=== PATIENT | female | born 1935 | race Caucasian/White ===

== ENCOUNTER 2019-10-10 22:43 | Emergency (ER) | payer MEDICARE, OTHER ==
[~2019-10-10] VITALS: Ht 152.4 cm; Wt 62.6 kg
--- OUTSIDE RECORDS SUMMARY | ~2019-10-10 | XMS | Encounter Summary ---
Demographics + + + | Address | [address] | | | [place] [address] | + + + | Home Phone | | + + + | Preferred Language | Unknown | + + + | Marital Status | | + + + | Mandaen Affiliation | Unknown | + + + | Race | White | + + + | Ethnic Group | Not or | + + + Author + + + | Author | [facility] | + + + | Organization | [facility] | + + + | Address | Unknown | + + + | Phone | Unavailable | + + + Support + + +---------+ + | Name | Relationship | Address | Phone | + + +---------+ + | Bev Anderson | ECON | Unknown | | + + +---------+ + Care Team Providers + +------+ + | Care Melting Operator Name | Role | Phone | + +------+ + | Corey Darling MD | PCP | | + +------+ + Encounter Details +--------+ + + + + | Date | Type | Department | Care Team | Description | +--------+ + + + + | 07/19/ | Abstract | Cardiology | Kwadwo Pillai, | | | 2015 | | Arrhythmia at [facility] | [address] | | | | | [address] | [address] | | | | | Mailcode: CH7A | [place], [place] | | | | | [facility] | [address] | | | | | and [address], | [phone] | | | | | | | | | | | Floor [place], [place] | | | | | | [address] | | | | | | [phone] | | | +--------+ + + + [...] on file | | + + + + + + + | Job Start Date | Occupation | Industry | + + + + | Not on file | Not on file | Not on file | + + + + + + + + | Travel History | Travel Start | Travel End | + + + + + + | No recent travel history available. | + + documented as of this encounter Plan of Treatment Not on filedocumented as of this encounter Visit Diagnoses Not on filedocumented in this encounter"
--- OUTSIDE RECORDS SUMMARY | ~2019-10-10 | XMS | Encounter Summary ---
Demographics + + + | Address | [address] | | | [place] [address] | + + + | Home Phone | | + + + | Preferred Language | Unknown | + + + | Marital Status | | + + + | Congregational Affiliation | Unknown | + + + | Race | White | + + + | Ethnic Group | Not or | + + + Author + + + | Author | [facility] | + + + | Organization | [facility] | + + + | Address | Unknown | + + + | Phone | Unavailable | + + + Support + + +---------+ + | Name | Relationship | Address | Phone | + + +---------+ + | Bev Anderson | ECON | Unknown | | + + +---------+ + Care Team Providers + +------+ + | Care Mastic Sprayer Name | Role | Phone | + +------+ + | Corey Darling MD | PCP | | + +------+ + Reason for Visit + + + | Reason | Comments | + + + | SVT - | | | Supraventricular | | | tachycardia | | + + + Consultation (Routine) +--------+--------+ + + + + | Status | Reason | Specialty | Diagnoses / | Referred By | Referred To | | | | | Procedures | Contact | Contact | +--------+--------+ + + + + | Closed | | Cardiology | Procedures | No | Rosas, | | | | | CONSULT TO | Referring | MD Kwadwo | | | | | CARDIOLOGY | Provider Per | [address] | | | | | | Patient NO | [address] | | | | | | REFERRING | [address] [place], | | | | | | PROVIDER PER | [place] | | | | | | [place] | [address] | | | | | | | Phone: | | | | | | | [phone] | | | | | | | Fax: | | | | | | | [phone] | +--------+--------+ + + + + Encounter Details +--------+---------+ + + + | Date | Type | Department | Care Team | Description | +--------+---------+ + + + | 07/18/ | Office | Cardiology | Kwadwo Pillai, | TAMMIET | | 2016 | Visit | Arrhythmia at [facility] | [address] | (supraventricular | | | | [address] | [address] | tachycardia) (HCC) | | | | Mailcode: [facility] | [place], [place] | (Primary Dx) | | | | [place] for [facility] | [address] | | | | | and Healing, | [phone] | | | | | | | | | | | Floor | | | | | | [address] | | | | | | [phone] | | | +--------+---------+ + + + Social History + + [...] + + documented as of this encounter Last Filed Vital Signs + + + + + | Vital Sign | Reading | Time Taken | Comments | + + + + + | Blood Pressure | 128/74 | 07/19/2015 11:44 AM | | | | | PDT | | + + + + + | Pulse | 77 | 07/19/2015 11:44 AM | | | | | PDT | | + + + + + | Temperature | 36.7 C (98.1 F) | 07/19/2015 11:44 AM | | | | | PDT | | + + + + + | Respiratory Rate | - | - | | + + + + + | Oxygen Saturation | 95% | 07/19/2015 11:44 AM | | | | | PDT | | + + + + + | Inhaled Oxygen | - | - | | | Concentration | | | | + + + + + | Weight | 76.2 kg (168 lb) | 07/19/2015 11:44 AM | | | | | PDT | | + + + + + | Height | 152.4 cm (5') | 07/19/2015 11:44 AM | | | | | PDT | | + + + + + | Body Mass Index | 32.81 | 07/19/2015 11:44 AM | | | | | PDT | | + + + + + documented in this encounter Patient Instructions Patient Instructions Kwadwo Pillai MD - 07/19/2015 12:30 PM PDTThank you for visiting [facility] today. Call our office if you would like to consider a repeat ablation procedure. We will not schedule regular follow up at this time; please call our office to schedule fol low up if you experience worsening of your palpitation symptoms. If you have any questions regarding this visit or your heart health, please call us at [phone] or contact us via [employer]. documented in this encounter Progress Notes Kwadwo Pillai MD - 07/19/2015 11:45 AM PDTFormatting of this note might be different fro m the original. Cardiac Electrophysiology Clinic - New Patient Assessment Ms. Thomas is a 80 y.o. woman with a history of palpitations, COPD, and HTN who now presents to Electrophysiology Clinic for further treatment recommendations. The patient first experienced palpitations in the 1960s. Since this period, she has had 5- 6 total episodes of sustained palpitations. She has been able to terminate her rhythm with valsalva manuvers. [facility]. There was no evidence of du al AV node physiology or an AP. No arrhythmia was inducible and no ablation was performed. The patient recently presented to [facility] 07/07/2015 with symptomatic SVT at 140 -160 bpm. This rhythm was terminated in the ED with adenosine. She was started on metoprol ol and discharged. She unfortunately re-presented to care 24 hours later with recurrent SVT that was again terminated with adenosine. Metoprolol was discontinued and she was subseque ntly started on diltiazem. Since starting the diltiazem she has had one recurrent episode of SVT that self terminated before seeking ED evaluation. When she is in tachycardia she experiences significant neck p ounding. No associated syncope or presyncope. No clear triggers. Many episodes have occurre d at rest. No familial history of sudden cardiac . The patient is a former smoker; she stopped smoking in 1980. Past Medical History Diagnosis Date COPD (chronic obstructive pulmonary disease) (HCC) SVT (supraventricular tachycardia) History reviewed. No pertinent past surgical history. Allergies Allergen Reactions Penicillin Unknown Outpatient Prescriptions Marked as Taking for the 07/19/15 encounter (Office Visit) with Js Pillai MD Medication Sig Dispense Refill acetaminophen-codeine 300-30 mg oral tablet 0 ADVAIR DISKUS 250-50 mcg/dose inhalation blister with device aspirin chewable 81 mg oral tablet,chewable Chew and swallow 81 mg once daily. COMBIVENT RESPIMAT 20-100 mcg/actuation inhalation mist 99 diltiazem CD 24 hour release 180 mg oral capsule,extended release 24hr 0 omeprazole 20 mg oral capsule,delayed release(DR/EC) Take 20 mg by mouth two times parminder y. potassium chloride SR 10 mEq oral tablet,ER particles/crystals 3 sucralfate 1 gram oral tablet 11 trimethoprim-sulfamethoxazole 160-800 mg oral tablet 0 Family History: No family history of SVT. No SCD. Mother with rheumatic heart disease. Bro ther at age 49 secondary to multiple heart attacks. History Substance Use Topics Smoking status: Former Smoker Types: Cigarettes Quit date: 12/06/1980 Smokeless tobacco: Not on file Alcohol Use: Not on file REVIEW OF SYSTEMS: General: No weight changes, fevers, or chills. Skin: No rashes Eyes: No visual changes. CV: Palpitations as above. GI: No melena, bright red blood per rectum, or abdominal pain. : No hematuria. Pulmonary: + COPD on inhaler therapy. Musculoskeletal: No myalgias or arthralgias. Hematologic: No easy bruising or abnormal bleeding. Neurologic: No new headaches, focal weakness, numbness, or tingling. All other systems reviewed and were negative. Physical exam: BP 128/74 | Pulse 77 | Temp (Src) 36.7 C (98.1 F) (Oral) | Ht 1.524 m (5') | Wt 76.204 kg (168 lb) | SpO2 95% | BMI 32.81 kg/(m^2) CONSTITUTIONAL: NAD, conversant and pleasant. HEAD: Normocephalic. EYES: Normal conjunctivae. RESPIRATORY: Clear to auscultation bilaterally with no crackles or wheezes, normal respirat ory effort. CARDIOVASCULAR: Regular rhythm; normal heart sounds with physiologically split S2; no murmu rs, rubs, or gallops. JVP 7 cmH2O. Carotid pulse is 2+, no bruits. ABDOMEN: Soft, non-tender. EXTREMITIES: No edema. SKIN: Warm, well-perfused. NEUROLOGIC: Alert and oriented to person, place, and situation. PSYCHIATRIC: Normal speech and affect. Data: ECG (07/19/2015): Sinus at 75 bpm. Cannot exclude anteroseptal infarct, age indeterminate. Borderline LAD. I have independently reviewed and interpreted this ECG. I reviewed the following outside records, summarized below: Labs (07/09/2015) WBC 15.7 Hct 47.2 Plt 247 INR 0.9 Na 139 K 4.0 Cr 1.07 ECG (07/07/2015): SVT at 147 bpm, no discernable P waves, pseudo R' in V1 with subtle negativ e deflection in the terminal portion of II. TTE (06/2015): EF 70%, moderate LAE, sclerotic AoV, PASP 32-37 mmHg. MPS (06/2014): No evidence of ischemia. Assessment and Plan: 80 y.o. woman with a history of recurrent SVT who now presents for further evaluation. 1. SVT: The patient has symptomatic, recurrent SVT refractory to pharmacologic therapy. 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 She has not ably had a prior EPS that was without inducible tachycardia. Interestingly, dual AV node ph ysiology was also not observed. We discussed treatment options moving forward, including CC B uptitration, AAD therapy, or redo EPS +/- catheter ablation. We reviewed the risks and be nefits of antiarrhythmic drug therapy, including the potential for pro-arrhythmic side effec ts. She understands the periprocedural risks of ablation including a 1% risk of heart block requiring a pacemaker, stroke, cardiac perforation, or vascular injury. We discussed both r ight and left left sided procedures and the need for transseptal puncture in the unlikely ev ent she was found to have a left sided accessory pathway or atrial tachycardia. Finally, we also discussed empiric ablation in the region of the slow pathway if tachycardia was again non-inducible during EPS (the patient would favor such an approach). After a prolonged discussion, Arianne would like further consider ablation. Her prior EPS was not a pleasant event and she wants to talk further about a redo procedure with her . For now she will continue her CCB, although uptitration of this medication could be conside red in the future if ablation is not pursued. The patient was provided with our phone number and will call our office if she would like t o pursue EPS +/- catheter ablation. RTC PRN. Follow up to be determined pending the decision to pursue ablative therapy. Kwadwo Pillai MD Cardiac Electrophysiology documented in this en counter Plan of Treatment Not on filedocumented as of this encounter Visit Diagnoses + + | Diagnosis | + + | SVT (supraventricular tachycardia) (HCC) - Primary Other specified cardiac | | dysrhythmias | + + documented in this encounter"
--- OUTSIDE RECORDS SUMMARY | ~2019-10-10 | XMS | Clinical Summary ---
Demographics + + + | Address | [address] | | | [place] [address] | + + + | Home Phone | | + + + | Preferred Language | Unknown | + + + | Marital Status | | + + + | Anabaptist Affiliation | Unknown | + + + | Race | White | + + + | Ethnic Group | Not or | + + + Author + + + | Author | [facility] | + + + | Organization | [facility] | + + + | Address | Unknown | + + + | Phone | Unavailable | + + + Support + + +---------+ + | Name | Relationship | Address | Phone | + + +---------+ + | Bev Anderson | ECON | Unknown | | + + +---------+ + Care Team Providers + +------+ + | Care Recycling Manager Name | Role | Phone | + +------+ + | Corey Darling MD | PCP | | + +------+ + Source Comments BERNARD is fully live on both [facility] and [facility] Allergies + + + + + + | Active Allergy | Reactions | Severity | Noted | Comments | | | | | Date | | + + + + + + | Penicillin | Unknown | | 07/19/19 | | | | | | 16 | | + + + + + + Medications + + + +---------+------+------+-------+ | Medication | Sig | Dispensed | Refills | Star | End | Statu | | | | | | t | Date | s | | | | | | Date | | | + + + +---------+------+------+-------+ | omeprazole 20 mg | Take 20 mg by mouth | | 0 | 04/1 | | Activ | | oral capsule,delayed | two times daily. | | | 1/20 | | e | | release(DR/EC) | | | | 16 | | | + + + +---------+------+------+-------+ | furosemide 20 mg | Take 20 mg by mouth. | | 0 | 03/3 | | Activ | | oral tablet | | | | 1/20 | | e | | | | | | 16 | | | + + + +---------+------+------+-------+ | | | | 0 | 03/1 | | Activ | | acetaminophen-codein | | | | 5/20 | | e | | e 300-30 mg oral | | | | 16 | | | | tablet | | | | | | | + + + +---------+------+------+-------+ | potassium chloride | | | 3 | 03/2 | | Activ | | SR 10 mEq oral | | | | 7/20 | | e | | tablet,ER | | | | 16 | | | | particles/crystals | | | | | | | + + + +---------+------+------+-------+ | COMBIVENT RESPIMAT | | | 99 | 04/0 | | Activ | | 20-100 | | | | 8/20 | | e | | mcg/actuation | | | | 16 | | | | inhalation mist | | | | | | | + + + +---------+------+------+-------+ | sucralfate 1 gram | | | 11 | 04/0 | | Activ | | oral tablet | | | | 9/20 | | e | | | | | | 16 | | | + + + +---------+------+------+-------+ | ADVAIR DISKUS | | | 0 | 04/1 | | Activ | | 250-50 mcg/dose | | | | 2/20 | | e | | inhalation blister | | | | 16 | | | | with device | | | | | | | + + + +---------+------+------+-------+ | | | | 0 | 02/1 | | Activ | | trimethoprim-sulfame | | | | 20 | | e | | thoxazole 160-800 mg | | | | 16 | | | | oral tablet | | | | | | | + + + +---------+------+------+-------+ | aspirin chewable | Chew and swallow 81 | | 0 | | | Activ | | 81 mg oral | mg once daily. | | | | | e | | tablet,chewable | | | | | | | + + + +---------+------+------+-------+ | DILT-XR 240 mg | Take 240 mg by mouth | | 99 | 04/2 | | Activ | | oral capsule,ext | once daily. | | | /20 | | e | | release degradable | | | | 16 | | | + + + +---------+------+------+-------+ Active Problems Not on file Family History + + +------+ + | Medical History | Relation | Name | Comments | + + +------+ + | Coronary Artery | Brother | | | | Disease | | | | + + +------+ + + +------+ + + | Relation | Name | Status | Comments | + +------+ + + | Brother | | | | + +------+ + + Social History + + + [...] recent travel history available. | + + Last Filed Vital Signs + + + [...] | | + + + + + Plan of Treatment + + + + + | Health Maintenance | Due Date | Last Done | Comments | + + + + + | Pneumococcal | | | | | vaccination (1 of 2 | 3 | | | | - PCV13) | | | | + + + + + | Influenza (Flu) | | | | | vaccination (#1) | 9 | | | + + + + + Results Not on filefrom Last 3 Months"
--- OUTSIDE RECORDS SUMMARY | ~2019-10-10 | XMS | Encounter Summary ---
Demographics + + + | Address | [address] | | | [place] [address] | + + + | Home Phone | | + + + | Preferred Language | Unknown | + + + | Marital Status | | + + + | Temple Affiliation | Unknown | + + + | Race | White | + + + | Ethnic Group | Not or | + + + Author + + + | Author | [facility] | + + + | Organization | [facility] | + + + | Address | Unknown | + + + | Phone | Unavailable | + + + Support + + +---------+ + | Name | Relationship | Address | Phone | + + +---------+ + | Bev Anderson | ECON | Unknown | | + + +---------+ + Care Team Providers + +------+ + | Care Leather Goods Assembler Name | Role | Phone | + +------+ + | Corey Darling MD | PCP | | + +------+ + Encounter Details +--------+ + + + + | Date | Type | Department | Care Team | Description | +--------+ + + + + | 07/18/ | Full Stack Developer | Cardiology | Kwadwo Holly, | Palpitations | | 2016 | | Arrhythmia at [facility] | [address] | (Primary Dx) | | | | [address] | [address] | | | | | Mailcode: CH7A | [place], [place] | | | | | [facility] | [address] | | | | | and [address], | [phone] | | | | | | | | | | | Floor [place], [place] | | | | | | [address] | | | | | | [phone] | | | +--------+ + + + [...] + + + + + + | [facility] | [address] | [facility] [...] | + + + + + | [facility] | [address] | [place], [place] | | | CARDIOLOGY | [address] | [address] | | + + + + + documented in this encounter Visit Diagnoses + + | Diagnosis | + + | Palpitations - Primary | + + documented in this encounter"
--- OUTSIDE RECORDS SUMMARY | ~2019-10-10 | XMS | Encounter Summary ---
Demographics + + + | Address | [address] | | | [place] [address] | + + + | Home Phone | | + + + | Preferred Language | Unknown | + + + | Marital Status | | + + + | Bahai Affiliation | Unknown | + + + | Race | White | + + + | Ethnic Group | Not or | + + + Author + + + | Author | [facility] | + + + | Organization | [facility] | + + + | Address | Unknown | + + + | Phone | Unavailable | + + + Support + + +---------+ + | Name | Relationship | Address | Phone | + + +---------+ + | Bev Anderson | ECON | Unknown | | + + +---------+ + Care Team Providers + +------+ + | Care Rn Trauma Name | Role | Phone | + +------+ + | Corey Darling MD | PCP | | + +------+ + Encounter Details +--------+ + + + + | Date | Type | Department | Care Team | Description | +--------+ + + + + | 07/19/ | Abstract | Cardiology | Kwadwo Pillai, | | | 2015 | | Arrhythmia at [facility] | [address] | | | | | [address] | [address] | | | | | Mailcode: CH7A | [place], [place] | | | | | [facility] | [address] | | | | | and [address], | [phone] | | | | | | | | | | | Floor [place], [place] | | | | | | [address] | | | | | | [phone] | | | +--------+ + + + [...]
--- OUTSIDE RECORDS SUMMARY | ~2019-10-10 | XMS | Encounter Summary ---
Demographics + + + | Address | [address] | | | [place] [address] | + + + | Home Phone | | + + + | Preferred Language | Unknown | + + + | Marital Status | | + + + | Anglican Affiliation | 1001 | + + + | Race | Unknown | + + + | Ethnic Group | Unknown | + + + Author + + + | Author | [facility] | | | and [place] | + + + | Organization | [facility] | | | [...] Providers + +------+ + | Care Community Education Specialist Name | Role | Phone | + +------+ + PCP | Unavailable | + +------+ + Encounter Details +--------+ + + + + | Date | Type | Department | Care Team | Description | +--------+ + + + + | 06/09/ | Hospital | [facility] | Duncan Putnam | Chest pain; SVT | | 2013 - | Encounter | [facility] | MD Terri [address] | (supraventricular | | | | CLINICAL DECISION | [address] | tachycardia); Chest | | 06/11/ | | [address] | [place] [address] | pain, rule out acute | | 2013 | | [place], [place] | [phone] | myocardial | | | | [address] | | infarction; Chest | | | | [phone] | | pain, unspecified; | | | | | | COPD (chronic | | | | | | obstructive | | | | | | pulmonary disease) | | | | | | (HCC); HTN | | | | | | (hypertension) | +--------+ + + + + Social [...] documented as of this encounter Discharge Summaries Adriel Howe MD - 06/11/2013 10:31 AM PST Discharge Summaries by Adriel Green MD at 06/11/13 1031 Author: Adriel Green MD Service: (none) Author Type: Physician Filed: 06/12/132005 Date of Service: 06/11/13 1031 Status: Signed [employer] Installer: Adriel Green MD (Physician) Related Notes: Original Note by Adriel Green MD (Physician) filed at 06/11/[address] [facility] Service: Hospitalist Physician Discharge Summary Patient ID: Chrissy Solomon 1935 77 y.o. Admit date: 06/09/2013 Discharge date: 06/11/2013 Admitting Physician: Duncan Putnam MD Discharge Physician: Adriel Green MD Consultants: Treatment Team: Consulting Physician: Grover Rivera MD Admitting Provider: Duncan Putnam MD Primary Discharge Diagnoses: Principal Problem: *Chest pain, unspecified Active Problems: SVT (supraventricular tachycardia) COPD (chronic obstructive pulmonary disease) HTN (hypertension) HPI and Hospital Course: The patient was admitted to [facility] as a transfer via air ambulance from [facility] in [place]. The patient was noted to have chest pain in associat ion with PSVT. She required recurrent doses of adenosine to control her rate prior to transf er. She was started on low dose metoprolol and she remained in normal sinus rhythm. Her digo mary ann was discontinued (the patient was on digoxin for a number of years prior). She ruled out for acute myocardial injury (she had small "bump" of her troponin right after her transfer which most likely represented a troponin-I leak in view of previously sustained tachycardia) . Subsequent troponin were negative. The patient underwent echocardiogram with results noted below. She also had nuclear medicine myocardial perfusion stress test, i.e., pharmacologica l stress test, on June 10, 2013. The result of it is noted below and essentially was normal. The patient had no further episodes of cardiac-related chest pains. She was seen in consultation by Dr. Rivera who recommended for the patient to be further ev aluated by Dr. Adler, electrophysiology specialist at [facility]. I spoke wi th Dr. Adler today on June 11, 2013, and he agreed to evaluate Ms. Solomon on the outpatient basis in the near future. With respect to the patient's COPD/reactive airway disease, the patient had no significant reactive airway problems following introduction of low dose of metoprolol. I do not expect f or low dose metoprolol to elicit any reactive airway reaction in this patient. Her regimen o f inhalers/nebulizers was augmented by addition of Advair as well as exchange of albuterol n ebulizer for levalbuterol (Xopenex) to be used on p.r.n. basis. The patient reported that wi th albuterol nebulizer in the past she was experiencing severe tremors and anxiety. I will recommend for the patient to be also referred to a pulmonology specialist so that he r COPD/reactive airway disease issues be treated with optimal therapy. The patient will also likely benefit from PFTs as well. Overall, the patient has been declared medically stable for discharge in the morning of Jun. We also took the liberty of discontinuing the patient's theophylline, as it is a medicatio n that might not have a significant efficacy in the patient's underlying COPD/reactive airwa y disease, as shown by a number of studies. In fact, it could also have a negative side effe ct on the patient's cardiac function including intermittent tachycardia/arrhythmias. This is particularly true in the situation where her pulmonary medication list was not optimized at this point. I hope that with addition of Advair, the patient's lung function will experienc e additional benefit. Past Medical History: Past Medical History Diagnosis Date COPD (chronic obstructive pulmonary disease) SVT (supraventricular tachycardia) TIA (transient ischemic attack) Vertigo Osteoporosis Chronic pain Cholecystitis On home oxygen therapy Gastric ulcer Past Surgical History Procedure Date Hysterectomy Appendectomy Abdominal surgery Discharged Condition: Stable for discharge as stated above. Significant Diagnostic Studies: Nm Myocardial Perfusion Spect (stress And Rest) 06/10/2013 CHRISSY SOLOMON 1935 NM MYOCARDIAL PERFUSION SPECT - STRESS AND REST 06/10/2013 4:0 6 PM INDICATION: Chest pain COMPARISON: None. TECHNIQUE: A same day, rest and stress prot ocol was performed. For the resting portion of the study the patient was injected intraveno usly with 10 mCi of technetium 99m labeled Myoview. Gated SPECT imaging was performed in th e supine position. The patient was then pharmacologically stressed with 0.4 mg of regadenos on intravenously according to protocol. Resting heart rate perfecto from 69 beats/min to 88 amarilys ts/min which was 60% of the maximum age-predicted heart rate. At the point of maximum stres s, the patient received 40.8 mCi of technetium 99m labeled Myoview intravenously. Gated SPE CT images were acquired in the prone and supine positions. FINDINGS: There is a small area of fixed perfusion defect involving the apex which may reflect physiologic thinning. There i s no elevation of the transient ischemic dilatation ratio. Normal wall motion and thickening is present. The following functional data was obtained: End-diastolic volume: 73 mL End-sy stolic volume: 32 mL Ejection fraction: 56% 06/10/2013 1. Normal myocardial perfusion study. 2. No evidence of pharmacologic stress in duced ischemia or infarct. 3. Left ventricular ejection fraction is calculated at 56%. Ladonna ctronically signed by Theodore Nova MD on 06/10/2013 4:13 PM Echo Cardiac Adult Complete 06/10/2013 Patient Name: CHRISSY SOLOMON Date of : 1935 [facility] Physician: Zbigniew Rivera MD INDICATIONS SHORTNESS OF BREATH HX COPD CONCLUSIONS 1. Sinus rhythm. 2. A 2-dimensional transthoracic echocardiogram with m-mode, spectral and col or flow Doppler was perfomed. 3. This was a technically adequate study with suboptimal enoch ternal views. 4. Overall left ventricular systolic function is normal with, an EF between 65 - 70 %. 5. The left ventricle cavity size is normal. 6. Left ventricular wall thickness is normal. 7. The right ventricle is normal in size and function. 8. The left atrium is normal in size. 9. The right atrium is normal in size. 10. Aortic valve is trileaflet and is mildl y thickened. 11. There is no evidence of aortic regurgitation. 12. There is no evidence of a ortic stenosis. 13. Mild mitral regurgitation is present. 14. Mild mitral annular calcificat ion present. 15. The tricuspid valve appears structurally normal. 16. Mild tricuspid regurgi tation present. 17. There is mild to moderate pulmonary hypertension. 18. The right ventricu lar systolic pressure (pulmonary artery systolic pressure), as measured by Doppler, is 46.10 mmHg. 19. Pulmonic valve appears structurally normal. 20. Trace pulmonic regurgitation 21. T here is no pericardial effusion. 22. The IVC is normal size (1.5-2.5cm) and collapses <50% w ith sniff, consistent with central venous pressures of 10-15mmHg. FINDINGS -------- ECG rhy thm: Sinus rhythm. Study: A 2-dimensional transthoracic echocardiogram with m-mode, spectral and color flow Doppler was perfomed. Study: This was a technically adequate study with sub optimal parasternal views. Left Ventricle: Overall left ventricular systolic function is nor mal with, an EF between 65 - 70 %. Left Ventricle: The left ventricle cavity size is normal . Left Ventricle: Left ventricular wall thickness is normal. Right Ventricle: The right effie tricle is normal in size and function. Left Atrium: The left atrium is normal in size. Right Atrium: The right atrium is normal in size. Aortic Valve: Aortic valve is trileaflet and i s mildly thickened. Aortic Valve: There is no evidence of aortic regurgitation. Aortic Sulema ve: There is no evidence of aortic stenosis. Mitral Valve: Mild mitral regurgitation is pres ent. Mitral Valve: Mild mitral annular calcification present. Tricuspid Valve: The tricuspi d valve appears structurally normal. Tricuspid Valve: Mild tricuspid regurgitation present. Tricuspid Valve: There is mild to moderate pulmonary hypertension. Tricuspid Valve: The r ight ventricular systolic pressure (pulmonary artery systolic pressure), as measured by Dopp ler, is 46.10mmHg. Pulmonic Valve: Pulmonic valve appears structurally normal. Pulmonic Suleam ve: Trace pulmonic regurgitation. Pericardium: There is no pericardial effusion. IVC/Hepati c Veins: The IVC is normal size (1.5-2.5cm) and collapses <50% with sniff, consistent with c entral venous pressures of 10-15mmHg. Thrombus: No clot visualized MEASUREMENTS -- IVC: 2.30 cm LA Major: 4.24 cm EDV(Teich): 81.86 ml IVSd: 1.10 cm LVIDd: 4.27 c m LVPWd: 1.32 cm LVOT Diam: 1.76 cm %FS: 37.37 % EF(Teich): 67.71 % ESV(Teich): 26 .43 ml IVSs: 1.41 cm LVIDs: 2.67 cm LVPWs: 0.90 cm SV(Teich): 55.43 ml RA Major: 4 .37 cm RVIDd: 3.10 cm LVEF MOD A2C: 59.52 % SV MOD A2C: 49.82 ml LVEF MOD A4C: 70.23 % SV MOD A4C: 67.39 ml EF Biplane: 64.62 % LVEDV MOD BP: 89.27 ml LVESV MOD BP: 31. 57 ml LVEDV MOD A2C: 83.70 ml LVLd A2C: 6.90 cm LVEDV MOD A4C: 95.96 ml LVLd A4C: 6. 93 cm LVESV MOD A2C: 33.88 ml LVLs A2C: 5.41 cm LVESV MOD A4C: 28.56 ml LVLs A4C: 5. 62 cm LAESV(A-L): 34.09 ml LAESV Index (A-L): 64.32 ml/m2 LAAs A2C: 13.49 cm2 LAESV A- L A2C: 32.26 ml LALs A2C: 4.79 cm LAAs A4C: 13.30 cm2 LAESV A-L A4C: 33.59 ml LALs A 4C: 4.47 cm Ao Diam: 3.31 cm AV Cusp: 1.86 cm LA Diam: 2.95 cm LA/Ao: 0.89 IVC di ameter: 1.95 cm IVC collapse: 1.18 cm IVC % collapse: 37.51 % HR: 69.65 BPM AV maxPG : 7.65 mmHg AV meanP.02 mmHg AV Vmax: 1.38 m/s AV Vmean: 0.95 m/s AV VTI: 28.1 7 cm POLI Vmax: 1.95 cm2 POLI (VTI): 2.04 cm2 LVCI Dopp: 7.37 l/minm2 LVCO Dopp: 3.90 l/min HR: 67.90 BPM LVOT maxP.95 mmHg LVOT meanP.60 mmHg LVSI Dopp: 108.55 m l/m2 LVSV Dopp: 57.53 ml LVOT Vmax: 1.11 m/s LVOT Vmean: 0.76 m/s LVOT VTI: 23.63 cm MCO: 417.74 ms MV A Latrell: 0.95 m/s MV DecT: 210.45 ms MV E Latrell: 0.95 m/s MV E/A Rati o: 1 MV PHT: 61.76 ms MVA By PHT: 3.56 cm2 MV A Dur: 114.60 ms Septal e': 0.05 m/ s Septal E/e': 17.75 Lateral e': 0.07 m/s Lateral E/e': 12.90 P Vein A: 0.27 m/s P Vein A Dur: 103.51 ms P Vein D: 0.29 m/s P Vein S/D Ratio: 1.46 P Vein S: 0.43 m/s HR: 71.49 BPM PV maxP.49 mmHg PV meanP.57 mmHg PV Vmax: 0.78 m/s PV Vmean: 0.60 m/s PV VTI: 20.51 cm RAP: 10 mmHg RVSP: 46.09 mmHg TR maxP.09 mmHg TR Vm ax: 3.00 m/s TV A Latrell: 0.49 m/s TV Dec Lincoln: 1.78 m/s2 TV Dec Time: 267.68 ms TV E Latrell: 0.47 m/s TV E/A Ratio: 0.97 Bacteriologist Industrial: PAUL Authenticated by: Zbigniew Rivera MD Report Date/Time: 06-10-2013 17:49:12 06/10/2013 1. Sinus rhythm. 2. A 2-dimensional transthoracic echocardiogram with m-mode, spe ctral and color flow Doppler was perfomed. 3. This was a technically adequate study with sub optimal parasternal views. 4. Overall left ventricular systolic function is normal with, an EF between 65 - 70 %. 5. The left ventricle cavity size is normal. 6. Left ventricular wall thickness is normal. 7. The right ventricle is normal in size and function. 8. The left atri um is normal in size. 9. The right atrium is normal in size. 10. Aortic valve is trileaflet and is mildly thickened. 11. There is no evidence of aortic regurgitation. 12. There is no evidence of aortic stenosis. 13. Mild mitral regurgitation is present. 14. Mild mitral annul ar calcification present. 15. The tricuspid valve appears structurally normal. 16. Mild tric uspid regurgitation present. 17. There is mild to moderate pulmonary hypertension. 18. The r ight ventricular systolic pressure (pulmonary artery systolic pressure), as measured by Dopp ler, is 46.10mmHg. 19. Pulmonic valve appears structurally normal. 20. Trace pulmonic regurg itation 21. There is no pericardial effusion. 22. The IVC is normal size (1.5-2.5cm) and col lapses <50% with sniff, consistent with central venous pressures of 10-15mmHg. Nm Cardiovascular Stress Treadmill 06/10/2013 This procedure was resulted in [facility] (the cardiology system). Please see the Medi a tab in Chart Review to see the result for this procedure. Discharge Vitals: Filed Vitals: 06/10/13 2338 06/11/13 0432 06/11/13 0500 06/11/13 0827 BP: 155/72 155/94 155/94 186/76 Pulse: 70 76 72 66 Temp: 98.2 F (36.8 C) 98.6 F (37 C) 98.8 F (37.1 C) TempSrc: Oral Oral Oral Resp: 16 16 16 Height: Weight: SpO2: 98% 96% 96% Discharge Exam: General: Well nourished. Psych: Alert and oriented x 3. Calm, cooperative. Cardiovascular: Regular rate and rhythm, no murmurs, no thrills. Normal PMI. Respiratory: Clear to auscultation, few scattered expiratory wheezes, no crackles, breathin g non labored. Gastrointestinal: Soft, non-tender, non-distended, positive bowel sounds. No HSM. Musculoskeletal: No edema in bilateral lower extremities. No joint swelling. Skin: Warm and dry, no rashes. Neck: No JVD, Trachea midline. Neurological: Non focal. Motor grossly intact. LABS: Lab 06/11/13 0522 06/10/13 0547 06/09/13 2205 WBC 8.9 8.7 9.9 HGB 12.1 12.0 12.4 HCT 36.4 36.6 36.1 PLT 162 172 201 NEUTOPHILPCT 58.9 55.0 66.0 MONOPCT 7.4 7.6 6.3 Lab 06/11/13 0522 06/09/13 2205 NA 141 142 K 4.0 4.1 CL 106 107 CO2 33* 29 BUN 14 23 CREATININE 0.83 1.12* CALCIUM -- -- PROT 5.9* 6.4 BILITOT 0.3 0.3 ALKPHOS -- -- ALT 69* 92* AST 49* 52* GLUCOSE -- -- Phosphorus: Lab 06/11/13521 PHOS 3.3 Lab 06/11/13 0522 06/09/13 2205 MG 1.7 1.5* Lab 06/10/13 1403 06/10/13 0547 06/09/13 2359 CKTOTAL 67 61 63 TROPONINI 0.069 0.103* 0.122* TROPONINT -- -- -- CKMBINDEX 3.0 3.6 3.0 Disposition: Home under care of the family Follow up: Angelo Adamson MD [address] [address] Schedule an appointment as soon as possible for a visit in 1 week Louis Adler MD [address] [facility] [address] Schedule an appointment as soon as possible for a visit in 1 week Medication List As of 06/11/2013 10:42 AM START taking these medications fluticasone-salmeterol 230-21 MCG/ACT inhaler QTY: 1 Inhaler Refills: 11 Commonly known as: ADVAIR HFA Inhale 2 puffs into the lungs 2 (two) times daily. levalbuterol 0.63 MG/3ML nebulizer solution QTY: 3 mL Refills: 11 Commonly known as: XOPENEX Take 3 mLs by nebulization every 6 (six) hours as needed for Wheezing or Shortness of [place] th. metoprolol 25 MG tablet QTY: 60 tablet Refills: 3 Commonly known as: LOPRESSOR Take 1 tablet by mouth 2 (two) times daily. nitroGLYCERIN 0.4 MG SL tablet QTY: 90 tablet Refills: 3 Commonly known as: NITROSTAT Place 1 tablet under the tongue every 5 (five) minutes as needed for Chest pain. CONTINUE taking these medications aspirin 81 MG EC tablet Refills: 0 hydrochlorothiazide 25 MG tablet Refills: 0 Commonly known as: HYDRODIURIL losartan 100 MG tablet Refills: 0 Commonly known as: COZAAR omeprazole 20 MG capsule Refills: 0 Commonly known as: priLOSEC OXYGEN (outpatient therapy) Refills: 0 potassium chloride 10 MEQ tablet Refills: 0 Commonly known as: K-DUR tiotropium 18 MCG inhalation capsule Refills: 0 Commonly known as: SPIRIVA STOP taking these medications digoxin 0.25 MG tablet Commonly known as: LANOXIN PROAIR HFA IN theophylline 300 MG 24 hr capsule Commonly known as: KRISTI-24 Where to get your medications These are the prescriptions that you need to tile picker. You may get these medications from any pharmacy. fluticasone-salmeterol 230-21 MCG/ACT inhaler levalbuterol 0.63 MG/3ML nebulizer solution metoprolol 25 MG tablet nitroGLYCERIN 0.4 MG SL tablet Adriel Green MD 06/11/2013 10:42 AM Discharge took more than 35 minutes, to include final examination, discussion of admission, and preparation of prescriptions, instructions for ongoing care, follow up and dictation of summary. documented in thi s encounter Progress Notes Conversion Transaction, Provider Unknown - 06/11/2013 12:29 PM PSTFormatting of this note m ight be different from the original. Nurse Progress Note by Prem Mcginnis RN at 06/11/13 6938 Author: Prem Mcginnis RN Service: (none) Author Type: Registered Nurse Filed: 06/11/13 8917 Date of Service: 03/07/14 1229 Status: Signed [employer] Installer: Prem Mcginnis RN (Registered Nurse) Discharged to home with family in stable condition. Patient and family deny any further que stions or concerns. Adriel Mota MD - 06/10/2013 5:11 PM PSTFormatting of this note might be different from th e original. Progress Notes by Adriel Green MD at 06/10/13 1711 Author: Adriel Green MD Service: (none) Author Type: Physician Filed: 06/11/13 1055 Date of Service: 06/10/131710 Status: Signed [employer] Installer: Adriel Green MD (Physician) Related Notes: Original Note by Adriel Green MD (Physician) filed at 06/10/132035 [facility] Service: Hospitalist Progress Note Pt: Chrissy Solomon AGE/SEX: 77 y.o. female : 1935 ROOM: [facility]112- TODAY'S DATE: 06/10/2013 Hospital Day: LOS: 1 day SUBJECTIVE: The patient had no further episodes of chest pain. She remains in normal sinus rhythm since transfer from [facility] via air ambulance. She underwent a nuclear m yocardial perfusion stress test today which showed no evidence of ischemia. Her echocardiogr am study was also reassuring as per Dr. Rivera's interpretation. I appreciate Dr. Rivera's r ecommendations and evaluation. Ms. Solomon has been describing previous episodes of paroxysmal tachycardia which usually is associated with chest pains. She has had these episodes recurr ently over the past number of years. She has been previously on digoxin which did not seem t o limit the frequency of severity of these episodes. The patient was quite reluctant to be d ischarged home today due to the fact that she just has been transferred to our facility. She does have underlying reactive airway disease and home oxygen dependent COPD. I am planning to monitor her airway function/reactivity with introduction of metoprolol. She currently is in normal sinus rhythm with a rate ranging from 60 to 70 beats per minute. All the patient's questions and family questions were answered at the bedside to their satisfaction. The patient did demonstrate a mild elevation of troponin-I which most likely represented a rate/tachycardia related demand marker leak, which by now has normalized. Review of Systems: Review of Systems Constitutional: Negative for fever, chills, weight loss, malaise/fatigue and diaphoresis. HENT: Negative for hearing loss, ear pain, nosebleeds, neck pain, tinnitus and ear discharg e. Eyes: Negative for blurred vision, double vision, photophobia, pain, discharge and redness. Respiratory: Negative for cough, hemoptysis, sputum production and shortness of breath. Cardiovascular: Positive for palpitations. Negative for chest pain, orthopnea, claudication , leg swelling and PND. Gastrointestinal: Positive for heartburn. Negative for nausea, vomiting, abdominal pain, di arrhea, constipation, blood in stool and melena. Recurrent problems with known hiatal hernia; difficulty with swallowing solids causing recurrent nausea during meals . Genitourinary: Negative for dysuria, urgency, frequency, hematuria and flank pain. Musculoskeletal: Negative for myalgias, back pain, joint pain and falls. Skin: Negative for itching and rash. Neurological: Negative for dizziness, tingling, tremors, sensory change, speech change, foc al weakness, seizures, loss of consciousness, weakness and headaches. Endo/Heme/Allergies: Negative for environmental allergies and polydipsia. Psychiatric/Behavioral: Negative for depression and suicidal ideas. Scheduled Medications aspirin 325 mg Oral Daily with breakfast enoxaparin 40 mg Subcutaneous Q24H losartan 100 mg Oral Daily metoprolol 25 mg Oral BID omeprazole 20 mg Oral BID AC tiotropium 18 mcg Inhalation Daily [DISCONTINUED] metoprolol 12.5 mg Oral BID Continuous Infusions sodium chloride 110 mL/hr at 06/10/13 0206 PRN Medications acetaminophen, acetaminophen, albuterol, aluminum-magnesium hydroxide-simethicone, HYDROmor phone, HYDROmorphone, LORazepam, LORazepam, nitroGLYCERIN, ondansetron, ondansetron, polyeth ylene glycol, [COMPLETED] regadenoson, zolpidem Allergy: Allergies Allergen Reactions Penicillins Other (See Comments) Loss of consciousness, per patient OBJECTIVE Vitals: Patient Vitals for the past 24 hrs: BP Temp Temp src Pulse Resp SpO2 Height Weight 06/10/13 1643 163/70 mmHg 98.5 F (36.9 C) Oral 74 18 97 % - - 06/10/13 1253 139/71 mmHg 98.3 F (36.8 C) Oral 75 18 97 % - - 06/10/13 0820 144/65 mmHg 98.1 F (36.7 C) Oral - 20 97 % - - 06/10/13 0501 139/69 mmHg 97.8 F (36.6 C) Oral 77 16 96 % - - 06/10/132155 147/62 mmHg 98.2 F (36.8 C) Oral 73 16 96 % - - 06/09/13 2159 132/61 mmHg 98.6 F (37 C) Oral 75 16 95 % - - 06/09/136 - - - - - - 1.473 m (4' 10") - 06/09/13 2118 150/62 mmHg 97.4 F (36.3 C) - 76 16 96 % - - 06/09/132011 125/73 mmHg - - 75 16 97 % - - 06/09/131928 139/90 mmHg 97.6 F (36.4 C) - 75 16 95 % 1.473 m (4' 10") 68.493 kg (15 1 lb) I&O Detailed Table: Intake/Output Summary (Last 24 hours) at 06/10/13 171 Last data filed at 06/10/13 0501 Gross per 24 hour Intake 300 ml Output 0 ml Net 300 ml Patient Vitals for the past 96 hrs: Weight 06/09/131928 68.493 kg (151 lb) Hemodynamics Last 24hrs: Examination: HEENT: Pupils equal, round, and reactive to light. Extraocular muscles are intact. Moist mu cous membranes are present. NECK: There is no JVD. No carotid bruits. LUNGS: Clear to auscultation in apical portions of the lungs anteriorly. Posteriorly, the p atient has scattered faint wheezes in expiratory phase bilaterally. There are no accessory m uscles of respiration used. CHEST: Chest expands symmetrically. HEART: S1, S2 and regular without murmurs, rubs, or gallops. ABDOMEN: Bowel tones are present. Soft, nontender, and nondistended. EXTREMITIES: No edema. Peripheral pulses intact. SKIN: No petechiae or ecchymosis. Capillary refill is approximately 2 seconds. LABS: Lab 06/10/13 0547 06/09/13 2205 WBC 8.7 9.9 HGB 12.0 12.4 HCT 36.6 36.1 PLT 172 201 NEUTOPHILPCT 55.0 66.0 MONOPCT 7.6 6.3 Lab 06/09/13 2205 NA 142 K 4.1 CL 107 CO2 29 BUN 23 CREATININE 1.12* CALCIUM -- PROT 6.4 BILITOT 0.3 ALKPHOS -- ALT 92* AST 52* GLUCOSE -- Phosphorus: Lab 06/09/13 2205 PHOS 3.3 Lab 06/09/13 2205 MG 1.5* Lab 06/10/13 1403 06/10/13 0547 06/09/13 2359 CKTOTAL 67 61 63 TROPONINI 0.069 0.103* 0.122* TROPONINT -- -- -- CKMBINDEX 3.0 3.6 3.0 Diagnostic: Nm Myocardial Perfusion Spect (stress And Rest) 06/10/2013 CHRISSY SOLOMON 1935 NM MYOCARDIAL PERFUSION SPECT - STRESS AND REST 06/10/2013 4:0 6 PM INDICATION: Chest pain COMPARISON: None. TECHNIQUE: A same day, rest and stress prot ocol was performed. For the resting portion of the study the patient was injected intraveno usly with 10 mCi of technetium 99m labeled Myoview. Gated SPECT imaging was performed in th e supine position. The patient was then pharmacologically stressed with 0.4 mg of regadenos on intravenously according to protocol. Resting heart rate perfecto from 69 beats/min to 88 amarilys ts/min which was 60% of the maximum age-predicted heart rate. At the point of maximum stres s, the patient received 40.8 mCi of technetium 99m labeled Myoview intravenously. Gated SPE CT images were acquired in the prone and supine positions. FINDINGS: There is a small area of fixed perfusion defect involving the apex which may reflect physiologic thinning. There i s no elevation of the transient ischemic dilatation ratio. Normal wall motion and thickening is present. The following functional data was obtained: End-diastolic volume: 73 mL End-sy stolic volume: 32 mL Ejection fraction: 56% 06/10/2013 1. Normal myocardial perfusion study. 2. No evidence of pharmacologic stress in duced ischemia or infarct. 3. Left ventricular ejection fraction is calculated at 56%. Ladonna ctronically signed by Theodore Nova MD on 06/10/2013 4:13 PM Nm Cardiovascular Stress Treadmill 06/10/2013 This procedure was resulted in [facility] (the cardiology system). Please see the Medi a tab in Chart Review to see the result for this procedure. Past Medical History Diagnosis Date COPD (chronic obstructive pulmonary disease) SVT (supraventricular tachycardia) TIA (transient ischemic attack) Vertigo Osteoporosis Chronic pain Cholecystitis On home oxygen therapy Gastric ulcer Past Surgical History Procedure Date Hysterectomy Appendectomy Abdominal surgery PROBLEM LIST Principal Problem: *Chest pain, unspecified Active Problems: SVT (supraventricular tachycardia) COPD (chronic obstructive pulmonary disease) HTN (hypertension) ASSESSMENT & PLAN A 77-year-old female with the followin. Resolved chest pain which occurred in association with paroxysmal supraventricular tachy cardia. The patient had no further episodes of SVT after a transfer via air ambulance from [facility]. Continue low-dose metoprolol. We will increase the dose of metoprolol f rom 12.5 mg b.i.d. to 25 mg p.o. b.i.d. with continuous telemetry monitoring as well as oxyg en saturation monitoring. The results of nuclear myocardial perfusion stress test and echoca rdiogram are reassuring. The patient ruled out for acute myocardial injury with fairly negat shadi cardiac bio markers which now are normalized. She had very mild troponin-I "bump" likely related to [facility]. 2. Supraventricular tachycardia. The patient reports recurrent episodes of paroxysmal tachy cardia/palpitations over the past number of years. Up until this hospitalization she has bee n treated with chronic oral digoxin. The effect of the digoxin was noted not to be protectiv e against early occurrence of these paroxysmal tachycardic events. She responded well to low -dose metoprolol. Her digoxin will be held and discontinued. The patient will likely benefit from outpatient director of enterprise architecture evaluation/consultation following her discharge from [facility]. 3. Chronic obstructive pulmonary disease with home oxygen dependency, ranging from 1 to 2 L per minute via nasal cannula. Currently the patient appears to be compensated. Continue Spi teagan. Continue p.r.n. nebulizers. Continue judicious oxygen supplementation at 1 to 2 L via nasal cannula. 4. Hypertension. The patient was initiated on metoprolol 25 mg p.o. b.i.d. Continue losarta n at 100 mg p.o. daily. 5. DVT prophylaxis. SCDs and subcutaneous enoxaparin 40 mg q.24h. 6. Reports of problematic and symptomatic hiatal hernia. The patient has had difficulty swa llowing solids for the past number of years. This should be evaluated on an outpatient basis to see whether or not the patient might be a candidate for surgical correction. If such, pu lmonary specialist consultation might be necessary to evaluate the patient's COPD severity i f surgical intervention is contemplated. 7. The patient is consulted by Dr. Rivera. His consultation and help in this case is apprec iated. Adriel Green MD 06/10/2013 5:11 PM onversion Transa ction, Provider Unknown - 06/10/2013 2:57 PM PST Case Management by TAE Oleary at 06/10/13 8650 Author: TAE Oleary Service: (none) Author Type: Retread Builder Filed: 06/10/13 0847 Date of Service: 06/10/13 8884 Status: Signed Electric Milkers Installer: TAE Oleary (Retread Builder) 06/10/13 0808 Discharge Planning Evaluation Admitting Diagnosis Chest pain Living Arrangements Spouse/significant other Support Systems Spouse/significant other;Family members Type of Residence Private residence House type Mobile home Steps to enter 1 Bathrooms on 1st Floor 1-Full Mental Status Oriented Prior functional status Pt uses a 4WW and has canes at home. Met with: Pt and discussed discharge planning, Pt is a 77 y.o., female Patient's PCP is: ANGELO ADAMSON Patient's insurance: Medicare / Medicaid Coverage concerns: No concerns reported Medication coverage/concerns: No concerns reported Community resources utilized / needed: None reported Assistance in transportation: / daughters Identification of any specific education / training: TBD Barriers to Discharge / Alternative housing needed: n/a Anticipated DCP: Home with and assistance from daughters. Pt reported that her daughters assist with chores and groceries shopping, etc. Pt has home O2 thru [employer]. Pt's home is WC accessible and has shower chair. No dc needs identified. Trice Carrasco onver jessica Transaction, Provider Unknown - 06/10/2013 1:08 AM PST Nurse Progress Note by Luis Borden RN at 06/10/13107 Author: Luis Borden RN Service: (none) Author Type: Registered Nurse Filed: 06/10/13108 Date of Service: 06/10/13107 Status: Signed Electric Milkers Installer: Luis Borden RN (Registered Nurse) Informed night hospitalist of elevated Trop of .122 drawn at midnight, no new orders receiv ed. Will continue to monitor. Luis Borden RN onver jessica Transaction, Provider Unknown - 06/10/2013 12:17 AM PST Progress Notes by Sherri Garcia RPH at 06/10/1316 Author: Sherri Garcia RPH Service: (none) Author Type: Pharmacist Filed: 06/10/1317 Date of Service: 06/10/1316 Status: Signed Electric Milkers Installer: Sherri Garcia RPH (Pharmacist) Clinical Pharmacy Note: Renal Monitoring Chrissy Solomon 77 y.o. female CREATININE: 1.12 mg/dL ABNORMAL (06/09/135) Estimated creatinine clearance - Cockcroft-Gault CrCl: 35.6 mL/min Currently, there are no medications needing to be adjusted. Pharmacy will continue to monit or for changes in medication orders and in renal function and adjust accordingly per P & T c ommittee. Sherri Garcia PharmD 06/10/2013 12:17 AM onver jessica Transaction, Provider Unknown - 06/10/2013 12:07 AM PST Progress Notes by Sherri Garcia RPH at 06/10/13 0007 Author: Sherri Garcia RPH Service: (none) Author Type: Pharmacist Filed: 06/10/136 Date of Service: 06/10/136 Status: Signed Electric Milkers Installer: Sherri Garcia RPH (Pharmacist) Clinical Pharmacy Note: Renal Monitoring Chrissy Solomon 77 y.o. female Height: 147.3 cm Weight: 68.5 kg Pharmacy dosing for renal function per Dr. Putnam. Currently, there are no labs. Pharmacy will adjust medications, if necessary, in AM when la bs are reported per P & T committee. Sherri Garcia PharmD 06/10/2013 12:06 AM docume nted in this encounter H&P Notes Duncan Putnam MD - 06/09/2013 8:32 PM PSTFormatting of this note might be dif ferent from the original. H&P by Duncan Putnam MD at 06/09/132031 Author: Duncan Putnam MD Service: (none) Author Type: Physician Filed: 06/10/13 1403 Date of Service: 06/09/132031 Status: Signed Electric Milkers Installer: Duncan Putnam MD (Physician) Related Notes: Original Note by Duncan Putnam MD (Physician) filed at 06/10/[address] [facility] Service: Hospitalist Admission History & Physical Date of Admission: 06/09/2013 Requesting Physician: Sharad , Emergency Department Reason for Admission: Chest pain. History Obtained From: patient CHIEF COMPLAINT: Chest pain. HISTORY OF PRESENT ILLNESS The patient is a 77 y.o. female with significant past medical history. Patient is a transfer from [facility]. Initially she was seen in her primary care office and from her primary care office she was sent to the emergency ro om because she was complaining of general weakness and chest pain with some tachycardia. At [facility] they gave her 1 dose of 6 mg adenosine, followed by 12 mg for severe v entricular tachycardia and also nitroglycerin followed by nitroglycerin drip. According to t he record the troponin was positive, but when she arrived here her troponin was 0.07 and the n subsequent 0.122, which by our standards is not non-ST elevation ID. According to the patient, she has these symptoms for almost 3 years now on and off, and tod ay the symptoms were a little bit worse. Also she reported to me back in 1960s she had supra ventricular tachycardia and her primary doctor told her to do a gag or induce vomiting and t hat helped her symptoms because he was trying to help her over the phone. Currently she is on digoxin for at least 10 years and she could not tell me for what reason , but it seems like for paroxysmal arrhythmia. The patient has a history of exposure to fenfluramine/phentermine, and she does not know if she has valve damage or not but I am doing an echocardiogram in the morning. Patient currently chest pain free. She denies any palpitations. Her monitor is showing norm al sinus rhythm, around 70 beats per minute. Her symptoms very much improved. I explained to her, given her history we will need to do some cardiac workup including stress test and ech ocardiogram in the morning and will see if we can get cardiology to see her while she is in the hospital, otherwise she should see cardiology at least 1 to 2 times a year, given her si gnificant mentioned-above symptoms. The patient denied any nausea. No vomiting, no diaphoresis, no pain, and no other significa nt complaint. REVIEW OF SYSTEMS Negative except for pertinent items noted in HPI. Past Medical History Diagnosis Date COPD (chronic obstructive pulmonary disease) SVT (supraventricular tachycardia) TIA (transient ischemic attack) Vertigo Osteoporosis Chronic pain Cholecystitis On home oxygen therapy Gastric ulcer Past Surgical History Procedure Date Hysterectomy Appendectomy Immunizations: Influenza: Ordered Pneumoccocal: Ordered Allergies Allergen Reactions Penicillins Other (See Comments) Loss of consciousness, per patient (Not in a hospital admission) No family history on file. History Social History Marital Status: Spouse Name: N/A Number of Children: N/A Years of Education: N/A Occupational History Not on file. Social History Main Topics Smoking status: Never Smoker Smokeless tobacco: Not on file Alcohol Use: No Drug Use: Not on file Sexually Active: Other Topics Concern Not on file Social History Narrative No narrative on file PHYSICAL EXAM Vital Signs: BP 125/73 | Pulse 75 | Temp 97.6 F (36.4 C) | Resp 16 | Ht 1.473 m (4' 10") | Wt 68.493 kg (151 lb) | BMI 31.57 kg/m2 | SpO2 97% General Appearance: Alert, cooperative, no distress, appears stated age Head: Normocephalic, without obvious abnormality, atraumatic Eyes: PERRL, conjunctiva/corneas clear, EOM's intact, fundi benign, both eyes Ears: Normal TM's and external ear canals, both ears Nose: Nares normal, septum midline, mucosa normal, no drainage or sinus tenderness Throat: Lips, mucosa, and tongue normal; teeth and gums normal Neck: Supple, symmetrical, trachea midline, no adenopathy; thyroid: No enlargement/tenderness/nodules; no carotid bruit or JVD Back: Symmetric, no curvature, ROM normal, no CVA tenderness Lungs: Clear to auscultation bilaterally, respirations unlabored Chest wall: No tenderness or deformity Heart: Regular rate and rhythm, S1 and S2 normal, no murmur, rub or gallop Abdomen: Soft, non-tender, bowel sounds active all four quadrants, no masses, no organomegaly Extremities: Extremities normal, atraumatic, no cyanosis or edema Pulses: 2+ and symmetric all extremities Skin: Skin color, texture, turgor normal, no rashes or lesions Lymph nodes: Cervical, supraclavicular, and axillary nodes normal Neurologic: CNII-XII intact. Normal strength, sensation and reflexes throughout DATA CBC: No results found for this basename: WBC, RBC, HGB, HCT, MCV, MCH, MCHC, RDW, PLT, MPV, DIFF TYPE CMP: No results found for this basename: NA, K, CL, CO2, ANIONGAP, GLUF, BUN, CREATININE, BCR, C A, PROT, ALB, GLOB, AGRATIO, BILITOT, ALP, AST, ALT, EGFR PT/INR: No results found for this basename: PROTIME, INR PROBLEM LIST Principal Problem: *Chest pain, unspecified Active Problems: SVT (supraventricular tachycardia) COPD (chronic obstructive pulmonary disease) HTN (hypertension) ASSESSMENT & PLAN 1. Chest pain with significant chronic course over the last 3 years; according to her almos t 3 years now she has on-and-off chest pain. Today she had most significant pain. Her tropon in at [facility] was reported to be positive, but our labs indicate this is only 0 .07 and second set was 0.122 which is still below the threshold for non-STEMI. Patient will be admitted to medical floor, podiatric aide, do 3 sets of cardiac enzymes. Will arrange for a stress test in the morning. Will do aspirin 325 mg. Also, given the history of exposur e to fenfluramine/phentermine, will do echocardiogram to look for her valves. If any valve f inding, will consult with photographic supervisor, especially with the history she has paroxysmal supra ventricular tachycardia. I elect to take her off digoxin, given her renal function and her a ge, and start her on low dose of Lopressor 12.5 mg twice because of her significant history of arrhythmia. Patient currently asymptomatic. 2. History of supraventricular tachycardia. Will start her on beta-fermín and take her off digoxin and will do an echocardiogram to look for any valvular heart disease in the morning . 3. COPD, currently in acute exacerbation. Will resume Spiriva and oxygen, as needed. She is currently also on theophylline. I am checking her theophylline level before restarting her medicine. 4. Hypertension. Will resume Losartan 100 mg daily. Start beta-efrmín, Lopressor 12.5 mg t wice, but stop hydrochlorothiazide given her renal function. 5. Hyperglycemia. No history of diabetes. Will screen hemoglobin A1c. 6. Mildly elevated liver function. Patient has no history of alcoholism or hepatitis C. Cur rently she is not on a statin, so I am not sure why she has mildly elevated liver function. Will monitor that in the morning. After rehydration, if persistently elevated will do ultras ound on her liver. 7. Acute renal failure on dehydration. Will stop hydrochlorothiazide, start gentle hydratio n with normal saline at 110 mL/h. Monitor her kidney function in the morning. 8. Gastroesophageal reflux disease. Omeprazole 20 mg daily. 9. DVT prophylaxis. Lovenox 40 mg subcutaneous daily. 10. FULL CODE. 11. Time for admission 65 minutes. 12. Estimated hospital stay 1 night. Disposition: Admit to medical floor. Code Status: Full Code. Primary Care Physician: ANGELO PUTNAM MD 06/09/2013 documente d in this encounter Procedure Notes Romero Fitzgerald NP - 06/10/2013 11:47 AM PST Procedures by MARCEL Holman at 06/10/13 1147 Author: MARCEL Holman Service: (none) Author Type: Advanced Registered Nurse Pr actitioner Filed: 06/10/13 1149 Date of Service: 06/10/13 1147 Status: Signed Electric Milkers Installer: MARCEL Holman (Advanced Registered Nurse Practitioner) Pre-procedure Diagnoses: 1. Chest pain [786.50] 2. SVT (supraventricular tachycardia) (HCC) [427.89] Post-procedure Diagnoses: 1. Chest pain [786.50] 2. SVT (supraventricular tachycardia) (HCC) [427.89] Procedures: 1. NM MYOCARDIAL PERFUSION SPECT - STRESS AND REST [PTQ589 (Custom)] [facility] Service: Diagnostic Imaging/Nuclear Medicine Cardiac Stress Test Note Type of Stress Test performed (protocol): Pharmacologic stress test Yasmany protocol time (if applicable): N/A Rhythm changes: None Ectopy: Occasional PVC Symptoms experienced during exam: None ST/T wave changes: None Medications administered: Lexiscan 0.4 mg MARCEL HOLMAN 06/10/2013 11:48 AM documented in th is encounter Consult Notes Ari Rivera MD - 06/10/2013 5:18 PM PSTFormatting of this note might be diffe rent from the original. Consult* by Grover Rivera MD at 06/10/13 7532 Author: Grover Rivera MD Service: Cardiology Author Type: Physician Filed: 06/10/13 1758 Date of Service: 06/10/131717 Status: Signed Electric Milkers Installer: Grover Rivera MD (Physician) [facility] Service: Cardiology Initial Consult Note Date of Admission: 06/09/2013 Reason for Consultation:SVT and chest pain Requesting Physician: Hospitalist History Obtained From: patient, spouse, daughter CHIEF COMPLAINT: Chest Pain/Neck Pressure and fast heart beat HISTORY OF PRESENT ILLNESS The patient is a 77 y.o. female with significant past medical history of COPD, SVT, TIA who presents with Chest Pressure and SVT. She received Adenosine at [facility] in [place], [place]. She has had 2 previous episodes of SVT requiring Adenosine therapy . She notices her heart to race and her chest pressure/neck pressure every week or so. Raul chambers has taken Digoxin in the past for her fast heart rate. REVIEW OF SYSTEMS Review of Systems Past Medical History Diagnosis Date COPD (chronic obstructive pulmonary disease) SVT (supraventricular tachycardia) TIA (transient ischemic attack) Vertigo Osteoporosis Chronic pain Cholecystitis On home oxygen therapy Gastric ulcer Past Surgical History Procedure Date Hysterectomy Appendectomy Abdominal surgery Allergies Allergen Reactions Penicillins Other (See Comments) Loss of consciousness, per patient Prescriptions prior to admission Medication Sig Dispense Refill Albuterol Sulfate (PROAIR HFA IN) Inhale into the lungs 2 (two) times daily. aspirin 81 MG EC tablet Take 81 mg by mouth daily with breakfast. digoxin (LANOXIN) 0.25 MG tablet Take 250 mcg by mouth daily. hydrochlorothiazide (HYDRODIURIL) 25 MG tablet Take 12.5 mg by mouth daily. losartan (COZAAR) 100 MG tablet Take 100 mg by mouth daily. omeprazole (PRILOSEC) 20 MG capsule Take 20 mg by mouth 2 (two) times daily. OXYGEN (outpatient therapy) Inhale 2 L into the lungs. potassium chloride (K-DUR) 10 MEQ tablet Take 10 mEq by mouth 2 (two) times daily. theophylline (KRISTI-24) 300 MG 24 hr capsule Take 300 mg by mouth 2 (two) times daily. tiotropium (SPIRIVA) 18 MCG inhalation capsule Inhale 18 mcg into the lungs daily. Scheduled Medications aspirin 325 mg Oral Daily with breakfast enoxaparin 40 mg Subcutaneous Q24H losartan 100 mg Oral Daily metoprolol 25 mg Oral BID omeprazole 20 mg Oral BID AC tiotropium 18 mcg Inhalation Daily [DISCONTINUED] metoprolol 12.5 mg Oral BID Continuous Infusions sodium chloride 110 mL/hr at 06/10/13 0206 PRN Medications acetaminophen, acetaminophen, albuterol, aluminum-magnesium hydroxide-simethicone, HYDROmor phone, HYDROmorphone, LORazepam, LORazepam, nitroGLYCERIN, ondansetron, ondansetron, polyeth ylene glycol, [COMPLETED] regadenoson, zolpidem No family history on file. History Social History Marital Status: Spouse Name: N/A Number of Children: N/A Years of Education: N/A Occupational History Not on file. Social History Main Topics Smoking status: Former Smoker Smokeless tobacco: Never Used Alcohol Use: No Drug Use: Not on file Sexually Active: Other Topics Concern Not on file Social History Narrative No narrative on file PHYSICAL EXAM Vital Signs: BP 163/70 | Pulse 74 | Temp 98.5 F (36.9 C) (Oral) | Resp 18 | Ht 1.473 m (4' 10") | Wt 68.493 kg (151 lb) | BMI 31.57 kg/m2 | SpO2 97% | ? No Temp: [97.4 F (36.3 C)-98.6 F (37 C)] 98.5 F (36.9 C) (06/10 1642) BP: (125-163)/(61-90) 163/70 mmHg (06/10 1642) Heart Rate: [73-77] 74 (06/10 1642) Resp: [16-20] 18 (06/10 1642) SpO2: [95 %-97 %] 97 % (06/10 1642) Height: [147.3 cm (4' 10")] 147.3 cm (4' 10") (06/10 2155) Weight: [68.493 kg (151 lb)] 68.493 kg (151 lb) (06/09 1928) BMI (Calculated): [31.6] 31.6 (06/09 1928) Physical Exam WDWN Elderly woman who appears in NAD HEENT ATNC Ears positive creases Neck No carotid bruits JVP flat Lungs Decreased in the bases otherwise CTA Heart S1S2 RRR EKG-Intial SVT @ [address]-T wave changes at [facility]. DATA CBC: Lab Results Component Value Date WBC 8.7 06/10/2013 RBC 4.08 06/10/2013 HGB 12.0 06/10/2013 HCT 36.6 06/10/2013 MCV 89.8 06/10/2013 MCH 29.4 06/10/2013 MCHC 32.8 06/10/2013 RDW 41.6 06/10/2013 PLT 172 06/10/2013 MPV 10.2 06/10/2013 DIFFTYPE AUTOMATED 06/10/2013 WBC: Lab Results Component Value Date WBC 8.7 06/10/2013 NEUTROABS 4.8 06/10/2013 LYMPHSABS 2.8 06/10/2013 LYMPHOPCT 32.2 06/10/2013 MONOPCT 7.6 06/10/2013 EOSABS 0.4 06/10/2013 EOSPCT 4.8 06/10/2013 BASOSABS 0.0 06/10/2013 BASOPCT 0.4 06/10/2013 Platelets: Lab Results Component Value Date PLT 172 06/10/2013 CMP: Lab Results Component Value Date NA 142 06/09/2013 K 4.1 06/09/2013 CL 107 06/09/2013 CO2 29 06/09/2013 ANIONGAP 9 06/09/2013 GLUF 160* 06/09/2013 BUN 23 06/09/2013 CREATININE 1.12* 06/09/2013 BCR 21 06/09/2013 CA 9.2 06/09/2013 PROT 6.4 06/09/2013 ALB 3.4 06/09/2013 GLOB 3.0 06/09/2013 BILITOT 0.3 06/09/2013 ALP 91 06/09/2013 AST 52* 06/09/2013 ALT 92* 06/09/2013 EGFR 50* 06/09/2013 Last 3 Troponin: Lab Results Component Value Date TROPONINI 0.069 06/10/2013 TROPONINI 0.103* 06/10/2013 TROPONINI 0.122* 06/09/2013 CPK: Lab Results Component Value Date CKTOTAL 67 06/10/2013 CKMB: Lab Results Component Value Date CKMB 2.0 06/10/2013 TSH: No results found for this basename: TSH, TSHNEO, TSHREFLEX PROBLEM LIST Principal Problem: *Chest pain, unspecified Active Problems: SVT (supraventricular tachycardia) COPD (chronic obstructive pulmonary disease) HTN (hypertension) ASSESSMENT & PLAN The patient is a 77 y.o. female with significant past medical history of COPD, SVT, TIA who presents with Chest Pressure and SVT. She received Adenosine at [facility] in [place], [place]. She has had 2 previous episodes of SVT requiring Adenosine therapy. She notices her heart to race and her chest pressure/neck pressure every week or so. She has taken Digoxin in the past for her fast heart rate. Her Echocardiogram shows overall g ood LV function. I agree with Metoprolol therapy. I would recommend that she has a consultation with Dr Kassandra bolanos Oncology Patient Navigator. She may be a candidate for ablation of her SVT. Her MPI was nor mal with no evidence of ischemia. Code Status: Full Code Primary Care Physician: ANGELO ADAMSON Thank you for allowing me to participate in the care of this patient. Grover RIVERA MD 06/10/2013 documented i n this encounter ED Notes Ky Orourke MD - 06/09/2013 8:06 PM PSTFormatting of this note might be different fr om the original. ED Provider Notes by Ky Orourke MD at 06/09/132005 Author: Ky Orourke MD Service: (none) Author Type: Physician Filed: 06/10/13 0218 Date of Service: 06/09/132005 Status: Signed Electric Milkers Installer: Ky Orourke MD (Physician) [facility] Department of Emergency Medicine Provider Name: Dr. Fred Arrieta Pertinent History and Concerns: SVT converted with adenosine. Troponin positive at 0.22. ASA and NTG given. (06/09/13 1653 : KIM BARTHOLOMEW) 7:30 PM History of Present Illness Patient Identification Chrissy Solomon is a 77 y.o. female. Patient information was obtained from patient. History/Exam limitations: none. Patient presented to the Emergency Department by: Chief Complaint Chief Complaint Patient presents with Chest Pain The patient presents to ED with complaints of chest pain. Onset of symptoms was this mornin g, with a constant course since that time. The symptoms are described to be of moderate neeraj rity. Pt [facility] transferred from [facility] [place] with an elevated Troponin and concerns for an M I. Pt states that she saw her PCP this morning for a routine visit. While she was there, she was tachycardic and given a medication to slow her heart rate. She states that her blood pr essure was also too low for an accurate reading at that time. Pt states that she is unsure i f she has had an ID in the past or not. The patient also complains of thirst. Patient denies n/v/d or any other sx at this time. No home care [employer]. PCP: ANGELO ADAMSON Past Medical History Diagnosis Date COPD (chronic obstructive pulmonary disease) SVT (supraventricular tachycardia) TIA (transient ischemic attack) Vertigo Osteoporosis Chronic pain Cholecystitis On home oxygen therapy Gastric ulcer Past Surgical History Procedure Date Hysterectomy Appendectomy Abdominal surgery Prior to Admission medications Medication Sig Start Date End Date Taking? Authorizing Provider Albuterol Sulfate (PROAIR HFA IN) Inhale into the lungs 2 (two) times daily. Yes Histori lilly Provider aspirin 81 MG EC tablet Take 81 mg by mouth daily with breakfast. Yes Historical Provider digoxin (LANOXIN) 0.25 MG tablet Take 250 mcg by mouth daily. Yes Historical Provider hydrochlorothiazide (HYDRODIURIL) 25 MG tablet Take 12.5 mg by mouth daily. Yes Historica l Provider losartan (COZAAR) 100 MG tablet Take 100 mg by mouth daily. Yes Historical Provider omeprazole (PRILOSEC) 20 MG capsule Take 20 mg by mouth 2 (two) times daily. Yes Historic al Provider OXYGEN (outpatient therapy) Inhale 2 L into the lungs. Yes Historical Provider potassium chloride (K-DUR) 10 MEQ tablet Take 10 mEq by mouth 2 (two) times daily. Yes [facility] the[facility]ine (KRISTI-24) 300 MG 24 hr capsule Take 300 mg by mouth 2 (two) times daily. Yes Historical Provider tiotropium (SPIRIVA) 18 MCG inhalation capsule Inhale 18 mcg into the lungs daily. Yes Wi storical Provider Allergies Allergen Reactions Penicillins Other (See Comments) Loss of consciousness, per patient History Social History Marital Status: Spouse Name: N/A Number of Children: N/A Years of Education: N/A Occupational History Not on file. Social History Main Topics Smoking status: Former Smoker Smokeless tobacco: Never Used Alcohol Use: No Drug Use: Not on file Sexually Active: Other Topics Concern Not on file Social History Narrative No narrative on file No family history on file. Review of Systems Constitutional: Negative for fever, chills Positive for thirst Eyes: Negative for vision changes Nose: Negative for congestion, nosebleeds Throat: Negative for sore throat CV/Resp: Negative for szsjhxzpy-xj-wtwjoi, cough Positive for CP GI: Negative for abdominal pain, nausea, vomiting, or diarrhea : Negative for urinary problems Musculoskeletal: Negative for back pain, joint pain Skin: Negative for rash Neuro/Psych: Negative for headache Endo/heme/Lymph: Negative for swollen lymph nodes, easy bruising All other systems reviewed and negative except as noted. Physical Exam BP 139/90 | Pulse 75 | Temp 97.6 F (36.4 C) | Resp 16 | Ht 1.473 m (4' 10") | Wt 68.493 kg (151 lb) | BMI 31.57 kg/m2 | SpO2 95% Vital signs interpretation: WNL Pulse Oximetry interpretation: Normal General: Alert, in no apparent distress Eyes: Normal inspection, pupils equal and round, non-icteric ENT: Ears normal Nose normal Dry appearing mucous membranes Neck: Normal inspection Supple Cardiovascular: Rate and rhythm normal No murmurs Respiratory: Breath sounds normal bilaterally No rales, wheezing or rhonchi Abdomen: Soft, non-tender, non-distended No guarding or rebound Back: Normal inspection Skin: Color normal Warm and dry No rash Neuro: Alert, no AMS No gross motor/sensory deficits Medical Decision Making and Emergency Department Course ED Department Course Patient presents to ED with complaints of chest pain. On exam the patient has dry mucous me mbranes, but her exam is otherwise unremarkable. My DDx includes, but is not limited to: ID, angina, cardiac disease, CHF, vs. other. Will order labs, and reevaluate the patient. Pt wi ll further be admitted for elevated Troponin and chest pain. 7:44 PM Troponin is 0.07 at this time. 8:[address] Putnam, hospitalist, who states that he will see the pt in the ED. She is comfortable and will admit. She does not seem to have NSTEMI on analysis. Records Reviewed Old medical records. Nursing notes. No previous ED visits. Laboratory Evaluation Results Procedure Component Value Ref Range Date/Time POC cardiac troponin [[id number]] Collected:06/09/131929 Order Status:Completed Updated:06/09/131943 POC CARDIAC TROPONIN 0.07 0.00 - 0.10 ng/mL I personally reviewed the lab results and they have been posted to the chart. Pertinent po sitive and negative findings have been addressed appropriately. Radiology and EKG Evaluation Imaging Results None EKG Interpretation: Time: 1923 Rate: 77 Rhythm: Sinus with sinus arrhythmia, occasional PVC's [place]: Normal TREVON: Normal QRS: Normal, narrow complex ST waves: Nonspecific T wave abnormality Independently reviewed and interpreted contemporaneously by myself. Ky Orourke MD ED Diagnoses Final diagnoses Chest pain SVT (supraventricular tachycardia)-resolved Chest pain, rule out acute myocardial infarction Disposition: ED Disposition Admit/Observation Bed request special needs: None Diagnosis?: chest pain, svt resolved, PENNY Additional Documentation Procedures Attending Note: Documentation assistance provided by Maryjane Holley (Scribe). Information recorded by the scribe has been reviewed and validated by me. I jim owens with its contents. MD Ky Mckeon MD 06/10/13 0218 onversio n Transaction, Provider Unknown - 06/09/2013 7:53 PM PSTFormatting of this note might be di fferent from the original. ED Notes by Donaldo Barraza RN at 06/09/131952 Author: Donaldo Barraza RN Service: (none) Author Type: Registered Nurse Filed: 06/09/131952 Date of Service: 06/09/131952 Status: Signed [employer] Installer: Donaldo Barraza RN (Registered Nurse) Meal order placed. Donaldo Barraza RN 06/09/131952 onver jessica Transaction, Provider Unknown - 06/09/2013 7:33 PM PST ED Notes by Donaldo Barraza RN at 06/09/131932 Author: Donaldo Barraza RN Service: (none) Author Type: Registered Nurse Filed: 06/09/131932 Date of Service: 06/09/131932 Status: Signed [employer] Installer: Donaldo Barraza RN (Registered Nurse) Nitro drip started at [facility] ED discontinued per Dr Orourke. Donaldo Barraza RN 06/09/131932 onver jessica Transaction, Provider Unknown - 06/09/2013 7:31 PM PST ED Notes by Donaldo Barraza RN at 06/09/131930 Author: Donaldo Barraza RN Service: (none) Author Type: Registered Nurse Filed: 06/09/131930 Date of Service: 06/09/131930 Status: Signed [employer] Installer: Donaldo Barraza RN (Registered Nurse) Dr Orourke at bedside for exam. Donaldo Barraza RN 06/09/131930 onver jessica Transaction, Provider Unknown - 06/09/2013 7:20 PM PST ED Notes by Donaldo Barraza RN at 06/09/131919 Author: Donaldo Barraza RN Service: (none) Author Type: Registered Nurse Filed: 06/09/131919 Date of Service: 06/09/131919 Status: Signed [employer] Installer: Donaldo Barraza RN (Registered Nurse) Bed:18
Expected date:
Expected time:
Means of arrival:
Comments:
onver jessica Transaction, Provider Unknown - 06/09/2013 5:35 PM PST ED Notes by Donaldo Barraza RN at 06/09/131734 Author: Donaldo Barraza RN Service: (none) Author Type: Registered Nurse Filed: 06/09/131935 Date of Service: 06/09/131734 Status: Signed [employer] Installer: Donaldo Barraza RN (Registered Nurse) Patient received at [facility]: ASA 324mg PO Adenosine 18mg IVP total Nitro 0.4mg sublingual, metoprolol 2.5mg Nitro paste 0.5 inch (removed per [facility]) Nitro ip Donaldo Barraza RN 06/09/131935 docume nted in this encounter Plan of Treatment Not on filedocumented as of this encounter Procedures + +--------+ + + + | Procedure Name | Priori | Date/Time | Associated Diagnosis | Comments | | | ty | | | | + +--------+ + + + | EXTERNAL LAB: CBC | Routin | 06/11/2013 | | Results for this | | | e | 5:22 AM | | procedure are in the | | | | PST | | results section. | + +--------+ + + + | PHOSPHORUS | Routin | 06/11/2013 | | Results for this | | | e | 5:22 AM | | procedure are in the | | | | PST | | results section. | + +--------+ + + + | MAGNESIUM | Routin | 06/11/2013 | | Results for this | | | e | 5:22 AM | | procedure are in the | | | | PST | | results section. | + +--------+ + + + | COMPREHENSIVE | Routin | 06/11/2013 | | Results for this | | METABOLIC PANEL | e | 5:22 AM | | procedure are in the | | | | PST | | results section. | + +--------+ + + + | NM MYOCARDIAL | Routin | 06/10/2013 | | Results for this | | PERFUSION MULT SPECT | e | 4:06 PM | | procedure are in the | | | | PST | | results section. | + +--------+ + + + | TROPONIN I | Routin | 06/10/2013 | | Results for this | | | e | 2:03 PM | | procedure are in the | | | | PST | | results section. | + +--------+ + + + | CK-MB | Routin | 06/10/2013 | | Results for this | | | e | 2:03 PM | | procedure are in the | | | | PST | | results section. | + +--------+ + + + | CK TOTAL | Routin | 06/10/2013 | | Results for this | | | e | 2:03 PM | | procedure are in the | | | | PST | | results section. | + +--------+ + + + | ECHO COMPLETE | Routin | 06/10/2013 | | Results for this | | | e | 9:10 AM | | procedure are in the | | | | PST | | results section. | + +--------+ + + + | EXTERNAL LAB: CBC | Routin | 06/10/2013 | | Results for this | | | e | 5:47 AM | | procedure are in the | | | | PST | | results section. | + +--------+ + + + | LIPID PANEL | Routin | 06/10/2013 | | Results for this | | | e | 5:47 AM | | procedure are in the | | | | PST | | results section. | + +--------+ + + + | TROPONIN I | Routin | 06/10/2013 | | Results for this | | | e | 5:47 AM | | procedure are in the | | | | PST | | results section. | + +--------+ + + + | CK-MB | Routin | 06/10/2013 | | Results for this | | | e | 5:47 AM | | procedure are in the | | | | PST | | results section. | + +--------+ + + + | TSH | Routin | 06/10/2013 | | Results for this | | | e | 5:47 AM | | procedure are in the | | | | PST | | results section. | + +--------+ + + + | PHOSPHORUS | Routin | 06/10/2013 | | Results for this | | | e | 5:47 AM | | procedure are in the | | | | PST | | results section. | + +--------+ + + + | MAGNESIUM | Routin | 06/10/2013 | | Results for this | | | e | 5:47 AM | | procedure are in the | | | | PST | | results section. | + +--------+ + + + | HEMOGLOBIN A1C | Routin | 06/10/2013 | | Results for this | | | e | 5:47 AM | | procedure are in the | | | | PST | | results section. | + +--------+ + + + | CK TOTAL | Routin | 06/10/2013 | | Results for this | | | e | 5:47 AM | | procedure are in the | | | | PST | | results section. | + +--------+ + + + | COMPREHENSIVE | Routin | 06/10/2013 | | Results for this | | METABOLIC PANEL | e | 5:47 AM | | procedure are in the | | | | PST | | results section. | + +--------+ + + + | TROPONIN I | Routin | 06/09/2013 | | Results for this | | | e | 11:59 PM | | procedure are in the | | | | PST | | results section. | + +--------+ + + + | CK-MB | Routin | 06/09/2013 | | Results for this | | | e | 11:59 PM | | procedure are in the | | | | PST | | results section. | + +--------+ + + + | CK TOTAL | Routin | 06/09/2013 | | Results for this | | | e | 11:59 PM | | procedure are in the | | | | PST | | results section. | + +--------+ + + + | EXTERNAL LAB: CBC | Routin | 06/09/2013 | | Results for this | | | e | 10:05 PM | | procedure are in the | | | | PST | | results section. | + +--------+ + + + | PHOSPHORUS | Routin | 06/09/2013 | | Results for this | | | e | 10:05 PM | | procedure are in the | | | | PST | | results section. | + +--------+ + + + | MAGNESIUM | Routin | 06/09/2013 | | Results for this | | | e | 10:05 PM | | procedure are in the | | | | PST | | results section. | + +--------+ + + + | THEOPHYLLINE LEVEL | Routin | 06/09/2013 | | Results for this | | | e | 10:05 PM | | procedure are in the | | | | PST | | results section. | + +--------+ + + + | DIGOXIN LEVEL | Routin | 06/09/2013 | | Results for this | | | e | 10:05 PM | | procedure are in the | | | | PST | | results section. | + +--------+ + + + | COMPREHENSIVE | Routin | 06/09/2013 | | Results for this | | METABOLIC PANEL | e | 10:05 PM | | procedure are in the | | | | PST | | results section. | + +--------+ + + + | ECG 12 LEAD | Routin | 06/09/2013 | | Results for this | | | e | 7:24 PM | | procedure are in the | | | | PST | | results section. | + +--------+ + + + documented in this encounter Results External Lab: CBC (06/11/2013 5:22 AM PST) + + + + + + | Component | Value | Ref Range | Performed | Pathologist | | | | | At | Signature | + + + + + + | WBC | 8.9Comment: Testing | 3.8 - 11.0 K/uL | EXTERNAL | | | | performed at [facility], [address] | | LAB | | | | [facility], | | | | | | [place] [address] | | | | + + + + + + | Red Blood | 4.07Comment: Testing | 3.70 - 5.10 | EXTERNAL | | | Cells | performed at [facility], [address] | M/uL | LAB | | | Counted | [address], | | | | | | [place] [address] | | | | + + + + + + | Hemoglobin | 12.1Comment: Testing | 11.3 - 15.5 | EXTERNAL | | | | performed at [facility], [address] | g/dL | LAB | | | | [address], | | | | | | [place] [address] | | | | + + + + + + | Hematocrit, | 36.4Comment: Testing | 34.0 - 46.0 % | EXTERNAL | | | POC | performed at [facility], [address] | | LAB | | | | [address], | | | | | | [place] [address] | | | | + + + + + + | MCV | 89.5Comment: Testing | 80.0 - 100.0 fl | EXTERNAL | | | | performed at [facility], [address] | | LAB | | | | [address], | | | | | | [place] [address] | | | | + + + + + + | MCH | 29.7Comment: Testing | 27.0 - 34.0 pg | EXTERNAL | | | | performed at [facility], [address] | | LAB | | | | [address], | | | | | | [place] [address] | | | | + + + + + + | MCHC | 33.1Comment: Testing | 32.0 - 35.5 | EXTERNAL | | | | performed at [facility], [address] | g/dL | LAB | | | | [address], | | | | | | [place] [address] | | | | + + + + + + | RDW-CV | 40.3Comment: Testing | 37 - 53 fl | EXTERNAL | | | | performed at [facility], [address] | | LAB | | | | [address], | | | | | | [place] [address] | | | | + + + + + + | Platelet | 162Comment: Testing | 150 - 400 K/uL | EXTERNAL | | | Count | performed at [facility], [address] | | LAB | | | Plasma | [address], | | | | | | [place] [address] | | | | + + + + + + | MPV | 10.0Comment: Testing | fl | EXTERNAL | | | | performed at [facility], [address] | | LAB | | | | [address], | | | | | | [place] [address] | | | | + + + + + + | Differentia | AUTOMATEDComment: | | EXTERNAL | | | l Type | Testing performed at | | LAB | | | | [facility], [address] | | | | | | [place] | | | | | | [address] | | | | + + + + + + | % Segmented | 58.9Comment: Testing | % | EXTERNAL | | | | performed at [facility], [address] | | LAB | | | Neutrophils | [address], | | | | | | [place] [address] | | | | + + + + + + | % | 28.6Comment: Testing | % | EXTERNAL | | | Lymphocytes | performed at [facility], [address] | | LAB | | | | [address], | | | | | | [place] [address] | | | | + + + + + + | % Monocytes | 7.4Comment: Testing | % | EXTERNAL | | | | performed at [facility], [address] | | LAB | | | | [address], | | | | | | [place] [address] | | | | + + + + + + | % | 4.6Comment: Testing | % | EXTERNAL | | | Eosinophils | performed at [facility], [address] | | LAB | | | | [address], | | | | | | [place] [address] | | | | + + + + + + | % Basophils | 0.5Comment: Testing | % | EXTERNAL | | | | performed at [facility], [address] | | LAB | | | | [address], | | | | | | [place] [address] | | | | + + + + + + | Absolute | 5.2Comment: Testing | 1.9 - 7.4 K/uL | EXTERNAL | | | Segmented | performed at [facility], [address] | | LAB | | | Neutrophils | [address], | | | | | | [place] [address] | | | | + + + + + + | Absolute | 2.5Comment: Testing | 1.0 - 3.9 K/uL | EXTERNAL | | | Lymphocytes | performed at [facility], [address] | | LAB | | | | [address], | | | | | | [place] [address] | | | | + + + + + + | Absolute | 0.7Comment: Testing | 0 - 0.8 K/uL | EXTERNAL | | | Monocytes | performed at [facility], [address] | | LAB | | | | [address], | | | | | | [place] [address] | | | | + + + + + + | Absolute | 0.4Comment: Testing | 0 - 0.5 K/uL | EXTERNAL | | | Eosinophils | performed at [facility], [address] | | LAB | | | | [address], | | | | | | [place] [address] | | | | + + + + + + | Absolute | 0.0Comment: Testing | 0 - 0.1 K/uL | EXTERNAL | | | Basophils | performed at [facility], [address] | | LAB | | | | [address], | | | | | | [place] [address] | | | | + + + + + + + + | Specimen | + + | Blood specimen | | (specimen) | + + + +---------+ + + | Performing | Address | City/State/Zipcode | Phone Number | | Organization | | | | + +---------+ + + | EXTERNAL LAB | | | | + +---------+ + + Phosphorus (06/11/2013 5:22 AM PST) + + + + + + | Component | Value | Ref Range | Performed | Pathologist | | | | | At | Signature | + + + + + + | PHOSPHORUS | 3.3Comment: Testing | 2.3 - 4.8 mg/dL | EXTERNAL | | | | performed at [facility], [address] | | LAB | | | | [address], | | | | | | [place] [address] | | | | + + + + + + + + | Specimen | + + | Blood specimen | | (specimen) | + + + +---------+ + + | Performing | Address | City/State/Zipcode | Phone Number | | Organization | | | | + +---------+ + + | EXTERNAL LAB | | | | + +---------+ + + Magnesium (06/11/2013 5:22 AM PST) + + + + + + | Component | Value | Ref Range | Performed | Pathologist | | | | | At | Signature | + + + + + + | Magnesium | 1.7Comment: Testing | 1.7 - 2.4 mg/dL | EXTERNAL | | | | performed at [facility], [address] | | LAB | | | | [address], | | | | | | [place] [address] | | | | + + + + + + + + | Specimen | + + | Blood specimen | | (specimen) | + + + +---------+ + + | Performing | Address | City/State/Zipcode | Phone Number | | Organization | | | | + +---------+ + + | EXTERNAL LAB | | | | + +---------+ + + Comprehensive Metabolic Panel (06/11/2013 5:22 AM PST) + + + + + + | Component | Value | Ref Range | Performed | Pathologist | | | | | At | Signature | + + + + + + | Na | 141Comment: Testing | 135 - 143 | EXTERNAL | | | | performed at [facility], [address] | mmol/L | LAB | | | | [address], | | | | | | [place] [address] | | | | + + + + + + | K | 4.0Comment: Testing | 3.5 - 4.9 | EXTERNAL | | | | performed at [facility], [address] | mmol/L | LAB | | | | [address], | | | | | | [place] [address] | | | | + + + + + + | Cl | 106Comment: Testing | 99 - 109 mmol/L | EXTERNAL | | | | performed at [facility], [address] | | LAB | | | | [address], | | | | | | [place] [address] | | | | + + + + + + | CO2 | 33 (H)Comment: Testing | 23 - 32 mmol/L | EXTERNAL | | | | performed at [facility], [address] | | LAB | | | | [address], | | | | | | [place] [address] | | | | + + + + + + | Anion Gap | 6Comment: Testing | 5 - 20 mmol/L | EXTERNAL | | | | performed at [facility], [address] | | LAB | | | | [address], | | | | | | [place] [address] | | | | + + + + + + | Glucose, | 104 (H)Comment: Testing | 65 - 99 mg/dL | EXTERNAL | | | Fasting | performed at [facility], [address] | | LAB | | | | [address], | | | | | | [place] [address] | | | | + + + + + + | BUN | 14Comment: Testing | 8 - 25 mg/dL | EXTERNAL | | | | performed at [facility], [address] | | LAB | | | | [address], | | | | | | [place] [address] | | | | + + + + + + | Creatinine | 0.83Comment: Testing | 0.50 - 1.00 | EXTERNAL | | | | performed at [facility], [address] | mg/dL | LAB | | | | [address], | | | | | | [place] [address] | | | | + + + + + + | BUN/Creatin | 17Comment: Testing | | EXTERNAL | | | ine Ratio | performed at [facility], [address] | | LAB | | | | [address], | | | | | | [place] [address] | | | | + + + + + + | Calcium | 9.4Comment: Testing | 8.5 - 10.2 | EXTERNAL | | | | performed at [facility], [address] | mg/dL | LAB | | | | [address], | | | | | | [place] [address] | | | | + + + + + + | Protein, | 5.9 (L)Comment: Testing | 6.3 - 8.2 g/dL | EXTERNAL | | | Total | performed at [facility], [address] | | LAB | | | | [address], | | | | | | [place] [address] | | | | + + + + + + | Albumin | 3.7Comment: Testing | 3.3 - 4.8 g/dL | EXTERNAL | | | | performed at [facility], [address] | | LAB | | | | [address], | | | | | | [place] [address] | | | | + + + + + + | Globulin | 2.2Comment: Testing | 1.3 - 4.9 g/dL | EXTERNAL | | | | performed at [facility], [address] | | LAB | | | | [address], | | | | | | [place] [address] | | | | + + + + + + | A/G Ratio | 1.7Comment: Testing | 1.0 - 2.4 | EXTERNAL | | | | performed at [facility], [address] | | LAB | | | | [address], | | | | | | [place] [address] | | | | + + + + + + | Bilirubin | 0.3Comment: Testing | 0.1 - 1.5 mg/dL | EXTERNAL | | | Total | performed at [facility], [address] | | LAB | | | | [address], | | | | | | [place], [place] [address] | | | | + + + + + + | ALP, | 69Comment: Testing | 35 - 115 U/L | EXTERNAL | | | External | performed at [facility], [address] | | LAB | | | | [address], | | | | | | [place], [place] [address] | | | | + + + + + + | AST | 49 (H)Comment: Testing | 10 - 45 U/L | EXTERNAL | | | | performed at [facility], [address] | | LAB | | | | [address], | | | | | | [place] [address] | | | | + + + + + + | ALT | 69 (H)Comment: Testing | 10 - 65 U/L | EXTERNAL | | | | performed at [facility], [address] | | LAB | | | | [address], | | | | | | [place] [address] | | | | + + + [...] | | | | | | at [facility], [address] | | | | | | [address], | | | | | | [place] [address] | | | | + + + + + + + + | Specimen | + + | Blood specimen | | (specimen) | + + + +---------+ + + | Performing | Address | City/State/Zipcode | Phone Number | | Organization | | | | + +---------+ + + | EXTERNAL LAB | | | | + +---------+ + + NM Myocardial Perfusion Mult SPECT (06/10/2013 4:06 PM PST) + + | Specimen | + + | | + + + + + | Impressions | Performed At | + + + | 1. Normal myocardial perfusion study. 2. No evidence of | | | pharmacologic stress induced ischemia or infarct. 3. Left | | | ventricular ejection fraction is calculated at 56%. Electronically | | | signed by Theodore Nova MD on 06/10/2013 4:13 PM | | + + + + + + | Narrative | Performed At | + + + | [facility] 1935 [place] MYOCARDIAL PERFUSION SPECT - STRESS AND | | | REST 06/10/2013 4:06 PM INDICATION: Chest pain COMPARISON: | | | None. TECHNIQUE: A same day, rest and stress protocol was | | | performed. For the resting portion of the study the patient was | | | injected intravenously with 10 mCi of technetium 99m labeled Myoview. | | | Gated SPECT imaging was performed in the supine position. The | | | patient was then pharmacologically stressed with 0.4 mg of regadenoson | | | intravenously according to protocol. Resting heart rate perfecto from | | | 69 beats/min to 88 beats/min which was 60% of the maximum | | | age-predicted heart rate. At the point of maximum stress, the | | | patient received 40.8 mCi of technetium 99m labeled Myoview | | | intravenously. Gated SPECT images were acquired in the prone and | | | supine positions. FINDINGS: There is a small area of fixed | | | perfusion defect involving the apex which may reflect physiologic | | | thinning. There is no elevation of the transient ischemic dilatation | | | ratio. Normal wall motion and thickening is present. The following | | | functional data was obtained: End-diastolic volume: 73 mL | | | End-systolic volume: 32 mL Ejection fraction: 56% | | + + + + + | Procedure Note | + + | Edison, Rad Conversion - 11/20/2018 2:26 PM PDT [facility]ILL[facility]/28/1936NM MYOCARDIAL | | PERFUSION SPECT - STRESS AND REST06/10/2013 4:06 PM INDICATION: Chest pain COMPARISON: | | None. TECHNIQUE:A same day, rest and stress protocol was performed. For the resting | | portion of the study the patient was injected intravenously with 10 mCi of technetium | | 99m labeled Myoview. Gated SPECT imaging was performed in the supine position. The | | patient was then pharmacologically stressed with 0.4 mg of regadenoson intravenously | | according to protocol. Resting heart rate perfecto from 69 beats/min to 88 beats/min which | | was 60% of the maximum age-predicted heart rate. At the point of maximum stress, the | | patient received 40.8 mCi of technetium 99m labeled Myoview intravenously. Gated SPECT | | images were acquired in the prone and supine positions. FINDINGS: There is a small area | | of fixed perfusion defect involving the apex which may reflect physiologic thinning. | | There is no elevation of the transient ischemic dilatation ratio. Normal wall motion and | | thickening is present. The following functional data was obtained:End-diastolic volume: | | 73 mLEnd-systolic volume: 32 mLEjection fraction: 56% IMPRESSION: 1. Normal myocardial | | perfusion study.2. No evidence of pharmacologic stress induced ischemia or infarct.3. | | Left ventricular ejection fraction is calculated at 56%. | |The following functional data was obtained: | |End-diastolic volume: 73 mL | |End-systolic volume: 32 mL | |Ejection fraction: 56% | | | |IMPRESSION: | |1. Normal myocardial perfusion study. | |2. No evidence of pharmacologic stress induced ischemia or infarct. | |3. Left ventricular ejection fraction is calculated at 56%. | | | | | + + CK-MB (06/10/2013 2:03 PM PST) + + + + + -+ | Component | Value | Ref Range | Performed | Pathologist | | | | | At | Signature | + + + + + -+ | CK-MB | 2.0Comment: Testing | 0.5 - 3.6 ng/mL | EXTERNAL | | | | performed at [facility] – [place];[address] | | LAB | | | | [address];[place], [place] | | | | | | [address] | | | | + + + + + -+ | CK-MB Index | 3.0Comment: CK INDEX | | EXTERNAL | | | | INTERPRETATION: | | LAB | | | | MMB ng/mL | | | | | | | | | | | |CK INDEX INTERPRETATION: | | | | | | MMB ng/mL | | | | | | | | | | + + + + + -+ + + | Specimen | + + | Blood specimen | | (specimen) | + + + +---------+ + + | Performing | Address | City/State/Zipcode | Phone Number | | Organization | | | | + +---------+ + + | EXTERNAL LAB | | | | + +---------+ + + Troponin I (06/10/2013 2:03 PM PST) + + + + + + | Component | Value | Ref Range | Performed | Pathologist | | | | | At | Signature | + + + + + + | Troponin I, | 0.069Comment: 0.00 to | 0.00 - 0.10 | EXTERNAL | | | Qual | 0.10 CONSISTENT WITH | ng/mL | LAB | | | | NORMAL POPULATION0.11 to | | | | | | 0.60 CONSISTENT WITH | | | | | | INCREASED RISK FOR | | | | | | ADVERSE OUTCOMES> 0.60 | | | | | | CONSISTENT | | | | | | WITH WHO CRITERIA FOR | | | | | | ACUTE ID Testing | | | | | | performed at [facility] – [place], [place];[address] | | | | | | [address];[place], [place] | | | | | | [address] | | | | + + + + + + + + | Specimen | + + | Blood specimen | | (specimen) | + + + +---------+ + + | Performing | Address | City/State/Zipcode | Phone Number | | Organization | | | | + +---------+ + + | EXTERNAL LAB | | | | + +---------+ + + CK Total (06/10/2013 2:03 PM PST) + + + + + + | Component | Value | Ref Range | Performed | Pathologist | | | | | At | Signature | + + + + + + | CK, Total | 67Comment: Testing | 30 - 240 U/L | EXTERNAL | | | | performed at [facility] – [place], [place];[address] | | LAB | | | | [address];[place], [place] | | | | | | [address] | | | | + + + + + + + + | Specimen | + + | Blood specimen | | (specimen) | + + + +---------+ + + | Performing | Address | City/State/Zipcode | Phone Number | | Organization | | | | + +---------+ + + | EXTERNAL LAB | | | | + +---------+ + + ECHO Complete (06/10/2013 9:10 AM PST) + + | Specimen | + + | | + + + + + | Impressions | Performed At | + + + | 1. Sinus rhythm. 2. A 2-dimensional transthoracic echocardiogram | | | with m-mode, spectral and color flow Doppler was perfomed. 3. This | | | was a technically adequate study with suboptimal parasternal views. | | | 4. Overall left ventricular systolic function is normal with, an EF | | | between 65 - 70 %. 5. The left ventricle cavity size is normal. 6. | | | Left ventricular wall thickness is normal. 7. The right ventricle is | | | normal in size and function. 8. The left atrium is normal in size. | | | 9. The right atrium is normal in size. 10. Aortic valve is trileaflet | | | and is mildly thickened. 11. There is no evidence of aortic | | | regurgitation. 12. There is no evidence of aortic stenosis. 13. Mild | | | mitral regurgitation is present. 14. Mild mitral annular | | | calcification present. 15. The tricuspid valve appears structurally | | | normal. 16. Mild tricuspid regurgitation present. 17. There is mild | | | to moderate pulmonary hypertension. 18. The right ventricular | | | systolic pressure (pulmonary artery systolic pressure), as measured by | | | Doppler, is 46.10mmHg. 19. Pulmonic valve appears structurally | | | normal. 20. Trace pulmonic regurgitation 21. There is no pericardial | | | effusion. 22. The IVC is normal size (1.5-2.5cm) and collapses <50% | | | with sniff, consistent with central venous pressures of 10-15mmHg. | | + + + + + + | Narrative | Performed At | + + + | Patient Name: CHRISSY SOLOMON Date of : 1935 | | | Performing Physician: Zbigniew Rivera MD | | | | | | INDICATIONS SHORTNESS OF BREATH HX COPD CONCLUSIONS | | | 1. Sinus rhythm. 2. A 2-dimensional transthoracic | | | echocardiogram with m-mode, spectral and color flow Doppler was | | | perfomed. 3. This was a technically adequate study with suboptimal | | | parasternal views. 4. Overall left ventricular systolic function is | | | normal with, an EF between 65 - 70 %. 5. The left ventricle cavity | | | size is normal. 6. Left ventricular wall thickness is normal. 7. The | | | right ventricle is normal in size and function. 8. The left atrium | | | is normal in size. 9. The right atrium is normal in size. 10. Aortic | | | valve is trileaflet and is mildly thickened. 11. There is no | | | evidence of aortic regurgitation. 12. There is no evidence of aortic | | | stenosis. 13. Mild mitral regurgitation is present. 14. Mild mitral | | | annular calcification present. 15. The tricuspid valve appears | | | structurally normal. 16. Mild tricuspid regurgitation present. 17. | | | There is mild to moderate pulmonary hypertension. 18. The right | | | ventricular systolic pressure (pulmonary artery systolic pressure), as | | | measured by Doppler, is 46.10mmHg. 19. Pulmonic valve appears | | | structurally normal. 20. Trace pulmonic regurgitation 21. There is | | | no pericardial effusion. 22. The IVC is normal size (1.5-2.5cm) and | | | collapses <50% with sniff, consistent with central venous pressures of | | | 10-15mmHg. FINDINGS -------- ECG rhythm: Sinus rhythm. Study: | | | A 2-dimensional transthoracic echocardiogram with m-mode, spectral and | | | color flow Doppler was perfomed. Study: This was a technically | | | adequate study with suboptimal parasternal views. Left Ventricle: | | | Overall left ventricular systolic function is normal with, an EF | | | between 65 - 70 %. Left Ventricle: The left ventricle cavity size is | | | normal. Left Ventricle: Left ventricular wall thickness is normal. | | | Right Ventricle: The right ventricle is normal in size and function. | | | Left Atrium: The left atrium is normal in size. Right Atrium: The | | | right atrium is normal in size. Aortic Valve: Aortic valve is | | | trileaflet and is mildly thickened. Aortic Valve: There is no | | | evidence of aortic regurgitation. Aortic Valve: There is no evidence | | | of aortic stenosis. Mitral Valve: Mild mitral regurgitation is | | | present. Mitral Valve: Mild mitral annular calcification present. | | | Tricuspid Valve: The tricuspid valve appears structurally normal. | | | Tricuspid Valve: Mild tricuspid regurgitation present. Tricuspid | | | Valve: There is mild to moderate pulmonary hypertension. Tricuspid | | | Valve: The right ventricular systolic pressure (pulmonary artery | | | systolic pressure), as measured by Doppler, is 46.10mmHg. Pulmonic | | | Valve: Pulmonic valve appears structurally normal. Pulmonic Valve: | | | Trace pulmonic regurgitation. Pericardium: There is no pericardial | | | effusion. IVC/Hepatic Veins: The IVC is normal size (1.5-2.5cm) and | | | collapses <50% with sniff, consistent with central venous pressures of | | | 10-15mmHg. Thrombus: No clot visualized MEASUREMENTS | | | IVC: 2.30 cm LA Major: 4.24 cm EDV(Teich): | | | 81.86 ml IVSd: 1.10 cm LVIDd: 4.27 cm LVPWd: 1.32 cm LVOT | | | Diam: 1.76 cm %FS: 37.37 % EF(Teich): 67.71 % ESV(Teich): | | | 26.43 ml IVSs: 1.41 cm LVIDs: 2.67 cm LVPWs: 0.90 cm | | | SV(Teich): 55.43 ml RA Major: 4.37 cm RVIDd: 3.10 cm LVEF | | | MOD A2C: 59.52 % SV MOD A2C: 49.82 ml LVEF MOD A4C: 70.23 % | | | SV MOD A4C: 67.39 ml EF Biplane: 64.62 % LVEDV MOD BP: | | | 89.27 ml LVESV MOD BP: 31.57 ml LVEDV MOD A2C: 83.70 ml LVLd | | | A2C: 6.90 cm LVEDV MOD A4C: 95.96 ml LVLd A4C: 6.93 cm | | | LVESV MOD A2C: 33.88 ml LVLs A2C: 5.41 cm LVESV MOD A4C: | | | 28.56 ml LVLs A4C: 5.62 cm LAESV(A-L): 34.09 ml LAESV Index | | | (A-L): 64.32 ml/m2 LAAs A2C: 13.49 cm2 LAESV A-L A2C: 32.26 | | | ml LALs A2C: 4.79 cm LAAs A4C: 13.30 cm2 LAESV A-L A4C: | | | 33.59 ml LALs A4C: 4.47 cm Ao Diam: 3.31 cm AV Cusp: 1.86 | | | cm LA Diam: 2.95 cm LA/Ao: 0.89 IVC diameter: 1.95 cm IVC | | | collapse: 1.18 cm IVC % collapse: 37.51 % HR: 69.65 BPM | | | AV maxP.65 mmHg AV meanP.02 mmHg AV Vmax: 1.38 m/s | | | AV Vmean: 0.95 m/s AV VTI: 28.17 cm POLI Vmax: 1.95 cm2 | | | POLI (VTI): 2.04 cm2 LVCI Dopp: 7.37 l/minm2 LVCO Dopp: 3.90 | | | l/min HR: 67.90 BPM LVOT maxP.95 mmHg LVOT meanPG: | | | 2.60 mmHg LVSI Dopp: 108.55 ml/m2 LVSV Dopp: 57.53 ml LVOT | | | Vmax: 1.11 m/s LVOT Vmean: 0.76 m/s LVOT VTI: 23.63 cm | | | MCO: 417.74 ms MV A Latrell: 0.95 m/s MV DecT: 210.45 ms MV E | | | Latrell: 0.95 m/s MV E/A Ratio: 1 MV PHT: 61.76 ms MVA By PHT: | | | 3.56 cm2 MV A Dur: 114.60 ms Septal e': 0.05 m/s Septal | | | E/e': 17.75 Lateral e': 0.07 m/s Lateral E/e': 12.90 P | | | Vein A: 0.27 m/s P Vein A Dur: 103.51 ms P Vein D: 0.29 m/s | | | P Vein S/D Ratio: 1.46 P Vein S: 0.43 m/s HR: 71.49 BPM | | | PV maxP.49 mmHg PV meanP.57 mmHg PV Vmax: 0.78 m/s | | | PV Vmean: 0.60 m/s PV VTI: 20.51 cm RAP: 10 mmHg RVSP: | | | 46.09 mmHg TR maxP.09 mmHg TR Vmax: 3.00 m/s TV A Latrell: | | | 0.49 m/s TV Dec Lincoln: 1.78 m/s2 TV Dec Time: 267.68 ms TV | | | E Latrell: 0.47 m/s TV E/A Ratio: 0.97 Bacteriologist Industrial: KVW | | | Authenticated by: Zbigniew Rivera MD Report Date/Time: 06-10-2013 | | | 17:49:12 | | + + + + + | Procedure Note | + + | Chester Hogan Conversion - 11/20/2018 2:26 PM PDT Patient Name: Emilie SOLOMON | | : 1935 Performing Physician: Zbigniew Rivera | | INDICATIONS S | | HORTNESS OF BREATH HX COPD CONCLUSIONS 1. Sinus rhythm.2. A 2-dimensional | | transthoracic echocardiogram with m-mode, spectral and color flow Doppler was | | perfomed.3. This was a technically adequate study with suboptimal parasternal views.4. | | Overall left ventricular systolic function is normal with, an EF between 65 - 70 %.5. | | The left ventricle cavity size is normal.6. Left ventricular wall thickness is normal.7. | | The right ventricle is normal in size and function.8. The left atrium is normal in | | size.9. The right atrium is normal in size.10. Aortic valve is trileaflet and is mildly | | thickened.11. There is no evidence of aortic regurgitation.12. There is no evidence of | | aortic stenosis.13. Mild mitral regurgitation is present.14. Mild mitral annular | | calcification present.15. The tricuspid valve appears structurally normal.16. Mild | | tricuspid regurgitation present.17. There is mild to moderate pulmonary hypertension.18. | | The right ventricular systolic pressure (pulmonary artery systolic pressure), as | | measured by Doppler, is 46.10mmHg.19. Pulmonic valve appears structurally normal.20. | | Trace pulmonic [id number]. There is no pericardial effusion.22. The IVC is normal | | size (1.5-2.5cm) and collapses <50% with sniff, consistent with central venous pressures | | of 10-15mmHg. FINDINGS--------ECG rhythm: Sinus rhythm.Study: A 2-dimensional | | transthoracic echocardiogram with m-mode, spectral and color flow Doppler was | | perfomed.Study: This was a technically adequate study with suboptimal parasternal | | views.Left Ventricle: Overall left ventricular systolic function is normal with, an EF | | between 65 - 70 %.Left Ventricle: The left ventricle cavity size is normal.Left | | Ventricle: Left ventricular wall thickness is normal.Right Ventricle: The right | | ventricle is normal in size and function.Left Atrium: The left atrium is normal in | | size.Right Atrium: The right atrium is normal in size.Aortic Valve: Aortic valve is | | trileaflet and is mildly thickened.Aortic Valve: There is no evidence of aortic | | regurgitation.Aortic Valve: There is no evidence of aortic stenosis.Mitral Valve: Mild | | mitral regurgitation is present.Mitral Valve: Mild mitral annular calcification | | present.Tricuspid Valve: The tricuspid valve appears structurally normal.Tricuspid | | Valve: Mild tricuspid regurgitation present.Tricuspid Valve: There is mild to moderate | | pulmonary hypertension.Tricuspid Valve: The right ventricular systolic pressure | | (pulmonary artery systolic pressure), as measured by Doppler, is 46.10mmHg.Pulmonic | | Valve: Pulmonic valve appears structurally normal.Pulmonic Valve: Trace pulmonic | | regurgitation.Pericardium: There is no pericardial effusion.IVC/Hepatic Veins: The IVC | | is normal size (1.5-2.5cm) and collapses <50% with sniff, consistent with central venous | | pressures of 10-15mmHg.Thrombus: No clot visualized MEASUREMENTS IVC: | | 2.30 cmLA Major: 4.24 cmEDV(Teich): 81.86 mlIVSd: 1.10 cmLVIDd: 4.27 cmLVPWd: | | 1.32 cmLVOT Diam: 1.76 cm%FS: 37.37 %EF(Teich): 67.71 %ESV(Teich): 26.43 mlIVSs: | | 1.41 cmLVIDs: 2.67 cmLVPWs: 0.90 cmSV(Teich): 55.43 mlRA Major: 4.37 cmRVIDd: | | 3.10 cmLVEF MOD A2C: 59.52 %SV MOD A2C: 49.82 mlLVEF MOD A4C: 70.23 %SV MOD | | A4C: 67.39 mlEF Biplane: 64.62 %LVEDV MOD BP: 89.27 mlLVESV MOD BP: 31.57 | | mlLVEDV MOD A2C: 83.70 mlLVLd A2C: 6.90 cmLVEDV MOD A4C: 95.96 mlLVLd A4C: 6.93 | | cmLVESV MOD A2C: 33.88 mlLVLs A2C: 5.41 cmLVESV MOD A4C: 28.56 mlLVLs A4C: 5.62 | | cmLAESV(A-L): 34.09 mlLAESV Index (A-L): 64.32 ml/m2LAAs A2C: 13.49 [id number] A-L | | A2C: 32.26 mlLALs A2C: 4.79 cmLAAs A4C: 13.30 dm5YIAPE A-L A4C: 33.59 mlLALs | | A4C: 4.47 cmAo Diam: 3.31 cmAV Cusp: 1.86 cmLA Diam: 2.95 cmLA/Ao: 0.89IVC | | diameter: 1.95 cmIVC collapse: 1.18 cmIVC % collapse: 37.51 %HR: 69.65 BPMAV | | maxP.65 mmHgAV meanP.02 mmHgAV Vmax: 1.38 m/Chandu Vmean: 0.95 m/Chandu VTI: | | 28.17 cmAVA Vmax: 1.95 cm2AVA (VTI): 2.04 [id number] Dopp: 7.37 l/[id number] Dopp: | | 3.90 l/minHR: 67.90 BPMLVOT maxP.95 mmHgLVOT meanP.60 mmHgLVSI Dopp: | | 108.55 ml/m2LVSV Dopp: 57.53 mlLVOT Vmax: 1.11 m/sLVOT Vmean: 0.76 m/sLVOT VTI: | | 23.63 cmMCO: 417.74 msMV A Latrell: 0.95 m/sMV DecT: 210.45 msMV E Latrell: 0.95 m/sMV | | E/A Ratio: 1MV PHT: 61.76 msMVA By PHT: 3.56 cm2MV A Dur: 114.60 msSeptal e': | | 0.05 m/sSeptal E/e': 17.75Lateral e': 0.07 m/sLateral E/e': 12.90P Vein A: 0.27 | | m/sP Vein A Dur: 103.51 msP Vein D: 0.29 m/sP Vein S/D Ratio: 1.46P Vein S: 0.43 | | m/sHR: 71.49 BPMPV maxP.49 mmHgPV meanP.57 mmHgPV Vmax: 0.78 m/sPV | | Vmean: 0.60 m/sPV VTI: 20.51 cmRAP: 10 mmHgRVSP: 46.09 mmHgTR maxP.09 | | mmHgTR Vmax: 3.00 m/sTV A Latrell: 0.49 m/sTV Dec Lincoln: 1.78 m/s2TV Dec Time: | | 267.68 msTV E Latrell: 0.47 m/sTV E/A Ratio: 0.97 Bacteriologist Industrial: TOMASuthenticated by: Zbigniew | | [facility] Date/Time: 06-10-2013 17:49:12 IMPRESSION: 1. Sinus rhythm.2. A | | 2-dimensional transthoracic echocardiogram with m-mode, spectral and color flow Doppler | | was perfomed.3. This was a technically adequate study with suboptimal parasternal | | views.4. Overall left ventricular systolic function is normal with, an EF between 65 - | | 70 %.5. The left ventricle cavity size is normal.6. Left ventricular wall thickness is | | normal.7. The right ventricle is normal in size and function.8. The left atrium is | | normal in size.9. The right atrium is normal in size.10. Aortic valve is trileaflet and | | is mildly thickened.11. There is no evidence of aortic regurgitation.12. There is no | | evidence of aortic stenosis.13. Mild mitral regurgitation is present.14. Mild mitral | | annular calcification present.15. The tricuspid valve appears structurally normal.16. | | Mild tricuspid regurgitation present.17. There is mild to moderate pulmonary | | hypertension.18. The right ventricular systolic pressure (pulmonary artery systolic | | pressure), as measured by Doppler, is 46.10mmHg.19. Pulmonic valve appears structurally | | normal.20. Trace pulmonic jncipimnpxoiw20. There is no pericardial effusion.22. The IVC | | is normal size (1.5-2.5cm) and collapses <50% with sniff, consistent with central venous | | pressures of 10-15mmHg. | |LVIDs: 2.67 cm | |LVPWs: 0.90 cm | |SV(Teich): 55.43 ml | |RA Major: 4.37 cm | |RVIDd: 3.10 cm | |LVEF MOD A2C: 59.52 % | |SV MOD A2C: 49.82 ml | |LVEF MOD A4C: 70.23 % | |SV MOD A4C: 67.39 ml | |EF Biplane: 64.62 % | |LVEDV MOD BP: 89.27 ml | |LVESV MOD BP: 31.57 ml | |LVEDV MOD A2C: 83.70 ml | |LVLd A2C: 6.90 cm | |LVEDV MOD A4C: 95.96 ml | |LVLd A4C: 6.93 cm | |LVESV MOD A2C: 33.88 ml | |LVLs A2C: 5.41 cm | |LVESV MOD A4C: 28.56 ml | |LVLs A4C: 5.62 cm | |LAESV(A-L): 34.09 ml | |LAESV Index (A-L): 64.32 ml/m2 | |LAAs A2C: 13.49 cm2 | |LAESV A-L A2C: 32.26 ml | |LALs A2C: 4.79 cm | |LAAs A4C: 13.30 cm2 | |LAESV A-L A4C: 33.59 ml | |LALs A4C: 4.47 cm | |Ao Diam: 3.31 cm | |AV Cusp: 1.86 cm | |LA Diam: 2.95 cm | |LA/Ao: 0.89 | |IVC diameter: 1.95 cm | |IVC collapse: 1.18 cm | |IVC % collapse: 37.51 % | |HR: 69.65 BPM | |AV maxP.65 mmHg | |AV meanP.02 mmHg | |AV Vmax: 1.38 m/s | |AV Vmean: 0.95 m/s | |AV VTI: 28.17 cm | |POLI Vmax: 1.95 cm2 | |POLI (VTI): 2.04 cm2 | |LVCI Dopp: 7.37 l/minm2 | |LVCO Dopp: 3.90 l/min | |HR: 67.90 BPM | |LVOT maxP.95 mmHg | |LVOT meanP.60 mmHg | |LVSI Dopp: 108.55 ml/m2 | |LVSV Dopp: 57.53 ml | |LVOT Vmax: 1.11 m/s | |LVOT Vmean: 0.76 m/s | |LVOT VTI: 23.63 cm | |MCO: 417.74 ms | |MV A Latrell: 0.95 m/s | |MV DecT: 210.45 ms | |MV E Latrell: 0.95 m/s | |MV E/A Ratio: 1 | |MV PHT: 61.76 ms | |MVA By PHT: 3.56 cm2 | |MV A Dur: 114.60 ms | |Septal e': 0.05 m/s | |Septal E/e': 17.75 | |Lateral e': 0.07 m/s | |Lateral E/e': 12.90 | |P Vein A: 0.27 m/s | |P Vein A Dur: 103.51 ms | |P Vein D: 0.29 m/s | |P Vein S/D Ratio: 1.46 | |P Vein S: 0.43 m/s | |HR: 71.49 BPM | |PV maxP.49 mmHg | |PV meanP.57 mmHg | |PV Vmax: 0.78 m/s | |PV Vmean: 0.60 m/s | |PV VTI: 20.51 cm | |RAP: 10 mmHg | |RVSP: 46.09 mmHg | |TR maxP.09 mmHg | |TR Vmax: 3.00 m/s | |TV A Latrell: 0.49 m/s | |TV Dec Lincoln: 1.78 m/s2 | |TV Dec Time: 267.68 ms | |TV E Latrell: 0.47 m/s | |TV E/A Ratio: 0.97 | | | |Bacteriologist Industrial: KIRITW | |Authenticated by: Zbigniew Rivera MD | |Report Date/Time: 06-10-2013 17:49:12 | | | |IMPRESSION: | |1. Sinus rhythm. | |2. A 2-dimensional transthoracic echocardiogram with m-mode, spectral and color flow Dopple r was perfomed. | |3. This was a technically adequate study with suboptimal parasternal views. | |4. Overall left ventricular systolic function is normal with, an EF between 65 - 70 %. | |5. The left ventricle cavity size is normal. | |6. Left ventricular wall thickness is normal. | |7. The right ventricle is normal in size and function. | |8. The left atrium is normal in size. | |9. The right atrium is normal in size. | |10. Aortic valve is trileaflet and is mildly thickened. | |11. There is no evidence of aortic regurgitation. | |12. There is no evidence of aortic stenosis. | |13. Mild mitral regurgitation is present. | |14. Mild mitral annular calcification present. | |15. The tricuspid valve appears structurally normal. | |16. Mild tricuspid regurgitation present. | |17. There is mild to moderate pulmonary hypertension. | |18. The right ventricular systolic pressure (pulmonary artery systolic pressure), as measur ed by Doppler, is 46.10mmHg. | |19. Pulmonic valve appears structurally normal. | |20. Trace pulmonic regurgitation | |21. There is no pericardial effusion. | |22. The IVC is normal size (1.5-2.5cm) and collapses <50% with sniff, consistent with centr al venous pressures of 10-15mmHg. | + + CK-MB (06/10/2013 5:47 AM PST) + + + + + -+ | Component | Value | Ref Range | Performed | Pathologist | | | | | At | Signature | + + + + + -+ | CK-MB | 2.2Comment: Testing | 0.5 - 3.6 ng/mL | EXTERNAL | | | | performed at [facility] – [place], [place];[address] | | LAB | | | | [address];[place], [place] | | | | | | [id number] | | | | + + + + + -+ | CK-MB Index | 3.6Comment: CK INDEX | | EXTERNAL | | | | INTERPRETATION: | | LAB | | | | MMB ng/mL | | | | | | | | | | | |CK INDEX INTERPRETATION: | | | | | | MMB ng/mL | | | | | | | | | | + + + + + -+ + + | Specimen | + + | Blood specimen | | (specimen) | + + + +---------+ + + | Performing | Address | City/State/Zipcode | Phone Number | | Organization | | | | + +---------+ + + | EXTERNAL LAB | | | | + +---------+ + + Troponin I (06/10/2013 5:47 AM PST) + + + + + + | Component | Value | Ref Range | Performed | Pathologist | | | | | At | Signature | + + + + + + | Troponin I, | 0.103 (H)Comment: 0.00 | 0.00 - 0.10 | EXTERNAL | | | Qual | to 0.10 CONSISTENT | ng/mL | LAB | | | | WITH NORMAL | | | | | | POPULATION0.11 to 0.60 | | | | | | CONSISTENT WITH | | | | | | INCREASED RISK FOR | | | | | | ADVERSE OUTCOMES> 0.60 | | | | | | CONSISTENT | | | | | | WITH WHO CRITERIA FOR | | | | | | ACUTE ID Testing | | | | | | performed at [facility] – [place], [place];[address] | | | | | | [facility];[place], [place] | | | | | | [address] | | | | + + + + + + + + | Specimen | + + | Blood specimen | | (specimen) | + + + +---------+ + + | Performing | Address | City/State/Zipcode | Phone Number | | Organization | | | | + +---------+ + + | EXTERNAL LAB | | | | + +---------+ + + External Lab: CBC (06/10/2013 5:47 AM PST) + + + + + + | Component | Value | Ref Range | Performed | Pathologist | | | | | At | Signature | + + + + + + | WBC | 8.7Comment: Testing | 3.8 - 11.0 K/uL | EXTERNAL | | | | performed at [facility], [address] | | LAB | | | | [address], | | | | | | [place] [address] | | | | + + + + + + | Red Blood | 4.08Comment: Testing | 3.70 - 5.10 | EXTERNAL | | | Cells | performed at [facility], [address] | M/uL | LAB | | | Counted | [address], | | | | | | [place] [address] | | | | + + + + + + | Hemoglobin | 12.0Comment: Testing | 11.3 - 15.5 | EXTERNAL | | | | performed at [facility], [address] | g/dL | LAB | | | | [address], | | | | | | [place] [address] | | | | + + + + + + | Hematocrit, | 36.6Comment: Testing | 34.0 - 46.0 % | EXTERNAL | | | POC | performed at [facility], [address] | | LAB | | | | [address], | | | | | | [place] [address] | | | | + + + + + + | MCV | 89.8Comment: Testing | 80.0 - 100.0 fl | EXTERNAL | | | | performed at [facility], [address] | | LAB | | | | [address], | | | | | | [place] [address] | | | | + + + + + + | MCH | 29.4Comment: Testing | 27.0 - 34.0 pg | EXTERNAL | | | | performed at [facility], [address] | | LAB | | | | [address], | | | | | | [place] [address] | | | | + + + + + + | MCHC | 32.8Comment: Testing | 32.0 - 35.5 | EXTERNAL | | | | performed at [facility], [address] | g/dL | LAB | | | | [address], | | | | | | [place] [address] | | | | + + + + + + | RDW-CV | 41.6Comment: Testing | 37 - 53 fl | EXTERNAL | | | | performed at [facility], [address] | | LAB | | | | [address], | | | | | | [place] [address] | | | | + + + + + + | Platelet | 172Comment: Testing | 150 - 400 K/uL | EXTERNAL | | | Count | performed at [facility], [address] | | LAB | | | Plasma | [place], | | | | | | [place] [address] | | | | + + + + + + | MPV | 10.2Comment: Testing | fl | EXTERNAL | | | | performed at [facility], [address] | | LAB | | | | [address], | | | | | | [place] [address] | | | | + + + + + + | Differentia | AUTOMATEDComment: | | EXTERNAL | | | l Type | Testing performed at | | LAB | | | | [facility], [address] | | | | | | [place] | | | | | | [address] | | | | + + + + + + | % Segmented | 55.0Comment: Testing | % | EXTERNAL | | | | performed at [facility], [address] | | LAB | | | Neutrophils [address], | | | | | | [place] [address] | | | | + + + + + + | % | 32.2Comment: Testing | % | EXTERNAL | | | Lymphocytes | performed at [facility], [address] | | LAB | | | | [address], | | | | | | [place] [address] | | | | + + + + + + | % Monocytes | 7.6Comment: Testing | % | EXTERNAL | | | | performed at [facility], [address] | | LAB | | | | [address], | | | | | | [place] [address] | | | | + + + + + + | % | 4.8Comment: Testing | % | EXTERNAL | | | Eosinophils | performed at [facility], [address] | | LAB | | | | [address], | | | | | | [place] [address] | | | | + + + + + + | % Basophils | 0.4Comment: Testing | % | EXTERNAL | | | | performed at [facility], [address] | | LAB | | | | [address], | | | | | | [place] [address] | | | | + + + + + + | Absolute | 4.8Comment: Testing | 1.9 - 7.4 K/uL | EXTERNAL | | | Segmented | performed at [facility], [address] | | LAB | | | Neutrophils | [address], | | | | | | [place] [address] | | | | + + + + + + | Absolute | 2.8Comment: Testing | 1.0 - 3.9 K/uL | EXTERNAL | | | Lymphocytes | performed at [facility], [address] | | LAB | | | | [address], | | | | | | [place] [address] | | | | + + + + + + | Absolute | 0.7Comment: Testing | 0 - 0.8 K/uL | EXTERNAL | | | Monocytes | performed at [facility], [address] | | LAB | | | | [address], | | | | | | [place] [address] | | | | + + + + + + | Absolute | 0.4Comment: Testing | 0 - 0.5 K/uL | EXTERNAL | | | Eosinophils | performed at [facility], [address] | | LAB | | | | [address], | | | | | | [place] [address] | | | | + + + + + + | Absolute | 0.0Comment: Testing | 0 - 0.1 K/uL | EXTERNAL | | | Basophils | performed at [facility], [address] | | LAB | | | | [address], | | | | | | [place] [address] | | | | + + + + + + + + | Specimen | + + | Blood specimen | | (specimen) | + + + +---------+ + + | Performing | Address | City/State/Zipcode | Phone Number | | Organization | | | | + +---------+ + + | EXTERNAL LAB | | | | + +---------+ + + TSH (06/10/2013 5:47 AM PST) + + + + + + | Component | Value | Ref Range | Performed | Pathologist | | | | | At | Signature | + + + + + + | TSH | 4.95Comment: Testing | 0.45 - 5.10 | EXTERNAL | | | | performed at [facility], [address] | uIU/mL | LAB | | | | [address], | | | | | | [place] [address] | | | | + + + + + + + + | Specimen | + + | Blood specimen | | (specimen) | + + + +---------+ + + | Performing | Address | City/State/Zipcode | Phone Number | | Organization | | | | + +---------+ + + | EXTERNAL LAB | | | | + +---------+ + + Phosphorus (06/10/2013 5:47 AM PST) + + + + + + | Component | Value | Ref Range | Performed | Pathologist | | | | | At | Signature | + + + + + + | PHOSPHORUS | 3.8Comment: Testing | 2.3 - 4.8 mg/dL | EXTERNAL | | | | performed at [facility], [address] | | LAB | | | | [address], | | | | | | [place] [address] | | | | + + + + + + + + | Specimen | + + | Blood specimen | | (specimen) | + + + +---------+ + + | Performing | Address | City/State/Zipcode | Phone Number | | Organization | | | | + +---------+ + + | EXTERNAL LAB | | | | + +---------+ + + Magnesium (06/10/2013 5:47 AM PST) + + + + + + | Component | Value | Ref Range | Performed | Pathologist | | | | | At | Signature | + + + + + + | Magnesium | 1.8Comment: Testing | 1.7 - 2.4 mg/dL | EXTERNAL | | | | performed at [facility], [address] | | LAB | | | | [address], | | | | | | [place] [address] | | | | + + + + + + + + | Specimen | + + | Blood specimen | | (specimen) | + + + +---------+ + + | Performing | Address | City/State/Zipcode | Phone Number | | Organization | | | | + +---------+ + + | EXTERNAL LAB | | | | + +---------+ + + Hemoglobin A1C (06/10/2013 5:47 AM PST) + + + + + + | Component | Value | Ref Range | Performed | Pathologist | | | | | At | Signature | + + + + + + | Hemoglobin | 5.6Comment: The [place] | 4.0 - 6.0 % | EXTERNAL | | | A1c | Diabetes Association | | LAB | | | | considers a hemoglobin | | | | | | A1c result of <7.0% to | | | | | | be the goal of diabetic | | | | | | therapy. When results | | | | | | are consistently >8.0%, | | | | | | the ADA suggests | | | | | | reevaluation of the | | | | | | treatment regimen. The | | | | | | testing method used is | | | | | | certified traceable to | | | | | | the Diabetes Control and | | | | | | Complications Trial | | | | | | reference method.Testing | | | | | | performed at [facility], [address], | | | | | | [place] [address] | | | | + + + + + + | Glycohemogl | 114Comment: The ADA | mg/dL | EXTERNAL | | | obin | considers an eAG result | | LAB | | | (GHb),Total | of LT 154 mg/dL to be | | | | | | the goal of diabetic | | | | | | therapy. Estimated | | | | | | Average Glucose | | | | | | calculated from | | | | | | hemoglobin A1c by use of | | | | | | the ADA recommended | | | | | | formula.Testing | | | | | | performed at [facility], [address] | | | | | | [address], | | | | | | [place] [address] | | | | + + + + + + + + | Specimen | + + | Blood specimen | | (specimen) | + + + +---------+ + + | Performing | Address | City/State/Zipcode | Phone Number | | Organization | | | | + +---------+ + + | EXTERNAL LAB | | | | + +---------+ + + CK Total (06/10/2013 5:47 AM PST) + + + + + + | Component | Value | Ref Range | Performed | Pathologist | | | | | At | Signature | + + + + + + | CK, Total | 61Comment: Testing | 30 - 240 U/L | EXTERNAL | | | | performed at [facility] [place];[address] | | LAB | | | | [address];[place], [place] | | | | | | [address] | | | | + + + + + + + + | Specimen | + + | Blood specimen | | (specimen) | + + + +---------+ + + | Performing | Address | City/State/Zipcode | Phone Number | | Organization | | | | + +---------+ + + | EXTERNAL LAB | | | | + +---------+ + + Lipid Panel (06/10/2013 5:47 AM PST) + + + + + + | Component | Value | Ref Range | Performed | Pathologist | | | | | At | Signature | + + + + + + | Cholesterol | 179Comment: Testing | mg/dL | EXTERNAL | | | | performed at [facility], [address] | | LAB | | | | [address], | | | | | | [place] [address] | | | | + + + + + + | Triglycerid | 253 (H)Comment: Testing | mg/dL | EXTERNAL | | | es | performed at [facility], [address] | | LAB | | | | [address], | | | | | | [place] [address] | | | | + + + + + + | HDL | 32 (L)Comment: Testing | mg/dL | EXTERNAL | | | | performed at [facility], [address] | | LAB | | | | [address], | | | | | | [place] [address] | | | | + + + + + + | LDL, | 96Comment: Testing | mg/dL | EXTERNAL | | | Calculated | performed at [facility], [address] | | LAB | | | | [address], | | | | | | [place] [address] | | | | + + + + + + + + | Specimen | + + | Blood specimen | | (specimen) | + + + +---------+ + + | Performing | Address | City/State/Zipcode | Phone Number | | Organization | | | | + +---------+ + + | EXTERNAL LAB | | | | + +---------+ + + Comprehensive Metabolic Panel (06/10/2013 5:47 AM PST) + + + + + + | Component | Value | Ref Range | Performed | Pathologist | | | | | At | Signature | + + + + + + | Na | 140Comment: Testing | 135 - 143 | EXTERNAL | | | | performed at [facility], [address] | mmol/L | LAB | | | | [address], | | | | | | [place] [address] | | | | + + + + + + | K | 4.4Comment: Testing | 3.5 - 4.9 | EXTERNAL | | | | performed at [facility], [address] | mmol/L | LAB | | | | [address], | | | | | | [place] [address] | | | | + + + + + + | Cl | 105Comment: Testing | 99 - 109 mmol/L | EXTERNAL | | | | performed at [facility], [address] | | LAB | | | | [address], | | | | | | [place] [address] | | | | + + + + + + | CO2 | 26Comment: Testing | 23 - 32 mmol/L | EXTERNAL | | | | performed at [facility], [address] | | LAB | | | | [address], | | | | | | [place] [address] | | | | + + + + + + | Anion Gap | 13Comment: Testing | 5 - 20 mmol/L | EXTERNAL | | | | performed at [facility], [address] | | LAB | | | | [address], | | | | | | [place] [address] | | | | + + + + + + | Glucose, | 114 (H)Comment: Testing | 65 - 99 mg/dL | EXTERNAL | | | Fasting | performed at [facility], [address] | | LAB | | | | [address], | | | | | | [place] [address] | | | | + + + + + + | BUN | 22Comment: Testing | 8 - 25 mg/dL | EXTERNAL | | | | performed at [facility], [address] | | LAB | | | | [address], | | | | | | [place] [address] | | | | + + + + + + | Creatinine | 0.97Comment: Testing | 0.50 - 1.00 | EXTERNAL | | | | performed at [facility], [address] | mg/dL | LAB | | | | [address], | | | | | | [place] [address] | | | | + + + + + + | BUN/Creatin | 23Comment: Testing | | EXTERNAL | | | ine Ratio | performed at [facility], [address] | | LAB | | | | [address], | | | | | | [place] [address] | | | | + + + + + + | Calcium | 9.7Comment: Testing | 8.5 - 10.2 | EXTERNAL | | | | performed at [facility], [address] | mg/dL | LAB | | | | [address], | | | | | | [place] [address] | | | | + + + + + + | Protein, | 5.8 (L)Comment: Testing | 6.3 - 8.2 g/dL | EXTERNAL | | | Total | performed at [facility], [address] | | LAB | | | | [address], | | | | | | [place] [address] | | | | + + + + + + | Albumin | 3.7Comment: Testing | 3.3 - 4.8 g/dL | EXTERNAL | | | | performed at [facility], [address] | | LAB | | | | [address], | | | | | | [place] [address] | | | | + + + + + + | Globulin | 2.1Comment: Testing | 1.3 - 4.9 g/dL | EXTERNAL | | | | performed at [facility], [address] | | LAB | | | | [address], | | | | | | [place] [address] | | | | + + + + + + | A/G Ratio | 1.8Comment: Testing | 1.0 - 2.4 | EXTERNAL | | | | performed at [facility], [address] | | LAB | | | | [address], | | | | | | [place] [address] | | | | + + + + + + | Bilirubin | 0.2Comment: Testing | 0.1 - 1.5 mg/dL | EXTERNAL | | | Total | performed at [facility], [address] | | LAB | | | | [address], | | | | | | [place] [address] | | | | + + + + + + | ALP, | 61Comment: Testing | 35 - 115 U/L | EXTERNAL | | | External | performed at [facility], [address] | | LAB | | | | [address], | | | | | | [place] [address] | | | | + + + + + + | AST | 52 (H)Comment: Testing | 10 - 45 U/L | EXTERNAL | | | | performed at [facility], [address] | | LAB | | | | [address], | | | | | | [place] [address] | | | | + + + + + + | ALT | 66 (H)Comment: Testing | 10 - 65 U/L | EXTERNAL | | | | performed at [facility], [address] | | LAB | | | | [address], | | | | | | [place] [address] | | | | + + + + + + | Estimated | 60 (L)Comment: GFR <60: | mL/min/1.73m2 | EXTERNAL | [...] | | | | | | at [facility], [address] | | | | | | [address], | | | | | | [place] [address] | | | | + + + + + + + + | Specimen | + + | Blood specimen | | (specimen) | + + + +---------+ + + | Performing | Address | City/State/Zipcode | Phone Number | | Organization | | | | + +---------+ + + | EXTERNAL LAB | | | | + +---------+ + + CK-MB (06/09/2013 11:59 PM PST) + + + + + -+ | Component | Value | Ref Range | Performed | Pathologist | | | | | At | Signature | + + + + + -+ | CK-MB | 1.9Comment: Testing | 0.5 - 3.6 ng/mL | EXTERNAL | | | | performed at [facility] [place];[facility] | | LAB | | | | [address];[place], [place] | | | | | | [address] | | | | + + + + + -+ | CK-MB Index | 3.0Comment: CK INDEX | | EXTERNAL | | | | INTERPRETATION: | | LAB | | | | MMB ng/mL | | | | | | | | | | | |CK INDEX INTERPRETATION: | | | | | | MMB ng/mL | | | | | | | | | | + + + + + -+ + + | Specimen | + + | Blood specimen | | (specimen) | + + + +---------+ + + | Performing | Address | City/State/Zipcode | Phone Number | | Organization | | | | + +---------+ + + | EXTERNAL LAB | | | | + +---------+ + + Troponin I (06/09/2013 11:59 PM PST) + + + + + + | Component | Value | Ref Range | Performed | Pathologist | | | | | At | Signature | + + + + + + | Troponin I, | 0.122 (H)Comment: 0.00 | 0.00 - 0.10 | EXTERNAL | | | Qual | to 0.10 CONSISTENT | ng/mL | LAB | | | | WITH NORMAL | | | | | | POPULATION0.11 to 0.60 | | | | | | CONSISTENT WITH | | | | | | INCREASED RISK FOR | | | | | | ADVERSE OUTCOMES> 0.60 | | | | | | CONSISTENT | | | | | | WITH WHO CRITERIA FOR | | | | | | ACUTE ID Testing | | | | | | performed at [facility] [place] [place];[address] | | | | | | [facility];[place], [place] | | | | | | [address] | | | | + + + + + + + + | Specimen | + + | Blood specimen | | (specimen) | + + + +---------+ + + | Performing | Address | City/State/Zipcode | Phone Number | | Organization | | | | + +---------+ + + | EXTERNAL LAB | | | | + +---------+ + + CK Total (06/09/2013 11:59 PM PST) + + + + + + | Component | Value | Ref Range | Performed | Pathologist | | | | | At | Signature | + + + + + + | CK, Total | 63Comment: Testing | 30 - 240 U/L | EXTERNAL | | | | performed at [facility] [place] [place];[address] | | LAB | | | | [address];[place] | | | | | | [address] | | | | + + + + + + + + | Specimen | + + | Blood specimen | | (specimen) | + + + +---------+ + + | Performing | Address | City/State/Zipcode | Phone Number | | Organization | | | | + +---------+ + + | EXTERNAL LAB | | | | + +---------+ + + External Lab: CBC (06/09/2013 10:05 PM PST) + + + + + + | Component | Value | Ref Range | Performed | Pathologist | | | | | At | Signature | + + + + + + | WBC | 9.9Comment: Testing | 3.8 - 11.0 K/uL | EXTERNAL | | | | performed at [facility] [place] [place];[address] | | LAB | | | | [address];[place] | | | | | | [address] | | | | + + + + + + | Red Blood | 4.10Comment: Testing | 3.70 - 5.10 | EXTERNAL | | | Cells | performed at [facility] [place] [place];[address] | M/uL | LAB | | | Counted | [address];[place] | | | | | | [address] | | | | + + + + + + | Hemoglobin | 12.4Comment: Testing | 11.3 - 15.5 | EXTERNAL | | | | performed at [facility] [place] [place];[address] | g/dL | LAB | | | | [address];[place] | | | | | | [address] | | | | + + + + + + | Hematocrit, | 36.1Comment: Testing | 34.0 - 46.0 % | EXTERNAL | | | POC | performed at [facility] [place] [place];[address] | | LAB | | | | [address];[place] | | | | | | [address] | | | | + + + + + + | MCV | 87.9Comment: Testing | 80.0 - 100.0 fl | EXTERNAL | | | | performed at [facility] [place] [place];[address] | | LAB | | | | [address];[place] | | | | | | [address] | | | | + + + + + + | MCH | 30.1Comment: Testing | 27.0 - 34.0 pg | EXTERNAL | | | | performed at [facility] [place] [place];[address] | | LAB | | | | [address];[place] | | | | | | [address] | | | | + + + + + + | MCHC | 34.3Comment: Testing | 32.0 - 35.5 | EXTERNAL | | | | performed at [facility] [place] [place];[address] | g/dL | LAB | | | | [address];[place] | | | | | | [address] | | | | + + + + + + | RDW-CV | 40.7Comment: Testing | 37 - 53 fl | EXTERNAL | | | | performed at [facility] [place] [place];[address] | | LAB | | | | [address];[place] | | | | | | [address] | | | | + + + + + + | Platelet | 201Comment: Testing | 150 - 400 K/uL | EXTERNAL | | | Count | performed at [facility] [place] [place];[address] | | LAB | | | Plasma | [address];[place] | | | | | | [address] | | | | + + + + + + | MPV | 9.6Comment: Testing | fl | EXTERNAL | | | | performed at [facility] [place] [place];[address] | | LAB | | | | [address];[place] | | | | | | [address] | | | | + + + + + + | Differentia | AUTOMATEDComment: | | EXTERNAL | | | l Type | Testing performed at | | LAB | | | | [facility] [place] [place];[address];[place] [address] | | | | + + + + + + | % Segmented | 66.0Comment: Testing | % | EXTERNAL | | | | performed at [facility] [place] [place];[address] | | LAB | | | Neutrophils | [address];[place] | | | | | | [address] | | | | + + + + + + | % | 24.5Comment: Testing | % | EXTERNAL | | | Lymphocytes | performed at [facility] [place] [place];[address] | | LAB | | | | [address];[place] | | | | | | [address] | | | | + + + + + + | % Monocytes | 6.3Comment: Testing | % | EXTERNAL | | | | performed at [facility] [place] [place];[address] | | LAB | | | | [address];[place] | | | | | | [address] | | | | + + + + + + | % | 2.9Comment: Testing | % | EXTERNAL | | | Eosinophils | performed at [facility] [place] [place];[address] | | LAB | | | | [address];[place] | | | | | | [address] | | | | + + + + + + | % Basophils | 0.3Comment: Testing | % | EXTERNAL | | | | performed at [facility] [place] [place];[address] | | LAB | | | | [address];[place] | | | | | | [address] | | | | + + + + + + | Absolute | 6.5Comment: Testing | 1.9 - 7.4 K/uL | EXTERNAL | | | Segmented | performed at [facility] [place] [place];[address] | | LAB | | | Neutrophils | [address];[place] | | | | | | [address] | | | | + + + + + + | Absolute | 2.4Comment: Testing | 1.0 - 3.9 K/uL | EXTERNAL | | | Lymphocytes | performed at [facility] [place] [place];[address] | | LAB | | | | [address];[place] | | | | | | [address] | | | | + + + + + + | Absolute | 0.6Comment: Testing | 0 - 0.8 K/uL | EXTERNAL | | | Monocytes | performed at [facility] [place] [place];[address] | | LAB | | | | [address];[place] | | | | | | [address] | | | | + + + + + + | Absolute | 0.3Comment: Testing | 0 - 0.5 K/uL | EXTERNAL | | | Eosinophils | performed at [facility] [place] [place];[address] | | LAB | | | | [address];[place] | | | | | | [address] | | | | + + + + + + | Absolute | 0.0Comment: Testing | 0 - 0.1 K/uL | EXTERNAL | | | Basophils | performed at [facility] [place] [place];[address] | | LAB | | | | [address];[place] | | | | | | [address] | | | | + + + + + + + + | Specimen | + + | Blood specimen | | (specimen) | + + + +---------+ + + | Performing | Address | City/State/Zipcode | Phone Number | | Organization | | | | + +---------+ + + | EXTERNAL LAB | | | | + +---------+ + + Phosphorus (06/09/2013 10:05 PM PST) + + + + + + | Component | Value | Ref Range | Performed | Pathologist | | | | | At | Signature | + + + + + + | PHOSPHORUS | 3.3Comment: Testing | 2.3 - 4.8 mg/dL | EXTERNAL | | | | performed at [facility] [place] [place];[address] | | LAB | | | | [address];[place], [place] | | | | | | [address] | | | | + + + + + + + + | Specimen | + + | Blood specimen | | (specimen) | + + + +---------+ + + | Performing | Address | City/State/Zipcode | Phone Number | | Organization | | | | + +---------+ + + | EXTERNAL LAB | | | | + +---------+ + + Magnesium (06/09/2013 10:05 PM PST) + + + + + + | Component | Value | Ref Range | Performed | Pathologist | | | | | At | Signature | + + + + + + | Magnesium | 1.5 (L)Comment: Testing | 1.7 - 2.4 mg/dL | EXTERNAL | | | | performed at [facility] [place] [place];[address] | | LAB | | | | [address];[place] | | | | | | [address] | | | | + + + + + + + + | Specimen | + + | Blood specimen | | (specimen) | + + + +---------+ + + | Performing | Address | City/State/Zipcode | Phone Number | | Organization | | | | + +---------+ + + | EXTERNAL LAB | | | | + +---------+ + + Theophylline Level (06/09/2013 10:05 PM PST) + + + + + + | Component | Value | Ref Range | Performed | Pathologist | | | | | At | Signature | + + + + + + | COLLECTION | UNKNOWNComment: Testing | | EXTERNAL | | | DATE/TIME | performed at [facility], [address] | | LAB | | | [address] | [address], | | | | | | [place] [address] | | | | + + + + + + | COLLECTION | UNKNOWNComment: Testing | | EXTERNAL | | | DATE/TIME | performed at [facility], [address] | | LAB | | | [address] | [address], | | | | | | [place] [address] | | | | + + + + + + | Theophyllin | 2.9 (L)Comment: Testing | 10 - 20 ug/mL | EXTERNAL | | | e level | performed at [facility], [address] | | LAB | | | | [address], | | | | | | [place] [address] | | | | + + + + + + + + | Specimen | + + | Blood specimen | | (specimen) | + + + +---------+ + + | Performing | Address | City/State/Zipcode | Phone Number | | Organization | | | | + +---------+ + + | EXTERNAL LAB | | | | + +---------+ + + Digoxin Level (06/09/2013 10:05 PM PST) + + + + + + | Component | Value | Ref Range | Performed | Pathologist | | | | | At | Signature | + + + + + + | Date of | UNKNOWNComment: Testing | | EXTERNAL | | | Last Dose | performed at [facility] [place] [place];[address] | | LAB | | | | [address];[place] | | | | | | [address] | | | | + + + + + + | Time of | UNKNOWNComment: Testing | | EXTERNAL | | | Last Dose | performed at [facility] [place] [place];[address] | | LAB | | | | [address];[place] | | | | | | [address] | | | | + + + + + + | Digoxin | 0.7 (L)Comment: Testing | 0.90 - 2.00 | EXTERNAL | | | level | performed at [facility] [place] [place];[address] | ng/mL | LAB | | | | [address];[place], [place] | | | | | | [address] | | | | + + + + + + + + | Specimen | + + | Blood specimen | | (specimen) | + + + +---------+ + + | Performing | Address | City/State/Zipcode | Phone Number | | Organization | | | | + +---------+ + + | EXTERNAL LAB | | | | + +---------+ + + Comprehensive Metabolic Panel (06/09/2013 10:05 PM PST) + + + + + + | Component | Value | Ref Range | Performed | Pathologist | | | | | At | Signature | + + + + + + | Na | 142Comment: Testing | 135 - 143 | EXTERNAL | | | | performed at [facility] [place] [place];[address] | mmol/L | LAB | | | | [address];[place] | | | | | | [address] | | | | + + + + + + | K | 4.1Comment: Testing | 3.5 - 4.9 | EXTERNAL | | | | performed at [facility] [place] [place];[address] | mmol/L | LAB | | | | [address];[place] | | | | | | [address] | | | | + + + + + + | Cl | 107Comment: Testing | 99 - 109 mmol/L | EXTERNAL | | | | performed at [facility] – [place];[address] | | LAB | | | | [address];[place] | | | | | | [address] | | | | + + + + + + | CO2 | 29Comment: Testing | 23 - 32 mmol/L | EXTERNAL | | | | performed at [facility] – [place];[address] | | LAB | | | | [address];[place] | | | | | | [address] | | | | + + + + + + | Anion Gap | 9Comment: Testing | 5 - 20 mmol/L | EXTERNAL | | | | performed at [facility] – [place];[address] | | LAB | | | | [address];[place] | | | | | | [address] | | | | + + + + + + | Glucose, | 160 (H)Comment: Testing | 65 - 99 mg/dL | EXTERNAL | | | Fasting | performed at [facility] – [place];[address] | | LAB | | | | [address];[place] | | | | | | [address] | | | | + + + + + + | BUN | 23Comment: Testing | 8 - 25 mg/dL | EXTERNAL | | | | performed at [facility] – [place];[address] | | LAB | | | | [address];[place] | | | | | | [address] | | | | + + + + + + | Creatinine | 1.12 (H)Comment: Testing | 0.50 - 1.00 | EXTERNAL | | | | performed at [facility] – [place];[address] | mg/dL | LAB | | | | [address];[place] | | | | | | [address] | | | | + + + + + + | BUN/Creatin | 21Comment: Testing | | EXTERNAL | | | ine Ratio | performed at [facility] – [place];[address] | | LAB | | | | [address];[place] | | | | | | [address] | | | | + + + + + + | Calcium | 9.2Comment: Testing | 8.5 - 10.2 | EXTERNAL | | | | performed at [facility] – [place];[address] | mg/dL | LAB | | | | [address];[place] | | | | | | [address] | | | | + + + + + + | Protein, | 6.4Comment: Testing | 6.3 - 8.2 g/dL | EXTERNAL | | | Total | performed at [facility] – [place];[address] | | LAB | | | | [address];[place] | | | | | | [address] | | | | + + + + + + | Albumin | 3.4Comment: Testing | 3.3 - 4.8 g/dL | EXTERNAL | | | | performed at [facility] – [place], [place];[address] | | LAB | | | | [address];[place] | | | | | | [address] | | | | + + + + + + | Globulin | 3.0Comment: Testing | 1.3 - 4.9 g/dL | EXTERNAL | | | | performed at [facility] – [place];[address] | | LAB | | | | [address];[place] | | | | | | [address] | | | | + + + + + + | A/G Ratio | 1.1Comment: Testing | 1.0 - 2.4 | EXTERNAL | | | | performed at [facility] [place];[address] | | LAB | | | | [address];[place] | | | | | | [address] | | | | + + + + + + | Bilirubin | 0.3Comment: Testing | 0.1 - 1.5 mg/dL | EXTERNAL | | | Total | performed at [facility] [place];[address] | | LAB | | | | [address];[place] | | | | | | [address] | | | | + + + + + + | ALP, | 91Comment: Testing | 35 - 115 U/L | EXTERNAL | | | External | performed at [facility] – [place];[address] | | LAB | | | | [address];[place] | | | | | | [address] | | | | + + + + + + | AST | 52 (H)Comment: Testing | 10 - 45 U/L | EXTERNAL | | | | performed at [facility] [place];[address] | | LAB | | | | [address];[place] | | | | | | [address] | | | | + + + + + + | ALT | 92 (H)Comment: Testing | 10 - 65 U/L | EXTERNAL | | | | performed at [facility] [place];[address] | | LAB | | | | [address];[place] | | | | | | [address] | | | | + + + + + + | Estimated | 50 (L)Comment: GFR <60: | mL/min/1.73m2 | EXTERNAL | [...] | | | | | | at [facility] [place];[address] | | | | | [address];[place] [address] | | | | + + + + + + + + | Specimen | + + | Blood specimen | | (specimen) | + + + +---------+ + + | Performing | Address | City/State/Zipcode | Phone Number | | Organization | | | | + +---------+ + + | EXTERNAL LAB | | | | + +---------+ + + ECG 12 lead (06/09/2013 7:24 PM PST) + + + + + + | Component | Value | Ref Range | Performed | Pathologist | | | | | At | Signature | + + + + + + | DIAGNOSIS: | Sinus rhythm with sinus | | EXTERNAL | | | | arrhythmia with | | LAB | | | | occasional Premature | | | | | | ventricular | | | | | | complexesNonspecific T | | | | | | wave abnormalityAbnormal | | | | | | ECGNo previous ECGs | | | | | | availableThis ECG | | | | | | contains Unconfirmed | | | | | | Interpretation | | | | | | Statements. See ED | | | | | | Record for Physician | | | | | | Interpretation. | | | | | | Confirmed by MUSE READ | | | | | | ONLY, -COMPUTER ([id number]), | | | | | | features editor Val Martinez | | | | | | ([id number]) on 06/10/2013 | | | | | | 12:28:01 AM | | | | + + + + + + + + | Specimen | + + | | + + + + + | Narrative | Performed At | + + + | Historically converted procedure from [employer] Epic environment | EXTERNAL LAB | + + + + +---------+ + + | Performing | Address | City/State/Zipcode | Phone Number | | Organization | | | | + +---------+ + + | EXTERNAL LAB | | | | + +---------+ + + documented in this encounter Visit Diagnoses + + | Diagnosis | + + | Chest pain Chest pain, unspecified | + + | SVT (supraventricular tachycardia) (HCC) Other specified cardiac dysrhythmias | + + | Chest pain, rule out acute myocardial infarction Chest pain, unspecified | + + | Chest pain, unspecified | + + | COPD (chronic obstructive pulmonary disease) (HCC) Chronic airway obstruction, not | | elsewhere classified | + + | HTN (hypertension) Unspecified essential hypertension | + + documented in this encounter
--- OUTSIDE RECORDS SUMMARY | ~2019-10-10 | XMS | Encounter Summary ---
Demographics + + + | Address | [address] | | | [place] [address] | + + + | Home Phone | | + + + | Preferred Language | Unknown | + + + | Marital Status | | + + + | Yazidi Affiliation | 1001 | + + + | Race | Unknown | + + + | Ethnic Group | Unknown | + + + Author + + + | Author | [facility] | | | and [place] | + + + | Organization | [facility] | | | [...] Team Providers + +------+ + | Care State Editor Name | Role | Phone | + +------+ + PCP | Unavailable | + +------+ + Encounter Details +--------+ + + + + | Date | Type | Department | Care Team | Description | +--------+ + + + + | 04/08/ | Hospital | [facility] | Conversion | | | 2014 | Encounter | C[facility] | Transaction, | | | | | CLINIC [address] | Provider Unknown | | | | | [place], [place] | | | | | | [address] | | | | | | [phone] | | | +--------+ + + + [...] documented as of this encounter Procedure Notes Conversion Transaction, Provider Unknown - 04/08/2014 1:08 PM PSTFormatting of this note m ight be different from the original. Pre-Procedure Instructions by Susan Perkins RN at 04/08/14 2577 Author: Susan Perkins RN Service: (none) Author Type: Registered Nurse Filed: 04/08/14 3862 Date of Service: 04/08/141307 Status: Signed Family Medicine Chair: Susan Perkins, RN (Registered Nurse) Per [facility] cardiac evaluation and care algorithm, patient meets METS of 4. docume nted in this encounter Plan of Treatment Not on filedocumented as of this encounter Procedures + +--------+ + + + | Procedure Name | Priori | Date/Time | Associated Diagnosis | Comments | | | ty | | | | + +--------+ + + + | ECG 12 LEAD | Routin | 04/08/2014 | | Results for this | | | e | 12:40 PM | | procedure are in the | | | | PST | | results section. | + +--------+ + + + documented in this encounter Results ECG 12 lead (04/08/2014 12:40 PM PST) + + + + + + | Component | Value | Ref Range | Performed | Pathologist | | | | | At | Signature | + + + + + + | DIAGNOSIS: | Normal sinus | | EXTERNAL | | | | rhythmPossible Septal | | LAB | | | | infaction | | | | | | (old)Nonspecific T wave | | | | | | abnormalities Abnormal | | | | | | ECGWhen compared with | | | | | | ECG of 10-DEC-2013 | | | | | | 10:30,No significant | | | | | | change was | | | | | | foundConfirmed by Nito | | | | | | Rowdy ([id number]) on | | | | | | 04/08/2014 6:08:44 PM | | | | + + + + + + + + | Specimen | + + | | + + + + + | Narrative | Performed At | + + + | Historically converted procedure from [facility] Epic environment | EXTERNAL LAB | + + + + +---------+ + + | Performing | Address | City/State/Zipcode | Phone Number | | Organization | | | | + +---------+ + + | EXTERNAL LAB | | | | + +---------+ + + documented in this encounter Visit Diagnoses Not on filedocumented in this encounter"
--- OUTSIDE RECORDS SUMMARY | ~2019-10-10 | XMS | Encounter Summary ---
Demographics + + + | Address | [address] | | | [place] [address] | + + + | Home Phone | | + + + | Preferred Language | Unknown | + + + | Marital Status | | + + + | Restorationism Affiliation | 1001 | + + + | Race | Unknown | + + + | Ethnic Group | Unknown | + + + Author + + + | Author | [facility] | | | and [place] | + + + | Organization | [facility] | | | and [place] | + [...] Team Providers + +------+ + | Care Motor And Generator Assembler Name | Role | Phone | + +------+ + PCP | Unavailable | + +------+ + Encounter Details +--------+ + + + + | Date | Type | Department | Care Team | Description | +--------+ + + + + | 05/17/ | Hospital | [facility] | Conversion | RUQ pain | | 2014 | Encounter | [facility] | Transaction, | | | | | MEDICINE [address] | Provider Unknown | | | | | [address] | [phone] | | | | | [place] | | | | | | [address] | | | | | | [phone] | | | +--------+ + + + [...]
--- OUTSIDE RECORDS SUMMARY | ~2019-10-10 | XMS | Clinical Summary ---
Demographics + + + | Address | [address] | | | [place] [address] | + + + | Home Phone | | + + + | Preferred Language | Unknown | + + + | Marital Status | | + + + | Gnosticism Affiliation | 1001 | + + + | Race | Unknown | + + + | Ethnic Group | Unknown | + + + Author + + + | Author | [facility] | | | and [place] | + + + | Organization | [facility] | | | [...] Team Providers + +------+ + | Care Mobile Sales Technician Name | Role | Phone | + [...]
--- OUTSIDE RECORDS SUMMARY | ~2019-10-10 | XMS | Encounter Summary ---
Demographics + + + | Address | [address] | | | [place] [address] | + + + | Home Phone | | + + + | Preferred Language | Unknown | + + + | Marital Status | | + + + | Mormon Affiliation | 1001 | + + + | Race | Unknown | + + + | Ethnic Group | Unknown | + + + Author + + + | Author | [facility] | | | and [place] | + + + | Organization | [facility] | | | and [...] Team Providers + +------+ + | Care Tool Die Maker Name | Role | Phone | + +------+ + PCP | Unavailable | + +------+ + Encounter Details +--------+ + + + + | Date | Type | Department | Care Team | Description | +--------+ + + + + | 06/29/ | Hospital | [facility] | Conversion | CAD (coronary artery | | 2015 | Encounter | MEDICAL CENTER | Transaction, | disease); Atrial | | | | NUCLEAR MEDICINE | Provider Unknown | fibrillation (HCC) | | | | [address] [facility] | | | | | | [place], [place] | (Fax) | | | | | [address] | | | | | | [phone] | | | +--------+ + + + [...] PM PDT Procedures by MARCEL Romo at 06/29/14 1532 Author: MARCEL Romo Service: Radiology Author Type: Advanced Registered Nurse Practitioner Filed: 06/29/14 1533 Date of Service: 06/29/141531 Status: Signed Inclusion Teacher: MARCEL Romo (Advanced Registered Nurse Practitioner) Pre-procedure Diagnoses: 1. Pre-operative exam [V72.84] Post-procedure Diagnoses: 1. Pre-operative exam [V72.84] Procedures: 1. NM MYOCARDIAL PERFUSION SPECT - STRESS AND REST [RFP020 (Custom)] [facility] Service: Diagnostic Imaging/Nuclear Medicine Cardiac Stress Test [...] Zbigniew | | | FABIO RIVERA MD [facility] | | + + + + + [...] | | | | Zbigniew RIVERA MD [facility] | | | | | + + documented in this encounter Visit Diagnoses + + | Diagnosis | + + | CAD (coronary artery disease) Coronary atherosclerosis of unspecified type of vessel, | | pilot point or graft | + + | Atrial fibrillation (HCC) Atrial fibrillation | + + documented in this encounter"
--- OUTSIDE RECORDS SUMMARY | ~2019-10-10 | XMS | Clinical Summary ---
Demographics + + + | Address | [address] | | | [place] [address] | + + + | Home Phone | | + + + | Preferred Language | Unknown | + + + | Marital Status | | + + + | Denominational Affiliation | Unknown | + + + [...] Team Providers + +------+ + | Care Endless Belt Finisher Name | Role | Phone | + +------+ + | Corey Darling MD | PCP | | + +------+ + Source Comments BERNARD is fully live on both [facility] Ambulatory and [facility] InPatient.[facility] Allergies + + + + + [...]
--- OUTSIDE RECORDS SUMMARY | ~2019-10-10 | XMS | Encounter Summary ---
Demographics + + + | Address | [address] | | | [place] [address] | + + + | Home Phone | | + + + | Preferred Language | Unknown | + + + | Marital Status | | + + + | Hoahaoism Affiliation | Unknown | + + + | Race | White | + + + | Ethnic Group | Not or | + + + Author + + + | Author | [facility] | + + + | Organization | [facility] | + + + | Address | Unknown | + + + | Phone | Unavailable | + + + Support + + +---------+ + | Name | Relationship | Address | Phone | + + +---------+ + | Bev Anderson | ECON | Unknown | | + + +---------+ + Care Team Providers + +------+ + | Care Business Operations Analyst Name | Role | Phone | + [...] | | 2016 | | Arrhythmia at [facility] | | (EP Records | | | | [address] | | Checklist ) | | | | Mailcode: CH7A | | | | | | [facility] | | | | | | and Healing, | | | | | | Building [address], | | | | | | Floor [place], [place] | | | | | | [address] | | | | | | [phone] | | | +--------+ + + + [...] Dr. Pillai epic message Internal Referral Prior Parts Manager NA All EKGs NA Holter Monitor NA [...]
--- OUTSIDE RECORDS SUMMARY | ~2019-10-10 | XMS | Encounter Summary ---
Demographics + + + | Address | [address] | | | [place] [address] | + + + | Home Phone [...] + + + | Author | [facility] | + + + | Organization | [facility] | + + + | Address | Unknown | + + + | Phone | Unavailable | + + + Support + + +---------+ + | Name | Relationship | Address | Phone | + + +---------+ + | Bev Anderson | ECON | Unknown | | + + +---------+ + Care Team Providers + +------+ + | Care Software Quality Test Engineer Name | Role | Phone | + +------+ + PCP | Unavailable | + +------+ + Encounter Details +--------+ + + + + | Date | Type | Department | Care Team | Description | +--------+ + + + + | 07/07/ | Emergency | [facility] Emergency | | | | 2015 | | Department [address] | | | | | | [address] | | | | | | [facility] | | | | | | [place], [place] | | | | | | [address] | | | | | | [phone] | | | +--------+ + + + [...] + | | | | 0 | 06/20/19 | | | acetaminophen-codein | | | [...]
--- OUTSIDE RECORDS SUMMARY | ~2019-10-10 | XMS | Encounter Summary ---
Demographics + + + | Address | [address] | | | [place] [address] | + + + | Home Phone | | + + + | Preferred Language | Unknown | + + + | Marital Status | | + + + | Episcopalian Affiliation | Unknown | + + + | Race | White | + + + | Ethnic Group | Not or | + + + Author + + + | Author | [facility] | + + + | Organization | [facility] | + + + | Address | Unknown | + + + | Phone | Unavailable | + + + Support + + +---------+ + | Name | Relationship | Address | Phone | + + +---------+ + | Bev Anderson | ECON | Unknown | | + + +---------+ + Care Team Providers + +------+ + | Care Radial Saw Operator Name | Role | Phone | + +------+ + PCP | Unavailable | + +------+ + Encounter Details +--------+ + + + + | Date | Type | Department | Care Team | Description | +--------+ + + + + | 07/07/ | Emergency | [facility] Emergency | | | | 2015 | | Department [address] | | | | | | [address] | | | | | | [facility] | | | | | | [place], [place] | | | | | | [address] | | | | | | [phone] | | | +--------+ + + + [...]
--- OUTSIDE RECORDS SUMMARY | ~2019-10-10 | XMS | Encounter Summary ---
Demographics + + + | Address | [address] | | | [place] [address] | + + + | Home Phone | | + + + | Preferred Language | Unknown | + + + | Marital Status | | + + + | Temple Affiliation | 1001 | + + + [...] Team Providers + +------+ + | Care Dice Spotter Name | Role | Phone | + +------+ + PCP | Unavailable | + +------+ + Encounter Details +--------+ + + + + | Date | Type | Department | Care Team | Description | +--------+ + + + + | 06/29/ | Hospital | [facility] | Conversion | | | 2014 | Encounter | MEDICAL CENTER | Transaction, | | | | | NUCLEAR MEDICINE | Provider Unknown | | | | | [address] [facility] | | | | | | [place], [place] | (Fax) | | | | | [address] | | | | | | [phone] | | | +--------+ + + + [...]
--- OUTSIDE RECORDS SUMMARY | ~2019-10-10 | XMS | Encounter Summary ---
Demographics + + + | Address | [address] | | | [place] [address] | + + + | Home Phone | | + + + | Preferred Language | Unknown | + + + | Marital Status | | + + + | Mandaen Affiliation | Unknown | + + + | Race | White | + + + | Ethnic Group | Not or | + + + Author + + + | Author | [facility] | + + + | Organization | [facility] | + + + | Address | Unknown | + + + | Phone | Unavailable | + + + Support + + +---------+ + | Name | Relationship | Address | Phone | + + +---------+ + | Bev Anderson | ECON | Unknown | | + + +---------+ + Care Team Providers + +------+ + | Care Aerial Crop Duster Name | Role | Phone | + [...] | | 2016 | | Arrhythmia at [facility] | | (EP Records | | | | [address] | | Checklist ) | | | | Mailcode: CH7A | | | | | | [facility] | | | | | | and Healing, | | | | | | Building [address], | | | | | | Floor [place], [place] | | | | | | [address] | | | | | | [phone] | | | +--------+ + + + [...] Dr. Pillai epic message Internal Referral Prior Dean Of Graduate Studies NA All EKGs NA Holter Monitor NA [...]
--- OUTSIDE RECORDS SUMMARY | ~2019-10-10 | XMS | Encounter Summary ---
Demographics + + + | Address | [address] | | | [place] [address] | + + + | Home Phone | | + + + | Preferred Language | Unknown | + + + | Marital Status | | + + + | Yarsani Affiliation | 1001 | + + + | Race | Unknown | + + + | Ethnic Group | Unknown | + + + Author + + + | Author | [facility] | | | and [place] | + + + | Organization | [facility] | | [...] Team Providers + +------+ + | Care Pet Care Associate Name | Role | Phone | + [...] | | | | [address] | [place] | | | | | [place], [place] | [address] | | | | | [address] | | | | | | [phone] | | | +--------+ + + + [...] pressures of 10-15mmHg. MEASUREMENTS | | | Post Anesthesia Care Unit Nurse: BEN Authenticated by: Yan Platt DO Report | | | Date/Time: -- [id number] | | + + + + + [...] venous pressures of 10-15mmHg. | | MEASUREMENTS Post Anesthesia Care Unit Nurse: KARIuthenticated by: Yan Castaneda | | Date/Time: -- [id number] IMPRESSION: 1. See Dictation2. LV dimensions NML, [...] | |MEASUREMENTS | | | | | |Post Anesthesia Care Unit Nurse: BEN | |Authenticated by: Yan Platt DO | |Report Date/Time: -- [id number] | | | |IMPRESSION: | |1. See [...]
--- OUTSIDE RECORDS SUMMARY | ~2019-10-10 | XMS | Encounter Summary ---
Demographics + + + | Address | [address] | | | [place] [address] | + + + | Home Phone | | + + + | Preferred Language | Unknown | + + + | Marital Status | | + + + | Orthodoxy Affiliation | Unknown | + + + | Race | White | + + + | Ethnic Group | Not or | + + + Author + + + | Author | [facility] | + + + | Organization | [facility] | + + + | Address | Unknown | + + + | Phone | Unavailable | + + + Support + + +---------+ + | Name | Relationship | Address | Phone | + + +---------+ + | Bev Anderson | ECON | Unknown | | + + +---------+ + Care Team Providers + +------+ + | Care Cupola Tender Helper Name | Role | Phone | + +------+ + | Corey Darling MD | PCP | | + +------+ + Reason for Visit + + + | Reason | Comments | + + + | Procedure | ablation | + + + Encounter Details +--------+ + + + + | Date | Type | Department | Care Team | Description | +--------+ + + + + | 08/08/ | Telephone | Cardiology | Kwadwo Pillai, | Procedure (ablation) | | 2015 | | Arrhythmia at [facility] | [address] | | | | | [address] | [address] | | | | | Mailcode: CH7A | [place], [place] | | | | | [facility] | [address] | | | | | and Healing, | [phone] | | | | | [facility] | | | | | | Floor [place], [place] | | | | | | [address] | | | | | | [phone] | | | +--------+ + + + [...]
--- OUTSIDE RECORDS SUMMARY | ~2019-10-10 | XMS | Encounter Summary ---
Demographics + + + | Address | [address] | | | [place] [address] | + + + | Home Phone | | + + + | Preferred Language | Unknown | + + + | Marital Status | | + + + | Adventism Affiliation | 1001 | + + + | Race | Unknown | + + + | Ethnic Group | Unknown | + + + Author + + + | Author | [facility] | | | and [place] | + + + | Organization | [facility] | | | [...] Team Providers + +------+ + | Care Plumbing Technician Name | Role | Phone | + +------+ + PCP | Unavailable | + +------+ + Encounter Details +--------+ + + + + | Date | Type | Department | Care Team | Description | +--------+ + + + + | 04/11/ | [facility] | [facility] | Aldo Meier | GERD | | 2015 | Encounter | [facility] TUCKER Ness MD [address] | (gastroesophageal | | | | INTRA OP [address] | [place] [address] | reflux disease); | | | | [place], [place] | [phone] | Epigastric pain; | | | | [address] | | Change in bowel | | | | [phone] | | habits | +--------+ + + [...] 04/11/14951 Date of Service: 04/11/14951 Status: Signed Wrapper Cashier: Aldo Meier MD (Physician) [facility] Service: Gastroenterology Brief Post-op Discharge Note [...] to Get Your Medications You need to cigar packer and picker these prescriptions. We sent them to a specific pharmacy, so go there to get them. [id number] - [place], [place] - [address] - sucralfate 1 GM/10ML suspension [address] [place] [address] Aldo Meier MD 04/11/2014 9:52 AM documented in th is encounter H&P Notes Aldo Meier MD - 04/11/2014 9:02 AM PST Interval H&P Note by Aldo Meier MD at 04/11/14901 Author: Aldo Meier MD Service: Gastroenterology Author Type: Physician Filed: 04/11/14901 Date of Service: 04/11/14901 Status: Signed Wrapper Cashier: Aldo Meier MD (Physician) [facility] Service: Gastroenterology Pre-Operative History & Physical [...] Type: Physician Filed: 04/10/142140 Date of Service: 04/08/141331 Status: Signed Wrapper Cashier: Aldo Meier MD (Physician) Documentation note to produce procedure H & P which will be updated on day of procedure. [facility] Service: Gastroenterology Pre-Operative History & Physical ? [...] Physician Signature Updated today Aldo Meier MD [facility] Gastroenterology 04/08/2014 Primary Care Physician: EVA ADAMSON *CORE MEASURES REMINDER: If the patient has a known or suspected infection prior to surgery , please add diagnosis to the problem list (consider: Infection 136.9). ? Tracie Fink MD - 04/08/2014 1:32 PM PSTFormatting of this note might be different from the origina l. H&P (View-Only) by Aldo Meier MD at 04/08/14 1333 Author: Aldo Meier MD Service: (none) Author Type: Physician Filed: 04/10/14 0097 Date of Service: 04/08/14 1332 Status: Signed Wrapper Cashier: Aldo Meier MD (Physician) Documentation note to produce procedure H & P which will be updated on day of procedure. [facility] Service: Gastroenterology Pre-Operative History & Physical ? [...] Physician Signature Updated today Aldo Meier MD [facility] Gastroenterology 04/08/2014 Primary Care Physician: EVA ADAMSON *CORE MEASURES REMINDER: If the patient has a known or suspected infection prior to surgery , please add diagnosis to the problem list (consider: Infection 136.9). ? documented in is encounter Miscellaneous Notes Op Note - Aldo Meier MD - 04/11/2014 9:47 AM PST Op Note by Aldo Meier MD at 04/11/1492 Author: Aldo Meier MD Service: Gastroenterology Author Type: Physician Filed: 04/11/14 0950 Date of Service: 04/11/14946 Status: Signed Wrapper Cashier: Aldo Meier MD (Physician) [facility] Service: Gastroenterology ENDOSCOPY SUITE PROCEDURE NOTE [...] | | technical preparation was performed by [employer] | | | [address] [address] | | | (Environmental Health Inspector: Marquise Salinas M.D.; [facility]#: [id number]). | | | ADDENDUM PATHOLOGIC DIAGNOSIS: This [...]
--- OUTSIDE RECORDS SUMMARY | ~2019-10-10 | XMS | Encounter Summary ---
Demographics + + + | Address | [address] | | | [place] [address] | + + + | Home Phone | | + + + | Preferred Language | Unknown | + + + | Marital Status | | + + + | Gnosticist Affiliation | 1001 | + + + | Race | Unknown | + + + | Ethnic Group | Unknown | + + + Author + + + | Author | [facility] | | | and Graysonana | + + + | Organization | [facility] | | | [...] Team Providers + +------+ + | Care Program Consultant Name | Role | Phone | + +------+ + PCP | Unavailable | + +------+ + Encounter Details +--------+ + + + + | Date | Type | Department | Care Team | Description | +--------+ + + + + | 12/27/ | Hospital | [facility] | Conversion | Asthma | | 2013 | Encounter | PULMONARY FUNCTION | Transaction, | | | | | LAB [address] | Provider Unknown | | | | | [place] | | | | | | [address] | | | | | | [phone] | | | +--------+ + + + [...] at 12/28/13335 Author: Rigo Wong MD Service: Spring Intern Author Type: Physician Filed: 12/28/13 0336 Date of Service: 12/28/13152 Status: Signed Communication Analyst: Rigo Wong MD (Physician) JUANITOARIANNE Date of : 1935 FEV-1/FVC is reduced. FEV-1 is normal. FVC is normal. There is no significant bronchodilato r response. Lung volumes: The TLC is normal. RV/TLC is normal. Diffusion capacity: The diffusion capacity is normal. IMPRESSION Mild obstructive impairment with no bronchodilator response. Lung volumes are normal. Diffu jessica capacity is normal. A/ A/[facility]/[id number] RIGO WONG MD documented in this enc ounter Plan of Treatment Not on filedocumented as of this encounter Visit Diagnoses + + | Diagnosis | + + | Asthma Unspecified asthma | + + documented in this encounter"
--- OUTSIDE RECORDS SUMMARY | ~2019-10-10 | XMS | Encounter Summary ---
Demographics + + + | Address | [address] | | | [place] [address] | + + + | Home Phone [...] + | Author | [facility] | | | and Graysonana | + + + | Organization | [facility] | | [...] Team Providers + +------+ + | Care Marine Engine Machinist Apprentice Name | Role | Phone | + +------+ + PCP | Unavailable | + +------+ + Encounter Details +--------+ + + + + | Date | Type | Department | Care Team | Description | +--------+ + + + + | 08/04/ | Hospital | [facility] | Conversion | SVT | | 2013 - | Encounter | MEDICAL CENTER | Transaction, | (supraventricular | | | | CLINICAL DECISION | Provider Unknown | tachycardia) | | 08/05/ | | [facility] | [phone] | | | 2013 | | [place], [place] | | | | | | [address] | Ricarda Pinedo MD | | | | | [phone] | PhD [address] [facility] | | | | | | [address] | | | | | | [place] [address] | | | | | | [phone] | | | | | | | | +--------+ + + + [...] Nurse Progress Note by Deborah Mack at 08/05/13850 Author: Deborah Mack Service: (none) Author Type: Nurse Payroll Examiner Filed: 08/05/1352 Date of Service: 08/05/13850 Status: Signed Machine Setter Automatic: Deborah Mack (Nurse Payroll Examiner) Discharge instructions given to patient, all questions answered. Discharged via wheelchair with family. Melinda Mack, Payroll Examiner onver jessica Transaction, Provider Unknown - 08/05/2013 12:30 AM PDT Nurse Progress Note by Magalis Fleming RN at 08/05/130 Author: Magalis Fleming RN Service: (none) Author Type: Registered Nurse Filed: 08/05/1399 Date of Service: 08/05/1329 Status: Signed Machine Setter Automatic: Magalis Fleming RN (Registered Nurse) Pt up and ambulated to bathroom without difficulty. Pt denies pain, SOB and no new drainage to either groin site. onver jessica Transaction, Provider Unknown - 08/04/2013 9:00 PM PDT Nurse Progress Note by Magalis Fleming RN at 08/04/132099 Author: Magalis Fleming RN Service: (none) Author Type: Registered Nurse Filed: 08/05/1358 Date of Service: 08/04/132099 Status: Signed Machine Setter Automatic: Magalis Fleming RN (Registered Nurse) Report received [...] 08/05/13906 Date of Service: 08/05/13905 Status: Signed Machine Setter Automatic: Kerry Marsh RN (Registered Nurse) Problem: Pain [...] + + | Historically converted procedure from [facility] | EXTERNAL LAB | + + + [...] | | | recording and His recording (22551). 2. Left atrial pacing and | | | recording (72012). 3. Pacing and recording after intravenous Isuprel | | | infusion (64567). 4. Electroanatomic mapping with Carto version 3 | | | (69368). PHYSICIAN Ricarda Pinedo MD ANESTHESIA | | [...] From the right femoral vein, an 8 Iranian | | | sheath was used to advance Biosense Platt DF curved 4 mm | | | nonirrigated mapping and ablation catheter to the right atrium. A | | | 7-Iranian sheath was used to advance a CRD2 catheter to the region of | | | the bundle of his. On the left femoral vein, an 8-Iranian sheath was | | | used to advance coronary sinus catheter of the coronary sinus and a | | | 6-Iranian sheath was used to advance the quadripolar [...] was normal sinus rhythm, cycle length 770, RI 153, | | | QRS 88, QT [...] | normal sinus rhythm, 60 to 80, RI 144, QRS 89, QT 420, AH 62, [...] | Procedure Note | + + | [facility] Conversion - 11/25/2018 2:18 PM PDT | | | | PREPROCEDURE DIAGNOSIS | | Supraventricular tachycardia. | | | | PROCEDURES PERFORMED | | 1. Comprehensive electrophysiology evaluation with arrhythmia induction, | | right atrial and right ventricular pacing and recording and His | | recording (84803). | | 2. Left atrial pacing and recording (35654). | | 3. Pacing and recording after intravenous Isuprel infusion (79714). | | 4. Electroanatomic mapping with Carto version 3 (07173). | | | | PHYSICIAN | | [...] From the right femoral vein, an 8 Iranian sheath was used to advance | | BiosSensicast Systemster DF curved 4 mm nonirrigated mapping and ablation catheter | | to the right atrium. A 7-Iranian sheath was used to advance a CRD2 catheter | | to the region of the bundle of his. On the left femoral vein, an 8-Iranian | | sheath was used to advance coronary sinus catheter of the coronary sinus | | and a 6-Iranian sheath was used to advance the quadripolar [...] was normal sinus rhythm, cycle length 770, RI 153, QRS | | 88, QT 415, [...] was normal sinus rhythm, 60 to 80, RI 144, | | QRS 89, QT 420, [...] EXTERNAL | | | | performed at [facility];[address] | | LAB | | | | [address];[place] | | | | | | [address] | | | | + + + + + + | Red Blood | 4.24Comment: Testing | 3.70 - 5.10 | EXTERNAL | | | Cells | performed at [facility];[address] | M/uL | LAB | | | Counted | [address];[place] | | | | | | [address] | | | | + + + + + + | Hemoglobin | 12.5Comment: Testing | 11.3 - 15.5 | EXTERNAL | | | | performed at [facility];888 | g/dL | LAB | | | | [address];[place] | | | | | | [address] | | | | + + + + + + | Hematocrit, | 37.5Comment: Testing | 34.0 - 46.0 % | EXTERNAL | | | POC | performed at [facility];[address] | | LAB | | | | [address];[place] | | | | | | [address] | | | | + + + + + + | MCV | 88.5Comment: Testing | 80.0 - 100.0 fl | EXTERNAL | | | | performed at [facility];[address] | | LAB | | | | [address];[place] | | | | | | [address] | | | | + + + + + + | MCH | 29.5Comment: Testing | 27.0 - 34.0 pg | EXTERNAL | | | | performed at [facility];[address] | | LAB | | | | [address];[place] | | | | | | [address] | | | | + + + + + + | MCHC | 33.3Comment: Testing | 32.0 - 35.5 | EXTERNAL | | | | performed at [facility];888 | g/dL | LAB | | | | [address];[place] | | | | | | [address] | | | | + + + + + + | RDW-CV | 41.6Comment: Testing | 37 - 53 fl | EXTERNAL | | | | performed at [facility];[address] | | LAB | | | | [address];[place] | | | | | | [address] | | | | + + + + + + | Platelet | 192Comment: Testing | 150 - 400 K/uL | EXTERNAL | | | Count | performed at [facility];[address] | | LAB | | | Plasma | [address];[place] | | | | | | [address] | | | | + + + + + + | MPV | 9.3Comment: Testing | fl | EXTERNAL | | | | performed at [facility];[address] | | LAB | | | | [address] | | | | | | [address] | | | | + + + + + + | Differentia | AUTOMATEDComment: | | EXTERNAL | | | l Type | Testing performed at | | LAB | | | | [facility];[address];[place] [address] | | | | + + + + + + | % Segmented | 54.7Comment: Testing | % | EXTERNAL | | | | performed at [facility];[address] | | LAB | | | Neutrophils | [address];[place] | | | | | | [address] | | | | + + + + + + | % | 34.7Comment: Testing | % | EXTERNAL | | | Lymphocytes | performed at [facility];[address] | | LAB | | | | [address];[place] | | | | | | [address] | | | | + + + + + + | % Monocytes | 7.0Comment: Testing | % | EXTERNAL | | | | performed at [facility];[address] | | LAB | | | | [address];[place] | | | | | | [address] | | | | + + + + + + | % | 2.8Comment: Testing | % | EXTERNAL | | | Eosinophils | performed at [facility];[address] | | LAB | | | | [address];[place] | | | | | | [address] | | | | + + + + + + | % Basophils | 0.8Comment: Testing | % | EXTERNAL | | | | performed at [facility];[address] | | LAB | | | | [address];[place] | | | | | | [address] | | | | + + + + + + | Absolute | 4.0Comment: Testing | 1.9 - 7.4 K/uL | EXTERNAL | | | Segmented | performed at [facility];[address] | | LAB | | | Neutrophils | [address];[place] | | | | | | [address] | | | | + + + + + + | Absolute | 2.5Comment: Testing | 1.0 - 3.9 K/uL | EXTERNAL | | | Lymphocytes | performed at [facility];[address] | | LAB | | | | [address];[place] | | | | | | [address] | | | | + + + + + + | Absolute | 0.5Comment: Testing | 0 - 0.8 K/uL | EXTERNAL | | | Monocytes | performed at [facility];[address] | | LAB | | | | [address];[place] | | | | | | [address] | | | | + + + + + + | Absolute | 0.2Comment: Testing | 0 - 0.5 K/uL | EXTERNAL | | | Eosinophils | performed at [facility];[address] | | LAB | | | | [address];[place] | | | | | | [address] | | | | + + + + + + | Absolute | 0.1Comment: Testing | 0 - 0.1 K/uL | EXTERNAL | | | Basophils | performed at [facility];[address] | | LAB | | | | [address];[place] | | | | | | [address] | | | | + + + [...] EXTERNAL | | | | performed at [facility];[address] | | LAB | | | | [address];[place], [place] | | | | | | [address] | | | | + + + [...] EXTERNAL | | | | performed at [facility];[address] | mmol/L | LAB | | | | [address];[place] | | | | | | [address] | | | | + + + + + + | K | 3.8Comment: Testing | 3.5 - 4.9 | EXTERNAL | | | | performed at [facility];[address] | mmol/L | LAB | | | | [address];[place] | | | | | | [address] | | | | + + + + + + | Cl | 105Comment: Testing | 99 - 109 mmol/L | EXTERNAL | | | | performed at [facility];[address] | | LAB | | | | [address];[place] | | | | | | [address] | | | | + + + + + + | CO2 | 31Comment: Testing | 23 - 32 mmol/L | EXTERNAL | | | | performed at [facility];[address] | | LAB | | | | [address];[place] | | | | | | [address] | | | | + + + + + + | Anion Gap | 10Comment: Testing | 5 - 20 mmol/L | EXTERNAL | | | | performed at [facility];[address] | | LAB | | | | [address] | | | | | | [address] | | | | + + + + + + | Glucose, | 87Comment: Testing | 65 - 99 mg/dL | EXTERNAL | | | Fasting | performed at [facility];[address] | | LAB | | | | [address] | | | | | | [address] | | | | + + + + + + | BUN | 18Comment: Testing | 8 - 25 mg/dL | EXTERNAL | | | | performed at [facility];[address] | | LAB | | | | [address];[place] | | | | | | [address] | | | | + + + + + + | Creatinine | 0.78Comment: Testing | 0.50 - 1.00 | EXTERNAL | | | | performed at [facility];[address] | mg/dL | LAB | | | | [address] | | | | | | [address] | | | | + + + + + + | BUN/Creatin | 24Comment: Testing | | EXTERNAL | | | ine Ratio | performed at [facility];[address] | | LAB | | | | [address];[place] | | | | | | [address] | | | | + + + + + + | Calcium | 9.4Comment: Testing | 8.5 - 10.2 | EXTERNAL | | | | performed at [facility];[address] | mg/dL | LAB | | | | [address];[place] | | | | | | [address] | | | | + + + [...] | | | | | | at [facility];[address];[place] [address] | | | | + + + [...]
--- OUTSIDE RECORDS SUMMARY | ~2019-10-10 | XMS | Encounter Summary ---
Demographics + + + | Address | [address] | | | [place] [address] | + + + | Home Phone [...] + + + | Author | [facility] | + + + | Organization | [facility] | + + + | Address | Unknown | + + + | Phone | Unavailable | + + + Support + + +---------+ + | Name | Relationship | Address | Phone | + + +---------+ + | Bev Anderson | ECON | Unknown | | + + +---------+ + Care Team Providers + +------+ + | Care Recenterer Name | Role | Phone | + +------+ + | Corey Darling MD | PCP | | + +------+ + Encounter Details +--------+ + + + + | Date | Type | Department | Care Team | Description | +--------+ + + + + | 07/18/ | Printed Circuit Boards Solder Leveler | Cardiology | Kwadwo Holly, | Palpitations | | 2016 | | Arrhythmia at [facility] | [address] | (Primary Dx) | | | | [address] | [address] | | | | | Mailcode: CH7A | [place], [place] | | | | | [facility] | [address] | | | | | and [place], | [phone] | | | | | | | | | | | Floor [place], [place] | | | | | | [address] | | | | | | [phone] | | | +--------+ + + + [...] DEPT OF | [address] | [place], [place] | | | CARDIOLOGY | [address] | [address] | | + + + + + documented in this encounter Visit Diagnoses + + | Diagnosis | + + | Palpitations - Primary | + + documented in this encounter"
--- OUTSIDE RECORDS SUMMARY | ~2019-10-10 | XMS | Encounter Summary ---
Demographics + + + | Address | [address] | | | [place] [address] | + + + | Home Phone [...] Team Providers + +------+ + | Care Chemical Etching Processor Name | Role | Phone | + [...] | | 2015 | | Arrhythmia at [facility] | [address] | | | | | [address] | [address] | | | | | Mailcode: CH7A | [place], [place] | | | | | [facility] | [address] | | | | | and Healing, | [phone] | | | | | [facility] | | | | | | Floor [place], [place] | | | | | | [address] | | | | | | [phone] | | | +--------+ + + + [...]
--- OUTSIDE RECORDS SUMMARY | ~2019-10-10 | XMS | Encounter Summary ---
Demographics + + + | Address | [address] | | | [place] [address] | + + + | Home Phone | | + + + | Preferred Language | Unknown | + + + | Marital Status | | + + + | Jew Affiliation | Unknown | + + + | Race | White | + + + | Ethnic Group | Not or | + + + Author + + + | Author | [facility] | + + + | Organization | [facility] | + + + | Address | Unknown | + + + | Phone | Unavailable | + + + Support + + +---------+ + | Name | Relationship | Address | Phone | + + +---------+ + | Bev Anderson | ECON | Unknown | | + + +---------+ + Care Team Providers + +------+ + | Care Wax Pattern Coater Name | Role | Phone | + [...] | | | | REFERRING | [address] [place], | | | | | | PROVIDER PER | [place] | | | | | | [place] | [address] | | | | | | | Phone: | | | | | | | [phone] | | | | | | | Fax: | | | | | | | [phone] | +--------+--------+ + + + + Encounter Details +--------+---------+ + + + | Date | Type | Department | Care Team | Description | +--------+---------+ + + + | 07/18/ | Office | Cardiology | Kwadwo Pillai, | TAMMIET | | 2016 | Visit | Arrhythmia at [facility] | [address] | (supraventricular | | | | [address] | [address] | tachycardia) (HCC) | | | | Mailcode: [facility] | [place], [place] | (Primary Dx) | | | | [place] for [facility] | [address] | | | | | and Healing, | [phone] | | | | | | | | | | | Floor [place], [place] | | | | | | [address] | | | | | | [phone] | | | +--------+---------+ + + + [...] 07/19/2015 12:30 PM PDTThank you for visiting [facility] today. Call our office if you would like to consider a repeat ablation procedure. We will not schedule regular follow up at this time; please call our office to schedule fol low up if you experience worsening of your palpitation symptoms. If you have any questions regarding this visit or your heart health, please call us at or contact us via [facility]. documented in this encounter Progress Notes Kwadwo [...] In 2013 the patient underwent EPS at [facility]. There was no evidence of du al AV node physiology or an AP. No arrhythmia was inducible and no ablation was performed. The patient recently presented to [facility] 07/07/2015 with symptomatic SVT at [...]
[~2019-10-10 22:43] MED LIST: ACETAMINOPHEN-1 EAC1 PO; ADULT LOW DOSE81 MG PO; ADVAIR 250-501 EACH INH; ADVAIR 500-501 EACH INH; ALBUTEROL2.5 MG/3 M INH; CARDIZEM CD180 MG PO; CLARITIN5 MG PO; COMBIVENT RESPIM4 GM INH; COZAAR25 MG; DIGOX125 MCG; DIGOXIN250 MCG; DILT-XR180 MG PO; DILTIAZEM 24HR240 M1 PO; DOCUSATE SODIU250 MG PO; DULCOLAX10 MG PR; EFFER-K 10 MEQ10 MEQ PO; FLEET ENEMA133 ML PR; FLUOXETINE HCL40 MG PO; FUROSEMIDE20 MG PO; HYDROCHLOROTHIA25 MG PO; IPRAT-ALBUT 0.5-3 ML INH; KLOR-CON 1010 MEQ PO; KLOR-CON M1010 MEQ PO; KONDREMUL2.5 ML/5 M PO; LASIX80 MG PO; LOSARTAN POTAS100 MG PO; METOPROLOL TART25 MG PO; METOPROLOL TART50 MG PO; MILK OF MA400 MG/5 M PO; MIRALAX17 GM PO; MONTELUKAST SOD10 MG PO; NITROGLYCERIN0.4 MG SL; OMEPRAZOLE20 MG; OMEPRAZOLE20 MG PO; PROAIR HFA8.5 GM; PROTONIX40 MG PO; REQUIP0.5 MG PO; SENNA S TABLET1 EA PO; SENNA-DOCUSATE1 EACH PO; SPIRIVA18 MCG INH; SUCRALFATE1 GM PO; THEO-24300 MG; TYLENOL WITH C1 EACH PO; VENTOLIN HFA18 GM INH
--- OUTSIDE RECORDS SUMMARY | 2019-10-10 22:46 | XMS ---
PreManage Notification: CHRISSY SOLOMON Security Field [address] Researcher Events No recent Security Events currently on file CRITERIA MET - LOWELL[facility] CARE PROVIDERS IgorMarcy Chief Financial Officer/Program Clerk 06/10/2018-Current PHONE: [phone] Kiki has no Care Guidelines for this patient. Elia VISIT COUNT (12 MO.) [address] [facility] [address] Fredi Mckeon TOTAL 1 NOTE: Visits indicate total known visits. ED/UCC VISIT TRACKING (12 MO.) 10/10/2019 22:44 MONET Perez [place] TYPE: Emergency COMPLAINT: - FALL INPATIENT VISIT TRACKING (12 MO.) No inpatient visits to display in this time frame [id number]
== END 2019-10-11 01:29 | disposition home or self-care (01) ==
LOC: ED 22:43
DX: S42.002A Fracture of unspecified part of left clavicle, initial encounter for closed fracture (principal); S16.1XXA Strain of muscle, fascia and tendon at neck level, initial encounter; S20.212A Contusion of left front wall of thorax, initial encounter; I10 Essential (primary) hypertension; J44.9 Chronic obstructive pulmonary disease, unspecified; Z87.891 Personal history of nicotine dependence; Z88.0 Allergy status to penicillin; Z79.899 Other long term (current) drug therapy; W01.0XXA Fall on same level from slipping, tripping and stumbling without subsequent striking against object, initial encounter
CPT/HCPCS: 70450; 71046; 72125; 73030; 99284-25

== ENCOUNTER 2020-01-28 01:49 | Inpatient (IN) | payer MEDICARE, OTHER ==
[~2020-01-28] VITALS: Ht 152.4 cm; Wt 63.9 kg
--- OUTSIDE RECORDS SUMMARY | ~2020-01-28 | XMS | Encounter Summary ---
Demographics + + + | Address | [address] | | | [place] [address] | + + + | Home Phone | | + + + | Preferred Language | Unknown | + + + | Marital Status | | + + + | Scientologist Affiliation | Unknown | + + + | Race | White | + + + | Ethnic Group | Not or | + + + Author + + + | Author | [facility] | + + + | Organization | [facility] | + + + | Address | Unknown | + + + | Phone | Unavailable | + + + Support + + +---------+ + | Name | Relationship | Address | Phone | + + +---------+ + | Bev Anderson | ECON | Unknown | | + + +---------+ + Care Team Providers + +------+ + | Care Educational Therapist Name | Role | Phone | + +------+ + PCP | Unavailable | + +------+ + Encounter Details +--------+ + + + + | Date | Type | Department | Care Team | Description | +--------+ + + + + | 07/07/ | Emergency | [facility] | | | | 2015 | | Department [address] | | | | | [address] | | | | | | [facility] | | | | | | [place], [place] | | | | | | [address] | | | | | | [phone] | | | +--------+ + + + + Social History + +-------+ +--------+------+ | Tobacco Use | Types | Packs/Day | Years | Date | | | | | Used | | + +-------+ +--------+------+ | Never Assessed | | | | | + +-------+ +--------+------+ + + + | Sex Assigned at | Date Recorded | | | | + + + | Not on file | | + + + documented as of this encounter Medications at Time of Discharge + + + +---------+ + + | Medication | Sig | Dispensed | Refills | Start | End Date | | | | | | Date | | + + + +---------+ + + | | | | 0 | 03/15/20 | | | acetaminophen-codein | | | | 16 | | | e 300-30 mg oral | | | | | | | tablet | | | | | | + + + +---------+ + + | furosemide 20 mg | Take 20 mg by mouth. | | 0 | 07/06/19 | | | oral tablet | | | | 16 | | + + + +---------+ + + | potassium chloride | | | 3 | 07/02/19 | | | SR 10 mEq oral | | | | 16 | | | tablet,ER | | | | | | | particles/crystals | | | | | | + + + +---------+ + + | | | | 0 | 05/22/19 | | | trimethoprim-sulfame | | | | 16 | | | thoxazole 160-800 mg | | | | | | | oral tablet | | | | | | + + + +---------+ + + documented as of this encounter Miscellaneous Notes [facility] - Laurie Andrea - 07/08/2015 3:[address] Pillai (EP Cards). 80 yof, presented c/o symptomatic SVT, given dose adenosine and converted back, put on oral metoprolol and sent home, presented again 24 hours later w similar sxs, converted w adenosi ne and admitted. ECHO shows intact EF 60%, otherwise no known CAD, 2 years ago evaluated by EP, study was neg, no f/u since then, pt otherwise hemodynamically stable. Pt on oral Cardiz em, ref asking about next steps. Per Dr. Pillai have pt f/u in clinic this week. documented in this encounter Plan of Treatment Not on filedocumented as of this encounter Visit Diagnoses Not on filedocumented in this encounter"
--- OUTSIDE RECORDS SUMMARY | ~2020-01-28 | XMS | Encounter Summary ---
Demographics + + + | Address | [address] | | | [place] [address] | + + + | Home Phone | | + + + | Preferred Language | Unknown | + + + | Marital Status | | + + + | Gnosticism Affiliation | Unknown | + + + | Race | White | + + + | Ethnic Group | Not or | + + + Author + + + | Author | [facility] | + + + | Organization | [facility] | + + + | Address | Unknown | + + + | Phone | Unavailable | + + + Support + + +---------+ + | Name | Relationship | Address | Phone | + + +---------+ + | Bev Anderson | ECON | Unknown | | + + +---------+ + Care Team Providers + +------+ + | Care Project Crew Worker Name | Role | Phone | + +------+ + | Corey Darling MD | PCP | | + +------+ + Encounter Details +--------+ + + + + | Date | Type | Department | Care Team | Description | +--------+ + + + + | 07/18/ | Space Buyer | Cardiology | Kw[place]wo Holly, | Palpitations | | 2016 | | Arrhythmia at [facility] | [address] | (Primary Dx) | | | | [address] | [address] | | | | | [place] [facility] | [facility] [place] | | | | | and Healing, | [address] | | | | | | [phone] | | | | | Floor [place], [place] | | | | | | [address] | | | | | | [phone] | | | +--------+ + + + + Social History + + + +--------+ + | Tobacco Use | Types | Packs/Day | Years | Date | | | | | Used | | + + + +--------+ + | Former Smoker | Cigarettes | | | Quit: 12/06/1980 | + + + +--------+ + + + +---------+ + | Alcohol Use | Drinks/Week | oz/Week | Comments | + + +---------+ + | Not Asked | 0 Standard drinks | 0.0 | | | | or equivalent | | | + + +---------+ + + + + | Sex Assigned at | Date Recorded | | | | + + + | Not on file | | + + + documented as of this encounter Plan of Treatment Not on filedocumented as of this encounter Procedures + +--------+ + + + | Procedure Name | Priori | Date/Time | Associated Diagnosis | Comments | | | ty | | | | + +--------+ + + + | 12 LEAD ECG | Routin | 07/19/2015 | Palpitations | Results for this | | | e | 11:37 AM | | procedure are in the | | | | PDT | | results section. | + +--------+ + + + documented in this encounter Results 12 LEAD ECG (07/19/2015 11:37 AM PDT) + + + + + + | Component | Value | Ref Range | Performed | Pathologist | | | | | At | Signature | + + + + + + | VENTRICULAR | 75 | bpm | [facility] | | | RATE | | | OF | | | | | | CARDIOLOGY | | + + + + + + | ATRIAL RATE | 74 | bpm | [facility] | | | | | | OF | | | | | | CARDIOLOGY | | + + + + + + | P-R | 168 | ms | [facility] | | | INTERVAL | | | OF | | | | | | CARDIOLOGY | | + + + + + + | P AXIS | 22 | deg | [facility] | | | | | | OF | | | | | | CARDIOLOGY | | + + + + + + | QRS | 106 | ms | [facility] | | | DURATION | | | OF | | | | | | CARDIOLOGY | | + + + + + + | QT | 380 | ms | [facility] | | | | | | OF | | | | | | CARDIOLOGY | | + + + + + + | QTC-SHANTAL | 425 | ms | [facility] | | | | | | OF | | | | | | CARDIOLOGY | | + + + + + + | R AXIS | 258 | deg | [facility] | | | | | | OF | | | | | | CARDIOLOGY | | + + + + + + | T AXIS | 48 | deg | [facility] | | | | | | OF | | | | | | CARDIOLOGY | | + + + + + + | ECG | SINUS RHYTHMPROBABLE | | [facility] | | | 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, | | OF | | | | OLDPOOR PRECORDIAL R | | CARDIOLOGY | | | | WAVE PROGRESSION- | | | | | | ABNORMAL ECG | | | | | | -Electronically signed | | | | | | by: KWADWO HOLLY | | | | | | 07-19-2015 19:24:16 | | | | + + + + + + + + | Specimen | + + | | + + + + + | Narrative | Performed At | + + + | | | + + + + + + + + | Performing | Address | City/State/Zipcode | Phone Number | | Organization | | | | + + + + + | [facility] | [address] | [place], [place] | | | CARDIOLOGY | [address] | [address] | | + + + + + documented in this encounter Visit Diagnoses + + | Diagnosis | + + | Palpitations - Primary | + + documented in this encounter"
--- OUTSIDE RECORDS SUMMARY | ~2020-01-28 | XMS | Encounter Summary ---
Demographics + + + | Address | [address] | | | [place] [address] | + + + | Home Phone | | + + + | Preferred Language | Unknown | + + + | Marital Status | | + + + | Scientologist Affiliation | 1001 | + + + | Race | White | + + + | Ethnic Group | Not or | + + + Author + + + | Author | [facility] | | | and [place] | + + + | Organization | [facility] | | | and [place] | + + + | Address | Unknown | + + + | Phone | Unavailable | + + + Support + + +---------+ + | Name | Relationship | Address | Phone | + + +---------+ + | Abel Thomas | ECON | Unknown | | + + +---------+ + Care Team Providers + +------+ + | Care Grounds Keeper Name | Role | Phone | + +------+ + PCP | Unavailable | + +------+ + Encounter Details +--------+ + + + + | Date | Type | Department | Care Team | Description | +--------+ + + + + | 08/04/ | Hospital | [facility] | Conversion | SVT | | 2013 - | Encounter | [facility]ICAL [facility]ENTER | Transaction, | (supraventricular | | | | CLINICAL DECISION | Provider Unknown | tachycardia) | | 08/05/ | | UN[address] [place] [address] | [phone] | | | 2013 | | [place], [place] | | | | | | [address] | Ricarda Pinedo MD | | | | | [phone] | PhD [address] | | | | | | [place] [facility] [place], | | | | | | [place] [address] | | | | | | [phone] | | +--------+ + + + + [...] + + documented as of this encounter Progress Notes Conversion Transaction, Provider Unknown - 08/05/2013 8:51 AM PDTFormatting of this note m ight be different from the original. Nurse Progress Note by Deborah Mack at 08/05/13 0851 Author: Deborah Mack Service: (none) Author Type: Nurse Gift Basket Packer Filed: 08/05/13 0852 Date of Service: 08/05/13850 Status: Signed Front End Web Developer: Deborah Mack (Nurse Gift Basket Packer) Discharge instructions given to patient, all questions answered. Discharged via wheelchair with family. Nurse Gerhard Gift Basket Packer onver jessica Transaction, Provider Unknown - 08/05/2013 12:30 AM PDT Nurse Progress Note by Magalis Fleming RN at 08/05/1329 Author: Magalis Fleming RN Service: (none) Author Type: Registered Nurse Filed: 08/05/1399 Date of Service: 08/05/1329 Status: Signed Front End Web Developer: Magalis Fleming RN (Registered Nurse) Pt up and ambulated to bathroom without difficulty. Pt denies pain, SOB and no new drainage to either groin site. onver jessica Transaction, Provider Unknown - 08/04/2013 9:00 PM PDT Nurse Progress Note by Magalis Fleming RN at 08/04/132099 Author: Magalis Fleming RN Service: (none) Author Type: Registered Nurse Filed: 08/05/1358 Date of Service: 08/04/132099 Status: Signed Front End Web Developer: Magalis Fleming RN (Registered Nurse) Report received and care assumed, pt arrived to unit via stretcher in stable condition. Pt was heart cathed for attempted ablation (for recent SVT episodes) without success. Bilat kory in sites are dry and intact with old drainage to dressings. Pt denies pain at sites, as well as chest pain or SOB. POC reviewed and questions addressed. Pt resting comfortably at this time with family at bedside. docume nted in this encounter Miscellaneous Notes Plan of Care - Conversion Transaction, Provider Unknown - 08/05/2013 9:06 AM PDT Plan of Care by Kerry Marsh RN at 08/05/13905 Author: Kerry Marsh RN Service: (none) Author Type: Registered Nurse Filed: 08/05/13906 Date of Service: 08/05/13905 Status: Signed Front End Web Developer: Kerry Marsh RN (Registered Nurse) Problem: Pain Goal: Patient s pain/discomfort is manageable Assess and monitor patient s pain using appropriate pain scale. Collaborate with interdis ciplinary team and initiate plan and interventions as ordered. Re-assess patient s pain le lisbet approximately 1-2 hours after pain management intervention. Premedicate as needed. Outcome: Progressing Patient denies pain at this time. Problem: Safety Goal: Patient will be injury free during hospitalization Assess and monitor vitals signs, neurological status including level of consciousness and o rientation. Assess patient s risk for falls and implement fall prevention plan of care and interventions per hospital policy. Ensure arm band on, uncluttered walking paths in room, adequate room lighting, call light a nd overbed table within reach, bed in low position, wheels locked, side rails up per policy, and non-skid footwear provided. Outcome: Progressing Arm band on, call; light within reach, bed side table within reach, bed in lowest position, side rails up, non skid socks on. Problem: Daily Care Goal: Daily care needs are met Assess and monitor ability to perform self care and identify potential discharge needs. Outcome: Progressing Patient is independent. Comments: KERRY MARSH RN, 08/05/2013 9:06 AM docume nted in this encounter Plan of Treatment Not on filedocumented as of this encounter Procedures + +--------+ + + + | Procedure Name | Priori | Date/Time | Associated Diagnosis | Comments | | | ty | | | | + +--------+ + + + | ECG 12 LEAD | Routin | 08/05/2013 | | Results for this | | | e | 5:31 AM | | procedure are in the | | | | PDT | | results section. | + +--------+ + + + | CV EP PROCEDURE | Routin | 08/04/2013 | | Results for this | | | e | 8:26 PM | | procedure are in the | | | | PDT | | results section. | + +--------+ + + + | EXTERNAL LAB: CBC | Routin | 08/04/2013 | | Results for this | | | e | 2:40 PM | | procedure are in the | | | | PDT | | results section. | + +--------+ + + + | MAGNESIUM | Routin | 08/04/2013 | | Results for this | | | e | 2:40 PM | | procedure are in the | | | | PDT | | results section. | + +--------+ + + + | BASIC METABOLIC | Routin | 08/04/2013 | | Results for this | | PANEL | e | 2:40 PM | | procedure are in the | | | | PDT | | results section. | + +--------+ + + + documented in this encounter Results ECG 12 lead (08/05/2013 5:31 AM PDT) + + + + + + | Component | Value | Ref Range | Performed | Pathologist | | | | | At | Signature | + + + + + + | DIAGNOSIS: | Sinus rhythm with | | EXTERNAL | | | | occasional Premature | | LAB | | | | ventricular | | | | | | complexesLeft axis | | | | | | deviationSeptal infarct | | | | | | , age | | | | | | undeterminedNonspecific | | | | | | ST and/or T wave | | | | | | abnormalitiesAbnormal | | | | | | ECGWhen compared with | | | | | | ECG of 10-JUN-2013 | | | | | | 11:45,Premature | | | | | | ventricular complexes | | | | | | are now PresentSeptal | | | | | | infarct is now Present | | | | | | Confirmed by TALYA, | | | | | | ALLEY ([id number]) on 08/09/2013 | | | | | | 7:33:45 PM | | | | + + + + + + + + | Specimen | + + | | + + + + + | Narrative | Performed At | + + + | Historically converted procedure from [facility] environment | EXTERNAL LAB | + + + + +---------+ + + | Performing | Address | City/State/Zipcode | Phone Number | | Organization | | | | + +---------+ + + | EXTERNAL LAB | | | | + +---------+ + + CV EP PROCEDURE (08/04/2013 8:26 PM PDT) + + | Specimen | + + | | + + + + + | Narrative | Performed At | + + + | | | | | | | PREPROCEDURE DIAGNOSIS Supraventricular tachycardia. PROCEDURES | | | PERFORMED 1. Comprehensive electrophysiology evaluation with | | | arrhythmia induction, right atrial and right ventricular pacing and | | | recording and His recording (42507). 2. Left atrial pacing and | | | recording (55864). 3. Pacing and recording after intravenous Isuprel | | | infusion (00836). 4. Electroanatomic mapping with Carto version 3 | | | (42333). PHYSICIAN Ricarda Pinedo MD ANESTHESIA | | | Electrophysiology nursing staff. 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 ECG June 09, 2013, documents narrow complex tachycardia at | | | 150 beats/min thought to have terminal P-wave in lead V1, suspicious | | | for AVNRT. The patient is referred for electrophysiology study and | | | possible catheter ablation. PROCEDURE IN DETAIL Informed consent | | | for the procedure was obtained in the outpatient setting. The patient | | | was brought to the electrophysiology lab in the nonsedated fasting | | | state. Timeout was performed to confirm the patient's identity and | | | the nature and location of the planned procedure. The patient was then | | | prepped and draped in the usual sterile fashion for | | | electrophysiology study and catheter ablation. Lidocaine 1% was used | | | for local anesthesia and the modified Seldinger technique was used to | | | obtain venous access. From the right femoral vein, an 8 Chilean | | | sheath was used to advance [employer] Platt DF curved 4 mm | | | nonirrigated mapping and ablation catheter to the right atrium. A | | | 7-Chilean sheath was used to advance a CRD2 catheter to the region of | | | the bundle of his. On the left femoral vein, an 8-Chilean sheath was | | | used to advance coronary sinus catheter of the coronary sinus and a | | | 6-Chilean sheath was used to advance the quadripolar catheter to the | | | RV apex. CARTO VERSION 3 MAPPING Using the Carto version 3 | | | electroanatomic 3D mapping system, the mapping catheter was | | | manipulated to delineate right atrial anatomy including the bundle of | | | His at the level of the central fibrous body, tricuspid valve | | | annulus and ostium to the coronary sinus. The ablation catheter was | | | then advanced to the distal coronary sinus incorporating the | | | structure into the 3D map. Subsequently the CDCS catheter was | | | advanced into the coronary sinus guided by the 3D map. At | | | baseline, rhythm was normal sinus rhythm, cycle length 770, CA 153, | | | QRS 88, QT 415, AH 70, HV 35 msec. With pacing from the high | | | right atrium, AV Wenckebach cycle length of 300 msec. Pacing from the | | | RV apex, VA Wenckebach cycle length was 300 msec midline and | | | decremental. AV Wenckebach cycle length was without cross over. | | | Atrial extrastimulus testing was then performed from the left atrium | | | along the CS catheter, with atrial ERP at 500/230 recurring before | | | the AV node ERP. Atrial ERP was also 400/210 without finding AV node | | | ERP. Extrastimulus testing was then performed from the ventricle with | | | VA ERP 450/310. Isuprel 2 mcg/min was then instituted | | | accelerating the sinus heart rate by approximately 30%. In the | | | presence of Isuprel, pacing from the right atrium, AV Wenckebach | | | cycle length was 260 msec. Burst pacing was performed from the high | | | right atrium as well as from the left atrium and the proximal and | | | distal poles of the coronary sinus at cycle length from 300 down to | | | 200 msec in an attempt to induce any SVT. As there was no evidence of | | | dual AV mono physiology, atrial tachycardia remained the potential | | | mechanism. Atrial extrastimulus testing at 500/310/240/180 was used | | | without induction of SVT. Triple extrastimulus testing was also | | | performed from the ventricle without induction of tachycardia. | | | Burst pacing and extrastimulus pacing from the atrium was repeated | | | extensively during Isuprel washout and under baseline condition with | | | noninducibility of any tachycardia. The results of the study were | | | discussed with the patient. There was no evidence for accessory | | | pathway, no evidence for dual AV mono physiology and no inducible | | | atrial tachycardia. The electrophysiology study was essentially | | | negative for inducible SVT. At the end of the study, rhythm was | | | normal sinus rhythm, 60 to 80, CA 144, QRS 89, QT 420, AH 62, HV 40 | | | msec. COMPLICATIONS None. ESTIMATED BLOOD LOSS Less than 50 | | | mL TOTAL ABLATION None. All catheters and sheaths were | | | removed. The patient was returned to the recovery area awake, alert | | | and oriented, and in satisfactory condition. DIAGNOSES 1. | | | Noninducible supraventricular tachycardia. 2. No evidence of dual | | | atrioventricular mono physiology, no evidence of accessory pathway | | | either antegrade or retrograde. 3. Noninducibility of tachycardia | | | despite burst pacing and extrastimulus pacing, both from the atrium | | | and ventricle under baseline conditions and in the presence of | | | Isuprel during Isuprel washout. PLAN 1. The patient is to | | | continue in the supine position for 4 hours following sheath pull. | | | 2. The patient may be discharged later today with follow up | | | electrophysiology clinic in 2 to 3 months. 3. We will continue the | | | patient on her aspirin therapy and follow for any evidence of | | | recurrent clinical tachycardia and determine specific therapy based | | | on any observed tachycardia. We thank Dr. Greg Palomo for | | | referring this patient for electrophysiology evaluation. Read by | | | RICARDA PINEDO MD 08/04/2013 08:33 P | | + + + + + | Procedure Note | + + | Chester Hogan Conversion - 11/25/2018 2:18 PM PDT | | | | PREPROCEDURE DIAGNOSIS | | Supraventricular tachycardia. | | | | PROCEDURES PERFORMED | | 1. Comprehensive electrophysiology evaluation with arrhythmia induction, | | right atrial and right ventricular pacing and recording and His | | recording ([id number]). | | 2. Left atrial pacing and recording ([id number]). | | 3. Pacing and recording after intravenous Isuprel infusion ([id number]). | | 4. Electroanatomic mapping with Carto version 3 (58787). | | | | PHYSICIAN | | Ricarda Pinedo MD | | | | ANESTHESIA | | Electrophysiology nursing staff. 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 ECG June 09, 2013, documents narrow complex | | tachycardia at 150 beats/min thought to have terminal P-wave in lead V1, | | suspicious for AVNRT. The patient is referred for electrophysiology study | | and possible catheter ablation. | | | | PROCEDURE IN DETAIL | | Informed consent for the procedure was obtained in the outpatient setting. | | The patient was brought to the electrophysiology lab in the nonsedated | | fasting state. Timeout was performed to confirm the patient's identity and | | the nature and location of the planned procedure. The patient was then | | prepped and draped in the usual sterile fashion for electrophysiology | | study and catheter ablation. Lidocaine 1% was used for local anesthesia | | and the modified Seldinger technique was used to obtain venous access. | | From the right femoral vein, an 8 Chilean sheath was used to advance | | BiosZonoffter DF curved 4 mm nonirrigated mapping and ablation catheter | | to the right atrium. A 7-Chilean sheath was used to advance a CRD2 catheter | | to the region of the bundle of his. On the left femoral vein, an 8-Chilean | | sheath was used to advance coronary sinus catheter of the coronary sinus | | and a 6-Chilean sheath was used to advance the quadripolar catheter to the | | RV apex. | | | | CARTO VERSION 3 MAPPING | | Using the Carto version 3 electroanatomic 3D mapping system, the mapping | | catheter was manipulated to delineate right atrial anatomy including the | | bundle of His at the level of the central fibrous body, tricuspid valve | | annulus and ostium to the coronary sinus. The ablation catheter was then | | advanced to the distal coronary sinus incorporating the structure into the | | 3D map. Subsequently the CDCS catheter was advanced into the coronary | | sinus guided by the 3D map. | | | | At baseline, rhythm was normal sinus rhythm, cycle length 770, CA 153, QRS | | 88, QT 415, AH 70, HV 35 msec. | | | | With pacing from the high right atrium, AV Wenckebach cycle length of 300 | | msec. Pacing from the RV apex, VA Wenckebach cycle length was 300 msec | | midline and decremental. AV Wenckebach cycle length was without cross | | over. | | | | Atrial extrastimulus testing was then performed from the left atrium along | | the CS catheter, with atrial ERP at 500/230 recurring before the AV node | | ERP. Atrial ERP was also 400/210 without finding AV node ERP. | | Extrastimulus testing was then performed from the ventricle with VA ERP | | 450/310. | | | | Isuprel 2 mcg/min was then instituted accelerating the sinus heart rate by | | approximately 30%. In the presence of Isuprel, pacing from the right | | atrium, AV Wenckebach cycle length was 260 msec. Burst pacing was | | performed from the high right atrium as well as from the left atrium and | | the proximal and distal poles of the coronary sinus at cycle length from | | 300 down to 200 msec in an attempt to induce any SVT. As there was no | | evidence of dual AV mono physiology, atrial tachycardia remained the | | potential mechanism. Atrial extrastimulus testing at 500/310/240/180 was | | used without induction of SVT. Triple extrastimulus testing was also | | performed from the ventricle without induction of tachycardia. | | | | Burst pacing and extrastimulus pacing from the atrium was repeated | | extensively during Isuprel washout and under baseline condition with | | noninducibility of any tachycardia. | | | | The results of the study were discussed with the patient. There was no | | evidence for accessory pathway, no evidence for dual AV mono physiology | | and no inducible atrial tachycardia. The electrophysiology study was | | essentially negative for inducible SVT. | | | | At the end of the study, rhythm was normal sinus rhythm, 60 to 80, CA 144, | | QRS 89, QT 420, AH 62, HV 40 msec. | | | | COMPLICATIONS | | None. | | | | ESTIMATED BLOOD LOSS | | Less than 50 mL | | | | TOTAL ABLATION | | None. | | | | All catheters and sheaths were removed. The patient was returned to the | | recovery area awake, alert and oriented, and in satisfactory condition. | | | | DIAGNOSES | | 1. Noninducible supraventricular tachycardia. | | 2. No evidence of dual atrioventricular mono physiology, no evidence of | | accessory pathway either antegrade or retrograde. | | 3. Noninducibility of tachycardia despite burst pacing and extrastimulus | | pacing, both from the atrium and ventricle under baseline conditions | | and in the presence of Isuprel during Isuprel washout. | | | | PLAN | | 1. The patient is to continue in the supine position for 4 hours following | | sheath pull. | | 2. The patient may be discharged later today with follow up | | electrophysiology clinic in 2 to 3 months. | | 3. We will continue the patient on her aspirin therapy and follow for any | | evidence of recurrent clinical tachycardia and determine specific | | therapy based on any observed tachycardia. | | | | We thank Dr. Greg Palomo for referring this patient for | | electrophysiology evaluation. | | | | Read by RICARDA PINEDO MD 08/04/2013 08:33 P | | | | | + + External Lab: CBC (08/04/2013 2:40 PM PDT) + + + + + + | Component | Value | Ref Range | Performed | Pathologist | | | | | At | Signature | + + + + + + | WBC | 7.3Comment: Testing | 3.8 - 11.0 K/uL | EXTERNAL | | | | performed at [facility] | | LAB | | | | [address];[place] | | | | | | [address] | | | | + + + + + + | Non- | 4.24Comment: Testing | 3.70 - 5.10 | EXTERNAL | | | Red Blood | performed at [facility] | M/uL | LAB | | | Cells | [address];[place] | | | | | Counted | [id number] | | | | + + + + + + | Hemoglobin | 12.5Comment: Testing | 11.3 - 15.5 | EXTERNAL | | | | performed at [facility] | g/dL | LAB | | | | [address];[place] | | | | | | [address] | | | | + + + + + + | Hematocrit, | 37.5Comment: Testing | 34.0 - 46.0 % | EXTERNAL | | | POC | performed at [facility] | | LAB | | | | [address];[place] | | | | | | [address] | | | | + + + + + + | MCV | 88.5Comment: Testing | 80.0 - 100.0 fl | EXTERNAL | | | | performed at [facility];[address] | | LAB | | | | [address];[place] | | | | | | [address] | | | | + + + + + + | MCH | 29.5Comment: Testing | 27.0 - 34.0 pg | EXTERNAL | | | | performed at [facility];[address] | | LAB | | | | [address];[place] | | | | | | [address] | | | | + + + + + + | MCHC | 33.3Comment: Testing | 32.0 - 35.5 | EXTERNAL | | | | performed at [facility];[address] | g/dL | LAB | | | | [address];[place] | | | | | | [address] | | | | + + + + + + | RDW-CV | 41.6Comment: Testing | 37 - 53 fl | EXTERNAL | | | | performed at [facility];[address] | | LAB | | | | [address];[place] | | | | | | [address] | | | | + + + + + + | Platelet | 192Comment: Testing | 150 - 400 K/uL | EXTERNAL | | | Count | performed at [facility];[address] | | LAB | | | Plasma | [address];[place] | | | | | | [address] | | | | + + + + + + | MPV | 9.3Comment: Testing | fl | EXTERNAL | | | | performed at [facility];[address] | | LAB | | | | [address];[place] | | | | | | [address] | | | | + + + + + + | Differentia | AUTOMATEDComment: | | EXTERNAL | | | l Type | Testing performed at | | LAB | | | | [facility];[address];[place] [address] | | | | + + + + + + | % Segmented | 54.7Comment: Testing | % | EXTERNAL | | | | performed at [facility];[address] | | LAB | | | Neutrophils | [address];[place] | | | | | | [address] | | | | + + + + + + | % | 34.7Comment: Testing | % | EXTERNAL | | | Lymphocytes | performed at [facility];[address] | | LAB | | | | [address];[place] | | | | | | [address] | | | | + + + + + + | % Monocytes | 7.0Comment: Testing | % | EXTERNAL | | | | performed at [facility];[address] | | LAB | | | | [address];[place] | | | | | | [address] | | | | + + + + + + | % | 2.8Comment: Testing | % | EXTERNAL | | | Eosinophils | performed at [facility];[address] | | LAB | | | | [address];[place] | | | | | | [address] | | | | + + + + + + | % Basophils | 0.8Comment: Testing | % | EXTERNAL | | | | performed at [facility];[address] | | LAB | | | | [address];[place] | | | | | | [address] | | | | + + + + + + | Absolute | 4.0Comment: Testing | 1.9 - 7.4 K/uL | EXTERNAL | | | Segmented | performed at [facility];[address] | | LAB | | | Neutrophils | [address];[place] | | | | | | [address] | | | | + + + + + + | Absolute | 2.5Comment: Testing | 1.0 - 3.9 K/uL | EXTERNAL | | | Lymphocytes | performed at [facility];[address] | | LAB | | | | [address];[place] | | | | | | [address] | | | | + + + + + + | Absolute | 0.5Comment: Testing | 0 - 0.8 K/uL | EXTERNAL | | | Monocytes | performed at [facility];[address] | | LAB | | | | [address];[place] | | | | | | [address] | | | | + + + + + + | Absolute | 0.2Comment: Testing | 0 - 0.5 K/uL | EXTERNAL | | | Eosinophils | performed at [facility];[address] | | LAB | | | | [address];[place] | | | | | | [address] | | | | + + + + + + | Absolute | 0.1Comment: Testing | 0 - 0.1 K/uL | EXTERNAL | | | Basophils | performed at [facility];[address] | | LAB | | | | [address];[place] | | | | | | [address] | | | | + + + + + + + + | Specimen | + + | Blood specimen | | (specimen) | + + + +---------+ + + | Performing | Address | City/State/Zipcode | Phone Number | | Organization | | | | + +---------+ + + | EXTERNAL LAB | | | | + +---------+ + + Magnesium (08/04/2013 2:40 PM PDT) + + + + + + | Component | Value | Ref Range | Performed | Pathologist | | | | | At | Signature | + + + + + + | Magnesium | 1.7Comment: Testing | 1.7 - 2.4 mg/dL | EXTERNAL | | | | performed at [facility];[address] | | LAB | | | | [address];[place], [place] | | | | | | [address] | | | | + + + + + + + + | Specimen | + + | | + + + +---------+ + + | Performing | Address | City/State/Zipcode | Phone Number | | Organization | | | | + +---------+ + + | EXTERNAL LAB | | | | + +---------+ + + Basic Metabolic Panel (08/04/2013 2:40 PM PDT) + + + + + + | Component | Value | Ref Range | Performed | Pathologist | | | | | At | Signature | + + + + + + | Na | 142Comment: Testing | 135 - 143 | EXTERNAL | | | | performed at [facility];888 | mmol/L | LAB | | | | [address];[place] | | | | | | [address] | | | | + + + + + + | K | 3.8Comment: Testing | 3.5 - 4.9 | EXTERNAL | | | | performed at [facility];888 | mmol/L | LAB | | | | [address];[place] | | | | | | [address] | | | | + + + + + + | Cl | 105Comment: Testing | 99 - 109 mmol/L | EXTERNAL | | | | performed at [facility];888 | | LAB | | | | [address];[place] | | | | | | [address] | | | | + + + + + + | CO2 | 31Comment: Testing | 23 - 32 mmol/L | EXTERNAL | | | | performed at [facility];888 | | LAB | | | | [address];[place] | | | | | | [address] | | | | + + + + + + | Anion Gap | 10Comment: Testing | 5 - 20 mmol/L | EXTERNAL | | | | performed at [facility];888 | | LAB | | | | [address];[place] | | | | | | [address] | | | | + + + + + + | Glucose, | 87Comment: Testing | 65 - 99 mg/dL | EXTERNAL | | | Fasting | performed at [facility];888 | | LAB | | | | [address];[place] | | | | | | [address] | | | | + + + + + + | BUN | 18Comment: Testing | 8 - 25 mg/dL | EXTERNAL | | | | performed at [facility];888 | | LAB | | | | [address];[place] | | | | | | [address] | | | | + + + + + + | Creatinine | 0.78Comment: Testing | 0.50 - 1.00 | EXTERNAL | | | | performed at [facility];888 | mg/dL | LAB | | | | [address];[place] | | | | | | [address] | | | | + + + + + + | BUN/Creatin | 24Comment: Testing | | EXTERNAL | | | ine Ratio | performed at [facility];[address] | | LAB | | | | [address];[place] | | | | | | [address] | | | | + + + + + + | Calcium | 9.4Comment: Testing | 8.5 - 10.2 | EXTERNAL | | | | performed at [facility];888 | mg/dL | LAB | | | | [address];[place], [place] | | | | | | [address] | | | | + + + + + + | Estimated | >60Comment: GFR <60: | mL/min/1.73m2 | EXTERNAL | | | GFR | CHRONIC KIDNEY DISEASE, | | LAB | | | | IF FOUND OVER A 3 MONTH | | | | | | PERIOD.GFR <15: KIDNEY | | | | | | FAILURE.FOR | | | | | | AMERICANS, MULTIPLY THE | | | | | | CALCULATED GFR BY | | | | | | 1.210.Testing performed | | | | | | at [facility];[address];[place] [address] | | | | + + + + + + + + | Specimen | + + | Blood specimen | | (specimen) | + + + +---------+ + + | Performing | Address | City/State/Zipcode | Phone Number | | Organization | | | | + +---------+ + + | EXTERNAL LAB | | | | + +---------+ + + documented in this encounter Visit Diagnoses + + | Diagnosis | + + | SVT (supraventricular tachycardia) (HCC) Other specified cardiac dysrhythmias | + + documented in this encounter"
--- OUTSIDE RECORDS SUMMARY | ~2020-01-28 | XMS | Encounter Summary ---
Demographics + + + | Address | [address] | | | [place] [address] | + + + | Home Phone | | + + + | Preferred Language | Unknown | + + + | Marital Status | | + + + | Congregational Affiliation | 1001 | + + + | Race | White | + + + | Ethnic Group | Not or | + + + Author + + + | Author | [facility] | | | and [place] | + + + | Organization | [facility] | | | and [...] Team Providers + +------+ + | Care Perfume Maker Name | Role | Phone | + +------+ + PCP | Unavailable | + +------+ + Encounter Details +--------+ + + + + | Date | Type | Department | Care Team | Description | +--------+ + + + + | 06/29/ | Hospital | [facility] | Conversion | | | 2014 | Encounter | [facility] | Transaction, | | | | | NUCLEAR MEDICINE | Provider Unknown | | | | | [address] | | | | | | [place], [place] | (Fax) | | | | | [address] | | | | | | [phone] | | | +--------+ + + + [...]
--- OUTSIDE RECORDS SUMMARY | ~2020-01-28 | XMS | Encounter Summary ---
Demographics + + + | Address | [address] | | | [place] [address] | + + + | Home Phone | | + + + | Preferred Language | Unknown | + + + | Marital Status | | + + + | Church Affiliation | Unknown | + + + | Race | White | + + + | Ethnic Group | Not or | + + + Author + + + | Author | [facility] | + + + | Organization | [facility] | + + + | Address | Unknown | + + + | Phone | Unavailable | + + + Support + + +---------+ + | Name | Relationship | Address | Phone | + + +---------+ + | Bev Anderson | ECON | Unknown | | + + +---------+ + Care Team Providers + +------+ + | Care Sales Account Representative Name | Role | Phone | + +------+ + | Corey Darling MD | PCP | | + +------+ + Reason for Visit + +--------+ + | Reason | Onset | Comments | | | Date | | + +--------+ + | Procedure | 08/08/ | ablation | | | 2015 | | + +--------+ + Encounter Details +--------+ + + + + | Date | Type | Department | Care Team | Description | +--------+ + + + + | 08/08/ | Telephone | Cardiology | Kwadwo Pillai, | Procedure (ablation) | | 2015 | | Arrhythmia at [facility] | [address] | | | | | [address] | [address] | | | | | [facility] | [place], [place] | | | | | and Healing, | [address] | | | | | [facility] | [phone] | | | | | Floor [place], [place] | | | | | | [address] | | | | | | [phone] | | | +--------+ + + + [...] documented as of this encounter Miscellaneous Notes Telephone Encounter - Nica Melo RN - 08/09/2015 10:10 AM PDTReturned call to pt - she saw PCP Dr. Darling and they discussed mgmt options and agreed to increase diltiazem f or now (med list updated - increased from 180mg daily to 240mg daily) and not pursue ablatio n at this time. I discussed with pt that this is a reasonable approach and to please call u s if she would like to re-visit ablation or has other concerns. Routed to Dr. Pillai as ZAHRAA. 1 0:15 AM PDTTelephone Encounter - Chinmay Arnaud - 08/09/2015 9:24 AM PDTFormatting of this no te might be different from the original. Reason for Call: Other - ablation Patient: Arianne Thomas Patient Contact Numbers: Home Phone Message: Description of reason for call: Patient calling to let Dr. Pillai know that she will try t he medication for now, because it seems to be working, before she proceeds with ablation. Pl ease call patient to discuss further Last Visit: 07/19/15 at 12:00 pm Next Visit: No future appointments scheduled in Cardiology. documented in this encounter Plan of Treatment Not on filedocumented as of this encounter Visit Diagnoses Not on filedocumented in this encounter"
--- OUTSIDE RECORDS SUMMARY | ~2020-01-28 | XMS | Encounter Summary ---
Demographics + + + | Address | [address] | | | [place] [address] | + + + | Home Phone | | + + + | Preferred Language | Unknown | + + + | Marital Status | | + + + | Mormonism Affiliation | Unknown | + + + | Race | White | + + + | Ethnic Group | Not or | + + + Author + + + | Author | [facility] | + + + | Organization | [facility] | + + + | Address | Unknown | + + + | Phone | Unavailable | + + + Support + + +---------+ + | Name | Relationship | Address | Phone | + + +---------+ + | Bev Anderson | ECON | Unknown | | + + +---------+ + Care Team Providers + +------+ + | Care Glycerin Supervisor Name | Role | Phone | + +------+ + | Corey Darling MD | PCP | | + +------+ + Reason for Visit + + + | Reason | Comments | + + + | CAR EP Record Review | EP Records Checklist | + + + Encounter Details +--------+ + + + + | Date | Type | Department | Care Team | Description | +--------+ + + + + | 07/18/ | Abstract | Cardiology | Unknown . | CAR EP Record Review | | 2016 | | Arrhythmia at [facility] | | (EP Records | | | | [address] | | Checklist ) | | | | [facility] | | | | | | and Healing, | | | | | | Building | | | | | | Floor [place], [place] | | | | | | [address] | | | | | | [phone] | | | +--------+ + + + [...] + documented as of this encounter Progress Aracely Walker - 07/19/2015 9:16 AM PDT EP Record Check List Procedure Where/Date Date requested Report received? Y/N, Where? Original tracings? Y/N Imaging received? CD/ IMPAX/Not Available Comments Referring Provider Per Dr. Pillai epic message Internal Referral Prior Tray Packer NA All EKGs NA Holter Monitor NA Event Monitor NA Ziopatch NA Life Vest NA Pacemaker (sched device check) NA Defibrillator (sched device check) NA Ablation NA Cardioversion NA Tilt Table NA Stress Test - NA Echocardiogram NA Cardiac MRI NA Cardiac Cath NA Additional Comments: Appointment not scheduled with patient. documented in this enco unter Plan of Treatment Not on filedocumented as of this encounter Visit Diagnoses Not on filedocumented in this encounter"
--- OUTSIDE RECORDS SUMMARY | ~2020-01-28 | XMS | Encounter Summary ---
Demographics + + + | Address | [address] | | | [place] [address] | + + + | Home Phone | | + + + | Preferred Language | Unknown | + + + | Marital Status | | + + + | Uatsdin Affiliation | 1001 | + + + | Race | White | + + + | Ethnic Group | Not or | + + + Author + + + | Author | [facility] | | | and [place] | + + + | Organization | [facility] | | | and [place] | + + + | Address | Unknown | + + + | Phone | Unavailable | + + + Support + + +---------+ + | Name | Relationship | Address | Phone | + + +---------+ + | Abel Solomon | ECON | Unknown | | + + +---------+ + Care Team Providers + +------+ + | Care Costuming Supervisor Name | Role | Phone | + +------+ + | Uziel Colunga MD | PCP | | + +------+ + Encounter Details +--------+ + + + + | Date | Type | Department | Care Team | Description | +--------+ + + + + | 07/05/ | Orders Only | [facility] | Roddy Shabazz V, | | | 2016 | | CONVERSION [address] | [address] | | | | | [address] | [address] [place], [place] | | | | | [place], [place] | [address] | | | | | [address] | | | | | | [phone] | | | +--------+ + + + [...] | + +--------+ + + + | ECHO INTERPRETATION | Routin | 07/06/2015 | | Results for this | | OF OUTSIDE FILMS | e | 2:57 PM | | procedure are in the | | | | PDT | | results section. | + +--------+ + + + documented in this encounter Results ECHO Interpretation of Outside Films (07/06/2015 2:57 PM PDT) + + | Specimen | + + | | + + + + + | Impressions | Performed At | + + + | 1. See Dictation 2. LV dimensions NML, Grade 1 diastolic | | | abnormality, hyperdynamic, LVEF >70%. Moderate LAE. RA/RV NML. 3. | | | Degenerative Valvular Heart Disease. Aortic valve moderately | | | sclerotic, no /AI. Mitral valve appears NML, mild MAC, mild MR. | | | Tricuspid valve appears NML, mild TR. Pulmonic valve not seen | | | well, mild PI. 4. No Pericardial effusion. 5. IVC plethoric, est | | | systolic PAP 32-37mmHg. Aortic root extensively sclerotic. | | + + + + + + | Narrative | Performed At | + + + | Patient Name: ARIANNE SOLOMON Date of : 1935 | | | Performing Physician: Yan Platt DO | | | | | | INDICATIONS dyspnea CONCLUSIONS 1. See | | | Dictation 2. LV dimensions NML, Grade 1 diastolic abnormality, | | | hyperdynamic, LVEF >70%. Moderate LAE. RA/RV NML. 3. Degenerative | | | Valvular Heart Disease. Aortic valve moderately sclerotic, no | | | /AI. Mitral valve appears NML, mild MAC, mild MR. Tricuspid | | | valve appears NML, mild TR. Pulmonic valve not seen well, mild PI. | | | 4. No Pericardial effusion. 5. IVC plethoric, est systolic PAP | | | 32-37mmHg. Aortic root extensively sclerotic. FINDINGS -------- | | | ECG rhythm: Sinus rhythm. Study: This was a technically adequate | | | study. Left Ventricle: Left ventricular systolic function is | | | hyperdynamic with an estimated EF of >70%. Left Ventricle: The left | | | ventricle cavity size is normal. Left Ventricle: Left ventricular | | | wall thickness is normal. Left Ventricle: The diastolic filling | | | pattern indicates impaired relaxation consistent with mild dysfunction | | | (Grade I). Right Ventricle: The right ventricle is normal in size | | | and function. Left Atrium: The left atrium is moderately dilated. | | | Right Atrium: The right atrium is normal in size. Aortic Valve: The | | | aortic valve is trileaflet and appears structurally normal. Aortic | | | Valve: There is moderate aortic valve sclerosis without stenosis. | | | Aortic Valve: There is no evidence of aortic regurgitation. Mitral | | | Valve: The mitral valve is normal. Mitral Valve: Mild mitral | | | regurgitation is present. Mitral Valve: Mild mitral annular | | | calcification present. Tricuspid Valve: The tricuspid valve appears | | | structurally normal. Tricuspid Valve: Mild tricuspid regurgitation | | | present. Pulmonic Valve: The pulmonic valve was not well visualized. | | | Pulmonic Valve: Mild pulmonic regurgitation. Pericardium: There is | | | no pericardial effusion. IVC/Hepatic Veins: The IVC is normal size | | | (1.5-2.5cm) and collapses <50% with sniff, consistent with central | | | venous pressures of 10-15mmHg. MEASUREMENTS | | | Vice President Of Development: BEN Authenticated by: Yan Platt DO Report | | | Date/Time: -- 81_[id number]:33:52 | | + + + + + | Procedure Note | + + | Edison, Rad Conversion - 11/27/2018 10:52 AM PDT Patient Name: Emilie SOLOMON | | : 1935 Performing Physician: Yan Platt | | DO INDICATIONS d | | yspnea CONCLUSIONS 1. See Dictation2. LV dimensions NML, Grade 1 diastolic | | abnormality, hyperdynamic, LVEF >70%. Moderate LAE. RA/RV NML. 3. Degenerative | | Valvular Heart Disease. Aortic valve moderately sclerotic, no /AI. Mitral valve | | appears NML, mild MAC, mild MR. Tricuspid valve appears NML, mild TR. Pulmonic valve | | not seen well, mild PI. 4. No Pericardial effusion. 5. IVC plethoric, est systolic PAP | | 32-37mmHg. Aortic root extensively sclerotic. FINDINGS--------ECG rhythm: Sinus | | rhythm.Study: This was a technically adequate study.Left Ventricle: Left ventricular | | systolic function is hyperdynamic with an estimated EF of >70%.Left Ventricle: The left | | ventricle cavity size is normal.Left Ventricle: Left ventricular wall thickness is | | normal.Left Ventricle: The diastolic filling pattern indicates impaired relaxation | | consistent with mild dysfunction (Grade I).Right Ventricle: The right ventricle is | | normal in size and function.Left Atrium: The left atrium is moderately dilated.Right | | Atrium: The right atrium is normal in size.Aortic Valve: The aortic valve is trileaflet | | and appears structurally normal.Aortic Valve: There is moderate aortic valve sclerosis | | without stenosis.Aortic Valve: There is no evidence of aortic regurgitation.Mitral | | Valve: The mitral valve is normal.Mitral Valve: Mild mitral regurgitation is | | present.Mitral Valve: Mild mitral annular calcification present.Tricuspid Valve: The | | tricuspid valve appears structurally normal.Tricuspid Valve: Mild tricuspid | | regurgitation present.Pulmonic Valve: The pulmonic valve was not well | | visualized.Pulmonic Valve: Mild pulmonic regurgitation.Pericardium: There is no | | pericardial effusion.IVC/Hepatic Veins: The IVC is normal size (1.5-2.5cm) and collapses | | <50% with sniff, consistent with central venous pressures of 10-15mmHg. | | MEASUREMENTS Vice President Of Development: DHAuthenticated by: Yan Castaneda | | Date/Time: -- 30_[id number]:33:52 IMPRESSION: 1. See Dictation2. LV dimensions NML, | | Grade 1 diastolic abnormality, hyperdynamic, LVEF >70%. Moderate LAE. RA/RV NML. 3. | | Degenerative Valvular Heart Disease. Aortic valve moderately sclerotic, no /AI. | | Mitral valve appears NML, mild MAC, mild MR. Tricuspid valve appears NML, mild TR. | | Pulmonic valve not seen well, mild PI. 4. No Pericardial effusion. 5. IVC plethoric, est | | systolic PAP 32-37mmHg. Aortic root extensively sclerotic. | |Aortic Valve: There is no evidence of aortic regurgitation. | |Mitral Valve: The mitral valve is normal. | |Mitral Valve: Mild mitral regurgitation is present. | |Mitral Valve: Mild mitral annular calcification present. | |Tricuspid Valve: The tricuspid valve appears structurally normal. | |Tricuspid Valve: Mild tricuspid regurgitation present. | |Pulmonic Valve: The pulmonic valve was not well visualized. | |Pulmonic Valve: Mild pulmonic regurgitation. | |Pericardium: There is no pericardial effusion. | |IVC/Hepatic Veins: The IVC is normal size (1.5-2.5cm) and collapses <50% with sniff, consis tent with central venous pressures of 10-15mmHg. | | | |MEASUREMENTS | | | | | |Vice President Of Development: BEN | |Authenticated by: Yan Platt DO | |Report Date/Time: -- 04_[id number]:33:52 | | | |IMPRESSION: | |1. See Dictation | |2. LV dimensions NML, Grade 1 diastolic abnormality, hyperdynamic, LVEF >70%. Moderate LAE . RA/RV NML. 3. Degenerative Valvular Heart Disease. Aortic valve moderately sclerotic, n o /AI. Mitral valve appears NML, | |mild MAC, mild MR. Tricuspid valve | | appears NML, mild TR. Pulmonic valve not seen well, mild PI. 4. No Pericardial effusion. 5. IVC plethoric, est systolic PAP 32-37mmHg. Aortic root extensively sclerotic. | + + documented in this encounter Visit Diagnoses Not on filedocumented in this encounter"
--- OUTSIDE RECORDS SUMMARY | ~2020-01-28 | XMS | Clinical Summary ---
Demographics + + + | Address | [address] | | | [place] [address] | + + + | Home Phone | | + + + | Preferred Language | Unknown | + + + | Marital Status | | + + + | Adventist Affiliation | Unknown | + + + [...] Team Providers + +------+ + | Care Asphalt Tile Floor Layer Name | Role | Phone | + +------+ + | Corey Darling MD | PCP | | + +------+ + Source Comments BERNARD is fully live on both [facility] Ambulatory and [facility] InPatient.[facility]ly [facility] Allergies + + + + + [...] on file | | + + + Last Filed Vital Signs + [...] + + Plan of Treatment + + +-------+ + | Health Maintenance | Due Date | Last | Comments | | | | Done | | + + +-------+ + | Pneumococcal | | | | | vaccination (1 of 1 | 3 | | | | - PPSV23) | | | | + + +-------+ + | Influenza (Flu) | | | | | vaccination (#1) | 0 | | | + + +-------+ + Results Not on filefrom Last 3 Months"
--- OUTSIDE RECORDS SUMMARY | ~2020-01-28 | XMS | Clinical Summary ---
Demographics + + + | Address | [address] | | | [place] [address] | + + + | Home Phone | | + + + | Preferred Language | Unknown | + + + | Marital Status | | + + + | Mu-Ism Affiliation | 1001 | + + + | Race | White | + + + | Ethnic Group | Not or | + + + Author + + + | Author | [facility] | | | and [place] | + + + | Organization | [facility] | | | and [...] Team Providers + +------+ + | Care Triage Assistant Name | Role | Phone | + +------+ + | Uziel Colunga MD | PCP | | + +------+ + Allergies Not on File Medications Not on file Active Problems Not on file Family History + + +------+ + | Medical History | Relation | Name | Comments | + + +------+ + | Cancer | Brother | | | + + +------+ + + +------+ + + | Relation | Name | Status | Comments | + +------+ + + | Brother | | | | | | | (Age | | | | | 49) | | + +------+ + + | Brother | | | | + +------+ + + | Father | | | | | | | (Age | | | | | 96) | | + +------+ + + | Maternal Grandfather | | | | + +------+ + + | Maternal Grandmother | | | | + +------+ + + | Mother | | | | | | | (Age | | | | | 71) | | + +------+ + + | Paternal Grandfather | | | | + +------+ + + | Paternal Grandmother | | | | + +------+ + + Social History + +-------+ +--------+------+ | Tobacco Use | Types | Packs/Day | Years | Date | | | | | Used | | + +-------+ +--------+------+ | Former Smoker | | 1 | | | + +-------+ +--------+------+ + + + | Sex Assigned at | Date Recorded | | | | + + + | Not on file | | + + + Last Filed Vital Signs Not on file Plan of Treatment + + +-------+ + | Health Maintenance | Due Date | Last | Comments | | | | Done | | + + +-------+ + | Vaccine: | | | | | Dtap/Tdap/Td (1 - | 7 | | | | Tdap) | | | | + + +-------+ + | Vaccine: Zoster (1 | | | | | of 2) | 8 | | | + + +-------+ + | Vaccine: | | | | | Pneumococcal 65+ (1 | 3 | | | | of 1 - PPSV23) | | | | + + +-------+ + | Vaccine: Influenza | | | | | (#1) | 0 | | | + + +-------+ + Results Not on filefrom Last 3 Months"
--- OUTSIDE RECORDS SUMMARY | ~2020-01-28 | XMS | Encounter Summary ---
Demographics + + + | Address | [address] | | | [place] [address] | + + + | Home Phone | | + + + | Preferred Language | Unknown | + + + | Marital Status | | + + + | Spiritism Affiliation | Unknown | + + + | Race | White | + + + | Ethnic Group | Not or | + + + Author + + + | Author | [facility] | + + + | Organization | [facility] | + + + | Address | Unknown | + + + | Phone | Unavailable | + + + Support + + +---------+ + | Name | Relationship | Address | Phone | + + +---------+ + | Bev Anderson | ECON | Unknown | | + + +---------+ + Care Team Providers + +------+ + | Care River Guide Name | Role | Phone | + +------+ + | Corey Darling MD | PCP | | + +------+ + Encounter Details +--------+ + + + + | Date | Type | Department | Care Team | Description | +--------+ + + + + | 07/19/ | Abstract | Cardiology | Kwadwo Pillai, | | | 2015 | | Arrhythmia at [facility] | [address] | | | | | [address] | [address] | | | | | [facility] | [place], [place] | | | | | and Healing, | [address] | | | | | | [phone] | | | | | [place], [place] | | | | | | [address] | | | | | | [phone] | | | +--------+ + + + [...]
--- OUTSIDE RECORDS SUMMARY | ~2020-01-28 | XMS | Encounter Summary ---
Demographics + + + | Address | [address] | | | [place] [address] | + + + | Home Phone | | + + + | Preferred Language | Unknown | + + + | Marital Status | | + + + | Methodist Affiliation | Unknown | + + + | Race | White | + + + | Ethnic Group | Not or | + + + Author + + + | Author | [facility] | + + + | Organization | [facility] | + + + | Address | Unknown | + + + | Phone | Unavailable | + + + Support + + +---------+ + | Name | Relationship | Address | Phone | + + +---------+ + | Bev Anderson | ECON | Unknown | | + + +---------+ + Care Team Providers + +------+ + | Care Railroad Car Painter Name | Role | Phone | + [...] | | 2016 | | Arrhythmia at [facility] | | (EP Records | | | | [address] | | Checklist ) | | | | [facility] | | | | | | and Healing, | | | | | | Building | | | | | | Floor [place], [place] | | | | | | [address] | | | | | | [phone] | | | +--------+ + + + [...] Dr. Pillai epic message Internal Referral Prior Employment Attorney NA All EKGs NA Holter Monitor NA [...]
--- OUTSIDE RECORDS SUMMARY | ~2020-01-28 | XMS | Encounter Summary ---
Demographics + + + | Address | [address] | | | [place] [address] | + + + | Home Phone | | + + + | Preferred Language | Unknown | + + + | Marital Status | | + + + | Protestant Affiliation | 1001 | + + + | Race | White | + + + | Ethnic Group | Not or | + + + Author + + + | Author | [facility] | | | and [place] | + + + | Organization | [facility] | | | and [...] Team Providers + +------+ + | Care Community Marketing Coordinator Name | Role | Phone | + +------+ + PCP | Unavailable | + +------+ + Encounter Details +--------+ + + + + | Date | Type | Department | Care Team | Description | +--------+ + + + + | 12/27/ | Hospital | [facility] | Conversion | Asthma | | 2013 | Encounter | PULMONARY FUNCTION | Transaction, | | | | | LAB [address] | Provider Unknown | | | | | [place], [place] | [phone] | | | | | [address] | | | | | | [phone] | | | +--------+ + + + [...] + + documented as of this encounter Procedure Notes Rigo Wong MD - 12/28/2013 1:53 AM PDT Procedures signed by Rigo Wong MD at 12/28/13335 Author: Rigo Wong MD Service: Automation Machine Builder Author Type: Physician Filed: 12/28/13 0336 Date of Service: 12/28/13152 Status: Signed Bellows Assembler: Rigo Wong MD (Physician) ARIANNE SOLOMON Date of : 1935 FEV-1/FVC is reduced. FEV-1 is normal. FVC is normal. There is no significant bronchodilato r response. Lung volumes: The TLC is normal. RV/TLC is normal. Diffusion capacity: The diffusion capacity is normal. IMPRESSION Mild obstructive impairment with no bronchodilator response. Lung volumes are normal. Diffu jessica capacity is normal. A/ [facility]/[id number] RIGO WONG MD documented in this enc ounter Plan of Treatment Not on filedocumented as of this encounter Visit Diagnoses + + | Diagnosis | + + | Asthma Unspecified asthma | + + documented in this encounter"
--- OUTSIDE RECORDS SUMMARY | ~2020-01-28 | XMS | Encounter Summary ---
Demographics + + + | Address | [address] | | | [place] [address] | + + + | Home Phone | | + + + | Preferred Language | Unknown | + + + | Marital Status | | + + + | Sikhism Affiliation | 1001 | + + + | Race | White | + + + | Ethnic Group | Not or | + + + Author + + + | Author | [facility] | | | and [place] | + + + | Organization | [facility] | | | [...] Team Providers + +------+ + | Care Hot Box Spotter Name | Role | Phone | + +------+ + PCP | Unavailable | + +------+ + Encounter Details +--------+ + + + + | Date | Type | Department | Care Team | Description | +--------+ + + + + | 04/11/ | Hospital | [facility] | Aldo Meier | GERD | | 2015 | Encounter | [facility] Ness MD [address] | (gastroesophageal | | | | INTRA OP [address] | [place] [address] | reflux disease); | | | | [place] | [phone] | Epigastric pain; | | | | [address] | | Change in bowel | | | | [phone] | | habits | +--------+ + + + + Social [...] + + documented as of this encounter Discharge Summaries Aldo Meier MD - 04/11/2014 9:52 AM PST Discharge Summaries by Aldo Meier MD at 04/11/14951 Author: Aldo Meier MD Service: Gastroenterology Author Type: Physician Filed: 04/11/14951 Date of Service: 04/11/14951 Status: Signed Recreation Program Coordinator: Aldo Meier MD (Physician) [facility] Service: Gastroenterology Brief Post-op Discharge Note DISCHARGE DIAGNOSES: Active Problems: GERD (gastroesophageal reflux disease) Epigastric pain Resolved Problems: * No resolved hospital problems. * Procedures: Procedure(s): ESOPHAGOGASTRODUODENOSCOPY This patient was transferred to the recovery area post-operatively and has experienced no d ifficulties at the time of my assessment. The patient is anticipated to continue to meet di scharge criteria per protocol as assessed by nursing and may be discharged at that time with designated caregiver. Disposition: Home Condition: Good Follow up: With me Medication List START taking these medications sucralfate 1 GM/10ML suspension QTY: 900 mL Refills: 0 Commonly known as: CARAFATE Take 10 mLs by mouth 3 (three) times daily. CONTINUE taking these medications acetaminophen-codeine 300-30 MG per tablet Refills: 0 Commonly known as: TYLENOL #3 aspirin 81 MG EC tablet Refills: 0 fluticasone-salmeterol 230-21 MCG/ACT inhaler QTY: 1 Inhaler Refills: 11 Commonly known as: ADVAIR HFA Inhale 2 puffs into the lungs 2 (two) times daily. hydrochlorothiazide 25 MG tablet Refills: 0 Commonly known as: HYDRODIURIL levalbuterol 0.63 MG/3ML nebulizer solution QTY: 3 mL Refills: 11 Commonly known as: XOPENEX Take 3 mLs by nebulization every 6 (six) hours as needed for Wheezing or Shortness of Breat h. losartan 100 MG tablet Refills: 0 Commonly known as: COZAAR metoprolol 25 MG tablet QTY: 60 tablet Refills: 3 Commonly known as: LOPRESSOR Take 1 tablet by mouth 2 (two) times daily. omeprazole 20 MG capsule Refills: 0 Commonly known as: PRILOSEC Oxygen (outpatient therapy) Refills: 0 potassium chloride 10 MEQ tablet Refills: 0 Commonly known as: K-DUR PROAIR HFA 108 (90 BASE) MCG/ACT inhaler Refills: 0 Generic drug: albuterol ropinirole 0.5 MG tablet Refills: 0 Commonly known as: REQUIP tiotropium 18 MCG inhalation capsule Refills: 0 Commonly known as: SPIRIVA Where to Get Your Medications You need to pick up man these prescriptions. We sent them to a specific pharmacy, so go there to get them. [id number] - [place], [place] - [address] - sucralfate 1 GM/10ML suspension [address] [place] [id number] Aldo Meier MD 04/11/2014 9:52 AM documented in th is encounter H&P Notes Aldo Meier MD - 04/11/2014 9:02 AM PST Interval H&P Note by Aldo Meier MD at 04/11/14901 Author: Aldo Meier MD Service: Gastroenterology Author Type: Physician Filed: 04/11/14901 Date of Service: 04/11/14901 Status: Signed Recreation Program Coordinator: Aldo Meier MD (Physician) [facility] Service: Gastroenterology Pre-Operative History & Physical Interval Update There have been no significant clinical changes since the completion of the above H&P. Aldo Meier MD 04/11/2014 *CORE MEASURES REMINDER: If the patient has a known or suspected infection prior to surger y, please add diagnosis to the problem list (consider: Infection 136.9). Source Note Author: Aldo Meier MD Service: (none) Author Type: Physician Filed: 04/10/142140 Date of Service: 04/08/14 1332 Status: Signed Recreation Program Coordinator: Aldo Meier MD (Physician) Documentation note to produce procedure H & P which will be updated on day of procedure. [facility] Service: Gastroenterology Pre-Operative History & Physical ? INDICATION: ICD-9-CM 1. Esophageal reflux 530.81 2. Abdominal pain, epigastric 789.06 3. Other symptoms involving digestive system 787.99 PROCEDURE: EGD ? History Obtained From: 02/02/15 Patient visit HISTORY OF PRESENT ILLNESS The patient is a 78 y.o. female 1935 who presents with GERD, epigastric pain, chng B/ H REVIEW OF SYSTEMS Review of Systems Constitutional: Positive for appetite change (increased). Negative for fever, chills, diaph oresis, activity change, fatigue and unexpected weight change. HENT: Positive for hoarse voice, trouble swallowing and voice change. Negative for ear pain , nosebleeds, sore throat, mouth sores, neck pain and neck stiffness. Eyes: Negative for pain, redness and visual disturbance. Respiratory: Positive for shortness of breath and wheezing. Negative for cough, choking and chest tightness. Cardiovascular: Positive for palpitations. Negative for chest pain (hospitalized recently f or A-fib) and leg swelling. Gastrointestinal: Positive for heartburn, dysphagia, nausea, vomiting, diarrhea, constipati on and melena. Negative for abdominal pain, blood in stool, abdominal distention, anal bleed ing and rectal pain. Endocrine: Negative for cold intolerance, heat intolerance and polydipsia. Genitourinary: Negative for dysuria, urgency, frequency, hematuria, vaginal bleeding and di fficulty urinating. Musculoskeletal: Positive for muscle weakness. Negative for myalgias, back pain, joint swel ling, arthralgias and gait problem. Skin: Negative for color change, rash and wound. Allergic/Immunologic: Negative for environmental allergies, food allergies and immunocompro mised state. Neurological: Positive for dizziness and headaches. Negative for tremors, seizures, syncope , weakness and light-headedness. Hematological: Negative for adenopathy. Bruises/bleeds easily. Psychiatric/Behavioral: Negative for suicidal ideas, hallucinations, behavioral problems, c onfusion, dysphoric mood and agitation. The patient is not nervous/anxious. Past Medical History Diagnosis Date COPD (chronic obstructive pulmonary disease) SVT (supraventricular tachycardia) TIA (transient ischemic attack) Vertigo Osteoporosis Chronic pain Cholecystitis On home oxygen therapy Gastric ulcer CHF (congestive heart failure) CAD (coronary artery disease) A-fib Hypertension GERD (gastroesophageal reflux disease) Sleep apnea C pap Asthma Atrial fibrillation Joint pain Unspecified visual disturbance glasses Past Surgical History Procedure Laterality Date Hysterectomy Appendectomy Abdominal surgery Colonoscopy 2008 Dr. Cho Tonsillectomy Cardiac catheterization Cardiac electrophysiology study and ablation Allergies Allergen Reactions Penicillins Other (See Comments) Loss of consciousness, per patient Current Outpatient Prescriptions on File Prior to Visit Medication Sig Dispense Refill acetaminophen-codeine (TYLENOL #3) 300-30 MG per tablet Take by mouth every 4 (four) h ours as needed for Pain. albuterol (PROAIR HFA) 108 (90 BASE) MCG/ACT inhaler Inhale 2 puffs into the lungs ever y 4 (four) hours as needed for Wheezing. aspirin 81 MG EC tablet Take 81 mg by mouth daily with breakfast. fluticasone-salmeterol (ADVAIR HFA) 230-21 MCG/ACT inhaler Inhale 2 puffs into the lung s 2 (two) times daily. 1 Inhaler 11 hydrochlorothiazide (HYDRODIURIL) 25 MG tablet Take 12.5 mg by mouth daily. levalbuterol (XOPENEX) 0.63 MG/3ML nebulizer solution Take 3 mLs by nebulization every 6 (six) hours as needed for Wheezing or Shortness of Breath. 3 mL 11 losartan (COZAAR) 100 MG tablet Take 100 mg by mouth daily. metoprolol (LOPRESSOR) 25 MG tablet Take 1 tablet by mouth 2 (two) times daily. 60 tab let 3 omeprazole (PRILOSEC) 20 MG capsule Take 20 mg by mouth 2 (two) times daily. OXYGEN (outpatient therapy) Inhale 2 L into the lungs. potassium chloride (K-DUR) 10 MEQ tablet Take 10 mEq by mouth 2 (two) times daily. ropinirole (REQUIP) 0.5 MG tablet Take 0.5 mg by mouth daily. tiotropium (SPIRIVA) 18 MCG inhalation capsule Inhale 18 mcg into the lungs daily. [DISCONTINUED] ranitidine (ZANTAC) 150 MG tablet Take 1 tablet by mouth nightly. 30 ta blet 11 No current facility-administered medications on file prior to visit. Family History Problem Relation Age of Onset Cancer Brother Social History: History Smoking status Former Smoker -- 1.00 packs/day for 18 years Quit date: 12/10/1980 Smokeless tobacco Never Used History Alcohol Use No PHYSICAL EXAM Vital Signs: Reviewed as recorded in nursing records on day of procedure There were no vitals taken for this visit. Ht 4'10" Wt 158.12lb BMI 33.20kg/m2? Physical Exam Gen: NAD CV: Regular Lungs: CTAB Abd: Mild epigastric tenderness, no guarding or rebound, +BS, no masses or organomegaly Ext: No LE edema HENT: EOMI, no scleral icterus Skin: Warm, moist, intact Neuro: Intact and symmetric grossly ? PROBLEM LIST Patient Active Problem List Diagnosis Chest pain, unspecified SVT (supraventricular tachycardia) COPD (chronic obstructive pulmonary disease) HTN (hypertension) Asthma Sleep apnea Pulmonary hypertension Atrial fibrillation GERD (gastroesophageal reflux disease) Epigastric pain Change in bowel habits ASSESSMENT & PLAN 1. Patient is a 78 y.o. female with above specified procedure planned for the indications n oted. 2. Medical conditions are currently stable and patient is felt appropriate for proceeding w ith procedure. Treatment Plan: _x___EGD ____COLONOSCOPY ____ERCP ____OTHER Plan for Anesthesia: ____IV Sedation _x___Per Anesthesia Service ____None Procedure Consent: The procedure, indications, limitations, alternatives available and pote ntial complications to include but not limited to bleeding, perforation, infection, and adve rse medication reaction was explained. Opportunity for questions provided and informed conse nt obtained. ASA Class: ___Per Anesthesia Service Discharge Plans: Discharge when appropriate discharge criteria met. Also per any procedure report recommendations. ? Date Physician Signature Updated today Aldo Meier MD [facility] Gastroenterology 04/08/2014 Primary Care Physician: EVA ADAMSON *CORE MEASURES REMINDER: If the patient has a known or suspected infection prior to surgery , please add diagnosis to the problem list (consider: Infection 136.9). ? Tracie Fink MD - 04/08/2014 1:32 PM PSTFormatting of this note might be different from the origina l. H&P (View-Only) by Aldo Meier MD at 04/08/14 1332 Author: Aldo Meier MD Service: (none) Author Type: Physician Filed: 04/10/14 8196 Date of Service: 04/08/14 3012 Status: Signed Recreation Program Coordinator: Aldo Meier MD (Physician) Documentation note to produce procedure H & P which will be updated on day of procedure. [facility] Service: Gastroenterology Pre-Operative History & Physical ? INDICATION: ICD-9-CM 1. Esophageal reflux 530.81 2. Abdominal pain, epigastric 789.06 3. Other symptoms involving digestive system 787.99 PROCEDURE: EGD ? History Obtained From: 02/02/15 Patient visit HISTORY OF PRESENT ILLNESS The patient is a 78 y.o. female 1935 who presents with GERD, epigastric pain, chng B/ H REVIEW OF SYSTEMS Review of Systems Constitutional: Positive for appetite change (increased). Negative for fever, chills, diaph oresis, activity change, fatigue and unexpected weight change. HENT: Positive for hoarse voice, trouble swallowing and voice change. Negative for ear pain , nosebleeds, sore throat, mouth sores, neck pain and neck stiffness. Eyes: Negative for pain, redness and visual disturbance. Respiratory: Positive for shortness of breath and wheezing. Negative for cough, choking and chest tightness. Cardiovascular: Positive for palpitations. Negative for chest pain (hospitalized recently f or A-fib) and leg swelling. Gastrointestinal: Positive for heartburn, dysphagia, nausea, vomiting, diarrhea, constipati on and melena. Negative for abdominal pain, blood in stool, abdominal distention, anal bleed ing and rectal pain. Endocrine: Negative for cold intolerance, heat intolerance and polydipsia. Genitourinary: Negative for dysuria, urgency, frequency, hematuria, vaginal bleeding and di fficulty urinating. Musculoskeletal: Positive for muscle weakness. Negative for myalgias, back pain, joint swel ling, arthralgias and gait problem. Skin: Negative for color change, rash and wound. Allergic/Immunologic: Negative for environmental allergies, food allergies and immunocompro mised state. Neurological: Positive for dizziness and headaches. Negative for tremors, seizures, syncope , weakness and light-headedness. Hematological: Negative for adenopathy. Bruises/bleeds easily. Psychiatric/Behavioral: Negative for suicidal ideas, hallucinations, behavioral problems, c onfusion, dysphoric mood and agitation. The patient is not nervous/anxious. Past Medical History Diagnosis Date COPD (chronic obstructive pulmonary disease) SVT (supraventricular tachycardia) TIA (transient ischemic attack) Vertigo Osteoporosis Chronic pain Cholecystitis On home oxygen therapy Gastric ulcer CHF (congestive heart failure) CAD (coronary artery disease) A-fib Hypertension GERD (gastroesophageal reflux disease) Sleep apnea C pap Asthma Atrial fibrillation Joint pain Unspecified visual disturbance glasses Past Surgical History Procedure Laterality Date Hysterectomy Appendectomy Abdominal surgery Colonoscopy 2008 Dr. Cho Tonsillectomy Cardiac catheterization Cardiac electrophysiology study and ablation Allergies Allergen Reactions Penicillins Other (See Comments) Loss of consciousness, per patient Current Outpatient Prescriptions on File Prior to Visit Medication Sig Dispense Refill acetaminophen-codeine (TYLENOL #3) 300-30 MG per tablet Take by mouth every 4 (four) h ours as needed for Pain. albuterol (PROAIR HFA) 108 (90 BASE) MCG/ACT inhaler Inhale 2 puffs into the lungs ever y 4 (four) hours as needed for Wheezing. aspirin 81 MG EC tablet Take 81 mg by mouth daily with breakfast. fluticasone-salmeterol (ADVAIR HFA) 230-21 MCG/ACT inhaler Inhale 2 puffs into the lung s 2 (two) times daily. 1 Inhaler 11 hydrochlorothiazide (HYDRODIURIL) 25 MG tablet Take 12.5 mg by mouth daily. levalbuterol (XOPENEX) 0.63 MG/3ML nebulizer solution Take 3 mLs by nebulization every 6 (six) hours as needed for Wheezing or Shortness of Breath. 3 mL 11 losartan (COZAAR) 100 MG tablet Take 100 mg by mouth daily. metoprolol (LOPRESSOR) 25 MG tablet Take 1 tablet by mouth 2 (two) times daily. 60 tab let 3 omeprazole (PRILOSEC) 20 MG capsule Take 20 mg by mouth 2 (two) times daily. OXYGEN (outpatient therapy) Inhale 2 L into the lungs. potassium chloride (K-DUR) 10 MEQ tablet Take 10 mEq by mouth 2 (two) times daily. ropinirole (REQUIP) 0.5 MG tablet Take 0.5 mg by mouth daily. tiotropium (SPIRIVA) 18 MCG inhalation capsule Inhale 18 mcg into the lungs daily. [DISCONTINUED] ranitidine (ZANTAC) 150 MG tablet Take 1 tablet by mouth nightly. 30 ta blet 11 No current facility-administered medications on file prior to visit. Family History Problem Relation Age of Onset Cancer Brother Social History: History Smoking status Former Smoker -- 1.00 packs/day for 18 years Quit date: 12/10/1980 Smokeless tobacco Never Used History Alcohol Use No PHYSICAL EXAM Vital Signs: Reviewed as recorded in nursing records on day of procedure There were no vitals taken for this visit. Ht 4'10" Wt 158.12lb BMI 33.20kg/m2? Physical Exam Gen: NAD CV: Regular Lungs: CTAB Abd: Mild epigastric tenderness, no guarding or rebound, +BS, no masses or organomegaly Ext: No LE edema HENT: EOMI, no scleral icterus Skin: Warm, moist, intact Neuro: Intact and symmetric grossly ? PROBLEM LIST Patient Active Problem List Diagnosis Chest pain, unspecified SVT (supraventricular tachycardia) COPD (chronic obstructive pulmonary disease) HTN (hypertension) Asthma Sleep apnea Pulmonary hypertension Atrial fibrillation GERD (gastroesophageal reflux disease) Epigastric pain Change in bowel habits ASSESSMENT & PLAN 1. Patient is a 78 y.o. female with above specified procedure planned for the indications n oted. 2. Medical conditions are currently stable and patient is felt appropriate for proceeding w ith procedure. Treatment Plan: _x___EGD ____COLONOSCOPY ____ERCP ____OTHER Plan for Anesthesia: ____IV Sedation _x___Per Anesthesia Service ____None Procedure Consent: The procedure, indications, limitations, alternatives available and pote ntial complications to include but not limited to bleeding, perforation, infection, and adve rse medication reaction was explained. Opportunity for questions provided and informed conse nt obtained. ASA Class: ___Per Anesthesia Service Discharge Plans: Discharge when appropriate discharge criteria met. Also per any procedure report recommendations. ? Date Physician Signature Updated today Aldo Meier MD [facility] Gastroenterology 04/08/2014 Primary Care Physician: EVA ADAMSON *CORE MEASURES REMINDER: If the patient has a known or suspected infection prior to surgery , please add diagnosis to the problem list (consider: Infection 136.9). ? documented in is encounter Miscellaneous Notes Op Note - Aldo Meier MD - 04/11/2014 9:47 AM PST Op Note by Aldo Meier MD at 04/11/14 0980 Author: Aldo Meier MD Service: Gastroenterology Author Type: Physician Filed: 04/11/14 0950 Date of Service: 04/11/14946 Status: Signed Recreation Program Coordinator: Aldo Meier MD (Physician) [facility] Service: Gastroenterology ENDOSCOPY SUITE PROCEDURE NOTE Esophagogastroduodenoscopy Procedure: Esophagogastroduodenoscopy (EGD) Indications: GERD Referring Physician: EVA ADAMSON Consent: The benefits, risks (bleeding, perforation, infection and reaction to medication) , and alternatives to the procedure were discussed and informed consent was obtained from e patient. Preparation: EKG, pulse, pulse oximetry, and blood pressure were monitored throughout the procedure. ASA Grade and Mallampati Classification per anesthesia service. Medications: See anesthesia documentation Procedure: The gastroscope was passed through the mouth under direct visualization and was advanced with ease to the 2nd portion of the duodenum. Retroflex exam performed in the fund us. The scope was withdrawn and the mucosa was carefully examined. The views were good. Ther e were no apparent complications. Findings: Esophagus: Within normal limits Stomach: Mucosa was mildly erythematous so biopsies were taken. No ulcers or erosions. Evidence of previous gastric surgery c/w a billroth II. Pylorus was mildly narrowed by pas sed by the gastroscope. Gastro-jejunal anastomosis was widely patent. Duodenum: Within normal limits Small bowel: Both limbs of anastomosis appeared within normal limits. Impression: Mild gastritis vs gastropathy s/p biopsy. Complications: None; patient tolerated the procedure well. EBL: Minimal Recommendations: Continue PPI Follow up pathology Consider adding carafate if biopsies show gastropathy Aldo Meier MD 04/11/2014 documented in th is encounter Plan of Treatment Not on filedocumented as of this encounter Procedures + +--------+ + + + | Procedure Name | Priori | Date/Time | Associated Diagnosis | Comments | | | ty | | | | + +--------+ + + + | TISSUE REQUEST FOR | Routin | 04/11/2014 | | Results for this | | PATHOLOGY (NON-ORD) | e | 12:00 AM | | procedure are in the | | | | PST | | results section. | + +--------+ + + + documented in this encounter Results Tissue Request For Pathology (04/11/2014 12:00 AM PST) + + | Specimen | + + | Soft tissue sample | | (specimen) | + + + + + | Narrative | Performed At | + + + | THIS IS AN ADDENDUM REPORT SPECIMEN(S): A GASTRIC- | EXTERNAL LAB | | BIOPSY/ POLYP SPECIMEN SOURCE: A. GASTRIC- BIOPSY/ POLYP | | | CLINICAL HISTORY: 04/11/2014 at 0941 H. Possible gastritis. 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 - No evidence of gastritis. 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 There is villiform | | | transformation and muscular stranding along with mucosal congestion. | | | There is no acute or chronic inflammation. Chemical gastropathies are | | | most commonly seen in individuals with alkaline reflux and in | | | individuals exposed to drugs and other chemicals. There is no acute or | | | chronic inflammation. The control for the special stain(s) is/are | | | appropriately positive. GROSS DESCRIPTION: The specimen is received | | | in formalin labeled with the patient's name and designated "gastric" | | | and consists of two pink-white soft tissue fragments that measure 0.2 | | | and 0.3 cm in greatest dimension. The specimen is entirely submitted | | | in cassette (A1). FM MICROSCOPIC EXAMINATION: Histologic sections | | | of all submitted blocks are examined by light microscopy. These | | | findings, together with the gross examination, support the pathologic | | | diagnosis. PERFORMING LABORATORY: Professional interpretation and | | | technical preparation was performed by [facility] | | | [address] [address] | | | (Director Of Rotc: Marquise Salinas M.D.; [facility]#: [id number]). | | | ADDENDUM PATHOLOGIC DIAGNOSIS: This addendum is issued to include the | | | results of special stains. They are as follows: There is no | | | evidence of H. pylori, intestinal metaplasia, abnormal infiltrates or | | | neoplasia. These features are confirmed by the Warthin-Starry and the | | | Alcian blue/PAS stains. The control for the special stain(s) is/are | | | appropriately positive. Diagnostician: Elia Mcleod MD Pathologist | | | Electronically Signed 04/18/2014 | | + + + + +---------+ + + | Performing | Address | City/State/Zipcode | Phone Number | | Organization | | | | + +---------+ + + | EXTERNAL LAB | | | | + +---------+ + + documented in this encounter Visit Diagnoses + + | Diagnosis | + + | GERD (gastroesophageal reflux disease) Esophageal reflux | + + | Epigastric pain Abdominal pain, epigastric | + + | Change in bowel habits Other symptoms involving digestive system | + + documented in this encounter
--- OUTSIDE RECORDS SUMMARY | ~2020-01-28 | XMS | Encounter Summary ---
Demographics + + + | Address | [address] | | | [place] [address] | + + + | Home Phone | | + + + | Preferred Language | Unknown | + + + | Marital Status | | + + + | Anabaptist Affiliation | 1001 | + + + | Race | White | + + + | Ethnic Group | Not or | + + + Author + + + | Author | [facility] | | | and [place] | + + + | Organization | [facility] | | [...] Team Providers + +------+ + | Care Kiln Stoker Name | Role | Phone | + +------+ + PCP | Unavailable | + +------+ + Encounter Details +--------+ + + + + | Date | Type | Department | Care Team | Description | +--------+ + + + + | 06/29/ | [facility] | [facility] | Conversion | CAD (coronary artery | | 2014 | Encounter | [facility]ICAL CENTER | Transaction, | disease); Atrial | | | | NUCLEAR MEDICINE | Provider Unknown | fibrillation (HCC) | | | | [address] | | | | | | [place], [place] | (Fax) | | | | | [address] | | | | | | [phone] | | | +--------+ + + + [...] + documented as of this encounter Procedure Romero Ponce NP - 06/29/2014 3:32 PM PDT Procedures by MARCEL Romo at 03/1531 Author: MARCEL Romo Service: Radiology Author Type: Advanced Registered Nurse Practitioner Filed: 06/29/14 1533 Date of Service: 06/29/141531 Status: Signed It Specialist: MARCEL Romo (Advanced Registered Nurse Practitioner) Pre-procedure Diagnoses: 1. Pre-operative exam [V72.84] Post-procedure Diagnoses: 1. Pre-operative exam [V72.84] Procedures: 1. NM MYOCARDIAL PERFUSION SPECT - STRESS AND REST [LTQ882 (Custom)] [facility] Service: Diagnostic Imaging/Nuclear Medicine Cardiac Stress Test Note Type of Stress Test performed (protocol): Pharmacologic stress test Yasmany protocol time (if applicable): N/A Rhythm changes: None Ectopy: None Symptoms experienced during exam: None ST/T wave changes: None Medications administered: Lexiscan 0.4 mg Davis Treadmill Score: N/A MARCEL Romo 06/29/2014 3:32 PM documented in th is encounter Plan of Treatment Not on filedocumented as of this encounter Procedures + +--------+ + + + | Procedure Name | Priori | Date/Time | Associated Diagnosis | Comments | | | ty | | | | + +--------+ + + + | NM MYOCARDIAL | Routin | 06/29/2014 | | Results for this | | PERFUSION MULT SPECT | e | 6:42 PM | | procedure are in the | | | | PDT | | results section. | + +--------+ + + + documented in this encounter Results NM Myocardial Perfusion Mult SPECT (06/29/2014 6:42 PM PDT) + + | Specimen | + + | | + + + + + | Impressions | Performed At | + + + | Normal Lexiscan MPI. Baseline EKG -NSR at 59 bpm. No evidence of | | | ischemia. The Patient would be a candidate for surgery. Zbigniew | | | FABIO RIVERA MD [facility] | | + + + + + + | Narrative | Performed At | + + + | NUCLEAR MEDICINE MYOCARDIAL PERFUSION 78 year old white woman | | | being evaluated for preoperative evaluation. Rest Data: HR: 59 | | | bmp BP: 170 / 83 Patient's predicted maximum HR: 144 bmp Patient's | | | predicted 85% maximum HR: 122 bmp Baseline ECG: NSR with nonspecific | | | ST-T wave changes. Stress Data:Lexiscan MPI. Peak HR: 84 bpm | | | Peak BP: 170 / 83 Patient stopped due to: infusion completed Chest | | | pain: none Stress ECG: Evidence of no ischemic ECG changes | | | Myocardial Perfusion: Images are adequate for interpretation. No | | | evidence of perfusion defect TID: 1.03 Gated Images: Rest | | | EDV: 59 mL Rest ESV: 28 mL Rest EF: 53 % Stress EDV: 57 mL Stress | | | ESV: 31 mL Stress EF: 45 % No evidence of regional wall motion | | | abnormality Procedure: Yasmany protocol. 10 mCi of 99m Tc Myoview | | | was given intravenously for rest images. 40 mCi of 99m Tc Myoview was | | | given intravenously for stress images at 16:00 minutes. | | + + + + + | Procedure Note | + + | Chester Hogan Conversion - 11/20/2018 5:01 AM PDT NUCLEAR MEDICINE MYOCARDIAL PERFUSION | | | | 78 year old white woman being evaluated for preoperative evaluation. | | | | Rest Data: | | HR: 59 bmp BP: 170 / 83 | | Patient's predicted maximum HR: 144 bmp | | Patient's predicted 85% maximum HR: 122 bmp | | Baseline ECG: NSR with nonspecific ST-T wave changes. | | | | Stress Data:Lexiscan MPI. | | Peak HR: 84 bpm Peak BP: 170 / 83 | | Patient stopped due to: infusion completed | | Chest pain: none | | Stress ECG: Evidence of no ischemic ECG changes | | | | Myocardial Perfusion: | | Images are adequate for interpretation. | | No evidence of perfusion defect | | | | TID: 1.03 | | | | Gated Images: | | Rest EDV: 59 mL Rest ESV: 28 mL Rest EF: 53 % | | Stress EDV: 57 mL Stress ESV: 31 mL Stress EF: 45 % | | No evidence of regional wall motion abnormality | | | | Procedure: Yasmany protocol. | | 10 mCi of 99m Tc Myoview was given intravenously for rest images. | | 40 mCi of 99m Tc Myoview was given intravenously for stress images at 16:00 minutes. | | | | | | IMPRESSION: | | Normal Lexiscan MPI. | | Baseline EKG -NSR at 59 bpm. | | No evidence of ischemia. | | The Patient would be a candidate for surgery. | | | | Zbigniew RIVERA MD [facility] | | | | | + + documented in this encounter Visit Diagnoses + + | Diagnosis | + + | CAD (coronary artery disease) Coronary atherosclerosis of unspecified type of vessel, | | apache or graft | + + | Atrial fibrillation (HCC) Atrial fibrillation | + + documented in this encounter"
--- OUTSIDE RECORDS SUMMARY | ~2020-01-28 | XMS | Encounter Summary ---
Demographics + + + | Address | [address] | | | [place] [address] | + + + | Home Phone | | + + + | Preferred Language | Unknown | + + + | Marital Status | | + + + | Hinduism Affiliation | 1001 | + + + [...] Team Providers + +------+ + | Care Production Control Expert Name | Role | Phone | + +------+ + PCP | Unavailable | + +------+ + Encounter Details +--------+ + + + + | Date | Type | Department | Care Team | Description | +--------+ + + + + | 04/11/ | Hospital | [facility] | Aldo Meier | GER[facility] | | 2015 | Encounter | [facility] TUCKER Ness MD [address] | (gastroesophageal | | | | INTRA OP [address] | [place] [address] | reflux disease); | | | | [place] | [phone] | Epigastric pain; | | | | [address] | | Change in bowel | | | | [phone] | | habits | +--------+ + + [...] 04/11/14951 Date of Service: 04/11/14951 Status: Signed Smoke And Flame Specialist: Aldo Meier MD (Physician) [facility] Service: Gastroenterology Brief Post-op Discharge Note [...] to Get Your Medications You need to leaf size picker these prescriptions. We sent them to a specific pharmacy, so go there to get them. [id number] - [place], [place] - [address] - sucralfate 1 GM/10ML suspension [address] [place] [address] Aldo Meier MD 04/11/2014 9:52 AM documented in th is encounter H&P Notes Aldo Meier MD - 04/11/2014 9:02 AM PST Interval H&P Note by Aldo Meier MD at 04/11/14901 Author: Aldo Meier MD Service: Gastroenterology Author Type: Physician Filed: 04/11/14901 Date of Service: 04/11/14901 Status: Signed Smoke And Flame Specialist: Aldo Meier MD (Physician) [facility] Service: Gastroenterology Pre-Operative History & Physical [...] Date of Service: 04/08/14 1332 Status: Signed Smoke And Flame Specialist: Aldo Meier MD (Physician) Documentation note to produce procedure H & P which will be updated on day of procedure. [facility] Service: Gastroenterology Pre-Operative History & Physical ? [...] Physician Signature Updated today Aldo Meier MD [facility] Gastroenterology 04/08/2014 Primary Care Physician: EVA ADAMSON [...] Service: (none) Author Type: Physician Filed: 04/10/14 1748 Date of Service: 04/08/14 9152 Status: Signed Smoke And Flame Specialist: Aldo Meier MD (Physician) Documentation note to produce procedure H & P which will be updated on day of procedure. [facility] Service: Gastroenterology Pre-Operative History & Physical ? [...] Physician Signature Updated today Aldo Meier MD [facility] Gastroenterology 04/08/2014 Primary Care Physician: EVA ADAMSON *CORE MEASURES REMINDER: If the patient has a known or suspected infection prior to surgery , please add diagnosis to the problem list (consider: Infection 136.9). ? documented in is encounter Miscellaneous Notes Op Note - Aldo Meier MD - 04/11/2014 9:47 AM PST Op Note by Aldo Meier MD at 04/11/14 0992 Author: Aldo Meier MD Service: Gastroenterology Author Type: Physician Filed: 04/11/14 0950 Date of Service: 04/11/14946 Status: Signed Smoke And Flame Specialist: Aldo Meier MD (Physician) [facility] Service: Gastroenterology ENDOSCOPY SUITE PROCEDURE NOTE [...] | | technical preparation was performed by [employer] | | | [address] [address] | | | (Gasoline Tractor Operator: Marquise Salinas M.D.; [facility]#: [id number]). | | | ADDENDUM PATHOLOGIC DIAGNOSIS: This [...]
--- OUTSIDE RECORDS SUMMARY | ~2020-01-28 | XMS | Encounter Summary ---
Demographics + + + | Address | [address] | | | [place] [address] | + + + | Home Phone | | + + + | Preferred Language | Unknown | + + + | Marital Status | | + + + | Worship Affiliation | Unknown | + + + | Race | White | + + + | Ethnic Group | Not or | + + + Author + + + | Author | [facility] | + + + | Organization | [facility] | + + + | Address | Unknown | + + + | Phone | Unavailable | + + + Support + + +---------+ + | Name | Relationship | Address | Phone | + + +---------+ + | Bev Anderson | ECON | Unknown | | + + +---------+ + Care Team Providers + +------+ + | Care Veterans' Counselor Name | Role | Phone | + +------+ + | Corey Darling MD | PCP | | + +------+ + Encounter Details +--------+ + + + + | Date | Type | Department | Care Team | Description | +--------+ + + + + | 07/18/ | Farm Machine Tender | Cardiology | Kwadwo Holly, | Palpitations | | 2016 | | Arrhythmia at [facility] | [address] | (Primary Dx) | | | | [address] | [address] | | | | | [place] [facility] | [facility] [place] | | | | | and Healing, | [address] | | | | | | [phone] | | | | | Floor [place], [place] | | | | | | [address] | | | | | | [phone] | | | +--------+ + + + [...] [facility] | [address] | [place], [place] | | | CARDIOLOGY | [address] | [address] | | + + + + + documented in this encounter Visit Diagnoses + + | Diagnosis | + + | Palpitations - Primary | + + documented in this encounter"
--- OUTSIDE RECORDS SUMMARY | ~2020-01-28 | XMS | Encounter Summary ---
Demographics + + + | Address | [address] | | | [place] [address] | + + + | Home Phone | | + + + | Preferred Language | Unknown | + + + | Marital Status | | + + + | Rastafari Affiliation | Unknown | + + + [...] Team Providers + +------+ + | Care Paediatric Physiotherapist Name | Role | Phone | + +------+ + | Corey Darling MD | PCP | | + +------+ + Encounter Details +--------+ + + + + | Date | Type | Department | Care Team | Description | +--------+ + + + + | 07/19/ | Abstract | Cardiology | Kwadwo Pillai, | | | 2015 | | Arrhythmia at [facility] | [address] | | | | | [address] | [address] | | | | | [facility] | [place], [place] | | | | | and Healing, | [address] | | | | | | [phone] | | | | | [place], [place] | | | | | | [address] | | | | | | [phone] | | | +--------+ + + + [...]
--- OUTSIDE RECORDS SUMMARY | ~2020-01-28 | XMS | Encounter Summary ---
Demographics + + + | Address | [address] | | | [place] [address] | + + + | Home Phone | | + + + | Preferred Language | Unknown | + + + | Marital Status | | + + + | Restoration Affiliation | 1001 | + + + | Race | White | + + + | Ethnic Group | Not or | + + + Author + + + | Author | [facility] | | | and [place] | + + + | Organization | [facility] | | | and [...] Team Providers + +------+ + | Care Hearth Feeder Name | Role | Phone | + [...] | | | [address] | [address] [place], [place] | | | | | [place], [place] | [address] | | | | | [address] | | | | | | [phone] | | | +--------+ + + + [...] pressures of 10-15mmHg. MEASUREMENTS | | | News Technical Director: BEN Authenticated by: Yan Platt DO Report | | | Date/Time: -- [id number] | | + + + + + [...] venous pressures of 10-15mmHg. | | MEASUREMENTS News Technical Director: DHAuthenticated by: Yan Castaneda | | Date/Time: -- [id number] IMPRESSION: 1. See Dictation2. LV dimensions NML, [...] | |MEASUREMENTS | | | | | |News Technical Director: BEN | |Authenticated by: Yan Platt DO | |Report Date/Time: -- [id number]:52 | | | |IMPRESSION: | |1. See [...]
--- OUTSIDE RECORDS SUMMARY | ~2020-01-28 | XMS | Clinical Summary ---
Demographics + + + | Address | [address] | | | [place] [address] | + + + | Home Phone | | + + + | Preferred Language | Unknown | + + + | Marital Status | | + + + | Rastafari Affiliation | 1001 | + + + | Race | White | + + + | Ethnic Group | Not or | + + + Author + + + | Author | [facility] | | | and [place] | + + + | Organization | [facility] | | | [...] Team Providers + +------+ + | Care Special Officer Automat Name | Role | Phone | + [...]
--- OUTSIDE RECORDS SUMMARY | ~2020-01-28 | XMS | Encounter Summary ---
Demographics + + + | Address | [address] | | | [place] [address] | + + + | Home Phone | | + + + | Preferred Language | Unknown | + + + | Marital Status | | + + + | Confucianism Affiliation | 1001 | + + + | Race | White | + + + | Ethnic Group | Not or | + + + Author + + + | Author | [facility] | | | and [place] | + + + | Organization | [facility] | | | and [...] Team Providers + +------+ + | Care Social Service Agency Director Name | Role | Phone | + +------+ + PCP | Unavailable | + +------+ + Encounter Details +--------+ + + + + | Date | Type | Department | Care Team | Description | +--------+ + + + + | 05/17/ | Hospital | [facility] | Conversion | RUQ pain | | 2015 | Encounter | [facility] | Transaction, | | | | | MEDICINE [address] | Provider Unknown | | | | | [address] | [phone] | | | | | [place] | | | | | | [address] | | | | | | [phone] | | | +--------+ + + + [...] + +--------+ + + + | NM HEPATOBILIARY W | Routin | 05/17/2014 | | Results for this | | CCK | e | 4:59 PM | | procedure are in the | | | | PST | | results section. | + +--------+ + + + documented in this encounter Results NM Hepatobiliary w PHARM (05/17/2014 4:59 PM PST) + + | Specimen | + + | | + + + + + | Impressions | Performed At | + + + | 1. Delayed filling of the gallbladder could possibly reflect | | | chronic cholecystitis. Ejection fraction of 45%. Electronically | | | signed by Theodore Nova MD on 05/17/2014 4:53 PM | | + + + + + + | Narrative | Performed At | + + + | [facility] 1935 NM HEPATOBILIARY SCAN WITH CCK 05/17/2014 | | | 2:05 PM HISTORY: Right upper quadrant abdominal pain | | | COMPARISON: None TECHNIQUE: The patient was injected | | | intravenously with 5 mCi of technetium labeled Choletec. Immediate | | | imaging was performed over the upper abdomen at 3 minutes per frame | | | for 60 minutes total. The patient was then given an IV injection of | | | 1.46 mcg of CCK to stimulate contraction.. Imaging was resumed for | | | another 60 minutes at 3 minutes per frame. FINDINGS: Motion | | | artifact limits assessment on early imaging. Homogeneous extraction of | | | radiotracer is seen throughout the liver. Biliary activity is noted | | | beginning at 10-12 minutes. Small bowel activity is present at 25-27 | | | minutes. There is delayed filling of the gallbladder which is seen | | | at approximately 75 minutes. After intravenous administration of | | | cholecystokinin, the gallbladder demonstrates adequate contraction | | | with a 45% ejection fraction at 60 minutes. The gallbladder ejection | | | fraction lower limit of normal is approximately 33%. | | + + + + + | Procedure Note | + + | Chester Hogan Conversion - 11/20/2018 5:01 AM [facility]3/28/1936NM HEPATOBILIARY | | SCAN WITH CCK2 2:05 PM HISTORY: Right upper quadrant abdominal pain COMPARISON: | | None TECHNIQUE:The patient was injected intravenously with 5 mCi of technetium labeled | | Choletec. Immediate imaging was performed over the upper abdomen at 3 minutes per frame | | for 60 minutes total. The patient was then given an IV injection of 1.46 mcg of CCK to | | stimulate contraction.. Imaging was resumed for another 60 minutes at 3 minutes per | | frame. FINDINGS: Motion artifact limits assessment on early imaging. Homogeneous | | extraction of radiotracer is seen throughout the liver. Biliary activity is noted | | beginning at 10-12 minutes. Small bowel activity is present at 25-27 minutes. There is | | delayed filling of the gallbladder which is seen at approximately 75 minutes. After | | intravenous administration of cholecystokinin, the gallbladder demonstrates adequate | | contraction with a 45% ejection fraction at 60 minutes. The gallbladder ejection | | fraction lower limit of normal is approximately 33%. IMPRESSION: 1. Delayed filling of | | the gallbladder could possibly reflect chronic cholecystitis. Ejection fraction of 45%. | | | |lower limit of normal is approximately 33%. | | | |IMPRESSION: | |1. Delayed filling of the gallbladder could possibly reflect chronic cholecystitis. Eject ion fraction of 45%. | | | | | + + documented in this encounter Visit Diagnoses + + | Diagnosis | + + | RUQ pain Abdominal pain, right upper quadrant | + + documented in this encounter"
--- OUTSIDE RECORDS SUMMARY | ~2020-01-28 | XMS | Encounter Summary ---
Demographics + + + | Address | [address] | | | [place] [address] | + + + | Home Phone | | + + + | Preferred Language | Unknown | + + + | Marital Status | | + + + | Quaker Affiliation | Unknown | + + + | Race | White | + + + | Ethnic Group | Not or | + + + Author + + + | Author | [facility] | + + + | Organization | [facility] | + + + | Address | Unknown | + + + | Phone | Unavailable | + + + Support + + +---------+ + | Name | Relationship | Address | Phone | + + +---------+ + | Bev Anderson | ECON | Unknown | | + + +---------+ + Care Team Providers + +------+ + | Care Parcel Post Order Clerk Name | Role | Phone | + +------+ + | Coery Darling MD | PCP | | + [...] | | 2015 | | Arrhythmia at [facility] | [address] | | | | | [address] | [address] | | | | | [facility] | [place], [place] | | | | | and Healing, | [address] | | | | | [facility] | [phone] | | | | | Floor [place], [place] | | | | | | [address] | | | | | | [phone] | | | +--------+ + + + [...]
--- OUTSIDE RECORDS SUMMARY | ~2020-01-28 | XMS | Clinical Summary ---
Demographics + + + | Address | [address] | | | [place] [address] | + + + | Home Phone | | + + + | Preferred Language | Unknown | + + + | Marital Status | | + + + | Uatsdin Affiliation | Unknown | + + + [...] Team Providers + +------+ + | Care Customer Relations Consultant Name | Role | Phone | + +------+ + | Corey Darling MD | PCP | | + +------+ + Source Comments [facility] is fully live on both [facility] Ambulatory and [facility] InPatient.Formerly [facility] Allergies + + + + + [...]
--- OUTSIDE RECORDS SUMMARY | ~2020-01-28 | XMS | Encounter Summary ---
Demographics + + + | Address | [address] | | | [place] [address] | + + + | Home Phone | | + + + | Preferred Language | Unknown | + + + | Marital Status | | + + + | Taoist Affiliation | 1001 | + + + | Race | White | + + + | Ethnic Group | Not or | + + + Author + + + | Author | [facility] | | | and [place] | + + + | Organization | [facility] | | [...] Team Providers + +------+ + | Care Front Line Leader Name | Role | Phone | + +------+ + PCP | Unavailable | + +------+ + Encounter Details +--------+ + + + + | Date | Type | Department | Care Team | Description | +--------+ + + + + | 06/09/ | Hospital | [facility] | Duncan Putnam | Chest pain; SVT | | 2013 - | Encounter | [facility] | MD Ter[address] | (supraventricular | | | | CLINICAL DECISION | [address] | tachycardia); Chest | | 03/07/ | | [address] | [place] [address] | pain, rule out acute | | 2013 | | [place], [place] | [phone] | myocardial | | | | [address] | | infarction; Chest | | | | [phone] | | pain, unspecified; | | | [...] Date of Service: 06/11/13 1031 Status: Signed Solid Waste Truck Driver: Adriel Green MD (Physician) Related Notes: Original Note by Adriel Green MD (Physician) filed at 06/11/13 1046 [facility] Service: Hospitalist Physician Discharge Summary Patient ID: Chrissy Solomon 1935 77 y.o. Admit date: 06/09/2013 Discharge date: 06/11/2013 Admitting Physician: Duncan Putnam MD Discharge Physician: Adriel Green MD Consultants: Treatment Team: Consulting Physician: rGover Rivera MD Admitting Provider: Duncan Putnam MD Primary Discharge Diagnoses: Principal Problem: *Chest pain, unspecified Active Problems: SVT (supraventricular tachycardia) COPD (chronic obstructive pulmonary disease) HTN (hypertension) HPI and Hospital Course: The patient was admitted to [facility] as a transfer via air ambulance from [facility] in [place]. The patient was noted to have chest [...] aluated by Dr. Adler, electrophysiology specialist at [facility]. I spoke wi th Dr. Adler [...] Name: CHRISSY SOLOMON Date of : 1935 [facility] Physician: Zbigniew Rivera MD INDICATIONS SHORTNESS OF [...] Valve: Pulmonic valve appears structurally normal. Pulmonic Sulema ve: Trace pulmonic regurgitation. Pericardium: There is [...] TV A Latrell: 0.49 m/s TV Dec Milam: 1.78 m/s2 TV Dec Time: 267.68 ms TV E Latrell: 0.47 m/s TV E/A Ratio: 0.97 Dot Compliance Coordinator: PAUL Authenticated by: Zbigniew Rivera MD Report [...] Treadmill 06/10/2013 This procedure was resulted in [place] (the cardiology system). Please see the Medi [...] 49* 52* GLUCOSE -- -- Phosphorus: Lab 06/11/13 0522 PHOS 3.3 Lab 06/11/13 0522 06/09/13 2205 MG 1.7 1.5* Lab 06/10/13 1403 06/10/13 0547 06/09/13 2359 CKTOTAL 67 61 63 TROPONINI 0.069 0.103* 0.122* TROPONINT -- -- -- CKMBINDEX 3.0 3.6 3.0 Disposition: Home under care of the family Follow up: Angelo Adamson MD [address] [address] Schedule an appointment as soon as possible for a visit in 1 week Louis Adler MD 1100 [facility] [address] Schedule an appointment as soon as possible [...] as needed for Wheezing or Shortness of Hailey th. metoprolol 25 MG tablet QTY: 60 [...] are the prescriptions that you need to picker. You may get these medications from [...] Note by Prem Mcginnis RN at 06/11/13 0232 Author: Prem Mcginnis RN Service: (none) Author Type: Registered Nurse Filed: 06/11/13 3394 Date of Service: 03/07/14 1229 Status: Signed Solid Waste Truck Driver: Prem Mcginnis RN (Registered Nurse) Discharged to [...] Physician Filed: 06/11/13 1055 Date of Service: 06/10/13 171 Status: Signed Solid Waste Truck Driver: Adriel Green MD (Physician) Related Notes: Original Note by Adriel Green MD (Physician) filed at 06/10/132035 [facility] Service: Hospitalist Progress Note Pt: Chrissy Solomon AGE/SEX: 77 y.o. female : 1935 ROOM: [facility]/1124-1 TODAY'S DATE: 06/10/2013 Hospital Day: LOS: 1 [...] Oral 77 16 96 % - - 06/10/132158 147/62 mmHg 98.2 F (36.8 C) Oral 73 16 96 % - - 06/09/132158 132/61 mmHg 98.6 F (37 C) Oral 75 16 95 % - - 06/09/132155 - - - - - - 1.473 m (4' 10") - 06/09/13 211 150/62 mmHg 97.4 F (36.3 C) - [...] Treadmill 06/10/2013 This procedure was resulted in [place] (the cardiology system). Please see the Medi [...] after a transfer via air ambulance from [facility]. Continue low-dose metoprolol. We will [...] [facility] 2. Supraventricular tachycardia. The patient reports [...] The patient will likely benefit from outpatient special tax auditor evaluation/consultation following her discharge from [facility]. 3. Chronic obstructive pulmonary disease with home [...] Case Management by TAE Oleary at 06/10/13 3261 Author: TAE Oleary Service: (none) Author Type: Automatic Edger Filed: 06/10/13 5077 Date of Service: 06/10/13 6732 Status: Signed Solid Waste Truck Driver: TAE Oleary (Automatic Edger) 06/10/13 6447 Discharge Planning Evaluation Admitting Diagnosis Chest pain [...] 06/10/13108 Date of Service: 06/10/13107 Status: Signed Solid Waste Truck Driver: Luis Borden RN (Registered Nurse) Informed night hospitalist of elevated Trop of .122 drawn at midnight, no new orders receiv ed. Will continue to monitor. Luis Borden RN onver jessica Transaction, Provider Unknown - 06/10/2013 12:17 AM PST Progress Notes by Sherri Garcia RPH at 06/10/1316 Author: Sherri Garcia RPH Service: (none) Author Type: Pharmacist Filed: 06/10/1317 Date of Service: 06/10/1316 Status: Signed Solid Waste Truck Driver: Sherri Garcia RPH (Pharmacist) Clinical Pharmacy Note: Renal Monitoring Chrissy Solomon 77 y.o. female CREATININE: 1.12 mg/dL ABNORMAL (06/09/13 2205) Estimated creatinine clearance - Cockcroft-Gault CrCl: 35.6 [...] Garcia RPH at 06/10/13 0007 Author: Sherri aGrcia RPH Service: (none) Author Type: Pharmacist Filed: 06/10/136 Date of Service: 06/10/136 Status: Signed Solid Waste Truck Driver: Sherri Garcia RPH (Pharmacist) Clinical Pharmacy Note: Renal Monitoring Chrissy Solomon 77 y.o. female Height: 147.3 cm Weight: 68.5 kg Pharmacy dosing for renal function per Dr. Putnam. Currently, there are no labs. Pharmacy will adjust medications, if necessary, in AM when la bs are reported per P & T committee. Sherri Garcia PharmMadeleine 06/10/2013 12:06 AM docume nted in this encounter H&P Notes Duncan Putnam MD - 06/09/2013 8:32 PM PSTFormatting of this note might be dif ferent from the original. H&P by Duncan Putnam MD at 06/09/132031 Author: Duncan Putnam MD Service: (none) Author Type: Physician Filed: 06/10/13 1403 Date of Service: 06/09/132031 Status: Signed Solid Waste Truck Driver: Duncan Putnam MD (Physician) Related Notes: Original Note by Duncan Putnam MD (Physician) filed at 06/10/13 0314 [facility] Service: Hospitalist Admission History & Physical Date of Admission: 06/09/2013 Requesting Physician: Sharad , Emergency Department Reason for Admission: Chest pain. History Obtained From: patient CHIEF COMPLAINT: Chest pain. HISTORY OF PRESENT ILLNESS The patient is a 77 y.o. female with significant past medical history. Patient is a transfer from [facility]. Initially she was seen in her primary [...] by our standards is not non-ST elevation [place]. According to the patient, she has these [...] Patient will be admitted to medical floor, manager monitoring, do 3 sets of cardiac enzymes. Will arrange for a stress test in the morning. Will do aspirin 325 mg. Also, given the history of exposur e to fenfluramine/phentermine, will do echocardiogram to look for her valves. If any valve f inding, will consult with qc lab technician, especially with the history she has paroxysmal [...] Will resume Losartan 100 mg daily. Start beta-fermín, Lopressor 12.5 mg t wice, but stop [...] Date of Service: 06/10/13 1147 Status: Signed Solid Waste Truck Driver: MARCEL Holman (Advanced Registered Nurse Ro) Pre-procedure Diagnoses: 1. Chest pain [786.50] 2. SVT (supraventricular tachycardia) (HCC) [427.89] Post-procedure Diagnoses: 1. Chest pain [786.50] 2. SVT (supraventricular tachycardia) (HCC) [427.89] Procedures: 1. NM MYOCARDIAL PERFUSION SPECT - STRESS AND REST [DWF381 (Custom)] [facility] Service: Diagnostic Imaging/Nuclear Medicine Cardiac Stress Test [...] Consult* by Grover Rivera MD at 06/10/13 0748 Author: Grover Rivera MD Service: Cardiology Author Type: Physician Filed: 06/10/13 1758 Date of Service: 06/10/131717 Status: Signed Solid Waste Truck Driver: Grover Rivera MD (Physician) [facility] Service: Cardiology Initial Consult Note Date of [...] Pressure and SVT. She received Adenosine at [facility] in [place], [place]. She has had 2 previous episodes [...] bpm with Nonspecific ST-T wave changes at [facility]. DATA CBC: Lab Results Component Value [...] Pressure and SVT. She received Adenosine at [facility] in [place], [place]. She has had 2 previous episodes [...] has a consultation with Dr Kassandra bolanos Automobile Parts Assembler. She may be a candidate for ablation [...] 0218 Date of Service: 06/09/132005 Status: Signed Solid Waste Truck Driver: Ky Orourke MD (Physician) [facility] Department of Emergency Medicine Provider Name: Dr. [...] moderate neeraj rity. Pt was transferred from [facility] with an elevated Troponin and concerns for [...] unsure i f she has had an AZ in the past or not. The patient also complains of thirst. Patient denies n/v/d or any other sx at this time. 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 PCP: ANGELO ADAMSON Past Medical History Diagnosis [...] by mouth 2 (two) times daily. Yes [facility] Provider theophylline (KRISTI-24) 300 MG 24 hr capsule Take 300 mg by mouth 2 (two) times daily. Yes Historical Provider tiotropium (SPIRIVA) 18 MCG inhalation capsule Inhale 18 mcg into the lungs daily. Yes Ne storical Provider Allergies Allergen Reactions Penicillins Other [...] Negative for sore throat CV/Resp: Negative for zttcmbspr-xz-hpgwzx, cough Positive for CP GI: Negative for [...] DDx includes, but is not limited to: AZ, angina, cardiac disease, CHF, vs. other. Will [...] Value Ref Range Date/Time POC cardiac troponin [[id number]] Collected:06/09/131929 Order Status:Completed Updated:06/09/131943 POC CARDIAC TROPONIN 0.07 0.00 - 0.10 ng/mL I personally reviewed the lab results and they have been posted to the chart. Pertinent po sitive and negative findings have been addressed appropriately. Radiology and EKG Evaluation Imaging Results None EKG Interpretation: Time: 1923 Rate: 77 Rhythm: Sinus with sinus arrhythmia, occasional PVC's [place]: Normal TREVON: Normal QRS: Normal, narrow complex [...] has been reviewed and validated by me. Antonieta owens with its contents. MD Ky Mckeon MD 06/10/13 0218 onversio n Transaction, Provider Unknown - 06/09/2013 7:53 PM PSTFormatting of this note might be di fferent from the original. ED Notes by Donaldo Barraza RN at 06/09/131952 Author: Donaldo Barraza RN Service: (none) Author Type: Registered Nurse Filed: 06/09/131952 Date of Service: 06/09/131952 Status: Signed Solid Waste Truck Driver: Donaldo Barraza RN (Registered Nurse) Meal order placed. Donaldo Barraza RN 06/09/131952 onver jessica Transaction, Provider Unknown - 06/09/2013 7:33 PM PST ED Notes by Donaldo Barraza RN at 06/09/131932 Author: Donaldo Barraza RN Service: (none) Author Type: Registered Nurse Filed: 06/09/131932 Date of Service: 06/09/131932 Status: Signed Solid Waste Truck Driver: Donaldo Barraza RN (Registered Nurse) Nitro drip started at [facility] ED discontinued per Dr Orourke. Donaldo Barraza RN 06/09/131932 onver jessica Transaction, Provider Unknown - 06/09/2013 7:31 PM PST ED Notes by Donaldo Barraza RN at 06/09/131930 Author: Donaldo Barraza RN Service: (none) Author Type: Registered Nurse Filed: 06/09/131930 Date of Service: 06/09/131930 Status: Signed Solid Waste Truck Driver: Donaldo Barraza RN (Registered Nurse) Dr Orourke at bedside for exam. Donaldo Barraza RN 06/09/131930 onver jessica Transaction, Provider Unknown - 06/09/2013 7:20 PM PST ED Notes by Donaldo Barraza RN at 06/09/131919 Author: Donaldo Barraza RN Service: (none) Author Type: Registered Nurse Filed: 06/09/131919 Date of Service: 06/09/131919 Status: Signed Solid Waste Truck Driver: Donaldo Barraza RN (Registered Nurse) Bed:18
Expected date:
Expected time:
Means of arrival:
Comments:
onver jessica Transaction, Provider Unknown - 06/09/2013 5:35 PM PST ED Notes by Donaldo Barraza RN at 06/09/131734 Author: Donaldo Barraza RN Service: (none) Author Type: Registered Nurse Filed: 06/09/131935 Date of Service: 06/09/131734 Status: Signed Solid Waste Truck Driver: Donaldo Barraza RN (Registered Nurse) Patient received at [facility]: ASA 324mg PO Adenosine 18mg IVP total Nitro 0.4mg sublingual, metoprolol 2.5mg Nitro paste 0.5 inch (removed per [facility]) Nitro drip Donaldo Barraza RN 06/09/131935 docume nted in [...] EXTERNAL | | | | performed at [facility], [address] | | LAB | | | | [facility], | | | | | | [place] [address] | | | | + + + + + + | Non- | 4.07Comment: Testing | 3.70 - 5.10 | EXTERNAL | | | Red Blood | performed at [facility], [address] | M/uL | LAB | | | Cells | [address], | | | | | Counted | [place] [address] | | | | + + + + + + | Hemoglobin | 12.1Comment: Testing | 11.3 - 15.5 | EXTERNAL | | | | performed at [facility], [address] | g/dL | LAB | | | | [address], | | | | | | [place] [address] | | | | + + + + + + | Hematocrit, | 36.4Comment: Testing | 34.0 - 46.0 % | EXTERNAL | | | POC | performed at [facility], [address] | | LAB | | | | [address], | | | | | | [place] [address] | | | | + + + + + + | MCV | 89.5Comment: Testing | 80.0 - 100.0 fl | EXTERNAL | | | | performed at [facility], [address] | | LAB | | | | [address], | | | | | | [place] [address] | | | | + + + + + + | MCH | 29.7Comment: Testing | 27.0 - 34.0 pg | EXTERNAL | | | | performed at [facility], [address] | | LAB | | | | [address], | | | | | | [place] [address] | | | | + + + + + + | MCHC | 33.1Comment: Testing | 32.0 - 35.5 | EXTERNAL | | | | performed at [facility], [address] | g/dL | LAB | | | | [address], | | | | | | [place] [address] | | | | + + + + + + | RDW-CV | 40.3Comment: Testing | 37 - 53 fl | EXTERNAL | | | | performed at [facility], [address] | | LAB | | | | [address], | | | | | | [place] [address] | | | | + + + + + + | Platelet | 162Comment: Testing | 150 - 400 K/uL | EXTERNAL | | | Count | performed at [facility], [address] | | LAB | | | Plasma | [address], | | | | | | [place] [address] | | | | + + + + + + | MPV | 10.0Comment: Testing | fl | EXTERNAL | | | | performed at [facility], [address] | | LAB | | | | [address], | | | | | | [place] [address] | | | | + + + + + + | Differentia | AUTOMATEDComment: | | EXTERNAL | | | l Type | Testing performed at | | LAB | | | | [facility], [address] | | | | | | [place] | | | | | | [address] | | | | + + + + + + | % Segmented | 58.9Comment: Testing | % | EXTERNAL | | | | performed at [facility], [address] | | LAB | | | Neutrophils | [address], | | | | | | [place] [address] | | | | + + + + + + | % | 28.6Comment: Testing | % | EXTERNAL | | | Lymphocytes | performed at [facility], [address] | | LAB | | | | [address], | | | | | | [place] [address] | | | | + + + + + + | % Monocytes | 7.4Comment: Testing | % | EXTERNAL | | | | performed at [facility], [address] | | LAB | | | | [address], | | | | | | [place] [address] | | | | + + + + + + | % | 4.6Comment: Testing | % | EXTERNAL | | | Eosinophils | performed at [facility], [address] | | LAB | | | | [address], | | | | | | [place] [address] | | | | + + + + + + | % Basophils | 0.5Comment: Testing | % | EXTERNAL | | | | performed at [facility], [address] | | LAB | | | | [address], | | | | | | [place] [address] | | | | + + + + + + | Absolute | 5.2Comment: Testing | 1.9 - 7.4 K/uL | EXTERNAL | | | Segmented | performed at [facility], [address] | | LAB | | | Neutrophils | [address], | | | | | | [place] [address] | | | | + + + + + + | Absolute | 2.5Comment: Testing | 1.0 - 3.9 K/uL | EXTERNAL | | | Lymphocytes | performed at [facility], [address] | | LAB | | | | [address], | | | | | | [place] [address] | | | | + + + + + + | Absolute | 0.7Comment: Testing | 0 - 0.8 K/uL | EXTERNAL | | | Monocytes | performed at [facility], [address] | | LAB | | | | [address], | | | | | | [place] [address] | | | | + + + + + + | Absolute | 0.4Comment: Testing | 0 - 0.5 K/uL | EXTERNAL | | | Eosinophils | performed at [facility], [address] | | LAB | | | | [address], | | | | | | [place] [address] | | | | + + + + + + | Absolute | 0.0Comment: Testing | 0 - 0.1 K/uL | EXTERNAL | | | Basophils | performed at [facility], [address] | | LAB | | | | [address], | | | | | | [place] [address] | | | | + + + [...] EXTERNAL | | | | performed at [facility], [address] | | LAB | | | | [address], | | | | | | [place] [address] | | | | + + + [...] EXTERNAL | | | | performed at [facility], [address] | | LAB | | | | [address], | | | | | | [place] [address] | | | | + + + [...] | | | | | [place] [address] | | | | + + + + + + | K | 4.0Comment: Testing | 3.5 - 4.9 | EXTERNAL | | | | performed at [facility], [address] | mmol/L | LAB | | | | [address], | | | | | | [place] [address] | | | | + + + + + + | Cl | 106Comment: Testing | 99 - 109 mmol/L | EXTERNAL | | | | performed at [facility], [address] | | LAB | | | | [address], | | | | | | [place] [address] | | | | + + + + + + | CO2 | 33 (H)Comment: Testing | 23 - 32 mmol/L | EXTERNAL | | | | performed at [facility], [address] | | LAB | | | | [address], | | | | | | [place] [address] | | | | + + + + + + | Anion Gap | 6Comment: Testing | 5 - 20 mmol/L | EXTERNAL | | | | performed at [facility], [address] | | LAB | | | | [address], | | | | | | [place] [address] | | | | + + + + + + | Glucose, | 104 (H)Comment: Testing | 65 - 99 mg/dL | EXTERNAL | | | Fasting | performed at [facility], [address] | | LAB | | | | [address], | | | | | | [place] [address] | | | | + + + + + + | BUN | 14Comment: Testing | 8 - 25 mg/dL | EXTERNAL | | | | performed at [facility], [address] | | LAB | | | | [address], | | | | | | [place] [address] | | | | + + + + + + | Creatinine | 0.83Comment: Testing | 0.50 - 1.00 | EXTERNAL | | | | performed at [facility], [address] | mg/dL | LAB | | | | [address], | | | | | | [place] [address] | | | | + + + + + + | BUN/Creatin | 17Comment: Testing | | EXTERNAL | | | ine Ratio | performed at [facility], [address] | | LAB | | | | [address], | | | | | | [place] [address] | | | | + + + + + + | Calcium | 9.4Comment: Testing | 8.5 - 10.2 | EXTERNAL | | | | performed at [facility], [address] | mg/dL | LAB | | | | [address], | | | | | | [place] [address] | | | | + + + + + + | Protein, | 5.9 (L)Comment: Testing | 6.3 - 8.2 g/dL | EXTERNAL | | | Total | performed at [facility], [address] | | LAB | | | [address], | | | | | | [place] [address] | | | | + + + + + + | Albumin | 3.7Comment: Testing | 3.3 - 4.8 g/dL | EXTERNAL | | | | performed at [facility], [address] | | LAB | | | | [address], | | | | | | [place] [address] | | | | + + + + + + | Globulin | 2.2Comment: Testing | 1.3 - 4.9 g/dL | EXTERNAL | | | | performed at [facility], [address] | | LAB | | | | [address], | | | | | | [place] [address] | | | | + + + + + + | A/G Ratio | 1.7Comment: Testing | 1.0 - 2.4 | EXTERNAL | | | | performed at [facility], [address] | | LAB | | | | [address], | | | | | | [place] [address] | | | | + + + + + + | Bilirubin | 0.3Comment: Testing | 0.1 - 1.5 mg/dL | EXTERNAL | | | Total | performed at [facility], [address] | | LAB | | | | [address], | | | | | | [place], [place] [address] | | | | + + + + + + | ALP, | 69Comment: Testing | 35 - 115 U/L | EXTERNAL | | | External | performed at [facility], [address] | | LAB | | | | [address], | | | | | | [place], [place] [address] | | | | + + + + + + | AST | 49 (H)Comment: Testing | 10 - 45 U/L | EXTERNAL | | | | performed at [facility], [address] | | LAB | | | | [address], | | | | | | [place] [address] | | | | + + + + + + | ALT | 69 (H)Comment: Testing | 10 - 65 U/L | EXTERNAL | | | | performed at [facility], [address] | | LAB | | | | [address], | | | | | | [place] [address] | | | | + + + [...] | | | | | | at [facility], [address] | | | | | | [address], | | | | | | [place] [address] | | | | + + + [...] + + + | CHRISSY SOLOMON 1935 NM MYOCARDIAL PERFUSION SPECT - STRESS AND | [...] Conversion - 11/20/2018 2:26 PM PDT CHRISSY CHAD/28/1936NM MYOCARDIAL | | PERFUSION SPECT - STRESS [...] EXTERNAL | | | | performed at [facility];[address] | | LAB | | | | [address];[place], [place] | | | | | | [address] | | | | + + + [...] | | | | | | ACUTE [place] Testing | | | | | | performed at [facility];[address] | | | | | | [address];[place], [place] | | | | | | [address] | | | | + + + [...] EXTERNAL | | | | performed at [facility];[address] | | LAB | | | [address];[place], [place] | | | | | | [address] | | | | + + + [...] | | | 0.49 m/s TV Dec Milam: 1.78 m/s2 TV Dec Time: 267.68 ms TV | | | E Latrell: 0.47 m/s TV E/A Ratio: 0.97 Dot Compliance Coordinator: KIRITW | | | Authenticated by: Zbigniew Rivera MD Report Date/Time: 06-10-2013 | | | 17:49:12 | | + + + + + | Procedure Note | + + | Chester Hogan Conversion - 11/20/2018 2:26 PM PDT Patient Name: Alexi SOLOMON of | | : 1935 Performing Physician: Zbigniew [...] appears structurally normal.20. | | Trace pulmonic npaxmmftvtxdl59. There is no pericardial effusion.22. The IVC [...] mlLAESV Index (A-L): 64.32 ml/m2LAAs A2C: 13.49 uq1BLTEY A-L | | A2C: 32.26 mlLALs A2C: 4.79 cmLAAs A4C: 13.30 fx1DBITF A-L A4C: 33.59 mlLALs | | A4C: 4.47 cmAo Diam: 3.31 cmAV Cusp: 1.86 cmLA Diam: 2.95 cmLA/Ao: 0.89IVC | | diameter: 1.95 cmIVC collapse: 1.18 cmIVC % collapse: 37.51 %HR: 69.65 BPMAV | | maxP.65 mmHgAV meanP.02 mmHgAV Vmax: 1.38 m/Chandu Vmean: 0.95 m/Chandu VTI: | | 28.17 cmAVA Vmax: 1.95 cm2AVA (VTI): 2.04 yd7KOTC Dopp: 7.37 l/homc6BFTL Dopp: | | 3.90 l/minHR: 67.90 BPMLVOT [...] 3.00 m/sTV A Latrell: 0.49 m/sTV Dec Milam: 1.78 m/s2TV Dec Time: | | 267.68 msTV E Latrell: 0.47 m/sTV E/A Ratio: 0.97 Dot Compliance Coordinator: TOMASuthenticated by: Zbigniew | | Greg Rivera [facility] Date/Time: 06-10-2013 17:49:12 IMPRESSION: 1. Sinus rhythm.2. [...] appears structurally | | normal.20. Trace pulmonic nqxlaibddxnpy51. There is no pericardial effusion.22. The IVC [...] A Latrell: 0.49 m/s | |TV Dec Milam: 1.78 m/s2 | |TV Dec Time: 267.68 ms | |TV E Latrell: 0.47 m/s | |TV E/A Ratio: 0.97 | | | |Dot Compliance Coordinator: KIRITW | |Authenticated by: Zbigniew Rivera MD [...] EXTERNAL | | | | performed at [facility];[address] | | LAB | | | | [address];[place], [place] | | | | | | [address] | | | | + + + [...] | | | | | | ACUTE [place] Testing | | | | | | performed at [facility] | | | | | | [facility];[place], [place] | | | | | | [address] | | | | + + + [...] EXTERNAL | | | | performed at [facility], [address] | | LAB | | | | [address], | | | | | | [place] [address] | | | | + + + + + + | Non- | 4.08Comment: Testing | 3.70 - 5.10 | EXTERNAL | | | Red Blood | performed at [facility], [address] | M/uL | LAB | | | Cells | [address], | | | | | Counted | [place] [address] | | | | + + + + + + | Hemoglobin | 12.0Comment: Testing | 11.3 - 15.5 | EXTERNAL | | | | performed at [facility], [address] | g/dL | LAB | | | | [address], | | | | | | [place] [address] | | | | + + + + + + | Hematocrit, | 36.6Comment: Testing | 34.0 - 46.0 % | EXTERNAL | | | POC | performed at [facility], [address] | | LAB | | | | [address], | | | | | | [place] [address] | | | | + + + + + + | MCV | 89.8Comment: Testing | 80.0 - 100.0 fl | EXTERNAL | | | | performed at [facility], [address] | | LAB | | | | [address], | | | | | | [place], [place] [address] | | | | + + + + + + | MCH | 29.4Comment: Testing | 27.0 - 34.0 pg | EXTERNAL | | | | performed at [facility], [address] | | LAB | | | | [address], | | | | | | [place], [place] [address] | | | | + + + + + + | MCHC | 32.8Comment: Testing | 32.0 - 35.5 | EXTERNAL | | | | performed at [facility], [address] | g/dL | LAB | | | | [address], | | | | | | [place] [address] | | | | + + + + + + | RDW-CV | 41.6Comment: Testing | 37 - 53 fl | EXTERNAL | | | | performed at [facility], [address] | | LAB | | | | [address], | | | | | | [place] [address] | | | | + + + + + + | Platelet | 172Comment: Testing | 150 - 400 K/uL | EXTERNAL | | | Count | performed at [facility], [address] | | LAB | | | Plasma | [address], | | | | | | [place] [address] | | | | + + + + + + | MPV | 10.2Comment: Testing | fl | EXTERNAL | | | | performed at [facility], [address] | | LAB | | | | [address], | | | | | | [place] [address] | | | | + + + + + + | Differentia | AUTOMATEDComment: | | EXTERNAL | | | l Type | Testing performed at | | LAB | | | | [facility], [address] | | | | | | [place] | | | | | | [address] | | | | + + + + + + | % Segmented | 55.0Comment: Testing | % | EXTERNAL | | | | performed at [facility], [address] | | LAB | | | Neutrophils | [address], | | | | | | [place] [address] | | | | + + + + + + | % | 32.2Comment: Testing | % | EXTERNAL | | | Lymphocytes | performed at [facility], [address] | | LAB | | | | [address], | | | | | | [place] [address] | | | | + + + + + + | % Monocytes | 7.6Comment: Testing | % | EXTERNAL | | | | performed at [facility], [address] | | LAB | | | | [address], | | | | | | [place] [address] | | | | + + + + + + | % | 4.8Comment: Testing | % | EXTERNAL | | | Eosinophils | performed at [facility], [address] | | LAB | | | | [address], | | | | | | [place] [address] | | | | + + + + + + | % Basophils | 0.4Comment: Testing | % | EXTERNAL | | | | performed at [facility], [address] | | LAB | | | | [address], | | | | | | [place] [address] | | | | + + + + + + | Absolute | 4.8Comment: Testing | 1.9 - 7.4 K/uL | EXTERNAL | | | Segmented | performed at [facility], [address] | | LAB | | | Neutrophils | [address], | | | | | | [place] [address] | | | | + + + + + + | Absolute | 2.8Comment: Testing | 1.0 - 3.9 K/uL | EXTERNAL | | | Lymphocytes | performed at [facility], [address] | | LAB | | | | [address], | | | | | | [place] [address] | | | | + + + + + + | Absolute | 0.7Comment: Testing | 0 - 0.8 K/uL | EXTERNAL | | | Monocytes | performed at [facility], [address] | | LAB | | | | [address], | | | | | | [place] [address] | | | | + + + + + + | Absolute | 0.4Comment: Testing | 0 - 0.5 K/uL | EXTERNAL | | | Eosinophils | performed at [facility], [address] | | LAB | | | | [address], | | | | | | [place] [address] | | | | + + + + + + | Absolute | 0.0Comment: Testing | 0 - 0.1 K/uL | EXTERNAL | | | Basophils | performed at [facility], [address] | | LAB | | | | [address], | | | | | | [place] [address] | | | | + + + [...] EXTERNAL | | | | performed at [facility], [address] | uIU/mL | LAB | | | | [address], | | | | | | [place] [address] | | | | + + + [...] EXTERNAL | | | | performed at [facility], [address] | | LAB | | | | [address], | | | | | | [place] [address] | | | | + + + [...] EXTERNAL | | | | performed at [facility], [address] | | LAB | | | | [address], | | | | | | [place] [address] | | | | + + + [...] + + | Hemoglobin | 5.6Comment: [place] | 4.0 - 6.0 % | EXTERNAL [...] | | | | | performed at [facility], [address] | | | | | [address], | | | | | | [place] [address] | | | | + + + [...] | | | | | performed at [facility], [address] | | | | | | [address], | | | | | | [place] [address] | | | | + + + [...] EXTERNAL | | | | performed at [facility] | | LAB | | | | [address];[place], [place] | | | | | | [address] | | | | + + + [...] | | | | | [place] [address] | | | | + + + + + + | Triglycerid | 253 (H)Comment: Testing | mg/dL | EXTERNAL | | | es | performed at [facility], [address] | | LAB | | | | [address], | | | | | | [place] [address] | | | | + + + + + + | HDL | 32 (L)Comment: Testing | mg/dL | EXTERNAL | | | | performed at [facility], [address] | | LAB | | | | [address], | | | | | | [place] [address] | | | | + + + + + + | LDL, | 96Comment: Testing | mg/dL | EXTERNAL | | | Calculated | performed at [facility], [address] | | LAB | | | | [address], | | | | | | [place] [address] | | | | + + + [...] | | | | | [place] [address] | | | | + + + + + + | K | 4.4Comment: Testing | 3.5 - 4.9 | EXTERNAL | | | | performed at [facility], [address] | mmol/L | LAB | | | | [address], | | | | | | [place] [address] | | | | + + + + + + | Cl | 105Comment: Testing | 99 - 109 mmol/L | EXTERNAL | | | | performed at [facility], [address] | | LAB | | | | [address], | | | | | | [place] [address] | | | | + + + + + + | CO2 | 26Comment: Testing | 23 - 32 mmol/L | EXTERNAL | | | | performed at [facility], [address] | | LAB | | | | [address], | | | | | | [place] [address] | | | | + + + + + + | Anion Gap | 13Comment: Testing | 5 - 20 mmol/L | EXTERNAL | | | | performed at [facility], [address] | | LAB | | | | [address], | | | | | | [place] [address] | | | | + + + + + + | Glucose, | 114 (H)Comment: Testing | 65 - 99 mg/dL | EXTERNAL | | | Fasting | performed at [facility], [address] | | LAB | | | | [address], | | | | | | [place] [address] | | | | + + + + + + | BUN | 22Comment: Testing | 8 - 25 mg/dL | EXTERNAL | | | | performed at [facility], [address] | | LAB | | | | [address], | | | | | | [place] [address] | | | | + + + + + + | Creatinine | 0.97Comment: Testing | 0.50 - 1.00 | EXTERNAL | | | | performed at [facility], [address] | mg/dL | LAB | | | | [address], | | | | | | [place] [address] | | | | + + + + + + | BUN/Creatin | 23Comment: Testing | | EXTERNAL | | | ine Ratio | performed at [facility], [address] | | LAB | | | | [address], | | | | | | [place] [address] | | | | + + + + + + | Calcium | 9.7Comment: Testing | 8.5 - 10.2 | EXTERNAL | | | | performed at [facility], [address] | mg/dL | LAB | | | | [address], | | | | | | [place] [address] | | | | + + + + + + | Protein, | 5.8 (L)Comment: Testing | 6.3 - 8.2 g/dL | EXTERNAL | | | Total | performed at [facility], [address] | | LAB | | | | [address], | | | | | | [place] [address] | | | | + + + + + + | Albumin | 3.7Comment: Testing | 3.3 - 4.8 g/dL | EXTERNAL | | | | performed at [facility], [address] | | LAB | | | | [address], | | | | | | [place] [address] | | | | + + + + + + | Globulin | 2.1Comment: Testing | 1.3 - 4.9 g/dL | EXTERNAL | | | | performed at [facility], [address] | | LAB | | | | [address], | | | | | | [place] [address] | | | | + + + + + + | A/G Ratio | 1.8Comment: Testing | 1.0 - 2.4 | EXTERNAL | | | | performed at [facility], [address] | | LAB | | | | [address], | | | | | | [place] [address] | | | | + + + + + + | Bilirubin | 0.2Comment: Testing | 0.1 - 1.5 mg/dL | EXTERNAL | | | Total | performed at [facility], [address] | | LAB | | | | [address], | | | | | | [place] [address] | | | | + + + + + + | ALP, | 61Comment: Testing | 35 - 115 U/L | EXTERNAL | | | External | performed at [facility], [address] | | LAB | | | | [address], | | | | | | [place] [address] | | | | + + + + + + | AST | 52 (H)Comment: Testing | 10 - 45 U/L | EXTERNAL | | | | performed at [facility], [address] | | LAB | | | | [address], | | | | | | [place] [address] | | | | + + + + + + | ALT | 66 (H)Comment: Testing | 10 - 65 U/L | EXTERNAL | | | | performed at [facility], [address] | | LAB | | | | [address], | | | | | | [place] [address] | | | | + + + [...] [address], | | | | | | [place] [address] | | | | + + + [...] EXTERNAL | | | | performed at [facility] | | LAB | | | | [facility];[place], [place] | | | | | | [address] | | | | + + + [...] | | | | | | ACUTE [place] Testing | | | | | | performed at [facility] | | | | | | [address];[place] | | | | | | [address] | | | | + + + [...] EXTERNAL | | | | performed at [facility];[address] | | LAB | | | | [address];[place], [place] | | | | | | [address] | | | | + + + [...] EXTERNAL | | | | performed at [facility];[address] | | LAB | | | | [address];[place] | | | | | | [address] | | | | + + + + + + | Non- | 4.10Comment: Testing | 3.70 - 5.10 | EXTERNAL | | | Red Blood | performed at [facility];[address] | M/uL | LAB | | | Cells | [address];[place] | | | | | Counted | [address] | | | | + + + + + + | Hemoglobin | 12.4Comment: Testing | 11.3 - 15.5 | EXTERNAL | | | | performed at [facility];[address] | g/dL | LAB | | | | [address];[place] | | | | | | [address] | | | | + + + + + + | Hematocrit, | 36.1Comment: Testing | 34.0 - 46.0 % | EXTERNAL | | | POC | performed at [facility] | | LAB | | | | [address];[place] | | | | | | [address] | | | | + + + + + + | MCV | 87.9Comment: Testing | 80.0 - 100.0 fl | EXTERNAL | | | | performed at [facility] | | LAB | | | | [address];[place] | | | | | | [address] | | | | + + + + + + | MCH | 30.1Comment: Testing | 27.0 - 34.0 pg | EXTERNAL | | | | performed at [facility] | | LAB | | | | [address];[place] | | | | | | [address] | | | | + + + + + + | MCHC | 34.3Comment: Testing | 32.0 - 35.5 | EXTERNAL | | | | performed at [facility];[address] | g/dL | LAB | | | | [address];[place] | | | | | | [address] | | | | + + + + + + | RDW-CV | 40.7Comment: Testing | 37 - 53 fl | EXTERNAL | | | | performed at [facility];[address] | | LAB | | | | [address];[place] | | | | | | [address] | | | | + + + + + + | Platelet | 201Comment: Testing | 150 - 400 K/uL | EXTERNAL | | | Count | performed at [facility];[address] | | LAB | | | Plasma | [address];[place] | | | | | | [address] | | | | + + + + + + | MPV | 9.6Comment: Testing | fl | EXTERNAL | | | | performed at [facility];[address] | | LAB | | | | [address];[place] | | | | | | [address] | | | | + + + + + + | Differentia | AUTOMATEDComment: | | EXTERNAL | | | l Type | Testing performed at | | LAB | | | | [facility];[address];[place] [address] | | | | + + + + + + | % Segmented | 66.0Comment: Testing | % | EXTERNAL | | | | performed at [facility];[address] | | LAB | | | Neutrophils | [address];[place] | | | | | | [address] | | | | + + + + + + | % | 24.5Comment: Testing | % | EXTERNAL | | | Lymphocytes | performed at [facility];[address] | | LAB | | | | [address];[place] | | | | | | [address] | | | | + + + + + + | % Monocytes | 6.3Comment: Testing | % | EXTERNAL | | | | performed at [facility];[address] | | LAB | | | | [address];[place] | | | | | | [address] | | | | + + + + + + | % | 2.9Comment: Testing | % | EXTERNAL | | | Eosinophils | performed at [facility];[address] | | LAB | | | | [address];[place] | | | | | | [address] | | | | + + + + + + | % Basophils | 0.3Comment: Testing | % | EXTERNAL | | | | performed at [facility];[address] | | LAB | | | | [address];[place] | | | | | | [address] | | | | + + + + + + | Absolute | 6.5Comment: Testing | 1.9 - 7.4 K/uL | EXTERNAL | | | Segmented | performed at [facility];[address] | | LAB | | | Neutrophils | [address];[place] | | | | | | [address] | | | | + + + + + + | Absolute | 2.4Comment: Testing | 1.0 - 3.9 K/uL | EXTERNAL | | | Lymphocytes | performed at [facility];[address] | | LAB | | | | [address];[place] | | | | | | [address] | | | | + + + + + + | Absolute | 0.6Comment: Testing | 0 - 0.8 K/uL | EXTERNAL | | | Monocytes | performed at [facility];[address] | | LAB | | | | [address];[place] | | | | | | [address] | | | | + + + + + + | Absolute | 0.3Comment: Testing | 0 - 0.5 K/uL | EXTERNAL | | | Eosinophils | performed at [facility];[address] | | LAB | | | | [address];[place] | | | | | | [address] | | | | + + + + + + | Absolute | 0.0Comment: Testing | 0 - 0.1 K/uL | EXTERNAL | | | Basophils | performed at [facility];[address] | | LAB | | | | [address];[place] | | | | | | [address] | | | | + + + [...] EXTERNAL | | | | performed at [facility];[address] | | LAB | | | | [address];[place], [place] | | | | | | [address] | | | | + + + [...] EXTERNAL | | | | performed at [facility];[address] | | LAB | | | | [address];[place] | | | | | | [address] | | | | + + + [...] | | | | | [place] [address] | | | | + + + + + + | COLLECTION | UNKNOWNComment: Testing | | EXTERNAL | | | DATE/TIME | performed at [facility], [address] | | LAB | | | [address] | [address], | | | | | | [place] [address] | | | | + + + + + + | Theophyllin | 2.9 (L)Comment: Testing | 10 - 20 ug/mL | EXTERNAL | | | e level | performed at [facility], [address] | | LAB | | | | [address], | | | | | | [place] [address] | | | | + + + [...] | | Last Dose | performed at [facility];[address] | | LAB | | | | [address];[place] | | | | | | [address] | | | | + + + + + + | Time of | UNKNOWNComment: Testing | | EXTERNAL | | | Last Dose | performed at [facility];[address] | | LAB | | | | [address];[place] | | | | | | [address] | | | | + + + + + + | Digoxin | 0.7 (L)Comment: Testing | 0.90 - 2.00 | EXTERNAL | | | level | performed at [facility];[address] | ng/mL | LAB | | | | [address];[place], [place] | | | | | | [address] | | | | + + + [...] EXTERNAL | | | | performed at [facility];[address] | mmol/L | LAB | | | | [address];[place] | | | | | | [address] | | | | + + + + + + | K | 4.1Comment: Testing | 3.5 - 4.9 | EXTERNAL | | | | performed at [facility];[address] | mmol/L | LAB | | | | [address];[place] | | | | | | [address] | | | | + + + + + + | Cl | 107Comment: Testing | 99 - 109 mmol/L | EXTERNAL | | | | performed at [facility];[address] | | LAB | | | | [address];[place] | | | | | | [address] | | | | + + + + + + | CO2 | 29Comment: Testing | 23 - 32 mmol/L | EXTERNAL | | | | performed at [facility];[address] | | LAB | | | | [address];[place] | | | | | | [address] | | | | + + + + + + | Anion Gap | 9Comment: Testing | 5 - 20 mmol/L | EXTERNAL | | | | performed at [facility];[address] | | LAB | | | | [address];[place] | | | | | | [address] | | | | + + + + + + | Glucose, | 160 (H)Comment: Testing | 65 - 99 mg/dL | EXTERNAL | | | Fasting | performed at [facility];[address] | | LAB | | | | [address];[place] | | | | | | [address] | | | | + + + + + + | BUN | 23Comment: Testing | 8 - 25 mg/dL | EXTERNAL | | | | performed at [facility];[address] | | LAB | | | | [address];[place] | | | | | | [address] | | | | + + + + + + | Creatinine | 1.12 (H)Comment: Testing | 0.50 - 1.00 | EXTERNAL | | | | performed at [facility];[address] | mg/dL | LAB | | | | [address];[place] | | | | | | [address] | | | | + + + + + + | BUN/Creatin | 21Comment: Testing | | EXTERNAL | | | ine Ratio | performed at [facility];[address] | | LAB | | | | [address];[place] | | | | | | [address] | | | | + + + + + + | Calcium | 9.2Comment: Testing | 8.5 - 10.2 | EXTERNAL | | | | performed at [facility];[address] | mg/dL | LAB | | | | [address];[place] | | | | | | [address] | | | | + + + + + + | Protein, | 6.4Comment: Testing | 6.3 - 8.2 g/dL | EXTERNAL | | | Total | performed at [facility];[address] | | LAB | | | | [address];[place] | | | | | | [address] | | | | + + + + + + | Albumin | 3.4Comment: Testing | 3.3 - 4.8 g/dL | EXTERNAL | | | | performed at [facility];[address] | | LAB | | | | [address];[place] | | | | | | [address] | | | | + + + + + + | Globulin | 3.0Comment: Testing | 1.3 - 4.9 g/dL | EXTERNAL | | | | performed at [facility];[address] | | LAB | | | | [address];[place] | | | | | | [address] | | | | + + + + + + | A/G Ratio | 1.1Comment: Testing | 1.0 - 2.4 | EXTERNAL | | | | performed at [facility];[address] | | LAB | | | | [address];[place] | | | | | | [address] | | | | + + + + + + | Bilirubin | 0.3Comment: Testing | 0.1 - 1.5 mg/dL | EXTERNAL | | | Total | performed at [facility];[address] | | LAB | | | | [address];[place] | | | | | | [address] | | | | + + + + + + | ALP, | 91Comment: Testing | 35 - 115 U/L | EXTERNAL | | | External | performed at [facility];[address] | | LAB | | | | [address];[place] | | | | | | [address] | | | | + + + + + + | AST | 52 (H)Comment: Testing | 10 - 45 U/L | EXTERNAL | | | | performed at [facility];[address] | | LAB | | | | [address];[place] | | | | | | [address] | | | | + + + + + + | ALT | 92 (H)Comment: Testing | 10 - 65 U/L | EXTERNAL | | | | performed at [facility];[address] | | LAB | | | | [address];[place] | | | | | | [address] | | | | + + + [...] | | | | | | at [facility];[address];[place] [address] | | | | + + + [...] (500), | | | | | | magazine editor Val Martinez | | | | | | (25) on 06/10/2013 | | | | | | 12:28:01 AM | | | | + + + + + + + + | Specimen | + + | | + + + + + | Narrative | Performed At | + + + | Historically converted procedure from [facility] Epic environment | EXTERNAL LAB | + [...]
--- OUTSIDE RECORDS SUMMARY | ~2020-01-28 | XMS | Encounter Summary ---
Demographics + + + | Address | [address] | | | [place] [address] | + + + | Home Phone | | + + + | Preferred Language | Unknown | + + + | Marital Status | | + + + | Gnosticist Affiliation | Unknown | + + + [...] Team Providers + +------+ + | Care Outside B2B Sales Name | Role | Phone | + [...] | | | | REFERRING | [address], | | | | | | [place] | [place] | | | | | | [place] | [address] | | | | | | | Phone: | | | | | | | [phone] | | | | | | | Fax: | | | | | | | [phone] | +--------+--------+ + + + + Encounter Details +--------+---------+ + + + | Date | Type | Department | Care Team | Description | +--------+---------+ + + + | 07/18/ | Office | Cardiology | Kwadwo Pillai, | TAMMIET | | 2016 | Visit | Arrhythmia at [facility] | [address] | (supraventricular | | | | [address] | [address] | tachycardia) (HCC) | | | | [place] for [facility] | [facility] [place] | (Primary Dx) | | | | and Healing, | [address] | | | | | | [phone] | | | | | Floor [place], [place] | | | | | | [address] | | | | | | [phone] | | | +--------+---------+ + + + [...] 07/19/2015 12:30 PM PDTThank you for visiting [facility]. Call our office if you would like to consider a repeat ablation procedure. We will not schedule regular follow up at this time; please call our office to schedule fol low up if you experience worsening of your palpitation symptoms. If you have any questions regarding this visit or your heart health, please call us at [phone] or contact us via Glad [facility] Have You. documented in this encounter Progress Notes Kwadwo [...] In 2013 the patient underwent EPS at [facility] in [facility]. There was no evidence of du al AV node physiology or an AP. No arrhythmia was inducible and no ablation was performed. The patient recently presented to [facility] 07/07/2015 with symptomatic SVT at 140 -160 [...] No SCD. Mother with rheumatic heart disease. Chris paulino at age 49 secondary to multiple heart [...]
--- OUTSIDE RECORDS SUMMARY | ~2020-01-28 | XMS | Encounter Summary ---
Demographics + + + | Address | [address] | | | [place] [address] | + + + | Home Phone | | + + + | Preferred Language | Unknown | + + + | Marital Status | | + + + | Islam Affiliation | Unknown | + + + | Race | White | + + + | Ethnic Group | Not or | + + + Author + + + | Author | [facility] | + + + | Organization | [facility] | + + + | Address | Unknown | + + + | Phone | Unavailable | + + + Support + + +---------+ + | Name | Relationship | Address | Phone | + + +---------+ + | Bev Anderson | ECON | Unknown | | + + +---------+ + Care Team Providers + +------+ + | Care Asset Administrator Name | Role | Phone | + [...] | | | | REFERRING | [address], | | | | | | [place]ER [place] | [place] | | | | | | [place] | [address] | | | | | | | Phone: | | | | | | | [phone] | | | | | | | Fax: | | | | | | | [phone] | +--------+--------+ + + + + Encounter Details +--------+---------+ + + + | Date | Type | Department | Care Team | Description | +--------+---------+ + + + | 07/18/ | Office | Cardiology | Kwadwo Pillai, | TAM[place]ET | | 2016 | Visit | Arrhythmia at [facility] | [address] | (supraventricular | | | | [address] | [address] | tachycardia) (HCC) | | | | [place] for [facility] | [facility] [place] | (Primary Dx) | | | | and Healing, | [address] | | | | | | [phone] | | | | | Floor [place], [place] | | | | | | [address] | | | | | | [phone] | | | +--------+---------+ + + + [...] 07/19/2015 12:30 PM PDTThank you for visiting [facility]. Call our office if you would like to consider a repeat ablation procedure. We will not schedule regular follow up at this time; please call our office to schedule fol low up if you experience worsening of your palpitation symptoms. If you have any questions regarding this visit or your heart health, please call us at [phone] or contact us via [employer]. documented in this encounter Progress Notes Kwadwo [...] In 2013 the patient underwent EPS at [facility] in [facility]. There was no evidence of du al AV node physiology or an AP. No arrhythmia was inducible and no ablation was performed. The patient recently presented to [facility] 07/07/2015 with symptomatic SVT at 140 -160 [...]
--- OUTSIDE RECORDS SUMMARY | ~2020-01-28 | XMS | Encounter Summary ---
Demographics + + + | Address | [address] | | | [place] [address] | + + + | Home Phone | | + + + | Preferred Language | Unknown | + + + | Marital Status | | + + + | Jainism Affiliation | 1001 | + + + | Race | White | + + + | Ethnic Group | Not or | + + + Author + + + | Author | [facility] | | | and [place] | + + + | Organization | [facility] | | | and [...] Team Providers + +------+ + | Care After School Coordinator Name | Role | Phone | + +------+ + PCP | Unavailable | + +------+ + Encounter Details +--------+ + + + + | Date | Type | Department | Care Team | Description | +--------+ + + + + | 04/08/ | Hospital | [facility] | Conversion | | | 2014 | Encounter | [facility] | Transaction, | | | | | [facility] [address] | Provider Unknown | | | | | [place], [place] | | | | | | [phone] | (Fax) | | | | | [phone] | | | +--------+ + + + [...] Instructions by Susan Perkins RN at 04/08/14 1418 Author: Susan Perkins RN Service: (none) Author Type: Registered Nurse Filed: 04/08/14 2911 Date of Service: 04/08/141307 Status: Signed Natural Resources Professor: Susan Perkins, RN (Registered Nurse) Per [facility] [...] + + | Historically converted procedure from [facility] Epic environment | EXTERNAL LAB | [...]
--- OUTSIDE RECORDS SUMMARY | ~2020-01-28 | XMS | Encounter Summary ---
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 Name | Role | Phone | + +------+ + PCP | Unavailable | + +------+ + Encounter Details +--------+ + + + + | Date | Type | Department | Care Team | Description | +--------+ + + + + | 06/09/ | Hospital | [facility] | Duncan Putnam | Chest pain; SVT | | 2013 - | Encounter | MEDICAL CENTER | MD Terri [address] | (supraventricular | | | | CLINICAL DECISION | [address] | tachycardia); Chest | | 03/07/ | | [address] | [place] [address] | pain, rule out acute | | 2013 | | [place], [place] | [phone] | myocardial | | | | [address] | | infarction; Chest | | | | [phone] | | pain, unspecified; | | | [...] Date of Service: 06/11/13 1031 Status: Signed High Wire Artist: Adriel Green MD (Physician) Related Notes: Original Note by Adriel Green MD (Physician) filed at 06/11/13 1046 [facility] Service: Hospitalist Physician Discharge Summary Patient ID: [...] Hospital Course: The patient was admitted to [facility] as a transfer via air ambulance from [facility] in [place]. The patient was noted to have chest [...] aluated by Dr. Adler, electrophysiology specialist at [facility]. I spoke wi th Dr. Adler [...] Name: CHRISSY SOLOMON Date of : 1935 [facility] Physician: Zbigniew Rivera MD INDICATIONS SHORTNESS [...] TV A Latrell: 0.49 m/s TV Dec [facility]: 1.78 m/s2 TV Dec Time: 267.68 ms TV E Latrell: 0.47 m/s TV E/A Ratio: 0.97 Cio: PAUL Authenticated by: Zbigniew Rivera MD Report [...] Treadmill 06/10/2013 This procedure was resulted in [place] (the cardiology system). Please see the Medi [...] family Follow up: Angelo Adamson MD [address] [address] Schedule an appointment as soon as possible for a visit in 1 week Louis Adler MD 1100 [facility] [address] Schedule an appointment as soon as possible [...] are the prescriptions that you need to excelsior picker. You may get these medications from [...] Note by Prem Mcginnis RN at 06/11/13 4273 Author: Prem Mcginnis RN Service: (none) Author Type: Registered Nurse Filed: 06/11/13 2126 Date of Service: 03/07/14 1229 Status: Signed High Wire Artist: Prme Mcginnis RN (Registered Nurse) Discharged to home [...] Date of Service: 06/10/13 171 Status: Signed High Wire Artist: Adriel Green MD (Physician) Related Notes: Original Note by Adriel Green MD (Physician) filed at 06/10/132035 [facility] Service: Hospitalist Progress Note Pt: Chrissy Solomon AGE/SEX: 77 y.o. female : 1935 ROOM: [facility]/1124-1 TODAY'S DATE: 06/10/2013 Hospital Day: LOS: 1 day SUBJECTIVE: The patient had no further episodes of chest pain. She remains in normal sinus rhythm since transfer from [facility] via air ambulance. She underwent a nuclear [...] Treadmill 06/10/2013 This procedure was resulted in [place] (the cardiology system). Please see the Medi [...] after a transfer via air ambulance from [facility]. Continue low-dose metoprolol. We will increase the [...] likely [facility]. 2. Supraventricular tachycardia. The patient reports [...] The patient will likely benefit from outpatient nurse companion evaluation/consultation following her discharge from [facility]. 3. Chronic obstructive pulmonary disease with home [...] Case Management by TAE Oleary at 06/10/13 6543 Author: TAE Oleary Service: (none) Author Type: Sales Representative Business Courses Filed: 06/10/13 2071 Date of Service: 06/10/13 1899 Status: Signed High Wire Artist: TAE Oleary (Sales Representative Business Courses) 06/10/13 6240 Discharge Planning Evaluation Admitting Diagnosis Chest pain [...] 06/10/13108 Date of Service: 06/10/13107 Status: Signed High Wire Artist: Lusi Borden RN (Registered Nurse) Informed night hospitalist of elevated Trop of .122 drawn at midnight, no new orders receiv ed. Will continue to monitor. Luis Borden RN onver jessica Transaction, Provider Unknown - 06/10/2013 12:17 AM PST Progress Notes by Sherri Garcia RPH at 06/10/1316 Author: Sherri Garcia RPH Service: (none) Author Type: Pharmacist Filed: 06/10/1317 Date of Service: 06/10/1316 Status: Signed High Wire Artist: Sherri Garcia RPH (Pharmacist) Clinical Pharmacy Note: [...] 06/10/136 Date of Service: 06/10/136 Status: Signed High Wire Artist: Sherri Garcia RPH (Pharmacist) Clinical Pharmacy Note: [...] 1403 Date of Service: 06/09/132031 Status: Signed High Wire Artist: Duncan Putnam MD (Physician) Related Notes: Original Note by Duncan Putnam MD (Physician) filed at 06/10/13 0314 [facility] Service: Hospitalist Admission History & Physical Date of Admission: 06/09/2013 Requesting Physician: Sharad , Emergency Department Reason for Admission: Chest pain. History Obtained From: patient CHIEF COMPLAINT: Chest pain. HISTORY OF PRESENT ILLNESS The patient is a 77 y.o. female with significant past medical history. Patient is a transfer from [facility]. Initially she was seen in her primary care office and from her primary care office she was sent to the emergency ro om because she was complaining of general weakness and chest pain with some tachycardia. At [facility] they gave her 1 dose of 6 mg adenosine, followed by 12 mg for severe v entricular tachycardia and also nitroglycerin followed by nitroglycerin drip. According to t he record the troponin was positive, but when she arrived here her troponin was 0.07 and the n subsequent 0.122, which by our standards is not non-ST elevation MO. According to the patient, she has these [...] most significant pain. Her tropon in at [facility] was reported to be positive, but our labs indicate this is only 0 .07 and second set was 0.122 which is still below the threshold for non-STEMI. Patient will be admitted to medical floor, quality assurance monitor final, do 3 sets of cardiac enzymes. Will arrange for a stress test in the morning. Will do aspirin 325 mg. Also, given the history of exposur e to fenfluramine/phentermine, will do echocardiogram to look for her valves. If any valve f inding, will consult with compressor assembler, especially with the history she has paroxysmal [...] Date of Service: 06/10/13 1147 Status: Signed High Wire Artist: MARCEL Holman (Advanced Registered Nurse Ro) Pre-procedure Diagnoses: 1. Chest pain [786.50] 2. SVT (supraventricular tachycardia) (HCC) [427.89] Post-procedure Diagnoses: 1. Chest pain [786.50] 2. SVT (supraventricular tachycardia) (HCC) [427.89] Procedures: 1. NM MYOCARDIAL PERFUSION SPECT - STRESS AND REST [KOR655 (Custom)] [facility] Service: Diagnostic Imaging/Nuclear Medicine Cardiac Stress Test [...] Consult* by Grover Rivera MD at 06/10/13 9998 Author: Grover Rivera MD Service: Cardiology Author Type: Physician Filed: 06/10/13 1758 Date of Service: 06/10/131717 Status: Signed High Wire Artist: Grover Rivera MD (Physician) [facility] Service: Cardiology Initial Consult Note Date of [...] Pressure and SVT. She received Adenosine at [facility] in [place], [place]. She has had 2 previous episodes [...] bpm with Nonspecific ST-T wave changes at [facility]. DATA CBC: Lab Results Component Value Date [...] Pressure and SVT. She received Adenosine at [facility] in [place], [place]. She has had 2 previous episodes [...] has a consultation with Dr Kassandra bolanos Yard Spotter. She may be a candidate for ablation [...] 0218 Date of Service: 06/09/132005 Status: Signed High Wire Artist: Ky Orourke MD (Physician) [facility] Department of Emergency Medicine Provider Name: Dr. [...] moderate neeraj rity. Pt was transferred from [facility] with an elevated Troponin and concerns for [...] unsure i f she has had an MO in the past or not. The patient also complains of thirst. Patient denies n/v/d or any other sx at this time. 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 PCP: ANGELO ADAMSON Past Medical History Diagnosis [...] by mouth 2 (two) times daily. Yes [facility] Provider theophylline (KRISTI-24) 300 MG 24 hr capsule Take 300 mg by mouth 2 (two) times daily. Yes Historical Provider tiotropium (SPIRIVA) 18 MCG inhalation capsule Inhale 18 mcg into the lungs daily. Yes [facility] Provider Allergies Allergen Reactions Penicillins Other [...] Negative for sore throat CV/Resp: Negative for baqjmbtmg-ef-ilndpe, cough Positive for CP GI: Negative for [...] DDx includes, but is not limited to: MO, angina, cardiac disease, CHF, vs. other. Will [...] Value Ref Range Date/Time POC cardiac troponin [[id number]] Collected:06/09/131929 Order Status:Completed Updated:06/09/131943 POC CARDIAC TROPONIN 0.07 0.00 - 0.10 ng/mL I personally reviewed the lab results and they have been posted to the chart. Pertinent po sitive and negative findings have been addressed appropriately. Radiology and EKG Evaluation Imaging Results None EKG Interpretation: Time: 1923 Rate: 77 Rhythm: Sinus with sinus arrhythmia, occasional PVC's [place]: Normal TREVON: Normal QRS: Normal, narrow complex [...] 06/09/131952 Date of Service: 06/09/131952 Status: Signed High Wire Artist: Donaldo Barraza RN (Registered Nurse) Meal order placed. Donaldo Barraza RN 06/09/131952 onver jessica Transaction, Provider Unknown - 06/09/2013 7:33 PM PST ED Notes by Donaldo Barraza RN at 06/09/131932 Author: Donaldo Barraza RN Service: (none) Author Type: Registered Nurse Filed: 06/09/131932 Date of Service: 06/09/131932 Status: Signed High Wire Artist: Donaldo Barraza RN (Registered Nurse) Nitro drip started at [facility] ED discontinued per Dr Orourke. Donaldo Barraza RN 06/09/131932 onver jessica Transaction, Provider Unknown - 06/09/2013 7:31 PM PST ED Notes by Donaldo Barraza RN at 06/09/131930 Author: Donaldo Barraza RN Service: (none) Author Type: Registered Nurse Filed: 06/09/131930 Date of Service: 06/09/131930 Status: Signed High Wire Artist: Donaldo Barraza RN (Registered Nurse) Dr Orourke at bedside for exam. Donaldo Barraza RN 06/09/131930 onver jessica Transaction, Provider Unknown - 06/09/2013 7:20 PM PST ED Notes by Donaldo Barraza RN at 06/09/131919 Author: Donaldo Barraza RN Service: (none) Author Type: Registered Nurse Filed: 06/09/131919 Date of Service: 06/09/131919 Status: Signed High Wire Artist: Donaldo Barraza RN (Registered Nurse) Bed:18
Expected date:
Expected time:
Means of arrival:
Comments:
onver jessica Transaction, Provider Unknown - 06/09/2013 5:35 PM PST ED Notes by Donaldo Barraza RN at 06/09/131734 Author: Donaldo Barraza RN Service: (none) Author Type: Registered Nurse Filed: 06/09/131935 Date of Service: 06/09/131734 Status: Signed High Wire Artist: Donaldo Barraza RN (Registered Nurse) Patient received at [facility]: ASA 324mg PO Adenosine 18mg IVP [...] EXTERNAL | | | | performed at [facility], [address] | | LAB | | | | [facility], | | | | | | [place] [address] | | | | + + + + + + | Non- | 4.07Comment: Testing | 3.70 - 5.10 | EXTERNAL | | | Red Blood | performed at [facility], [address] | M/uL | LAB | | | Cells | [address], | | | | | Counted | [place] [address] | | | | + + + + + + | Hemoglobin | 12.1Comment: Testing | 11.3 - 15.5 | EXTERNAL | | | | performed at [facility], [address] | g/dL | LAB | | | | [address], | | | | | | [place] [address] | | | | + + + + + + | Hematocrit, | 36.4Comment: Testing | 34.0 - 46.0 % | EXTERNAL | | | POC | performed at [facility], [address] | | LAB | | | | [address], | | | | | | [place] [address] | | | | + + + + + + | MCV | 89.5Comment: Testing | 80.0 - 100.0 fl | EXTERNAL | | | | performed at [facility], [address] | | LAB | | | | [address], | | | | | | [place] [address] | | | | + + + + + + | MCH | 29.7Comment: Testing | 27.0 - 34.0 pg | EXTERNAL | | | | performed at [facility], [address] | | LAB | | | | [address], | | | | | | [place] [address] | | | | + + + + + + | MCHC | 33.1Comment: Testing | 32.0 - 35.5 | EXTERNAL | | | | performed at [facility], [address] | g/dL | LAB | | | | [address], | | | | | | [place] [address] | | | | + + + + + + | RDW-CV | 40.3Comment: Testing | 37 - 53 fl | EXTERNAL | | | | performed at [facility], [address] | | LAB | | | | [address], | | | | | | [place] [address] | | | | + + + + + + | Platelet | 162Comment: Testing | 150 - 400 K/uL | EXTERNAL | | | Count | performed at [facility], [address] | | LAB | | | Plasma | [address], | | | | | | [place] [address] | | | | + + + + + + | MPV | 10.0Comment: Testing | fl | EXTERNAL | | | | performed at [facility], [address] | | LAB | | | | [address], | | | | | | [place] [address] | | | | + + + + + + | Differentia | AUTOMATEDComment: | | EXTERNAL | | | l Type | Testing performed at | | LAB | | | | [facility], [address] | | | | | | [place] | | | | | | [address] | | | | + + + + + + | % Segmented | 58.9Comment: Testing | % | EXTERNAL | | | | performed at [facility], [address] | | LAB | | | Neutrophils | [address], | | | | | | [place] [address] | | | | + + + + + + | % | 28.6Comment: Testing | % | EXTERNAL | | | Lymphocytes | performed at [facility], [address] | | LAB | | | | [address], | | | | | | [place] [address] | | | | + + + + + + | % Monocytes | 7.4Comment: Testing | % | EXTERNAL | | | | performed at [facility], [address] | | LAB | | | | [address], | | | | | | [place] [address] | | | | + + + + + + | % | 4.6Comment: Testing | % | EXTERNAL | | | Eosinophils | performed at [facility], [address] | | LAB | | | | [address], | | | | | | [place] [address] | | | | + + + + + + | % Basophils | 0.5Comment: Testing | % | EXTERNAL | | | | performed at [facility], [address] | | LAB | | | | [address], | | | | | | [place] [address] | | | | + + + + + + | Absolute | 5.2Comment: Testing | 1.9 - 7.4 K/uL | EXTERNAL | | | Segmented | performed at [facility], [address] | | LAB | | | Neutrophils | [address], | | | | | | [place] [address] | | | | + + + + + + | Absolute | 2.5Comment: Testing | 1.0 - 3.9 K/uL | EXTERNAL | | | Lymphocytes | performed at [facility], [address] | | LAB | | | | [address], | | | | | | [place] [address] | | | | + + + + + + | Absolute | 0.7Comment: Testing | 0 - 0.8 K/uL | EXTERNAL | | | Monocytes | performed at [facility], [address] | | LAB | | | | [address], | | | | | | [place] [address] | | | | + + + + + + | Absolute | 0.4Comment: Testing | 0 - 0.5 K/uL | EXTERNAL | | | Eosinophils | performed at [facility], [address] | | LAB | | | | [address], | | | | | | [place] [address] | | | | + + + + + + | Absolute | 0.0Comment: Testing | 0 - 0.1 K/uL | EXTERNAL | | | Basophils | performed at [facility], [address] | | LAB | | | | [address], | | | | | | [place] [address] | | | | + + + [...] EXTERNAL | | | | performed at [facility], [address] | | LAB | | | | [address], | | | | | | [place] [address] | | | | + + + [...] EXTERNAL | | | | performed at [facility], [address] | | LAB | | | | [address], | | | | | | [place] [address] | | | | + + + [...] | | | | | [place] [address] | | | | + + + + + + | K | 4.0Comment: Testing | 3.5 - 4.9 | EXTERNAL | | | | performed at [facility], [address] | mmol/L | LAB | | | | [address], | | | | | | [place] [address] | | | | + + + + + + | Cl | 106Comment: Testing | 99 - 109 mmol/L | EXTERNAL | | | | performed at [facility], [address] | | LAB | | | | [address], | | | | | | [place] [address] | | | | + + + + + + | CO2 | 33 (H)Comment: Testing | 23 - 32 mmol/L | EXTERNAL | | | | performed at [facility], [address] | | LAB | | | | [address], | | | | | | [place] [address] | | | | + + + + + + | Anion Gap | 6Comment: Testing | 5 - 20 mmol/L | EXTERNAL | | | | performed at [facility], [address] | | LAB | | | | [address], | | | | | | [place] [address] | | | | + + + + + + | Glucose, | 104 (H)Comment: Testing | 65 - 99 mg/dL | EXTERNAL | | | Fasting | performed at [facility], [address] | | LAB | | | | [address], | | | | | | [place] [address] | | | | + + + + + + | BUN | 14Comment: Testing | 8 - 25 mg/dL | EXTERNAL | | | | performed at [facility], [address] | | LAB | | | | [address], | | | | | | [place] [address] | | | | + + + + + + | Creatinine | 0.83Comment: Testing | 0.50 - 1.00 | EXTERNAL | | | | performed at [facility], [address] | mg/dL | LAB | | | | [address], | | | | | | [place] [address] | | | | + + + + + + | BUN/Creatin | 17Comment: Testing | | EXTERNAL | | | ine Ratio | performed at [facility], [address] | | LAB | | | | [address], | | | | | | [place] [address] | | | | + + + + + + | Calcium | 9.4Comment: Testing | 8.5 - 10.2 | EXTERNAL | | | | performed at [facility], [address] | mg/dL | LAB | | | | [address], | | | | | | [place] [address] | | | | + + + + + + | Protein, | 5.9 (L)Comment: Testing | 6.3 - 8.2 g/dL | EXTERNAL | | | Total | performed at [facility], [address] | | LAB | | | [address], | | | | | | [place] [address] | | | | + + + + + + | Albumin | 3.7Comment: Testing | 3.3 - 4.8 g/dL | EXTERNAL | | | | performed at [facility], [address] | | LAB | | | | [address], | | | | | | [place] [address] | | | | + + + + + + | Globulin | 2.2Comment: Testing | 1.3 - 4.9 g/dL | EXTERNAL | | | | performed at [facility], [address] | | LAB | | | | [address], | | | | | | [place] [address] | | | | + + + + + + | A/G Ratio | 1.7Comment: Testing | 1.0 - 2.4 | EXTERNAL | | | | performed at [facility], [address] | | LAB | | | | [address], | | | | | | [place] [address] | | | | + + + + + + | Bilirubin | 0.3Comment: Testing | 0.1 - 1.5 mg/dL | EXTERNAL | | | Total | performed at [facility], [address] | | LAB | | | | [address], | | | | | | [place], [place] [address] | | | | + + + + + + | ALP, | 69Comment: Testing | 35 - 115 U/L | EXTERNAL | | | External | performed at [facility], [address] | | LAB | | | | [address], | | | | | | [place], [place] [address] | | | | + + + + + + | AST | 49 (H)Comment: Testing | 10 - 45 U/L | EXTERNAL | | | | performed at [facility], [address] | | LAB | | | | [address], | | | | | | [place] [address] | | | | + + + + + + | ALT | 69 (H)Comment: Testing | 10 - 65 U/L | EXTERNAL | | | | performed at [facility], [address] | | LAB | | | | [address], | | | | | | [place] [address] | | | | + + + [...] | | | | | | at [facility], [address] | | | | | | [address], | | | | | | [place] [address] | | | | + + + [...] EXTERNAL | | | | performed at [facility];[address] | | LAB | | | | [address];[place], [place] | | | | | | [address] | | | | + + + [...] | | | | | | ACUTE MO Testing | | | | | | performed at [facility];[address] | | | | | | [address];[place], [place] | | | | | | [address] | | | | + + + [...] EXTERNAL | | | | performed at [facility];[address] | | LAB | | | [address];[place], [place] | | | | | | [address] | | | | + + + [...] | | | 0.49 m/s TV Dec [facility]: 1.78 m/s2 TV Dec Time: 267.68 ms TV | | | E [place]: 0.47 m/s TV E/A Ratio: 0.97 Cio: KIRITW | | | Authenticated by: Zbigniew [...] appears structurally normal.20. | | Trace pulmonic scraamyhpjysx85. There is no pericardial effusion.22. The IVC [...] mlLAESV Index (A-L): 64.32 ml/m2LAAs A2C: 13.49 [id number] A-L | | A2C: 32.26 mlLALs A2C: 4.79 cmLAAs A4C: 13.30 ii1HVYPE A-L A4C: 33.59 mlLALs | | A4C: 4.47 cmAo Diam: 3.31 cmAV Cusp: 1.86 cmLA Diam: 2.95 cmLA/Ao: 0.89IVC | | diameter: 1.95 cmIVC collapse: 1.18 cmIVC % collapse: 37.51 %HR: 69.65 BPMAV | | maxP.65 mmHgAV meanP.02 mmHgAV Vmax: 1.38 m/Chandu Vmean: 0.95 m/Chandu VTI: | | 28.17 cmAVA Vmax: 1.95 cm2AVA (VTI): 2.04 os0AMWM Dopp: 7.37 l/hzhh5IRBL Dopp: | | 3.90 l/minHR: 67.90 BPMLVOT [...] 3.00 m/sTV A Latrell: 0.49 m/sTV Dec [facility] [place]: 1.78 m/s2TV Dec Time: | | 267.68 msTV E [place]atre[place]: 0.47 m/sTV E/A Ratio: 0.97 Cio: TOMASuthenticated by: Zbigniew | | Greg Rivera [facility] Date/Time: 06-10-2013 17:49:12 IMPRESSION: 1. Sinus rhythm.2. [...] appears structurally | | normal.20. Trace pulmonic agmiyildhxgdm50. There is no pericardial effusion.22. The IVC [...] A Latrell: 0.49 m/s | |TV Dec [facility]: 1.78 m/s2 | |TV Dec Time: 267.68 ms | |TV E [place]: 0.47 m/s | |TV E/A Ratio: 0.97 | | | |Cio: KIRITW | |Authenticated by: Zbigniew Rivera MD [...] EXTERNAL | | | | performed at [facility];[address] | | LAB | | | | [address];[place], [place] | | | | | | [address] | | | | + + + [...] | | | | | | ACUTE [place] Testing | | | | | | performed at [facility] | | | | | | [facility];[place], [place] | | | | | | [address] | | | | + + + [...] EXTERNAL | | | | performed at [facility], [address] | | LAB | | | | [address], | | | | | | [place] [address] | | | | + + + + + + | Non- | 4.08Comment: Testing | 3.70 - 5.10 | EXTERNAL | | | Red Blood | performed at [facility], [address] | M/uL | LAB | | | Cells | [address], | | | | | Counted | [place] [address] | | | | + + + + + + | Hemoglobin | 12.0Comment: Testing | 11.3 - 15.5 | EXTERNAL | | | | performed at [facility], [address] | g/dL | LAB | | | | [address], | | | | | | [place] [address] | | | | + + + + + + | Hematocrit, | 36.6Comment: Testing | 34.0 - 46.0 % | EXTERNAL | | | POC | performed at [facility], [address] | | LAB | | | | [address], | | | | | | [place] [address] | | | | + + + + + + | MCV | 89.8Comment: Testing | 80.0 - 100.0 fl | EXTERNAL | | | | performed at [facility], [address] | | LAB | | | | [address], | | | | | | [place], [place] [address] | | | | + + + + + + | MCH | 29.4Comment: Testing | 27.0 - 34.0 pg | EXTERNAL | | | | performed at [facility], [address] | | LAB | | | | [address], | | | | | | [place], [place] [address] | | | | + + + + + + | MCHC | 32.8Comment: Testing | 32.0 - 35.5 | EXTERNAL | | | | performed at [facility], [address] | g/dL | LAB | | | | [address], | | | | | | [place] [address] | | | | + + + + + + | RDW-CV | 41.6Comment: Testing | 37 - 53 fl | EXTERNAL | | | | performed at [facility], [address] | | LAB | | | | [address], | | | | | | [place] [address] | | | | + + + + + + | Platelet | 172Comment: Testing | 150 - 400 K/uL | EXTERNAL | | | Count | performed at [facility], [address] | | LAB | | | Plasma | [address], | | | | | | [place] [address] | | | | + + + + + + | MPV | 10.2Comment: Testing | fl | EXTERNAL | | | | performed at [facility], [address] | | LAB | | | | [address], | | | | | | [place] [address] | | | | + + + + + + | Differentia | AUTOMATEDComment: | | EXTERNAL | | | l Type | Testing performed at | | LAB | | | | [facility], [address] | | | | | | [place] | | | | | | [address] | | | | + + + + + + | % Segmented | 55.0Comment: Testing | % | EXTERNAL | | | | performed at [facility], [address] | | LAB | | | Neutrophils | [address], | | | | | | [place] [address] | | | | + + + + + + | % | 32.2Comment: Testing | % | EXTERNAL | | | Lymphocytes | performed at [facility], [address] | | LAB | | | | [address], | | | | | | [place] [address] | | | | + + + + + + | % Monocytes | 7.6Comment: Testing | % | EXTERNAL | | | | performed at [facility], [address] | | LAB | | | | [address], | | | | | | [place] [address] | | | | + + + + + + | % | 4.8Comment: Testing | % | EXTERNAL | | | Eosinophils | performed at [facility], [address] | | LAB | | | | [address], | | | | | | [place] [address] | | | | + + + + + + | % Basophils | 0.4Comment: Testing | % | EXTERNAL | | | | performed at [facility], [address] | | LAB | | | | [address], | | | | | | [place] [address] | | | | + + + + + + | Absolute | 4.8Comment: Testing | 1.9 - 7.4 K/uL | EXTERNAL | | | Segmented | performed at [facility], [address] | | LAB | | | Neutrophils | [address], | | | | | | [place] [address] | | | | + + + + + + | Absolute | 2.8Comment: Testing | 1.0 - 3.9 K/uL | EXTERNAL | | | Lymphocytes | performed at [facility], [address] | | LAB | | | | [address], | | | | | | [place] [address] | | | | + + + + + + | Absolute | 0.7Comment: Testing | 0 - 0.8 K/uL | EXTERNAL | | | Monocytes | performed at [facility], [address] | | LAB | | | | [address], | | | | | | [place] [address] | | | | + + + + + + | Absolute | 0.4Comment: Testing | 0 - 0.5 K/uL | EXTERNAL | | | Eosinophils | performed at [facility], [address] | | LAB | | | | [address], | | | | | | [place] [address] | | | | + + + + + + | Absolute | 0.0Comment: Testing | 0 - 0.1 K/uL | EXTERNAL | | | Basophils | performed at [facility], [address] | | LAB | | | | [address], | | | | | | [place] [address] | | | | + + + [...] EXTERNAL | | | | performed at [facility], [address] | uIU/mL | LAB | | | | [address], | | | | | | [place] [address] | | | | + + + [...] EXTERNAL | | | | performed at [facility] [address], [address] | | LAB | | | | [address], | | | | | | [place] [address] | | | | + + + [...] EXTERNAL | | | | performed at [facility] [address], [address] | | LAB | | | | [address], | | | | | | [place] [address] | | | | + + + [...] + + | Hemoglobin | 5.6Comment: The Greek | 4.0 - 6.0 % | EXTERNAL [...] | | | | | performed at [facility], [address] | | | | | [address], | | | | | | [place] [address] | | | | + + + [...] | | | | | performed at [facility], [address] | | | | | | [address], | | | | | | [place] [address] | | | | + + + [...] EXTERNAL | | | | performed at [facility];[address] | | LAB | | | | [address];[place], [place] | | | | | | [address] | | | | + + + [...] | | | | | [place] [address] | | | | + + + + + + | Triglycerid | 253 (H)Comment: Testing | mg/dL | EXTERNAL | | | es | performed at [facility], [address] | | LAB | | | | [address], | | | | | | [place] [address] | | | | + + + + + + | HDL | 32 (L)Comment: Testing | mg/dL | EXTERNAL | | | | performed at [facility], [address] | | LAB | | | | [address], | | | | | | [place] [address] | | | | + + + + + + | LDL, | 96Comment: Testing | mg/dL | EXTERNAL | | | Calculated | performed at [facility], [address] | | LAB | | | | [address], | | | | | | [place] [address] | | | | + + + [...] | | | | | [place] [address] | | | | + + + + + + | K | 4.4Comment: Testing | 3.5 - 4.9 | EXTERNAL | | | | performed at [facility], [address] | mmol/L | LAB | | | | [address], | | | | | | [place] [address] | | | | + + + + + + | Cl | 105Comment: Testing | 99 - 109 mmol/L | EXTERNAL | | | | performed at [facility], [address] | | LAB | | | | [address], | | | | | | [place] [address] | | | | + + + + + + | CO2 | 26Comment: Testing | 23 - 32 mmol/L | EXTERNAL | | | | performed at [facility], [address] | | LAB | | | | [address], | | | | | | [place] [address] | | | | + + + + + + | Anion Gap | 13Comment: Testing | 5 - 20 mmol/L | EXTERNAL | | | | performed at [facility], [address] | | LAB | | | | [address], | | | | | | [place] [address] | | | | + + + + + + | Glucose, | 114 (H)Comment: Testing | 65 - 99 mg/dL | EXTERNAL | | | Fasting | performed at [facility], [address] | | LAB | | | | [address], | | | | | | [place] [address] | | | | + + + + + + | BUN | 22Comment: Testing | 8 - 25 mg/dL | EXTERNAL | | | | performed at [facility], [address] | | LAB | | | | [address], | | | | | | [place] [address] | | | | + + + + + + | Creatinine | 0.97Comment: Testing | 0.50 - 1.00 | EXTERNAL | | | | performed at [facility], [address] | mg/dL | LAB | | | | [address], | | | | | | [place] [address] | | | | + + + + + + | BUN/Creatin | 23Comment: Testing | | EXTERNAL | | | ine Ratio | performed at [facility], [address] | | LAB | | | | [address], | | | | | | [place] [address] | | | | + + + + + + | Calcium | 9.7Comment: Testing | 8.5 - 10.2 | EXTERNAL | | | | performed at [facility], [address] | mg/dL | LAB | | | | [address], | | | | | | [place] [address] | | | | + + + + + + | Protein, | 5.8 (L)Comment: Testing | 6.3 - 8.2 g/dL | EXTERNAL | | | Total | performed at [facility], [address] | | LAB | | | | [address], | | | | | | [place] [address] | | | | + + + + + + | Albumin | 3.7Comment: Testing | 3.3 - 4.8 g/dL | EXTERNAL | | | | performed at [facility], [address] | | LAB | | | | [address], | | | | | | [place] [address] | | | | + + + + + + | Globulin | 2.1Comment: Testing | 1.3 - 4.9 g/dL | EXTERNAL | | | | performed at [facility], [address] | | LAB | | | | [address], | | | | | | [place] [address] | | | | + + + + + + | A/G Ratio | 1.8Comment: Testing | 1.0 - 2.4 | EXTERNAL | | | | performed at [facility], [address] | | LAB | | | | [address], | | | | | | [place] [address] | | | | + + + + + + | Bilirubin | 0.2Comment: Testing | 0.1 - 1.5 mg/dL | EXTERNAL | | | Total | performed at [facility], [address] | | LAB | | | | [address], | | | | | | [place] [address] | | | | + + + + + + | ALP, | 61Comment: Testing | 35 - 115 U/L | EXTERNAL | | | External | performed at [facility], [address] | | LAB | | | | [address], | | | | | | [place] [address] | | | | + + + + + + | AST | 52 (H)Comment: Testing | 10 - 45 U/L | EXTERNAL | | | | performed at [facility], [address] | | LAB | | | | [address], | | | | | | [place] [address] | | | | + + + + + + | ALT | 66 (H)Comment: Testing | 10 - 65 U/L | EXTERNAL | | | | performed at [facility], [address] | | LAB | | | | [address], | | | | | | [place] [address] | | | | + + + [...] [address], | | | | | | [place] [address] | | | | + + + [...] EXTERNAL | | | | performed at [facility] | | LAB | | | | [address] [facility];[place], [place] | | | | | | [address] | | | | + + + [...] | | | | | | ACUTE MO Testing | | | | | | performed at [facility];[address] | | | | | | [address];[place] | | | | | | [address] | | | | + + + [...] EXTERNAL | | | | performed at [facility];[address] | | LAB | | | | [address];[place], [place] | | | | | | [address] | | | | + + + [...] EXTERNAL | | | | performed at [facility];[address] | | LAB | | | | [address];[place] | | | | | | [address] | | | | + + + + + + | Non- | 4.10Comment: Testing | 3.70 - 5.10 | EXTERNAL | | | Red Blood | performed at [facility];[address] | M/uL | LAB | | | Cells | [address];[place] | | | | | Counted | [address] | | | | + + + + + + | Hemoglobin | 12.4Comment: Testing | 11.3 - 15.5 | EXTERNAL | | | | performed at [facility];[address] | g/dL | LAB | | | | [address];[place] | | | | | | [address] | | | | + + + + + + | Hematocrit, | 36.1Comment: Testing | 34.0 - 46.0 % | EXTERNAL | | | POC | performed at [facility];[address] | | LAB | | | | [address];[place] | | | | | | [address] | | | | + + + + + + | MCV | 87.9Comment: Testing | 80.0 - 100.0 fl | EXTERNAL | | | | performed at [facility];[address] | | LAB | | | | [address];[place] | | | | | | [address] | | | | + + + + + + | MCH | 30.1Comment: Testing | 27.0 - 34.0 pg | EXTERNAL | | | | performed at [facility];[address] | | LAB | | | | [address];[place] | | | | | | [address] | | | | + + + + + + | MCHC | 34.3Comment: Testing | 32.0 - 35.5 | EXTERNAL | | | | performed at [facility];[address] | g/dL | LAB | | | | [address];[place] | | | | | | [address] | | | | + + + + + + | RDW-CV | 40.7Comment: Testing | 37 - 53 fl | EXTERNAL | | | | performed at [facility];[address] | | LAB | | | | [address];[place] | | | | | | [address] | | | | + + + + + + | Platelet | 201Comment: Testing | 150 - 400 K/uL | EXTERNAL | | | Count | performed at [facility];[address] | | LAB | | | Plasma | [address];[place] | | | | | | [address] | | | | + + + + + + | MPV | 9.6Comment: Testing | fl | EXTERNAL | | | | performed at [facility];[address] | | LAB | | | | [address];[place] | | | | | | [address] | | | | + + + + + + | Differentia | AUTOMATEDComment: | | EXTERNAL | | | l Type | Testing performed at | | LAB | | | | [facility];[address];[place] [address] | | | | + + + + + + | % Segmented | 66.0Comment: Testing | % | EXTERNAL | | | | performed at [facility];[address] | | LAB | | | Neutrophils | [address];[place] | | | | | | [address] | | | | + + + + + + | % | 24.5Comment: Testing | % | EXTERNAL | | | Lymphocytes | performed at [facility];[address] | | LAB | | | | [address];[place] | | | | | | [address] | | | | + + + + + + | % Monocytes | 6.3Comment: Testing | % | EXTERNAL | | | | performed at [facility];[address] | | LAB | | | | [address];[place] | | | | | | [address] | | | | + + + + + + | % | 2.9Comment: Testing | % | EXTERNAL | | | Eosinophils | performed at [facility];[address] | | LAB | | | | [address];[place] | | | | | | [address] | | | | + + + + + + | % Basophils | 0.3Comment: Testing | % | EXTERNAL | | | | performed at [facility];[address] | | LAB | | | | [address];[place] | | | | | | [address] | | | | + + + + + + | Absolute | 6.5Comment: Testing | 1.9 - 7.4 K/uL | EXTERNAL | | | Segmented | performed at [facility];[address] | | LAB | | | Neutrophils | [address];[place] | | | | | | [address] | | | | + + + + + + | Absolute | 2.4Comment: Testing | 1.0 - 3.9 K/uL | EXTERNAL | | | Lymphocytes | performed at [facility];[address] | | LAB | | | | [address];[place] | | | | | | [address] | | | | + + + + + + | Absolute | 0.6Comment: Testing | 0 - 0.8 K/uL | EXTERNAL | | | Monocytes | performed at [facility];[address] | | LAB | | | | [address];[place] | | | | | | [address] | | | | + + + + + + | Absolute | 0.3Comment: Testing | 0 - 0.5 K/uL | EXTERNAL | | | Eosinophils | performed at [facility];[address] | | LAB | | | | [address];[place] | | | | | | [address] | | | | + + + + + + | Absolute | 0.0Comment: Testing | 0 - 0.1 K/uL | EXTERNAL | | | Basophils | performed at [facility];[address] | | LAB | | | | [address];[place] | | | | | | [address] | | | | + + + [...] EXTERNAL | | | | performed at [facility];[address] | | LAB | | | | [address];[place], [place] | | | | | | [address] | | | | + + + [...] EXTERNAL | | | | performed at [facility];[address] | | LAB | | | | [address];[place] | | | | | | [address] | | | | + + + [...] | | | | | [place] [address] | | | | + + + + + + | COLLECTION | UNKNOWNComment: Testing | | EXTERNAL | | | DATE/TIME | performed at [facility], [address] | | LAB | | | [address] | [address], | | | | | | [place] [address] | | | | + + + + + + | Theophyllin | 2.9 (L)Comment: Testing | 10 - 20 ug/mL | EXTERNAL | | | e level | performed at [facility], [address] | | LAB | | | | [address], | | | | | | [place] [address] | | | | + + + [...] | | Last Dose | performed at [facility];[address] | | LAB | | | | [address];[place] | | | | | | [address] | | | | + + + + + + | Time of | UNKNOWNComment: Testing | | EXTERNAL | | | Last Dose | performed at [facility];[address] | | LAB | | | | [address];[place] | | | | | | [address] | | | | + + + + + + | Digoxin | 0.7 (L)Comment: Testing | 0.90 - 2.00 | EXTERNAL | | | level | performed at [facility];[address] | ng/mL | LAB | | | | [address];[place], [place] | | | | | | [address] | | | | + + + [...] EXTERNAL | | | | performed at [facility];[address] | mmol/L | LAB | | | | [address];[place] | | | | | | [address] | | | | + + + + + + | K | 4.1Comment: Testing | 3.5 - 4.9 | EXTERNAL | | | | performed at [facility];[address] | mmol/L | LAB | | | | [address];[place] | | | | | | [address] | | | | + + + + + + | Cl | 107Comment: Testing | 99 - 109 mmol/L | EXTERNAL | | | | performed at [facility];[address] | | LAB | | | | [address];[place] | | | | | | [address] | | | | + + + + + + | CO2 | 29Comment: Testing | 23 - 32 mmol/L | EXTERNAL | | | | performed at [facility];[address] | | LAB | | | | [address];[place] | | | | | | [address] | | | | + + + + + + | Anion Gap | 9Comment: Testing | 5 - 20 mmol/L | EXTERNAL | | | | performed at [facility];[address] | | LAB | | | | [address];[place] | | | | | | [address] | | | | + + + + + + | Glucose, | 160 (H)Comment: Testing | 65 - 99 mg/dL | EXTERNAL | | | Fasting | performed at [facility];[address] | | LAB | | | | [address];[place] | | | | | | [address] | | | | + + + + + + | BUN | 23Comment: Testing | 8 - 25 mg/dL | EXTERNAL | | | | performed at [facility];[address] | | LAB | | | | [address];[place] | | | | | | [address] | | | | + + + + + + | Creatinine | 1.12 (H)Comment: Testing | 0.50 - 1.00 | EXTERNAL | | | | performed at [facility];[address] | mg/dL | LAB | | | | [address];[place] | | | | | | [address] | | | | + + + + + + | BUN/Creatin | 21Comment: Testing | | EXTERNAL | | | ine Ratio | performed at [facility];[address] | | LAB | | | | [address];[place] | | | | | | [address] | | | | + + + + + + | Calcium | 9.2Comment: Testing | 8.5 - 10.2 | EXTERNAL | | | | performed at [facility];[address] | mg/dL | LAB | | | | [address];[place] | | | | | | [address] | | | | + + + + + + | Protein, | 6.4Comment: Testing | 6.3 - 8.2 g/dL | EXTERNAL | | | Total | performed at [facility];[address] | | LAB | | | | [address];[place] | | | | | | [address] | | | | + + + + + + | Albumin | 3.4Comment: Testing | 3.3 - 4.8 g/dL | EXTERNAL | | | | performed at [facility];[address] | | LAB | | | | [address];[place] | | | | | | [address] | | | | + + + + + + | Globulin | 3.0Comment: Testing | 1.3 - 4.9 g/dL | EXTERNAL | | | | performed at [facility];[address] | | LAB | | | | [address];[place] | | | | | | [address] | | | | + + + + + + | A/G Ratio | 1.1Comment: Testing | 1.0 - 2.4 | EXTERNAL | | | | performed at [facility];[address] | | LAB | | | | [address];[place] | | | | | | [address] | | | | + + + + + + | Bilirubin | 0.3Comment: Testing | 0.1 - 1.5 mg/dL | EXTERNAL | | | Total | performed at [facility];[address] | | LAB | | | | [address];[place] | | | | | | [address] | | | | + + + + + + | ALP, | 91Comment: Testing | 35 - 115 U/L | EXTERNAL | | | External | performed at [facility];[address] | | LAB | | | | [address];[place] | | | | | | [address] | | | | + + + + + + | AST | 52 (H)Comment: Testing | 10 - 45 U/L | EXTERNAL | | | | performed at [facility];[address] | | LAB | | | | [address];[place] | | | | | | [address] | | | | + + + + + + | ALT | 92 (H)Comment: Testing | 10 - 65 U/L | EXTERNAL | | | | performed at [facility];[address] | | LAB | | | | [address];[place] | | | | | | [address] | | | | + + + [...] | | | | | | at [facility];[address];[place] [address] | | | | + + + [...] (500), | | | | | | editorial specialist Val Martinez | | | | | | (25) on 06/10/2013 | | | | | | 12:28:01 AM | | | | + + + + + + + + | Specimen | + + | | + + + + + | Narrative | Performed At | + + + | Historically converted procedure from [facility] Epic environment | EXTERNAL LAB | + [...]
--- OUTSIDE RECORDS SUMMARY | ~2020-01-28 | XMS | Encounter Summary ---
Demographics + + + | Address | [address] | | | [place] [address] | + + + | Home Phone | | + + + | Preferred Language | Unknown | + + + | Marital Status | | + + + | Zoroastrianism Affiliation | 1001 | + + + | Race | White | + + + | Ethnic Group | Not or | + + + Author + + + | Author | [facility] | | | and [place] | + + + | Organization | [facility] | | | and [...] Team Providers + +------+ + | Care Local Company Hazmat Driver Name | Role | Phone | + +------+ + PCP | Unavailable | + +------+ + Encounter Details +--------+ + + + + | Date | Type | Department | Care Team | Description | +--------+ + + + + | 08/04/ | Hospital | [facility] | Conversion | SVT | | 2013 - | Encounter | MEDICAL CENTER | Transaction, | (supraventricular | | | | CLINICAL DECISION | Provider Unknown | tachycardia) | | 08/05/ | | [address] [place] [address] | [phone] | | | 2013 | | [place], [place] | | | | | | [address] | Ricarda Pinedo MD | | | | | [phone] | PhD [address] | | | | | | [facility] [place], | | | | | | [place] [address] | | | | | | [phone] | | +--------+ + + + + [...] Deborah Mack Service: (none) Author Type: Nurse Vice President For Instruction Filed: 08/05/13 0852 Date of Service: 08/05/13850 Status: Signed Senior It Architect: Deborah Mack (Nurse Vice President For Instruction) Discharge instructions given to patient, all questions answered. Discharged via wheelchair with family. Nurse Gerhard Vice President For Instruction onver jessica Transaction, Provider Unknown - 08/05/2013 12:30 AM PDT Nurse Progress Note by Magalis Fleming RN at 08/05/1329 Author: Magalis Fleming RN Service: (none) Author Type: Registered Nurse Filed: 08/05/1399 Date of Service: 08/05/1329 Status: Signed Senior It Architect: Magalis Fleming RN (Registered Nurse) Pt up and ambulated to bathroom without difficulty. Pt denies pain, SOB and no new drainage to either groin site. onver jessica Transaction, Provider Unknown - 08/04/2013 9:00 PM PDT Nurse Progress Note by Magalis Fleming RN at 08/04/132099 Author: Magalis Fleming RN Service: (none) Author Type: Registered Nurse Filed: 08/05/1358 Date of Service: 08/04/132099 Status: Signed Senior It Architect: Magalis Fleming RN (Registered Nurse) Report received [...] 08/05/13906 Date of Service: 08/05/13905 Status: Signed Senior It Architect: Kerry Marsh RN (Registered Nurse) Problem: Pain [...] + + | Historically converted procedure from [facility] environment | EXTERNAL LAB | + [...] | | | recording and His recording (22306). 2. Left atrial pacing and | | | recording (89423). 3. Pacing and recording after intravenous Isuprel | | | infusion (86200). 4. Electroanatomic mapping with Carto version 3 | | | (79629). PHYSICIAN Ricarda Pinedo MD ANESTHESIA | | [...] From the right femoral vein, an 8 Latvian | | | sheath was used to advance Biosense Platt DF curved 4 mm | | | nonirrigated mapping and ablation catheter to the right atrium. A | | | 7-Latvian sheath was used to advance a CRD2 catheter to the region of | | | the bundle of his. On the left femoral vein, an 8-Latvian sheath was | | | used to advance coronary sinus catheter of the coronary sinus and a | | | 6-Latvian sheath was used to advance the quadripolar [...] was normal sinus rhythm, cycle length 770, MD 153, | | | QRS 88, QT [...] | normal sinus rhythm, 60 to 80, MD 144, QRS 89, QT 420, AH 62, [...] and recording and His | | recording (40328). | | 2. Left atrial pacing and recording (08057). | | 3. Pacing and recording after intravenous Isuprel infusion (22759). | | 4. Electroanatomic mapping with Carto version 3 (27265). | | | | PHYSICIAN | | [...] From the right femoral vein, an 8 Latvian sheath was used to advance | | BiosReclamadorter DF curved 4 mm nonirrigated mapping and ablation catheter | | to the right atrium. A 7-Latvian sheath was used to advance a CRD2 catheter | | to the region of the bundle of his. On the left femoral vein, an 8-Latvian | | sheath was used to advance coronary sinus catheter of the coronary sinus | | and a 6-Latvian sheath was used to advance the quadripolar [...] was normal sinus rhythm, cycle length 770, MD 153, QRS | | 88, QT 415, [...] was normal sinus rhythm, 60 to 80, MD 144, | | QRS 89, QT 420, [...] EXTERNAL | | | | performed at [facility];[address] | | LAB | | | | [address];[place] | | | | | | [address] | | | | + + + + + + | Non- | 4.24Comment: Testing | 3.70 - 5.10 | EXTERNAL | | | Red Blood | performed at [facility];888 | M/uL | LAB | | | Cells | [address];[place] | | | | | Counted | [address] | | | | + + + + + + | Hemoglobin | 12.5Comment: Testing | 11.3 - 15.5 | EXTERNAL | | | | performed at [facility];888 | g/dL | LAB | | | | [address];[place] | | | | | | [address] | | | | + + + + + + | Hematocrit, | 37.5Comment: Testing | 34.0 - 46.0 % | EXTERNAL | | | POC | performed at [facility];[address] | | LAB | | | | [address];[place] | | | | | | [address] | | | | + + + + + + | MCV | 88.5Comment: Testing | 80.0 - 100.0 fl | EXTERNAL | | | | performed at [facility];[address] | | LAB | | | | [address];[place] | | | | | | [address] | | | | + + + + + + | MCH | 29.5Comment: Testing | 27.0 - 34.0 pg | EXTERNAL | | | | performed at [facility];[address] | | LAB | | | | [address];[place] | | | | | | [address] | | | | + + + + + + | MCHC | 33.3Comment: Testing | 32.0 - 35.5 | EXTERNAL | | | | performed at [facility];888 | g/dL | LAB | | | | [address];[place] | | | | | | [address] | | | | + + + + + + | RDW-CV | 41.6Comment: Testing | 37 - 53 fl | EXTERNAL | | | | performed at [facility];[address] | | LAB | | | | [address];[place] | | | | | | [address] | | | | + + + + + + | Platelet | 192Comment: Testing | 150 - 400 K/uL | EXTERNAL | | | Count | performed at [facility];888 | | LAB | | | Plasma | [address];[place] | | | | | | [address] | | | | + + + + + + | MPV | 9.3Comment: Testing | fl | EXTERNAL | | | | performed at [facility];[address] | | LAB | | | | [address];[place] | | | | | | [address] | | | | + + + + + + | Differentia | AUTOMATEDComment: | | EXTERNAL | | | l Type | Testing performed at | | LAB | | | | [facility];[address];[place] [address] | | | | + + + + + + | % Segmented | 54.7Comment: Testing | % | EXTERNAL | | | | performed at [facility];[address] | | LAB | | | Neutrophils | [address];[place] | | | | | | [address] | | | | + + + + + + | % | 34.7Comment: Testing | % | EXTERNAL | | | Lymphocytes | performed at [facility];[address] | | LAB | | | | [address];[place] | | | | | | [address] | | | | + + + + + + | % Monocytes | 7.0Comment: Testing | % | EXTERNAL | | | | performed at [facility];[address] | | LAB | | | | [address];[place] | | | | | | [address] | | | | + + + + + + | % | 2.8Comment: Testing | % | EXTERNAL | | | Eosinophils | performed at [facility];[address] | | LAB | | | | [address];[place] | | | | | | [address] | | | | + + + + + + | % Basophils | 0.8Comment: Testing | % | EXTERNAL | | | | performed at [facility];[address] | | LAB | | | | [address];[place] | | | | | | [address] | | | | + + + + + + | Absolute | 4.0Comment: Testing | 1.9 - 7.4 K/uL | EXTERNAL | | | Segmented | performed at [facility];[address] | | LAB | | | Neutrophils | [address];[place] | | | | | | [address] | | | | + + + + + + | Absolute | 2.5Comment: Testing | 1.0 - 3.9 K/uL | EXTERNAL | | | Lymphocytes | performed at [facility];[address] | | LAB | | | | [address];[place] | | | | | | [address] | | | | + + + + + + | Absolute | 0.5Comment: Testing | 0 - 0.8 K/uL | EXTERNAL | | | Monocytes | performed at [facility];[address] | | LAB | | | | [address];[place] | | | | | | [address] | | | | + + + + + + | Absolute | 0.2Comment: Testing | 0 - 0.5 K/uL | EXTERNAL | | | Eosinophils | performed at [facility];[address] | | LAB | | | | [address];[place] | | | | | | [address] | | | | + + + + + + | Absolute | 0.1Comment: Testing | 0 - 0.1 K/uL | EXTERNAL | | | Basophils | performed at [facility];[address] | | LAB | | | | [address];[place] | | | | | | [address] | | | | + + + [...] EXTERNAL | | | | performed at [facility];[address] | | LAB | | | | [address];[place], [place] | | | | | | [address] | | | | + + + [...] EXTERNAL | | | | performed at [facility];888 | mmol/L | LAB | | | | [address];[place] | | | | | | [address] | | | | + + + + + + | K | 3.8Comment: Testing | 3.5 - 4.9 | EXTERNAL | | | | performed at [facility];888 | mmol/L | LAB | | | | [address];[place] | | | | | | [address] | | | | + + + + + + | Cl | 105Comment: Testing | 99 - 109 mmol/L | EXTERNAL | | | | performed at [facility];[address] | | LAB | | | | [address];[place] | | | | | | [address] | | | | + + + + + + | CO2 | 31Comment: Testing | 23 - 32 mmol/L | EXTERNAL | | | | performed at [facility];[address] | | LAB | | | | [address];[place] | | | | | | [address] | | | | + + + + + + | Anion Gap | 10Comment: Testing | 5 - 20 mmol/L | EXTERNAL | | | | performed at [facility];[address] | | LAB | | | | [address];[place] | | | | | | [address] | | | | + + + + + + | Glucose, | 87Comment: Testing | 65 - 99 mg/dL | EXTERNAL | | | Fasting | performed at [facility];[address] | | LAB | | | | [address];[place] | | | | | | [address] | | | | + + + + + + | BUN | 18Comment: Testing | 8 - 25 mg/dL | EXTERNAL | | | | performed at [facility];[address] | | LAB | | | | [address];[place] | | | | | | [address] | | | | + + + + + + | Creatinine | 0.78Comment: Testing | 0.50 - 1.00 | EXTERNAL | | | | performed at [facility];888 | mg/dL | LAB | | | | [address];[place] | | | | | | [address] | | | | + + + + + + | BUN/Creatin | 24Comment: Testing | | EXTERNAL | | | ine Ratio | performed at [facility];[address] | | LAB | | | | [address];[place] | | | | | | [address] | | | | + + + + + + | Calcium | 9.4Comment: Testing | 8.5 - 10.2 | EXTERNAL | | | | performed at [facility];[address] | mg/dL | LAB | | | | [address];[place], [place] | | | | | | [address] | | | | + + + [...] | | | | | | at [facility];[address];[place] [address] | | | | + + + [...]
--- OUTSIDE RECORDS SUMMARY | ~2020-01-28 | XMS | Encounter Summary ---
Demographics + + + | Address | [address] | | | [place] [address] | + + + | Home Phone | | + + + | Preferred Language | Unknown | + + + | Marital Status | | + + + | Christian Affiliation | 1001 | + + + | Race | White | + + + | Ethnic Group | Not or | + + + Author + + + | Author | [facility] | | | and [place] | + + + | Organization | [facility] | | | and [...] Team Providers + +------+ + | Care Revenue Manager Name | Role | Phone | + +------+ + PCP | Unavailable | + +------+ + Encounter Details +--------+ + + + + | Date | Type | Department | Care Team | Description | +--------+ + + + + | 05/17/ | Hospital | [facility] | Conversion | RUQ pain | | 2015 | Encounter | [facility] | Transaction, | | | | | MEDICINE [address] | Provider Unknown | | | | | [address] | [phone] | | | | | [place] | | | | | | [address] | | | | | | [phone] | | | +--------+ + + + [...]
--- OUTSIDE RECORDS SUMMARY | ~2020-01-28 | XMS | Encounter Summary ---
Demographics + + + | Address | [address] | | | [place] [address] | + + + | Home Phone | | + + + | Preferred Language | Unknown | + + + | Marital Status | | + + + | Spiritism Affiliation | 1001 | + + + | Race | White | + + + | Ethnic Group | Not or | + + + Author + + + | Author | [facility] | | | and [place] | + + + | Organization | [facility] | | | [...] Team Providers + +------+ + | Care Np Name | Role | Phone | + +------+ + PCP | Unavailable | + +------+ + Encounter Details +--------+ + + + + | Date | Type | Department | Care Team | Description | +--------+ + + + + | 06/29/ | Hospital | [facility] | Conversion | | | 2014 | Encounter | MEDICAL CENTER | Transaction, | | | | | NUCLEAR MEDICINE | Provider Unknown | | | | | [address] | | | | | | [place], [place] | (Fax) | | | | | [address] | | | | | | [phone] | | | +--------+ + + + [...]
--- OUTSIDE RECORDS SUMMARY | ~2020-01-28 | XMS | Encounter Summary ---
Demographics + + + | Address | [address] | | | [place] [address] | + + + | Home Phone [...] Providers + +------+ + | Care Business Office Coordinator Name | Role | Phone | + +------+ + PCP | Unavailable | + +------+ + Encounter Details +--------+ + + + + | Date | Type | Department | Care Team | Description | +--------+ + + + + | 04/08/ | Hospital | [facility] | Conversion | | | 2014 | Encounter | [facility]ENTER [facility] | Transaction, | | | | | CLINIC [address] | Provider Unknown | | | | | [place], [place] | | | | | | [address] | (Fax) | | | | | [phone] | | | +--------+ + + + [...] Instructions by Susan Perkins RN at 04/08/14 2268 Author: Susan Perkins RN Service: (none) Author Type: Registered Nurse Filed: 04/08/14 7389 Date of Service: 04/08/141307 Status: Signed Price Accuracy Supervisor: Susan Perkins, RN (Registered Nurse) Per AHA [...] + + | Historically converted procedure from [facility] Epic environment | EXTERNAL [...]
--- OUTSIDE RECORDS SUMMARY | ~2020-01-28 | XMS | Encounter Summary ---
Demographics + + + | Address | [address] | | | [place] [address] | + + + | Home Phone | | + + + | Preferred Language | Unknown | + + + | Marital Status | | + + + | Adventist Affiliation | 1001 | + + + | Race | White | + + + | Ethnic Group | Not or | + + + Author + + + | Author | [facility] | | | and [place] | + + + | Organization | [facility] | | | [...] Team Providers + +------+ + | Care Forensic Locksmith Name | Role | Phone | + +------+ + PCP | Unavailable | + +------+ + Encounter Details +--------+ + + + + | Date | Type | Department | Care Team | Description | +--------+ + + + + | 12/27/ | Hospital | [facility] | Conversion | Asthma | | 2013 | Encounter | PULMONARY FUNCTION | Transaction, | | | | | LAB [address] | Provider Unknown | | | | | [place], [place] | [phone] | | | | | [address] | | | | | | [phone] | | | +--------+ + + + [...] at 12/28/13335 Author: Rigo Wong MD Service: Encapsulator Author Type: Physician Filed: 12/28/13 0336 Date of Service: 12/28/13152 Status: Signed Senior Recruiter: Rigo Wong MD (Physician) ARIANNE SOLOMON Date of : 1935 FEV-1/FVC is reduced. FEV-1 is normal. FVC is normal. There is no significant bronchodilato r response. Lung volumes: The TLC is normal. RV/TLC is normal. Diffusion capacity: The diffusion capacity is normal. IMPRESSION Mild obstructive impairment with no bronchodilator response. Lung volumes are normal. Diffu jessica capacity is normal. A/ A/[facility]/[id number] RIGO WONG MD documented in this enc ounter Plan of Treatment Not on filedocumented as of this encounter Visit Diagnoses + + | Diagnosis | + + | Asthma Unspecified asthma | + + documented in this encounter"
--- OUTSIDE RECORDS SUMMARY | ~2020-01-28 | XMS | Encounter Summary ---
Demographics + + + | Address | [address] | | | [place] [address] | + + + | Home Phone | | + + + | Preferred Language | Unknown | + + + | Marital Status | | + + + | Buddhism Affiliation | 1001 | + + + | Race | White | + + + | Ethnic Group | Not or | + + + Author + + + | Author | [facility] | | | and [place] | + + + | Organization | [facility] | | [...] Team Providers + +------+ + | Care Pantograph Engraver Name | Role | Phone | + +------+ + PCP | Unavailable | + +------+ + Encounter Details +--------+ + + + + | Date | Type | Department | Care Team | Description | +--------+ + + + + | 06/29/ | [facility] | [facility] | Conversion | CAD (coronary artery | | 2014 | Encounter | MEDICAL CENTER | Transaction, | disease); Atrial | | | | NUCLEAR MEDICINE | Provider Unknown | fibrillation (HCC) | | | | [address] [facility] | | | | | | [place], [place] | (Fax) | | | | | [address] | | | | | | [phone] | | | +--------+ + + + [...] 1533 Date of Service: 06/29/141531 Status: Signed Unattended Ground Sensor Specialist: MARCEL Romo (Advanced Registered Nurse Practitioner) Pre-procedure Diagnoses: 1. Pre-operative exam [V72.84] Post-procedure Diagnoses: 1. Pre-operative exam [V72.84] Procedures: 1. NM MYOCARDIAL PERFUSION SPECT - STRESS AND REST [GRZ598 (Custom)] [facility] Service: Diagnostic Imaging/Nuclear Medicine Cardiac Stress Test [...] Zbigniew | | | FABIO RIVERA MD [facility] | | + + + + [...] | | | | Zbigniew RIVERA MD [facility] | | | | | + + documented in this encounter Visit Diagnoses + + | Diagnosis | + + | CAD (coronary artery disease) Coronary atherosclerosis of unspecified type of vessel, | | [place] or graft | + + | Atrial fibrillation (HCC) Atrial fibrillation | + + documented in this encounter"
--- OUTSIDE RECORDS SUMMARY | ~2020-01-28 | XMS | Encounter Summary ---
Demographics + + + | Address | [address] | | | [place] [address] | + + + | Home Phone [...] Team Providers + +------+ + | Care Agricultural Science Professor Name | Role | Phone | + +------+ + PCP | Unavailable | + +------+ + Encounter Details +--------+ + + + + | Date | Type | Department | Care Team | Description | +--------+ + + + + | 07/07/ | Emergency | [facility] Emergency | | | | 2015 | | Department [address] | | | | [address] | | | | | | [facility] | | | | | | [place], [place] | | | | | | [address] | | | | | | [phone] | | | +--------+ + + + [...]
--- OUTSIDE RECORDS SUMMARY | 2020-01-28 01:52 | XMS ---
PreManage Notification: CHRISSY SOLOMON Security Fire Pilot Events No recent Security Events currently on file CRITERIA MET - JEB CARE PROVIDERS [facility] 10/11/2019-Current PHONE: [phone] Kalie Robles Oxygen Therapy Teacher/Pearl Glue Drier 06/10/2018-Current PHONE: [phone] Kiki has no Care Guidelines for this patient. Elia VISIT COUNT (12 MO.) 2 MONET Chakraborty TOTAL 2 NOTE: Visits indicate total known visits. 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 - Strain of muscle, fascia and tendon at neck level, initial en - Pain in left shoulder - Fracture of unspecified part of left clavicle, initial encoun - Fall on same level from slipping, tripping and stumbling with - Chronic obstructive pulmonary disease, unspecified - Allergy status to penicillin - Personal history of nicotine dependence - Contusion of left front wall of thorax, initial encounter - Essential (primary) hypertension INPATIENT VISIT TRACKING (12 MO.) No inpatient visits to display in this time frame [id number]
[2020-01-28] MEDS ORDERED: ZYRTEC10 MG PO (02:10)
[2020-01-28] MEDS ORDERED: OXYBUTYNIN CHLOR5 MG PO (02:11)
[2020-01-28] MEDS ORDERED: CRANBERRY500 M3 PO (02:14)
[2020-01-28] MEDS ORDERED: ADVAIR 500-501 EACH INH (02:14)
[2020-01-28] MEDS ORDERED: DULOXETINE HCL60 MG PO (02:15)
--- NOTE | 2020-01-28 06:51 | NUR ---
TELEPHONE REPORT RECEIVED FROM ED RN LUIZA, QUESTIONS ANSWERED. AWAITING PT'S ARRIVAL TO FLOOR.
--- NOTE | 2020-01-28 06:55 | NUR ---
PT ARRIVED TO FLOOR AND WAS MOVED OVER TO BED WITH THE HELP OF 4-5 STAFF MEMBERS. PT TOLERATED WELL AND HAS A FAMILY MEMBER AT BEDSIDE. VS TAKEN AND STABLE, ENTERED BY RONA KINNEY AND SHE STARTED THE PT'S ADMISSION HX. SHE IS CURRENTLY IN ROOM WITH PT.
--- NOTE | 2020-01-28 07:54 | NUR ---
Pt resting in bed. Appears to be "sleepy". Easily arousable and able to answer questions. Denies need for pain medication at this time.
--- NOTE | 2020-01-28 09:33 | NUR ---
SPOKE BRIEFLY WITH PATIENT IN ROOM. STAFF IN ROOM PREPARING FOR OR CREW TO COME AND TAKE HER TO SURGERY. INTRODUCED MYSELF AND THAT I WOULD SEE HER AFTER SURGERY. WISHED HER WELL FOR HER PROCEDURE. PATIENT PLEASANT BUT DISTRACTED BY ALL THE COMMOTION IN ROOM. WILL CHECK IN LATER.
--- NOTE | 2020-01-28 09:47 | NUR ---
PATIENT RESTING IN BED, BEDBATH GIVEN, PREPPED FOR SURGEY. GARCIAS EMPTIED. MANUAL BP OF 210/90 TAKEN BY GREGORIA SUAZO. PATIENT REPORTS "JUST A LITTLE PAIN" CALL LIGHT IN REACH, SON IN TO VISIT.
--- NOTE | 2020-01-28 09:47 | NUR ---
pt blood pressures elevated. notified by eric KINNEY. was notified. wanted to give pt pain medication at this time. 0.5mg dilaudid given IV.
--- NOTE | 2020-01-28 10:03 | NUR ---
10mg hydralizine given IV for elevated BP.
--- NOTE | 2020-01-28 10:19 | NUR ---
PT TO OR WITH GREGORIA BARNES
--- NOTE | 2020-01-28 10:25 | NUR ---
Pt to surgery via bed.
--- NOTE | 2020-01-28 10:27 | NUR ---
UNABLE TO VISIT PT-RN ZEINA FROM OR HERE TO TAKE PT TO SURGERY
--- NOTE | 2020-01-28 12:53 | NUR ---
01/28/20 1253 Sheets,Lluvia 1237 PT ARRIVED TO ROOM 10, VSS. PT REACTIVE TO TACTILE STIMULI 1250 PT WAKES AND O2 REMOVED, PT DENIES PAIN AND NAUSEA. PT VERY DROWSY AND UNABLE TO ACCESS SPINAL, PT FALLS ASLEEP DURING ANY QUESTIONS.
--- NOTE | 2020-01-28 13:39 | NUR ---
pt arrived back to room from OR @ 1330. Oriented to room and call light. Dressing to left hip in place. small amount of shadowing present. Ice, miracle hoes, and scd's in place. Pt has no complaints of pain at this time.
--- NOTE | 2020-01-28 14:16 | EKG ---
[facility] [address] [place] [address] Signed Undetermined rhythm Left axis deviation Septal infarct (cited on or before 09-MAR-2018) Abnormal ECG When compared with ECG of 09-MAR-2018 20:39, Current undetermined rhythm precludes rhythm comparison, needs review Questionable change in initial forces of Anterior leads Confirmed by RAÚL BE MD ([id number]) on 01/28/2020 2:16:29 PM Electronically Signed By: RAÚL BE MD 01/28/20 1416 PATIENT NAME: CHRISSY SOLOMON Electrocardiogram DATE OF : 39 PHYSICIAN: RAÚL BE MD REPORT #: [id number] REPORT IS CONFIDENTIAL AND NOT TO BE RELEASED WITHOUT AUTHORIZATION
--- NOTE | 2020-01-28 14:24 | NUR ---
pt resting in bed with at bedside. fresh ice water given. denies pain at this time. call light within reach.
--- NOTE | 2020-01-28 14:58 | NUR ---
pt resting in bed with eye's closed. respirations even and unlabored. pt easily arrousable. call light within reach.
--- NOTE | 2020-01-28 15:02 | NUR ---
In room to check on patient. Pts dressing saturated and pooling onto the bed. MD notified. Order given to place 2 ABD pads and a 6inch spika dressing. Denise RN and Heena RN in room to assiste. Changed pts bedding and chux pad at this time. Pt tolerated activity well. Ice pack back in place and will continue to monitor drainage.
--- NOTE | 2020-01-28 15:43 | NUR ---
spika dressing remains c/d/i at this time. will continues to monitor dressing for drainage.
--- NOTE | 2020-01-28 16:56 | NUR ---
pts dressing c/d/i. continues to rest in bed with eye's closed. easily arousable.
--- NOTE | 2020-01-28 17:29 | NUR ---
IN ROOM TO ASSIST PT WITH DINNER TRAY. PT HAVING A DIFFICULT TIME STAYING WAKE TO EAT DINNER. STATED, "IM REALLY TIRED."
--- NOTE | 2020-01-28 18:12 | NUR ---
Pt resting in bed. dressing to left hip remains c/d/i. Pt denies pain. call light within reach.
--- NOTE | 2020-01-28 20:03 | NUR ---
PROFESSOR OF MEDICINE ROUNDING NOTE. PT RESTING IN BED AWAKE. CALL LIGHT IN REACH. ROOM IN VIEW OF RN STATION WITH CURTAIN OPEN. WHITE BOARD UDPATED.
--- NOTE | 2020-01-28 20:43 | NUR ---
ASSESSMENT, VS AND I&O COMPLETED. SCHEDULED MEDS PROVIDED. SPO2 98% ON 3L, REDUCED TO 2L NC. IV WNL, CDI, FLUSHED WELL. GCS 15, A&O TO ALL BUT DATE. LUNGS CLEAR. HR SR @ 98 ON TELE. ABD SOFT, NONTENDER, BOWEL TONES ACTIVE, PT STATES NORMAL. LEFT HIP COVERED, DRY. ICE PACK ON. SCDs, HEEL PROTECTORS AND SUSAN HOSE ON. PT PAIN 2/10, DENIES NEED FOR FURTHER INTERVENTION. CMS INTACT, PT DENIES N&T. SCATTERED BRUISING NOTED. NO OTHER NEEDS AT THIS TIME. CALL LIGHT IN REACH.
--- NOTE | 2020-01-28 22:55 | NUR ---
SCHEDULED MEDS PROVIDED. PT LEFT HIP PAIN 2/, SCHEDULED TYLENOL PROVIDED. NO OTHER NEEDS THIS TIME. CALL LIGHT IN REACH.
--- NOTE | 2020-01-29 | NUR ---
PT RESTING IN BED, EYES CLOSED. CPOX 98% ON 2L NC. IV FLUIDS INFUSING PER ORDER. CALL LIGHT IN REACH.
--- NOTE | 2020-01-29 | NUR ---
PT RESTING IN BED, EYES CLOSED. RR EVEN, UNLABORED. IV FLUIDS INFUSING PER ORDER. CALL LIGHT IN REACH.
--- NOTE | 2020-01-29 02:03 | NUR ---
ASSESSMENT, VS AND I&O COMPLETED. PT HAS ONLY HAD 100ML OF URINE OUT THIS SHIFT. BLADDER SCAN REVEALS 10ML. CATHETER FLUSHED WELL, REPOSITIONED. PT REPOSITIONED. PT STATES LEFT HIP PAIN IS 2/10, ICE PACK PROVIDED. PT SEEMS SLIGHTLY CONFUSED, CALLING STAFF BY NAMES OF OTHERS THE PT KNOWS, REORIENTED. RAILS UP, DOOR OPEN. CALL LIGHT IN REACH.
--- NOTE | 2020-01-29 06:15 | NUR ---
SCHEDULED MED PROVIDED. PT REPOSITIONED. PT STATES PAIN IN LEFT HIP IS 2/10, ICE PACK PROVIDED. NC @ 2L. VS AND I&O COMPLETED. PT CONTINUES TO HAVE LOW URINE OUTPUT. BLADDER SCAN REVEALS NO RETENTION OF URINE. GARCIAS FLUSHED AND REPOSITIONED WITHOUT CHANGE. PT DENIES FEELING OF FULL BLADDER. NO OTHER NEEDS AT THIS TIME. CALL LIGHT IN REACH.
--- NOTE | 2020-01-29 06:26 | NUR ---
MD NOTIFIED OF LOW URINE OUTPUT. MD GAVE VERBAL PHONE ORDER FOR 500ML NS BOLUS. ORDER REPEATED BACK. NO OTHER ORDERS GIVEN.
--- NOTE | 2020-01-29 06:53 | NUR ---
SCHEDULED MED PROVIDED. NO OTHER NEEDS. CALL LIGHT IN REACH.
--- NOTE | 2020-01-29 07:33 | NUR ---
this rn received report from dmitry howell. pt appears to be resting at this time with respirations noted.
--- NOTE | 2020-01-29 08:05 | NUR ---
this rn in pts room to do an assessment and give mornign meds. pt states her pain is 1/10. pt states understanding of pt education on blood administraion at this time.
--- NOTE | 2020-01-29 09:08 | OR ---
[facility] [address], [place] [address] Signed DATE OF OPERATION: 01/28/2020 SURGEON: Humble Dawn MD PREOPERATIVE DIAGNOSIS: Left intertrochanteric hip fracture. POSTOPERATIVE DIAGNOSIS: Left intertrochanteric hip fracture. PROCEDURE PERFORMED: Open reduction and internal fixation of left hip. PLUMBING DRAFTER: Val Fleming PA-C. Val was present and critical for all portions of procedure. ANESTHESIA: Spinal. BLOOD LOSS: 175 mL. IMPLANTS: A 4-hole DHS with an 85 mm lag screw and four 4.5 mm screws. BRIEF HISTORY: Arianne is an 84-year-old female who suffered a ground level fall over the night, was transported to the Emergency Department. Radiographs revealed a displaced intertrochanteric hip fracture. Risks and benefits of operative treatment were discussed with her and her and they elected to proceed. I admitted her directly to the hospital for pain control and medical clearance. She was cleared by the hospitalist and ready for surgery this morning. DESCRIPTION OF PROCEDURE: Once consent was obtained, she was taken to the operating room. After adequate anesthesia, she placed on the fracture table. The right leg was flexed, abducted, and externally rotated on a well-padded leg noonan. She did have a hip fracture about two years ago on that side and her hip was fair amount stiff. The left hip was placed in a foot traction and Leadbetter maneuver was performed. C-arm was brought in and the hip Electronically Signed By: HUMBLE DAWN MD 01/29/20 0908 PATIENT NAME: ARIANNE SOLOMON OPERATIVE REPORT DATE OF : 39 REPORT #: [id number] PHYSICIAN: HUMBLE DAWN MD PCP: JOYCE LOVELL MD REPORT IS CONFIDENTIAL AND NOT TO BE RELEASED WITHOUT AUTHORIZATION [facility] [address], [place] [address] Signed was found to be reduced. The hip was then prepped and draped in a standard sterile fashion. The incision was lined up using a guide pin to center on the femoral neck. It was taken through skin and subcutaneous tissue. The IT band was divided longitudinally. The vastus lateralis was then split bluntly using Yepez elevator and elevated anteriorly and posteriorly. The guide for the DHS was then placed on the lateral femur and aligned up with the femoral neck. The guide pin was then advanced until was in the center-center position. The guide pin was measured to an 85. The triple reamer was then placed over the guide pin and advanced until it was well in the femoral head. The 85 lag screws were placed over the guide pin and advanced until it was well-seated in the femoral head. It was actually good bone in the femoral head and excellent purchase was obtained. The 4-hole DHS was then placed over this and advanced until it was flushed centered on the lateral femur. The four distal screws were then drilled and appropriate length screws were placed. The compression screw was then placed into the lag screw. We did remove the guide pin prior to this. The final radiograph showed good placement and reduction of the fracture. The wound was copious irrigated with antibiotic solution and IT band was closed using #2 Stratafix, subcutaneous tissue with #0 Stratafix, and skin violet. The wound was dressed with an Acticoat dressing. She was awakened and taken to the recovery room in satisfactory condition. All sponge, needle, and instrument counts were correct. Humble Dawn MD BA/LANCEL /[id number] Copies: ~ Electronically Signed By: HUMBLE DAWN MD 01/29/20 0908 PATIENT NAME: ARIANNE SOLOMON OPERATIVE REPORT DATE OF : 39 REPORT #: [id number] PHYSICIAN: HUMBLE DAWN MD PCP: JOYCE LOVELL MD REPORT IS CONFIDENTIAL AND NOT TO BE RELEASED WITHOUT AUTHORIZATION
--- NOTE | 2020-01-29 09:27 | NUR ---
PATIENT GIVEN ONE NORCO FOR 8-9/10 CRAMPING LEFT HIP PAIN. PATIENT'S DIET ADVANCED TO REGULAR.
--- NOTE | 2020-01-29 09:40 | NUR ---
THIS RN CALLED LAB TO CHECK HOW LONG IT WOULD BE FOR THE BLOOD TO BE READY, NAOMI FROM THE LAB STATED THAT SHE WAS FINISHING UP THE PAPERWORK AND THAT IT SHOULD BE READY IN 10MINS.
--- NOTE | 2020-01-29 10:05 | NUR ---
PATIENT WORKING ON EATING CRACKERS. LOW URINE OUTPUT, RN NOTIFIED. CALL LIGHT IN REACH. NO FURTHER NEEDS AT THIS TIME.
--- NOTE | 2020-01-29 10:06 | NUR ---
JASPREET FLORES NOTIFIED THIS RN THAT PT HAD ONLY 25ML OF URINE OUTPUT AT THIS TIME. THIS RN NOTIFED WHO STATED PT NEEDS BLOOD. THIS RN AWAITING FOR LAB TO HAVE PAPERWORK DONE.
--- NOTE | 2020-01-29 10:55 | NUR ---
THIS RN IN PTS ROOM TO GET PTS PRE BLOOD ADMIN VITALS. ALL QUESTIONS ANSWERED TO THIS RN'S BEST ABILITY FOT PT AND PTS . PT AWARE OF RISKS.
--- NOTE | 2020-01-29 11:08 | NUR ---
THIS RN STARTED 1ST UNIT OF BLOOD ADMIN AT THIS TIME. PT SEEMS TO BE CONFUSED AT TIMES, PT DIDN'T REMEMBER THAT SHE HAD SURGERY YESTERDAY WHEN ASKED ABOUT WHAT SHE WANTED TO FOR LUNCH AFTER THIS RN EDUCATED HER ON HAVING A NUTRIOUS LUNCH. PT ALSO ASKED HER WHERE SHE WAS WHILE THIS RN IN PTS ROOM, PTS ABLE TO REORIENT HER TO BEING IN THE HOSPITAL. THIS RN RE-EDUCATED PT AND PTS ABOUT BLOOD ADMIN. PT STILL CONSENTS TO BLOOD AT THIS TIME AND ALL QUESTIONS HAVE BEEN ANSWERED
--- NOTE | 2020-01-29 13:06 | NUR ---
THIS RN STARTED SECOND UNIT OF BLOOD AT THIS TIME. PT HAS NO QUESTIONS OR CONCERNS IN REGARDS TO SECOND TRANSFUSION. PT DOES FEEL A BIT CLAMMY AT THIS TIME. THIS RN DISCUSSED THIS WITH CHARGE NURSE JAHAIRA AND LASHONDA KINNEY, NEITHER SEEMED TO THINK THIS WAS A SIDE EFFECT OF A TRANSFUSION.
--- NOTE | 2020-01-29 13:10 | NUR ---
1253- FIRST UNIT OF BLOOD FINISHED. PT TOLERATED WELL, WHEN ASKED IF PT HAD ANY SHORTNESS OF BREATH PT STATED "DID I HAVE SOME?" THIS RN REORIENTED PT BY STATING THAT PT TOLD THIS RN THAT SHE WAS FEELING GEORGES "PUNNY" THIS AM. PT DNEIES ANY SIDE EFFECTS OF RECIEVING BLOOD AT THIS TIME.
--- NOTE | 2020-01-29 14:29 | NUR ---
PATIENT IN BED RESTING WITH EYES CLOSED. LOW URINE, NURSE NOTIFIED. CALL LIGHT IN REACH. NO FURTHER NEEDS AT THIS TIME.
--- NOTE | 2020-01-29 15:06 | NUR ---
SECOND BLOOD TRANSFUSION ENDED AT THIS TIME. PT APPEARS TO BE MORE PERKY AND HAD NO COMPLAINTS AT THIS TIME.
--- NOTE | 2020-01-29 19:01 | NUR ---
THIS RN NOTIFED AND ABOUT PTS URINE OUTPUT. GLAD THAT PT IS MAKING URINE AT THIS TIME AND IS OKAY WITH [place] MAKING THE DESCIONS ON PTS FLUIDS.
--- NOTE | 2020-01-29 19:30 | NUR ---
RECEIVED REPORT AT 1900, AT BEDSIDE AT THIS TIME. PT HAD NO NEEDS AT THIS TIME.
--- NOTE | 2020-01-29 19:51 | NUR ---
CALLED MD LI ABOUT HOLDING TORADOL DUE TO CREATININ OF 1.3. MD LI AGREED WITH THIS DECISION. MD BE IS ALSO AWARE. MD LI WAS ALSO INFORMED THAT HER URINE OUTPUT WAS NOT ADEQUATE. WILL CONTINUE TO MONITOR.
--- NOTE | 2020-01-29 21:00 | NUR ---
LOBES ARE CLEAR, URINE OUTPUT FROM 4242-2113 WAS 36MLS. ABD SOUNDS ARE PRESENT, LEFT LEG HAS SOME TRACE EDEMA PRESENT, DRESSING IS C/D/I, PEDIS PULSE +1, LEFT FOOT WARM TO TOUCH WITH STRRENGTH +4. NO OTHER OR NEW CONCERNS WERE NOTED AT THIS TIME. WILL CONTINUE TO MONITOR.
--- NOTE | 2020-01-29 23:04 | NUR ---
URINE OUTPUT FOR THE LAST 2HRS HAS BEEN UNCHANGED AND HOLDING. PT WAS TURNED AT THIS TIME AND WAS TURNED AT 2100. PT DENIES PAIN AT THIS TIME. NO NEW CONCERNS NOTED.
--- NOTE | 2020-01-29 23:09 | NUR ---
PRIMARY RN GURJIT CHECKED PATIENT'S GARCIAS OUTPUT. THIS GENETIC SCIENTIST ASSISTED TO REPOSITIONED THE PATIENT.
--- NOTE | 2020-01-30 01:04 | NUR ---
DISABILITY HEARING OFFICER IN ROOM FOR URINE OUTPUT. PT HAS BEEN SLEEPING SINCE 2299. NO NEW CONCERNS NOTED AT THIS TIME.
--- NOTE | 2020-01-30 01:08 | NUR ---
WENT IN TO THE ROOM AND CHECKED THE GARCIAS OUTPUT WAS 42CC.
--- NOTE | 2020-01-30 03:15 | NUR ---
LOBES ARE CLEAR, NO CHANGES NOTED ON LEFT LEG, DRESSING C/D/I. PT AT THIS TIME NEEDS AT [facility] FOR PAIN 08/14. PT WAS ALSO REPOSITIONED. URINE OUTPUT IS A BIT BETTER BUT STILL NOT ADEQUATE. NO NEW CONCERNS WERE NOTED.
--- NOTE | 2020-01-30 05:56 | NUR ---
VITALS AND I&OS DONE AND CHARTED. GARBAGES EMPTIED. BEDSIDE TABLE AND CALL LIGHT IN REACH. FRESH ICE WATER GIVEN.
--- NOTE | 2020-01-30 07:20 | NUR ---
THIS RN RECEIVED REPORT FROM ROGERS KINNEY. PT APPEARS TO BE RESTING COMFORTABLY AT THIS TIME WITH RESPIRATIONS NOTED.
--- NOTE | 2020-01-30 08:08 | NUR ---
PATIENT AWAKE IN BED. BREAKFAST ORDERED. NO FUTHER NEEDS AT THIS TIME
--- NOTE | 2020-01-30 09:10 | NUR ---
this rn in pts room to do morning assessment and give morning meds. pt appears to be in good spirits today. pt denies pain, but when this rn boosted pt, pt cringed in pain. this rn to hold pts toradol due to pts creatine and low urine output situaiton. this rn aware of pts low urine output at this time
--- NOTE | 2020-01-30 09:15 | NUR ---
THIS RN PROVIDED PT WITH 1 NORCO AT THIS TIME TO PRE-MEDICATE PT FOR PAIN PRIOR TO WORKING WITH PHYSICAL THERAPY. BOTH MD'S AWARE OF PTS LOW URINE OUTPUT AT THIS TIME
--- NOTE | 2020-01-30 09:18 | NUR ---
PRICING CLERK AND NURSE DOCUMENTED VITAL SIGNS AND I&O'S. CALL LIGHT WITHIN REACH NO FUTHER NEEDS AT THIS TIME.
--- NOTE | 2020-01-30 13:15 | NUR ---
THIS RN IN PTS ROOM TO GIVE PT ANOTHER DOSE OF PAIN MEDS TO ALLOW PT TO BE ABLE TO BE IN LESS WHEN WORKING WITH PHYSICAL THERAPY
--- NOTE | 2020-01-30 13:15 | NUR ---
CALLED ON TELEMETRY REPORTED FROM BRIANNA ASSESSMENT SPECIALIST. PT HAS MORE IRRITABLE RHYTHM, WITH MORE PAC AND PVC. NOTED [facility] HAS NOT BEEN DRAWN, NEW ORDER FOR [facility] TO BE ADD TO THIS AM LAB BLOOD DRAW.
--- NOTE | 2020-01-30 13:40 | NUR ---
THIS RN IN PTS ROOM TO ASSIST RENETTA FROM PHYSICAL THERAPY TO GET PT UP. RENETTA FROM PT ABLE TO GET PT TO THE EDGE OF THE BED BY FIST HAVING PT INCH HER WAY TO THE EDGE, PT UNDERSTANDING COMMANDS BUT APPEARS TO BE TOO WEAK TO BE ABLE TO COMPLETE THE WHOLE TASK. THIS RN AND RENETTA ABLE TO SWIVAL PT TO EDGE OF THE BED, PT UNABLE TO HOLD HERSELF UPRIGHT WHILE SITTING UP AND REQUIRED MODERATE ASSISTACE FROM STAFF TO SIT UPRIGHT. IT TOOK 3 STAFF MEMBERS TO SAFELY GET PT BACK TO BED IN A SEMI LAYING UPRIGHT POSTION
--- NOTE | 2020-01-30 14:35 | NUR ---
PATIENT VTIAL SIGNS AND I&O'S DOCUMENTED.
--- NOTE | 2020-01-30 14:50 | NUR ---
THIS RN IN PTS ROOM WITH THA FLORES TO GIVE PT A BED BATH. PT APPRECIATED THE BED BATH AND STATED "OH HOW WONDERFUL" PT LEFT WITH BED LOWERED AND HED SLIGHTLY ELEVATED. PTS DAUGHTER IN ROOM AT THIS AND STATES THAT SHE IS GOING TO CLIP HER MOMS TOE NAILS AND SOME OF HER FACIAL HAIR
--- NOTE | 2020-01-30 15:24 | NUR ---
THIS RN IN PTS ROOM PER PTS DAUGHTERS REQUEST. PT STATES THAT SHE IS IN SOME MORE PAIN. PT STATES THAT HER LEFT LEG IS MORE PAINFUL AND IS SPASMING. THIS RN PROVIDED PT WITH A HALF TAB OF NORCO. THIS RN ALSO ELEVATED PTS ANKLE SLIGHTILY WITH A BLANKET FOR COMFORT.
--- NOTE | 2020-01-30 15:38 | NUR ---
THIS RN ASKED BY PTS DAUGHTER TO COME IN ROOM. PT STATES THAT SHE IS HAVING MORE MUSCLE PAIN AND THAT HER SPIKA DRESSING WAS BECOMING TOO TIGHT. THIS RN INSPECTED THE SIGHT AND IT LOOKS WNL. PT ASKED FOR THIS RN TO REMOVE THE DRESSING, THIS RN EDUCATED PT THAT THE DRESSING COULD NOT BE REMOVED, THIS RN WAS ABLE TO READJUST THE DRESSING SO IT WOULD NOT DIG INTO HER LEG, THIS RN DID NOT LOOSEN DRESSING JUST READJUSTED IT. THIS RN ALSO FLOATED PTS HIP FOR COMFORT WELL THIS RN ALSO CALLED TO NOTIFY HIM ABOUT PTS MUSCLE PAIN. THIS RN RECIVED A VERBAL ORDER FOR FLEXERIL OF 5MG BID PRN
--- NOTE | 2020-01-30 17:30 | NUR ---
PTS DAUGHTER OUT IN LANCE TO ASK FOR ASSISTANCE TO GET HER MOM ON THE BEDPAN. THIS RN ABLE TO ROLL PT WITH ASSESSTANCE FROM PTS DAUGHTER (WILLING TO HELP) TO GET HER ON THE BED GRAFF. WHEN THIS RN TURNED PT THIS RN NOTICED THAT PT HAD EXCESS SEROUS DRAINAGE ON THE SHEETS, THIS RN NOTICED THAT THERE WERE TWO SMALL BLISTERS ON THE OUTSIDE OF HER LEFT UPPER CALF- THIS RN COVERED IT WITH AN ALLEVEN. THIS RN THEN ALSO NOTICED THAT THERE WAS MORE SHADOWING OF SANGINOUS DRAINAGE ON THE WADE WRAP FROM THE SPIKA DRESSING. THIS RN CALLED AT 1843 TO NOTIFY HIM ABOUT THE DRESSING AND NEW BLISTERS. PER THIS RN CHANGED THE [place]KA DRESSING INCLUDING THE THE ADB PAD TO REINFORCE THE DRESSING WITH THE HELP OF LASHONDA KINNEY.
--- NOTE | 2020-01-30 18:10 | NUR ---
PATIENT VITAL SIGNS AND I&O'S DOCUMENTED. NO FUTHER NEEDS AT THIS TIME. CALL LIGHT WITHIN REACH.
--- NOTE | 2020-01-30 20:12 | NUR ---
IMMUNOLOGIST ROUNDING NOTE. PT RESTING IN BED AWAKE. LEFT FOR HOME. PRIMARY RN AND SPRAYER AUTOMATIC SPRAY MACHINE AT BEDSIDE. CALL LIGHT IN REACH. WHITE BOARD UPDATED.
--- NOTE | 2020-01-30 20:30 | NUR ---
PT DENIES PAIN AT THIS TIME. HR IS IN THE LOW 100'S WITH SOME PVC'S PRESENT. LEFT LEG DRESSING IS C/D/I, PEDIS PULSE +2 AND TOES ARE WARM TO TOUCH. PT GETS EASILY OUT OF BREATH IF SHE IS ASKED TO MOVE. UPPER LOBES HAVE EXPIRATORY WHEEZING PRESENT, LOWER LOBES ARE DIMINISHED. ABD SOUNDS ARE PRESENT, PT WAS CONFUSED AND THOUGHT SHE NEEDED TO GO HOME. PT ALSO THOUGHT THAT SHE HAD BEEN MOVED TO A DIFFERENT ROOM. PT WAS ALSO ANXIOUS ABOUT BEING ALONE. PT WAS REASURED THAT ALL IS OK AND WELL. PT RESPONDED FAVORABLY. URINE OUTPUT WILL BE MONITORED AGAIN TONIGHT.
--- NOTE | 2020-01-30 23:07 | NUR ---
PT IS IN ROOM SLEEPING. NO NEW CONCERNS NOTED AT THIS TIME.
--- NOTE | 2020-01-31 01:07 | NUR ---
PT IS AWAKE IN BED. PT DENIES PAIN AT THIS TIME. NO NEW CONCERNS NOTED.PT DOES NOT APPEAR ANXIOUS AT THIS TIME.
--- NOTE | 2020-01-31 03:12 | NUR ---
PT AT ABOUT 0230 HAD 8/10 PAIN IN LEFT HIP. 1 TAB NORCO WAS GIVEN. IT WAS ALSO NOTED THAT PT HAD SEVERAL BLISTERS AROUND HER LEFT KNEE WHICH I COVERED WITH NON-STICK GAUZE AND PAPER TAPE. IT WAS ALSO NOTED THAT THAT ABD PAD ON HER LEFT HIP HAS SHADOWING PRESENT AGAIN OF SEROUS NATURE. SO FAR IT IS A SMALL AMOUNT. PT WAS RE-POSITIONED WELL AND THEN SUDDENLY BECAME NAUSEAED. PRN ZOFRAN WAS GIVEN. PT THEN ALSO STARTED TO HAVE REFLUX OF A MODEREATE TO SEVERE GRADE. MAALOX NIO WAS ORDERED. PT WAS ALSO GIVEN 0.5MG PRN IV DILAUDED TO LOWER HER PAIN QUICKER. PT STATED THAT HER ABDOMENT IS MUCH BIGGER THAN USUSAL. ABD IS SOFT TO TOUCH AND HAS ACTIVE BOWEL TONES. PT IS PASSING FLATUS. LOBES SEEM DIMINISHED AT THIS TIME BUT PT ALSO DOES NOT HAVE THE STRENGTH TO TAKE DEEP BREATHS. URINE OUTPUT SO FAR THIS SHIFT IS GOOD. WILL CONTINUE TO MONITOR.
--- NOTE | 2020-01-31 03:33 | NUR ---
PT AT THIS TIME DENIES PAIN AND DENIES NAUSEA. HER HR HOWEVER IS STILL >100 TO ALMOST 120 AT TIMES. CCU CALLED ABOUT A RUN OF SVT WELL. PT DOES NOT LOOK VERY WELL AT THIS TIME. PT SEEMS PALE. WILL CONTINUE TO MONITOR.
--- NOTE | 2020-01-31 04:55 | NUR ---
LAB WAS CALLED TO DRAW PT EARLY DUE TO PT PALE APPEARENCE. H&H CAME BACK CRITICAL AT 6.1 & 19.1 AT 0449. MD LI WAS CALLED AT 0450, I RECEIVED ORDERS TO TRANSFUSE 2 UNITS OF BLOOD. CONSENT SILL VALID UNTIL 1035 01/31/20. ASHLEY HAS ALSO BEEN D/C. THERE IS NO OBVIOUS SOURCE OF BLEEDING PRESENT THAT WOULD WARRANT SUCH A DROP IN PT H&H. WAITING ON BLOOD UNITS.
--- NOTE | 2020-01-31 05:39 | NUR ---
FIRST UNIT HAS BEEN STARTED. WILL CONTINUE TO MONITOR. IN ROOM WITH PT.
--- NOTE | 2020-01-31 06:42 | NUR ---
AT 0630 NEW IV SITE WAS NEEDED DUE TO LEAKING ON THE CURRENT ONE. PT SEEMS TIRED. PT CLEANED UP AND GOWN WAS CHANGED.
--- NOTE | 2020-01-31 07:48 | NUR ---
GENOVEVA SOLOMON AND BRANDYN SOLOMON UPDATED THIS AM ON PT STATUS, HAVING BLOOD ADMINISTERED THIS AM
--- NOTE | 2020-01-31 07:50 | NUR ---
BEDSIDE REPORT RECEIVED FROM MEJIA KINNEY, EMPLOYEE SERVICE OFFICER. WHITE BOARD UDPATED. ALL QUESTIONS ANSWERED. PATIENT RESTING WITH HOB ELEVATED. AWAKENS TO TOUCH/SOUND. 1ST UNIT OF PRBCs INFUSING INTO LEFT ARM IV. FAMILY CALLED BY CHARGE NURSE TO UPDATE ON PLAN OF CARE. LEFT HIP DRESSING SATURATED WITH BLOOD. STRIKE THROUGH ON WADE BANDAGE. SMALL BRUISING NOTED ON LEFT KNEE. NO BM SINCE ADMISSION. ON BOWEL PROTOCOL. GARCIAS DRAINING YELLOW URINE.
--- NOTE | 2020-01-31 08:57 | NUR ---
NO ANSWER AT HUSBANDS HOME PHONE. MESSAGE LEFT. CALLED PATIENTS DAUGHTER BRANDYN. SHE WAS ASLEEP SHE WAS UP LATE WITH PATIENT ACCORDING TO IVY. HE STATES HE HAS KNOWN THE FAMILY OVER 50 YEARS AND CAN ANSWER QUESTIONS. PATIENT LIVES WITH IN [place]BILE [place] IN [facility]. THERE IS ONE STEP IN AND SAME LEVEL INSIDE. PATIENT HAS BOTH FWW AND 4WW AT HOME. PREFERS AND USES DAILY THE FWW. HE STATES THEY GET SNAP BENEFITS AND LIVE ON A LIMITED INCOME. FAR HE KNOWS THE PLAN IS FOR PATIENT TO GO TO [facility] IN [place]. THIS IS WHERE SHE WENT AFTER HER LAST HIP BREAK ABOUT 3 YEARS AGO. HE STATES HE WILL TALK WITH FAMILY AND WHEN THEY COME TODAY THEY CAN ANSWER THIS IF DIFFERENT. CM WILL CONTINUE TO FOLLOW.
--- NOTE | 2020-01-31 09:11 | NUR ---
DOUBLE CHECKED 2ND UNIT OF BLOOD WITH TEACHING SPECIALISTS, SHANNON KINNEY. PATIENT CONFUSED. UNABLE TO TELL ME HER NAME OR FOLLOW SIMPLE INSTRUCTIONS. 2ND UNIT OF BLOOD STARTED AT 0858. LEFT AC FLUSHED AND INFUSING. POSITIONAL. BOOSTED IN BED WITH 2 PERSON ASSIST.
--- NOTE | 2020-01-31 09:45 | NUR ---
PATIENT IS IN BED RESTING. DIETER EMPTIED. GUEST IN ROOM AND NOTIFIED US OF PATIENT DIET PREFRENCE OF NOT EATING PORK. CALL LIGHT IN REACH. NO OTHER NEEDS AT THIS TIME.
--- NOTE | 2020-01-31 09:53 | NUR ---
RECEIVED CALL AND SPOKE WITH ROSA M. HE STATES UNDERSTANDING THAT PATIENT HAS BEEN SOMEWHAT CONFUSED AND SO I AM LOOKING FOR HELP IN HER TRANSITION FROM HOSPITAL TO NEXT LEVEL OF CARE AT DISCHARGE. HE STATES THEY PLAN ON HER GOING TO [facility]. WE DISCUSSED OTHER SNF FACILITIES [facility] [place] [facility] AND THAT THERE IS A WEBSITE FOR COMPARING. HE STATES THEIR FIRST CHOICE IS [facility], SHE HAS BEEN THERE BEFORE AND THEY "DID A GREAT JOB WITH HER". I MADE SURE HE UNDERSTANDS THE NO VISITORS RULES AT ALL FACILITIES, HE IS VERY AWARE OF THIS. PATIENT LIVES WITH HIM AND USES HER WALKER (FWW) MOSTELY. THEY DO HAVE A TRANSPORT W/C TO USE FOR THE CAR. HE STATES THEY HAVE A ELECTRIC SCOOTER ALSO. HE STATES THEY HAVE WALK IN SHOWER WITH BARS/CHAIR/GATE. HE STATES HE DRIVES. HE STATES THEIR DAUGHTERS HELP THEM, AND THE YOUNGEST LIVES WITH THEM AND MOSTLY DOES PATIENTS CARE AT NIGHT AND ON WEEKENDS WHEN NEEDED. HE FEELS IT WILL BE SAFE FOR HER RETURN AFTER SNF STAY. DISCUSSED I WILL CONTACT [facility] AND INQUIRE ABOUT AVAILABILITY. ALL QUESTIONS ANSWERED AT THIS TIME.
--- NOTE | 2020-01-31 11:47 | NUR ---
NOTIFIED THAT 2ND UNIT OF BLOOD INFUSED. ASKED IF WOULD LIKE A LAB DRAW TO CHECK CBC FOLLOWING INFUSION. NO NEW ORDERS GIVEN.
--- NOTE | 2020-01-31 12:51 | NUR ---
UPDATE DISCUSSION WITH AND ANY PRIMARY RN. SAID SHE WOULD ORDER A CBC AT THIS TIME TO MONITOR POST TRANSFUSION RESULTS.
--- NOTE | 2020-01-31 14:00 | NUR ---
PT ALERT, ORIENTED AND HAS VISITOR IN . ALLOWED PT TO VISIT, GAVE G.POST IV ALARM SOUNDED. GREGORIA FAYE CAME TO CHECK. GAVE BLESSING AND WILL FOLLOW
--- NOTE | 2020-01-31 14:09 | NUR ---
GUAIAC STOOL-- NEGATIVE. REPOSITIONED PATIENT IN BED. ABD AND WADE WRAP CHANGED TO LEFT HIP. LINEN CHANGE.
--- NOTE | 2020-01-31 14:15 | NUR ---
PATIENT TAKEN OFF BED GRAFF. GARCIAS CARE. VINICIO CARE. LINEN CHANGE. RN IN ROOM TO ASSIST AND LOOK AT DRESSING/BLISTERS. HEAL PROTECTORS PUT ON. PATIENTS ACTS IF MOVEMENT IS PAINFUL. ROLLING IS DIFFICULT AND UNCOMFORTABLE. VITALS AND I&O DONE. CALL LIGHT IN REACH. NO OTHER NEEDS AT THIS TIME. 2 GUESTS IN ROOM.
--- NOTE | 2020-01-31 14:20 | NUR ---
FAXED CLINICALS TO [facility] FOR REFERRAL REQUEST. FAX CONFIRMATION RECEIVED AT 1157AM.
--- NOTE | 2020-01-31 15:33 | NUR ---
PT VERBALIZES THAT SHE IS HAVING PAIN AT HER LEFT HIP. PT AND FAMILY FEEL THE FLEXERIL WOULD BE MOST EFFECTIVE AT THIS TIME IT WAS YESTURDAY WHEN SHE REPORTED THIS PAIN/SPASMS
--- NOTE | 2020-01-31 16:07 | NUR ---
MET WITH PT FOR ASSESSMENT DAUGHTER IS PRESENT. ALERT RESTING IN BED DENIES PAIN BUT STATES SHE IS UNCOMFORTABLE. DAUGHTER CHANGES TO SLEEP LAB TECHNOLOGIST BLANKETS PT APPEARS SATISFIED. DAUGHTER REMAINS IN ROOM OTHER NEEDS DENIED
--- NOTE | 2020-01-31 18:02 | NUR ---
DAUGHTER ASSISTS PT WITH EVENING MEAL ONLY TOLERATES ABOUT 20% REFUSES OFFER OF OTHER ITEMS. PT AGREES SHE IS COMFORTABLE.
--- NOTE | 2020-01-31 18:32 | NUR ---
PATIENT IS IN BED WITH TWO GUESTS IN ROOM. GARCIAS EMPTIED. CALL LIGHT IN REACH. NO OTHER NEEDS AT THIS TIME. RN REQUESTED AND NOTIFIED.
--- NOTE | 2020-01-31 19:40 | NUR ---
REPORT RECEIVED FROM LANDEN KINNEY. PATIENT LAYING IN BED, EYES CLOSED. BREATHING EVEN AND UNLABORED. IVF INFUSING WNL. 2L O2 IN PLACE. TELE IN PLACE. CALL LIGHT WITHIN REACH, WILL CONT TO MONITOR.
--- NOTE | 2020-01-31 21:40 | NUR ---
SCHEDULED MEDICATIONS ADMINISTERED. ASSESSMENT COMPLETE, VS AND I/O'S COMPLETE. GARCIAS CARE DONE, WATER REFRESHED AND WARM BLANKETS PROVIDED. DRESSING TO L HIP C/D/I, BLISTERS ON L THIGH COVERED WITH GAUZE. ICE PACK REFRESHED TO L HIP. PT STATES PAIN LEVEL IS 0/10. CALL LIGHT WITHIN REACH, WILL CONTINUE TO MONITOR.
--- NOTE | 2020-02-01 00:29 | NUR ---
ROUNDED ON PATIENT, LAYING IN BED WITH EYES CLOSED, LIGHTS OFF. BREATHING EVEN AND UNLABORED, O2 IN PLACE. IVF INFUSING WNL. CALL LIGHT WITHIN REACH, NO APPARENT NEEDS AT THIS TIME.
--- NOTE | 2020-02-01 01:54 | NUR ---
IV PUMP ALARMING, NEW BAG FLUID HUNG, INFUSING WNL. REPOSITIONED PT IN BED, REPORTS 7/10 PAIN. PRN MEDICATION ADMINISTERED. ASSESSMENT COMPLETE. DRESSING TO L HIP C/D/I. ICE PACK IN PLACE, SUSAN HOSE AND SCD ON R LEG IN PLACE, HEEL PROTECTORS ON. TELE IN PLACE. CALL LIGHT IN REACH, DENIES OTHER NEEDS. WILL CONT TO MONITOR
--- NOTE | 2020-02-01 05:19 | NUR ---
PRN PAIN MEDICATION ADMINISTERED x1 THIS SHIFT FOR 7/10 PAIN TO L HIP. WADE WRAP IN PLACE, ICE PACK, GAUZE OVER BLISTERS ON L THIGH. DRESSING C/D/I. GARCIAS IN PLACE, WNL. IVF INFUSING WNL. SCD'S AND SUSAN HOSE IN PLACE. 2L O2 VIA NC, TOLERATING WELL. PT UNABLE TO REPOSITION SELF IN BED, C/O SEVERE PAIN WITH REPOSITIONING. PT ABLE TO SLEEP THIS SHIFT, USES CALL LIGHT APPROPRIATELY. FREQUENT CHECKS COMPLETED.
--- NOTE | 2020-02-01 05:47 | NUR ---
VITALS AND I/O'S COMPLETE, WATER REFRESHED. GARCIAS WNL. IVF INFUSING WNL. PT REPORTS 0/1O PAIN. ICE PACK REFRESHED. VSS. CALL LIGHT IN REACH.
--- NOTE | 2020-02-01 06:12 | NUR ---
INFORMATION ARCHITECT INFORMED THIS RN OF PATIENT BLEEDING FROM L HIP. SATURATING DRESSING AND CHUCKS PAD, INFORMATION ARCHITECT AND HEAD TRIMMER IN ROOM APPLYING PRESSURE. LAB IN ROOM FOR DRAW. PHONED, NEW ORDERS TO REMOVE ALL DRESSING, APPLY ABD DRESSING AND ADMINISTER 1G TXA STAT, MD TO ARRIVE SHORTLY. PT C/O INCREASING PAIN IN L HIP. BLOOD BANDS IN PLACE. LAST VITALS STABLE: BP 177/70, RR 18, HR 85, SPO2 100, O2 AT 2L NC. WILL COMPLETE NEW ORDERS AND CONT TO MONITOR.
--- NOTE | 2020-02-01 06:30 | NUR ---
IN pt ROOM AT 0530 FOR SCHEDULED PAIN MEDICATION ADMINISTRATION. NEW ICE PACK PLACED ON LEFT HIP. NO DRAINAGE NOTED AT THIS TIME ON LEFT HIP. pt DENIES ANY PAIN. IVF INFUSING LEFT AC SITE WNL. BULKER NOTIFIED THIS RN AND GREGORIA CANELA OF BLEEDING AT LEFT HIP. RNS ENTER ROOM, BULKER WITH PRESSURE TO LEFT HIP. PLUG PASTER RN ALSO IN ROOM. WHITE CHUX WITH SANGUINOUS DRAINAGE, DRESSING SATURATED. BLEEDING NOTED WITH RELEASE OF PRESSURE. MD NOTIFIED VIA TELEPHONE BY GREGORIA CANELA. ORDERED MEDICATION ADMINISTERED, DRESSINGS REMOVED AND PLACED ORDERED. pt IS ALERT, ORIENTED, COMMUNICATING WITH STAFF. APPEARS DROWSY, C/O TONGUE NUMBNESS. WADE WRAP OVER ABD PAD. SURGICAL SCRUB COMPLETE.
--- NOTE | 2020-02-01 06:42 | NUR ---
MEALS ON WHEELS DRIVER TO ROOM WITH ASSISTANT BUSINESS MANAGER FOR REPORTS OF NEEDING TO HAVE BM. BLOOD NOTED TO CHUX PAD UNDERNEATH PT, WELL NOTED TO BE OOZING UP FROM ADHERENT DRESSING. NURSING EMERGENCY PLANNER INTO ROOM TO ASSESS. PRESSURE APPLIED TO POST OP SITE. PRIMARY RN NOTIFIED. DRESSING REMOVED PER MD ORDER. ABD X 2 AND TAPE PLACED TO SURGICAL SITE. PT ORIENTED THROUGHOUT, DROWSY. STATES THAT HER "TONGUE FEELS NUMB" AND REPORTS BEING COLD. PRIMARY RN REMAINS AT BEDSIDE MEALS ON WHEELS DRIVER EXITS THE ROOM.
--- NOTE | 2020-02-01 07:00 | NUR ---
PHONE CALL TO pt'S NEXT OF KIN, NOTIFIED OF PLAN FOR SURGERY. PHONE CALL TRANSFERRED INTO PATIENT ROOM. CUSTOMER TECHNICAL SERVICES MANAGER AT BEDSIDE.
--- NOTE | 2020-02-01 07:30 | NUR ---
Patient off unit for surgery at this time.
--- NOTE | 2020-02-01 09:40 | NUR ---
02/01/20 0940 Estela Campos 0854 PT ARRIVED IN PACU AWAKE AND TALKING TO STAFF. MATT DRSG INTACT AND FLASHING GREEN LITE. HEMOVAC PRESENT UNDER WADE WRAP. 0900 RESTING. REU. 0915 TXA GIVEN PER ORDERS. PT WITH NO C/O'S. 0930 TO ROOM 121 VIA BED WITH 2 PERSON ASSIST. FAMILY AT BEDSIDE. BED PLUGGED IN.
--- NOTE | 2020-02-01 09:56 | NUR ---
Patient back from surgery dept. Pt alert and oriented x4, respirations even and non labored. Pt denies pain at this time. Spinal resolving, patient able to wiggle toes, reports sensation to lower legs (approx l3 level). Roberta dressing to left hip intact, flashing green. Dressing small amount of marked sarosang drainage noted. Hemovac to left hip region is intact and patent with suction noted to drainage bag. large tegaderm CDI to medial left knee. Intact bilat pedal pulses noted. SCD's intact. Pt tolerating water and visiting with family. 2l Oxygen per nc intact, sat level noted at 100%. Pt reports chnonic 2l oxygen use at home. Generalized bruising noted. Zaragoza intact, patent with clear yellow urine noted. Pt denies needs. Personal supplies and call light within reach. Vital signs are stable.
--- NOTE | 2020-02-01 10:44 | NUR ---
Patient doing very well, alert and oriented x4. Pt denies pain at this time, spinal remains at L3. Cms intact. NATIVIDAD flashing green, hemovac intact with suction noted. Natividad dressing unchanged, small sarosang drainage noted to natividad dressing. Large allyvn dressing cdi to medial left knee region. SCD's and miracle hose intact. ice over left hip; tolerating well. Zaragoza draining clear yellow urine. Pt has no needs. Personal supplies and call light within reach. Family remains at bedside. Call light within reach.
--- NOTE | 2020-02-01 11:45 | NUR ---
Patient resting, a&ox4. Recent neb admin from RT per pt request for sob. Pt denies pain at this time. Spinal resolved. CMS intact to LLE. Roberta intact, small sarosang drainage marked and unchanged. Hemovac intact with suction. Jef wrap intact over dressing. Ice tolerated well to left hip. VS stable, 2l oxygen per nc, sat level of 100%. Pt reports breathing has improved. Family at bedside. Zaragoza intact, draining clear yellow urine. No needs at this time.
--- NOTE | 2020-02-01 11:45 | NUR ---
Spoke with Arianne and her daughter, Kaykay. Pt had some bleeding and returned to surgery this morning. She has been accepted by [facility], plan is for her to return in [address] Dawn agrees. Per report, pt will need to stay 2 more days for antibiotics.
--- NOTE | 2020-02-01 12:16 | NUR ---
One tab Guy 7.5/325mg po admin for reports of 7/10 left hip pain.
--- NOTE | 2020-02-01 12:30 | NUR ---
PT HAD JUST RETURNED FROM PACU, FOLLOWING HER PROCEDURE. FAMILY PRESENT, GAVE ENCOURAGEMENT AND WILL FOLLOW NEEDED
--- NOTE | 2020-02-01 13:14 | NUR ---
Patient in bed resting, daughter at bedside visiting with pt. Pt reports her pain is getting better in LLE. MATT dressing unchanged; flashing green. Small leaking noted from hemovac puncture site. WADE wrap intact over dressing(S). ICe in place. CMS intact. Pt reports full sensation, spinal resolved. Vital signs are stable. SUSAN and SCD's intact. Personal supplies and call light within reach.
--- NOTE | 2020-02-01 13:42 | NUR ---
PATIENT IS RESTING IN BED. GUEST IN ROOM. NO OTHER NEEDS AT THIS TIME.
--- NOTE | 2020-02-01 13:48 | NUR ---
Called Dr. Dawn regarding clarification for fluids, antibiotics, norco/tylenol dosing. New order obtained for Ancef 2g every eight hours for a total of six doses. Dr. Dawn would like to continue current IV fluids, tylenol and [place] order. Expressed to Dr. Dawn that giving both [place] and Tylenol at the max ordered dosages together would results in exceeding the tylenol dose. Patient has been taking one [place] only thus far. Discussed new orders with Roberto from pharmacy. Patient reports her pain is well tolerated at this time.
--- NOTE | 2020-02-01 15:07 | NUR ---
Flexeril 5mg po admin for left leg cramping.
--- NOTE | 2020-02-01 16:07 | NUR ---
Patient a&ox4. Spinal today; resolved. VS stable. SCD's and SUSAN hose. CMs intact. natividad to left hip; flashing green. Hemovac to left hip suction; sarosang drainage. Ice to left hip. Jef wrap to left hip. Pt calls approp. Chronic 2l oxygen in use.
--- NOTE | 2020-02-01 16:53 | NUR ---
One tab of [place] 7.5/325mg po admin for reports of 5/10 left hip pain.
--- NOTE | 2020-02-01 17:34 | NUR ---
Patient incontinent of stool. Entire fernandez wrap saturated to left upper leg and waist. New fernandez wrap placed at this time. ABD replaced to left laterat thigh over natividad dressing. Small amount of red poly blood leaking from hemovac insertion site. Patient tolerated well. Personal supplies and call light within reach. No needs at this time.
--- NOTE | 2020-02-01 18:04 | NUR ---
PATIENT HAD A LARGE BM AND RN AND I BEGAN CLEANING AT 1700. VINICIO CARE WAS PREFORMED. WE HAD TO ROLL THE PATIENT BACK AND FORTH AT LEAST 3 TIMES TO CLEAN HER AND RE DRESS HER SURGEY SITE. SHE EXPRESSED MUCH PAIN WHEN MOVING. FRESH DRESSING WAS PUT IN PLACE AND NEW GOWN WAS PROVIDED. THIS WAS FINSIHED AT APROX 1735. CALL LIGHT IN REACH. NO OTHER NEEDS AT THIS TIME.
--- NOTE | 2020-02-01 19:42 | NUR ---
REPORT RECEIVED FROM GREGORIA HORNE. PT LAYING IN BED, AWAKE AND ALERT, AT BEDSIDE. DAYANARA RN IN ROOM TO START IV, ATTEMPT SUCCESSFUL. DRESSING C/D/I, DRAINAGE REMAINS UNCHANGED. GARCIAS WNL, IVF INFUSING WNL. MATT IN PLACE, GREEN LIGHT FLASHING. CALL LIGHT WITHIN REACH, WILL CONT TO MONITOR
--- NOTE | 2020-02-01 20:53 | NUR ---
ROUNDED CHARGE. PRIMARY RNS IN ROOM FOR SCHEDULED MEDICATION ADMINISTRATION. TRAY TABLE CLEARED. FALL BAND PLACED ON pt.
--- NOTE | 2020-02-01 21:11 | NUR ---
PT STATES NEEDS TO HAVE BM, 2 RNS IN ROOM TO ASSIST. PT UNABLE TO HAVE BM. SCHEDULED MEDICATIONS ADMINISTERED AND PRN PAIN MEDICATION x1. ASSESSMENT COMPLETE, VS AND I/O'S COMPLETE. IVF INFUSING WNL. VSS. CURRENTLY AT BEDSIDE, ATTENTIVE TO PATIENT. MATT DRESSING C/D/I, WADE BANDAGE IN PLACE C/D/I. BLE IN ALIGNMENT. PT REPORTS 3/10 PAIN. CALL LIGHT IN REACH, WILL CONT TO MONITOR.
--- NOTE | 2020-02-01 22:00 | NUR ---
ROUNDED ON PATIENT. LEFT FOR NIGHT, PT STATES FEELING ANXIOUS. RESPONDED WELL TO VERBAL REASSURANCE. CALL LIGHT WITHIN REACH, IN VIEW OF NURSES STATION, WILL CONTINUE FREQUENT CHECKS.
--- NOTE | 2020-02-01 22:50 | NUR ---
IV PUMP ALARMING. pt AWAKE, HOLDING TELE BOX AND IS. CONFUSED, REORIENTATION TO LOCATION, EVENT. pt VERBALIZES UNDERSTANDING. CALL LIGHT IN REACH. pt PROVIDED WITH COOKIE FROM TABLE AND ICE WATER. CURTAIN OPEN FOR CLOSE VIEW FROM NURSES STATION.
--- NOTE | 2020-02-02 00:40 | NUR ---
ROUNDED ON PATIENT. IVF INFUSING WNL, MATT DRESSING FLASHING GREEN, DRESSING C/D/I. GARCIAS WNL. PATIENT LAYING IN BED WITH EYES CLOSED, BREATHING EVEN AND UNLABORED. CALL LIGHT WITHIN REACH, IN VIEW OF NURSES STATION, WILL CONTINUE TO MONITOR
--- NOTE | 2020-02-02 02:21 | NUR ---
CALL LIGHT ANSWERED, PT CONFUSED ABOUT PLACE AND TIME. REORIENTED EASILY WITH VERBAL REASSURANCE. VITALS AND ASSESSMENT COMPLETE, VSS. MATT DRESSING WITH WADE WRAP C/D/I, ICE PACK IN PLACE, LEGS IN ALIGNMENT. PT REPORTS PAIN WITH MOVEMENT. REPOSITIONED IN BED, BLANKETS PROVIDED. CALL LIGHT IN REACH. PT STATES NO OTHER NEEDS AT THIS TIME
--- NOTE | 2020-02-02 04:00 | NUR ---
RN NOTED PATIENT SPEAKING ALOUD IN ROOM, EXPRESSING PAIN. PT STATES 6/10 PAIN TO L OPERATIVE HIP AND LEG. DRESSING C/D/I, MATT LIGHT FLASHING GREEN, ICE PACK REPLACED. PRN PAIN MEDICATION ADMINISTERED. PT REPOSITIONED IN BED WITH PILLOWS. PT FELT SWEATY, TEMP TAKEN: 98.2. HEAVY BLANKET REMOVED. CALL LIGHT IN REACH. PT EXPRESSES GRATITUDE FOR CARE. WILL CONT TO PERFORM FREQUENT CHECKS.
--- NOTE | 2020-02-02 05:20 | NUR ---
PATIENT SLIGHTLY CONFUSED POST SURGERY REGARDING DATE AND TIME, EASILY REORIENTED WITH VERBAL REASSURANCE. VSS. MATT DRESSING GREEN LIGHT FLASHING, WADE WRAP IN PLACE C/D/I, HEMOVAC IN PLACE W SEROSANG DRAINAGE. ICE PACK TO L HIP. PRN PAIN MEDICATION ADMINISTERED x2 THIS SHIFT WITH RELIEF FOUND. TELE IN PLACE, 2 L O2 VIA NC, GARCIAS WNL, IVF INFUSING WNL. CMS INTACT. TOLERATING REG DIET. USES CALL LIGHT APPROPRIATELY.
--- NOTE | 2020-02-02 05:58 | NUR ---
SCHEDULED MEDICATIONS ADMINISTERED, VS AND I/O'S COMPLETE. PATIENT LAYING IN BED WITH EYES CLOSED, EVEN BREATHING, CALL LIGHT IN REACH, NO APPARENT NEEDS
--- NOTE | 2020-02-02 06:30 | NUR ---
CRITICAL LAB VALUE RECEIVED THIS AM, HGB 6.3, HCT 19.1. PHONED. 2 UNITS PRBC'S TO BE INFUSED PER MD ORDER. LAB INFORMED.
--- NOTE | 2020-02-02 06:40 | NUR ---
PHONE CALL TO LAB, PER LAB BLOOD BAND . LAB TECHS NOW IN ROOM DRAWING BLOOD FOR CROSS AND SCREEN.
--- NOTE | 2020-02-02 07:27 | NUR ---
Pt resting in bed, alert and oriented x3, a bit forgetful to questions this morning. Pt reports her pain to left hip is well controlled at this time. Roberta dressing unchanged from yesterday; CDI with quarter size dried drainage noted. Roberta flashing green. Hemovac intact, patent with sanguineous drainage noted in tubing with pressure applied to hemovac appliance. Jef wrap intact over left hip dressing. Ice in use over surgical site. CMS intact. SUSAN/SCD's/heel protectors in place. Pt has no needs at this time. Personal supplies and call light within reach. Zaragoza draining clear yellow urine.
--- NOTE | 2020-02-02 07:33 | OR ---
[facility] [address], [place] [address] Signed DATE OF OPERATION: 02/01/2020 SURGEON: Humble Dawn MD DATE OF PROCEDURE: 02/01/2020 PREOPERATIVE DIAGNOSIS: Acute wound bleeding, left hip. POSTOPERATIVE DIAGNOSIS: Acute wound bleeding, left hip. PROCEDURE PERFORMED: Irrigation and debridement, evacuation of hematoma, left hip wound with cauterization of bleeder. SURVEYING TECHNICIAN: Val Fleming PA-C. Val was present and critical for all portions of procedure. ANESTHESIA: Spinal. BLOOD LOSS: 200 acute, 1000 hematoma. BRIEF HISTORY: Arianne is an 84-year-old female who underwent ORIF of her hip on Friday. When the hip was closed, it was completely dry, however, she developed bleeding by the next day and had continued to intermittently bleed from the wound. This resulted in transfusions. Overnight last night, she however had acute increase in the bleeding and I was contacted and decided to bring her to the operating room for I and D and see if we could find the bleeder. Risks and benefits were discussed with her and she elected to proceed. DESCRIPTION OF PROCEDURE: Once consent was obtained, she was taken acutely to the operating room and after spinal anesthesia was established, she was placed on the operating table and a hip bump was placed under the left. The hip was then prepped and draped in a standard sterile fashion and the violet were removed. The underlying suture line was cut. The superior Electronically Signed By: HUMBLE DAWN MD 02/02/20 0733 PATIENT NAME: ARIANNE SOLOMON OPERATIVE REPORT DATE OF : 39 REPORT #: [id number] PHYSICIAN: HUMBLE DAWN MD PCP: JOYCE LOVELL MD REPORT IS CONFIDENTIAL AND NOT TO BE RELEASED WITHOUT AUTHORIZATION [facility] [address] [place] [id number] Signed half of the fascial closure had been dehisced by the hematoma, which appeared to be coming from the muscle layer deep to the fascia. The hematoma was evacuated and copiously irrigated with normal saline. There was a venous bleeder in the superior portion of the wound and we were unable to reach this well enough, so I extended the incision about another inch and a half superiorly. We were then able to visualize it quite nicely. We then cauterized it by clamping and cauterizing it. Excellent hemostasis was obtained. The corresponding side on the posterior aspect was also cauterized. The wound was quite at this end of the procedure. We did place Arixtra powder deep to the fascia throughout. A 10-Qatari Chuck drain was then brought out anteriorly. This was placed in a subfascial plane. The fascia was then closed using #2 Stratafix, the fat layer was closed using 2-0 Monocryl, subcutaneous tissue was closed using 2-0 nylon. The wound was dry and the drainage produced very little at the end of the procedure. The wound was dressed with a MATT wound VAC dressing held over an Acticoat. The dressing was then covered with a spiked Jef dressing. She tolerated the procedure well. All sponge, needle, and instrument counts were correct. Humble Dawn MD BA/LANCEL /[id number] Copies: ~ Electronically Signed By: HUMBLE DWAN MD 02/02/20 0733 PATIENT NAME: ARIANNE SOLOMON OPERATIVE REPORT DATE OF : 39 REPORT #: [id number] PHYSICIAN: HUMBLE DAWN MD PCP: JOYCE LOVELL MD REPORT IS CONFIDENTIAL AND NOT TO BE RELEASED WITHOUT AUTHORIZATION
--- NOTE | 2020-02-02 08:01 | NUR ---
Spoke with Dr. Dawn. He states possible dc on Friday, pt H&H decreased and will recieve blood and continued antibiotics. Depending on patients recovery, may not dc until Friday.
--- NOTE | 2020-02-02 08:13 | NUR ---
First unit of blood started. VS stable at this time. Pt sitting up eating breakfast. Pt verbalized she would call if she experiences any sob, itching, chest pain and or any other discomfort. Pt has no needs and states she is doing well. Blood started at 75ml/hr.
--- NOTE | 2020-02-02 08:19 | NUR ---
Patient doing well eating breakfast at this time. Vital signs are stable. Blood infusion rate increased to 150ml/hr. Pt denies any distress and or discomfort. No needs at this time. IV site patent.
--- NOTE | 2020-02-02 09:08 | NUR ---
One tab of norco 7.5/325mg po admin for reports of 5/10 left hip pain.
--- NOTE | 2020-02-02 09:24 | NUR ---
PATIENT AWAKE WORKING WITH O/T. VITALS AND I&OS CHARTED. GARCIAS EMPTIED. FRESH ICE WATER GIVEN. PATIENT A BIT CONFUSED DATE AND WHERE SHE IS. CALL LIGHT WITHIN REACH
--- NOTE | 2020-02-02 10:20 | NUR ---
First unit of blood completed and second and final unit started. Pt doing well, denies chest pain and or sob. Pt's vital signs are stable, remains on 2L oxygen per nc. IV site patent. Family at bedside visiting. No needs at this time. Call light within reach.
--- NOTE | 2020-02-02 12:43 | NUR ---
Second unit of blood completed at this time. Pt sitting up eating at this time, denies any discomfort. Vital signs are stable, afebrile. Patient's at bedside. No needs at this time.
--- NOTE | 2020-02-02 13:00 | NUR ---
Updated Arianne and daughter I spoke with Dr. Dawn. Possible dc on Friday or Friday depending on how Arianne fills. They deny needs.
--- NOTE | 2020-02-02 13:16 | NUR ---
CALLED DR LI REGARDING PLACEMENT OF NEW ALLYVN ON BLISTERS THAT POPPED, HE STATED TO GO AHEAD. LEAVE THE EXISTING ONE IN PLACE. REGARDING LOW U\O, CONTINUE TO MONITOR.
--- NOTE | 2020-02-02 13:25 | NUR ---
PT RESTING SUPINE IN BED ALERT AND ORIENTED, ASSESSMENT COMPLETED, DSG CHANGED TO LEFT LE WHERE BLISTER HAD POPPED ON PREVIOS SHIFT. PT WAS ALSO GIVEN BED BATH AND FULL LINEN CHANGE COMPLETED WITH MARK PIERCE ASSISTANCE. PT REPOSITIONED NAD STATES SHE IS COMFORTABLE. FRESH ICE WATER AND CALL LIGHT IN REACH. NO FURTHER NEEDS OR CONCERNS VOICED.
--- NOTE | 2020-02-02 14:31 | NUR ---
PT RESTING IN BED, ALERT AND VISITING WITH FAMILY AT . PT SAID SHE HAS NO PAIN, WAS ABLE TO JOKE. GAVE BLESSING, WILL FOLLOW
--- NOTE | 2020-02-02 14:51 | NUR ---
PATIENT IS RESTING. THERE ARE 3 GUESTS IN ROOM AND ONE WAS ASKED TO LEAVE BY CHARGE NURSE. I&O DONE. VITALS DONE. CALL LIGHT IN REACH. NO OTHE5R NEEDS AT THIS TIME.
--- NOTE | 2020-02-02 16:19 | NUR ---
Pt resting in bed alert adn oriented, call light and h2o in reach. Pt working with Physical Therapist. No needs or concerns voiced.
--- NOTE | 2020-02-02 17:31 | NUR ---
PATIENT AND CAREGIVER ARE IN ROOM EATING DINNER. COFFEE AND WATER REQUESTED AND GIVEN. NO OTHER NEEDS AT THIS TIME.
--- NOTE | 2020-02-02 18:15 | NUR ---
PT RESTING IN SEMIFOWLERS POSITION IN BED ALERT AND ORIENTED TO PERSON PLACE SITUATION AND TIME. PT STATES "I WISH I COULD JUST SLEEP IN MY OWN BED TONIGHT". PT ASSISTED IN REPOSITIONING IN BED, WARM BLANKET PROVIDED. PT EATING DINNER AND STATES SHE IS COMFORTBLE AND DENIES FURTHER NEEDS.
--- NOTE | 2020-02-02 18:26 | NUR ---
PATIENT AND CAREGIVER ARE IN ROOM. PATIENT IS MORE CONFUSED TONIGHT. WARM BLANKET REQUESTED AND GIVEN.
--- NOTE | 2020-02-02 19:38 | NUR ---
REPORT RECEIVED FROM GREGORIA OCHOA. PATIENT RESTING IN BED, AWAKE, DAUGHTER AT BEDSIDE. O2 IN PLACE, GARCIAS WNL. MATT DRESSING IN PLACE, GREEN LIGHT FLASHING, HEMOVAC WNL, 25 ML DRAINAGE OUT DURING DAY SHIFT. PATIENT DENIES PAIN AT THIS TIME. CALL LIGHT WITHIN REACH, WILL CONT TO MONITOR
--- NOTE | 2020-02-02 20:48 | NUR ---
SCHEDULED MEDICATIONS ADMINISTERED, PRN PAIN MEDICATIONS GIVEN FOR 6/10 PAIN IN L OPERATIVE HIP. ASSESSMENT COMPLETE, VS AND I\O'S COMPLETE. SLIGHT EXP WHEEZE NOTED IN LUNGS. HR IRREGULAR, TELE IN PLACE. BOWEL TONES ACTIVE. CMS INTACT, MATT DRESSING W GREEN LIGHT FLASHING, C/D/I WITH WADE WRAP COVERING. HEMOVAC IN PLACE, SMALL AMOUNT SANGUINOUS DRAINAGE NOTED. AT BEDSIDE, ATTENTIVE TO PATIENT. CALL LIGHT WITHIN REACH, WILL CONTINUE TO MONITOR.
--- NOTE | 2020-02-02 21:47 | NUR ---
SCHEDULED MEDICATIONS ADMINISTERED. ABX INFUSED WNL. LOWER L ARM IV REMOVED, UPPER L ARM IV IN PLACE, FLUSHES WNL. GARCIAS WNL. DRESSING C/D/I, MATT WNL, HEMOVAC WNL. PT REPORTS "NO PAIN, FEELING PRETTY GOOD" AT THIS TIME. AT BEDSIDE, WATCHING TV WITH PATIENT AND ATTENTIVE TO HER NEEDS. CALL LIGHT WITHIN REACH.
--- NOTE | 2020-02-03 00:18 | NUR ---
ROUNDED ON PATIENT. AWAKE LAYING IN BED, WATCHING TV. WATER REFRESHED. PT STATES SHE IS WAITING UP FOR HER TO RETURN, DISCUSSED WITH PATIENT THAT SHE SHOULD GET SOME SLEEP, WOULD RETURN IN MORNING. PT STATES UNDERSTANDING. PT STATES NO PAIN OR NEEDS. CALL LIGHT IN REACH, WILL CONT TO MONITOR.
--- NOTE | 2020-02-03 01:27 | NUR ---
PT REMOVED TELE LEADS, REPLACED BY THIS RN. PT DISORIENTED TO PLACE, TIME, SITUATION. EASILY REORIENTED WITH VERBAL REASSURANCE. CALL LIGHT IN REACH, IN VIEW OF NURSES STATION, WILL CONT FREQUENT CHECKS.
--- NOTE | 2020-02-03 02:18 | NUR ---
SCHEDULED MEDICATIONS ADMINISTERED, VS COMPLETE. GARCIAS EMPTIED, WNL. REPOSITIONED IN BED, WARM BLANKET GIVEN, WATER PROVIDED. CALL LIGHT IN REACH, WILL CONT TO MONITOR.
--- NOTE | 2020-02-03 04:00 | NUR ---
PATIENT REMOVED TELE LEADS, REPLACED BY THIS RN. PT STATES THEY FEEL "ITCHY", IS DEMONSTRATING MILD CONFUSION. REORIENTED. ASSESSMENT COMPLETE. DRESSING TO L OPERATIVE HIP C/D/I, MATT FLASHING GREEN, HEMOVAC W SMALL AMOUNT SANGUINOUS DRAINAGE. CALL LIGHT WITHIN REACH, IN VIEW OF NURSES STATION, WILL CONT TO MONITOR.
--- NOTE | 2020-02-03 06:28 | NUR ---
PT DISORIENTED TO PLACE AND SITUATION THIS SHIFT. DRESSING TO L HIP C/D/I, MATT FLASHING GREEN, HEMOVAC IN PLACE, 100 ML OUT THIS SHIFT. PRN PAIN MEDICATION ADMINISTERED X1 THIS SHIFT FOR 6/10 PAIN WITH RELIEF FOUND. EXP WHEEZE NOTED W LUNG SOUNDS, HR IRREGULAR, BOWEL TONES ACTIVE. VSS. FREQUENT CHECKS COMPLETED THIS SHIFT PATIENT DOES NOT REGULARLY UTILIZE CALL LIGHT.
--- NOTE | 2020-02-03 07:50 | NUR ---
Pt pleasant, but confused. Possible dc tomorrow, will check with Dr. Dawn in the AM.
--- NOTE | 2020-02-03 08:06 | NUR ---
PT ALERT AND ORIENTED CALL LIGHT AND H2O IN REACH. ASSESSMENT COMPLETED AM MEDS ADMINISTERED. NO NEEDS OR CONCERNS VOICED.
--- NOTE | 2020-02-03 11:06 | NUR ---
PT RESTING IN BED WATCHING TV. PT WELCOMED ME IN, SAID SHE SLEPT PRETTY WELL. PT ACCEPTED JO-ANN AND REQUESTED PRAYER. WILL FOLLOW
--- NOTE | 2020-02-03 12:45 | NUR ---
PT RESITNG IN SEMIFOWLERS POSITIONIN BED ALERT AND ORIENTED X3. ASSESSMENT COMPLETED AND SOILED ALLEVEN DRESSINGS REMOVED BLISTERS CLEANSED WITH NS NA DPAT DRIED WITH GUAZE AND NEW ALLYVN DRESSINGS APPLIED TO LEFT LATERAL AND MEDIAL LLE. CALL LIGHT AND H2O IN REACH. PT ASSISTED IN REPOSITIONING IN BED AND STATES SHE IS COMFORTABLE.
--- NOTE | 2020-02-03 18:34 | NUR ---
PT'S HR ELEVATED HIGH 150'S AND VARIES BETWEEN [address] HEREDIA NOTIFIED OF THIS AND GIVES VERBAL ORDER TO GIVE 2000 DOSE OF 60MG CARDIZEM NOW. CCU SMALL PARTS SHAPER OPERATOR AWARE OF NEW ORDER.
--- NOTE | 2020-02-03 19:12 | NUR ---
DR LI NOTIFIED OF PT'S HR ELEVATED FROM 100 TO 150. PT ALERT AND ORIENTED DENIES CHEST PAIN, PALPITATIONS, SOB OR OTHER SYMPTOMS. NO NEEDS OR CONCERNS VOICED. REPORT TO GREGORIA FLORES.
--- NOTE | 2020-02-03 20:33 | NUR ---
ASSISTED PRIMARY RN SANDRA WITH REPOSTIONING PT IN BED. SHE ALSO PLACED NEW ALLYVN ON L MEDIAL CALF. SANDRA IS IN ROOM W PT AT THIS TIME.
--- NOTE | 2020-02-03 20:39 | NUR ---
PT AWAKE, ALERT AND ORIENTED, VISITING WITH . PT REPOSITIONED IN BED, MULTIPLE BRUISED AREAS OVER R AMR AND LEFT ARM, VINICIO AREA, SPICA WADE WRAP DRESSING OVER L HIP REPOSITONED, SUSAN HOSE IN UP TO L MID CALF, BRUISED AREA OVER L HIP WITH 2 ALLEVYN DRESSING FELL OFF AND WERE REPLACED UNDER KNEE TO MID UPPER CALF, YELLOW DRAINAGE PRESENT, AREAS MOIST, RED AND 2 BLISTERS NOTED UNDERNEATH, INTACT. GOOD CMS, SUSAN HOSE LR LEG AND SCDS, HEEL PROTECTORS IN BOTH. F/C PATENT, VINICIO CARE AND F/C CARE DONE. TURNED TO R SIDE, COOP TOOK MEDS W/O PROBLEMS. ASPIRATION AND FALL PROTECTION IN PLACE ALL PROCEDURES EXPLAINED. TOLERATING FLUIDS WELL, NO C/O PAIN
--- NOTE | 2020-02-03 21:03 | NUR ---
LEAD WAS OFF ON TELE, IT IS NOW REPLACED. PT DENIES NEEDS AT THIS TIME. VISITOR IS IN THE ROOM AND CALL LIGHT IS CLOSE.
--- NOTE | 2020-02-03 22:39 | NUR ---
rEPOSITIONED, 2L NC IN PLACE, HOB ELEVATED, CONFUSED TO PLACE AND SITUATION AT THIS TIME, EARLIER ON SHIFT PT WAS AWARE AND STATED REASON WHY SHE WAS IN HOSP. L HIP DRESSING INTACT. HEMOVAC PATENT WITH SCANT AMOUNT OF DRAINAGE. MATT DRESSING INTACT, GREEN LIGHT FLASHING. WADE WRAP DRESSING INTACT BRUISING OVER BOTH ARMS IN DIFFERENT STAGES OF HEALING. SL PATENT LAC., F/C PATENT, HEEL PROTECTORS SCDS SUSAN HOSE IN PLACE. rEPOSITIONED, AT BEDSIDE
--- NOTE | 2020-02-03 22:40 | NUR ---
2PA TURN PT TO LEFT, PILLOW ADDED UNDER RIGHT SIDE, DENTURES ARE OUT, PLACED IN SOLUTION, LEAVING RM FOR THE NIGHT, NO FURTHER REQUEST AT THIS TIME
--- NOTE | 2020-02-04 01:11 | NUR ---
TURNED, COOP, O2 2LNC IN PLACE, NO C/O PAIN, DRESSING INTACT, F/C PATENT, HEMOVAC PATENT.
--- NOTE | 2020-02-04 01:39 | NUR ---
REPOSITIONED, CARDIZEM 60MG GIVEN MOANING WHEN TURNED, MEDICATED WITH 2 NORCO 3/10 FLACC PAIN SCALE. REPOSITONED TO L SIDE, AWARE OF PLACE, NAME NOT DATE. L HIP DRESSING INTACT, MATT DRESSIN,WADE WRAP SPICA DRESSING IN PLACE, HEMOVAC PATENT, F/C DRAINING QS, SCD SUSAN HOSE HEEL PROTECTORS. ON 2LNC, LUNGS DIM AT BASES
--- NOTE | 2020-02-04 04:11 | NUR ---
Resting, O2 2L NC, no distress, L MATT dressing in place, hemovac patent, f/c with QS urine. scds heel ptorectors miracle hose in place. turned q2h, no further s/sx pain.
--- NOTE | 2020-02-04 06:54 | NUR ---
Pt on O2 2Lnc, lungs dim at bases. Mildly confused at times to place or situation. SL LAC patent. Roberta dressing L HIP, hemovac drained total of 40cc this shift. allevyn dressing to below L knee changes, yellow drainag, no odor. scds, heel protectors and miracle hose in place, eledema L knee present, good cms, working with PT. Bruised areas over arms, antony area and L arm noted, f/c patent draining QS urine. Repositioned Q@H. Medicated with norco per c/o L hip pain, effective.
--- NOTE | 2020-02-04 07:29 | NUR ---
bedside report received pt awake resting in bed family present in room. pt agrees she is comfortable. fresh h20 at bedside
--- NOTE | 2020-02-04 09:53 | NUR ---
DR. LI IN TO SEE PATIENT. LEFT HIP HEMOVAC REMOVED, ALLEVYN PLACED OVER INSERTION SITE.
--- NOTE | 2020-02-04 10:00 | NUR ---
Spoke with Dr. Dawn. Pt will remain in the hospital throught the weekend. Plans to remove the drain today, WBC was elevated. Notified [facility] no admission today. Spoke with pt and updated she will continue to stay at the hospital through the weekend.
--- NOTE | 2020-02-04 10:09 | NUR ---
, NO OTHER NEEDS AT THIS TIMEPATIENT AWAKE IN BED, VITALS AND I&OS CHARTED. GARBAGE AND GARCIAS EMPTIED. FACE AND HANDS WASHED. ROOM TIDIED
--- NOTE | 2020-02-04 10:47 | NUR ---
PT TOLERATES MOST OF MORNING MEAL. HAS ARRIVED TO VISIT PT RESTING EYES CLOSED. P/T IN TO SEE PT SHE STATES SHE DOESN'T WANT TO PARTICIPATE AT THIS TIME. DR LI IN EARLIER IN THE SHIFT ORDERS GIVEN
--- NOTE | 2020-02-04 10:53 | NUR ---
CHECKING IV SITE WRAPPED IN THICK COBAN ATTEMPTED TO CUT COBAN ACCIDENTLY CUT TUBING ON SL. SL DC'D CATH INTACT ARM IN THIS AREA IS RED AND IRRITATED. NO TREATMENT TO SITE EXPECT RESOLUTION WILL MONITOR
--- NOTE | 2020-02-04 12:09 | NUR ---
PT SOMEWHAT CONFUSED THIS MORNING. IN VISITING, BOTH CHEERFUL. GAVE BLESSING, WILL FOLLOW
--- NOTE | 2020-02-04 12:12 | NUR ---
LACK OF IV SITE REPORTED TO MD Sharma NO NEW ORDERS. PT CONTINUES RESTING IN BED REPOSITIONED TO RELIEVE PRESSURE. PT AGREES SHE IS COMFORTABLE
--- NOTE | 2020-02-04 13:16 | NUR ---
PT UP TO BSC ABLE TO PASS A FAIR AMOUNT OF STOOL, RETURNS TO BED TO REST. DAUGHTER LEAVES ARRIVES. BED ALARM IS SET FOR SAFETY. ENCOURAGED PT AGAIN TO DRINK THE MAG CITRATE AND MIRALAX SHE REFUSES
--- NOTE | 2020-02-04 13:21 | NUR ---
CHECKING IN ON PT SHE IS ALERT AND CHEERFUL FAMILY PRESENT. C/O PAIN IN HER BACK MEDICATED PER ORDERS
--- NOTE | 2020-02-04 13:32 | NUR ---
Updated pt's daughter and , Dr. Dawn removed the drain and plans on pt staying through the weekend. Daughter voices she is pleased as she does not want her to have to return to the hospital. Family denies needs.
--- NOTE | 2020-02-04 13:56 | NUR ---
PATIENT AWAKE IN BED, DAUGHTER IN ROOM. PATIENT HAS HAD LITTLE OUTPUT TODAY, RN AWARE. ENCOURAGING WATER GARCIAS EMPTIED. [facility]
--- NOTE | 2020-02-04 14:57 | NUR ---
PT REPOSITIONED. FAMILY REMAIN IN THE ROOM PT AGREES SHE IS COMFORTABLE
--- NOTE | 2020-02-04 15:40 | NUR ---
REPORT RECEIVED FROM GREGORIA KEARNS. PT RESITNG SUPINE IN BED ALERT AND ORIENTED. PT ASSISTED UP TO CHAIR WITH 3PERSON HEAVY ASSIST. PT ASSISTED IN REPOSITIONINE IN CHAIR WITH HEAVY ASSIST AND NOW STATES SHE IS COMFORTABLE. ASSESSMENT COMPLETED. LINENS CHANGED ON BED. CALL LIGHT AND FRESH ICE WATER IN REACH. PT DENIES FURTHER NEEDS OR CONCERNS.
--- NOTE | 2020-02-04 17:43 | NUR ---
PATIENT EATING DINNER UP IN CHAIR. FAMILY IN ROOM. GARCIAS EMPTIED. CALL LIGHT WITHIN REACH
--- NOTE | 2020-02-04 18:29 | NUR ---
Dr Dawn notified of pt's low urine output this shift. Per dr dawn request Dr aranda was consulted regarding this. New order received from dr Aranda for lr bolus -see orders and emar. No further orders received.
--- NOTE | 2020-02-04 18:51 | NUR ---
Pt was assisted from chair back to bed per her request via rodolfo lift. Pt currently has no iv access so charge nurse in to attempt iv start for LR infusion order. Call light in reach. Pt assisted into position of comfort. Pt denies further needs or concerns.
--- NOTE | 2020-02-04 19:20 | NUR ---
Shift report recieved. Pt lying in bed. Recently hoyered from chair per day shift. [address], even and unlabored. Roberta dressing to L hip intact green okay light flashing. Moderate shadowing noted, green/brown color. Various allevyns noted due to previous blisters to bilateral thighs. SCD, miracle hose and heel protectors in place. in room. Call light in reach, no further concerns.
--- NOTE | 2020-02-04 19:41 | NUR ---
Shift report recieved by RN. Pt lying in bed, shows no s/s of unlabored breathing. Dressing placed on L femoral. No further concerns or needs at this time.
--- NOTE | 2020-02-04 20:15 | NUR ---
PT LYING IN BED, ASSESSMENT COMPLETE. VS STABLE, [address]. PT DENIES SOB, SCHEDULED MEDS GIVEN. MATT DRESSING REMAINS INTACT, NO NEW SHADOWING AT THIS TIME AND GREEN LIGHT FLASHING. GARCIAS PATENT, IV FLUIDS INFUSING, SITE WNL. PT DENIES PAIN, NO OTHER NEEDS AT THIS TIME. IN ROOM, CALL LIGHT WITHIN REACH
--- NOTE | 2020-02-04 23:12 | NUR ---
IV PUMP WAS BEEPING, LR BOLUS IS COMPLETE. NEW BAG OF LR IS NOW INFUSING AT 100MLS/HR. PT DENIES NEEDS AT THIS TIME. CALL LIGHT IS CLOSE.
--- NOTE | 2020-02-05 | NUR ---
PT LYING IN BED, REPOSITIONED WITH HELP FROM GREGORIA CORDOBA AND TURNED SLIGHTLY TO RIGHT SIDE. MATT DRESSING INTACT, GREEN LIGHT ON. GREEN/BROWN SHADOWING ON DRESSING. DOES NOT C/O PAIN, NO UNLABORED BREATHING. RR WITHIN NORMAL LIMITS. CALL LIGHT WITHIN REACH. NO FURTHER CONCERNS OR NEEDS.
--- NOTE | 2020-02-05 00:30 | NUR ---
in pt rm to empty flores per rn requestn informed rn of findings, recorded in [facility]
--- NOTE | 2020-02-05 01:29 | NUR ---
PT RESTING IN BED, EYES CLOSED. 2LNC IN PLACE, RR EVEN AND UNLABORED. IV FLUIDS INFUSING. PT APPEARS COMFORTABLE AT THIS TIME. CALL LIGHT IN REACH. SCD'S, HEEL PROTECTORS, AND SUSAN HOSE IN PLACE.
--- NOTE | 2020-02-05 01:40 | NUR ---
in rm to take vitals, rn to be in shortly for assessment, no further needs at this time
--- NOTE | 2020-02-05 02:34 | NUR ---
SCHEDULED BP MED GIVEN, VS STABLE. [address] PT REPOSITIONED. NEW CHUX IN PLACE DUE TO BLISTER DRAINAGE. RED BOTTOM, BLANCHABLE. NEW WADE WRAP HELPED BY GREGORIA RICHARDSON AND BERYL. ACTICOAT DRESSING TO L INNER THIGH SATERATED,YELLOW IN COLOR. DRESSING FELL OFF PT DUE TO SATERATION. GENERALIZED SWELLING TO VINICIO AREA. GARCIAS MANIPULATED, UO REMAINS LOW, JULIAN IN COLOR. CHARGE NURSE AWARE. WILL MONITOR. CALL LIGHT WITHIN REACH.
--- NOTE | 2020-02-05 03:00 | NUR ---
THIS RN SPOKE TO DR HEREDIA REGARDING URINE OUTPUT FOR SHIFT THUS FAR (100MLS DARK JULIAN IN COLOR). LUNG SOUNDS CLEAR OVERALL WITH SCANT CRACKLES TO LEFT LOWER LOBE. MILD EDEMA TO BILATERAL HANDS, WITH +2 TO +3 EDEMA TO VINICIO AREA AND LEFT HIP. DR HEREDIA MADE AWARE OF ALL INFORMATION ABOVE, TELEPHONE ORDERS READ BACK FOR A ONE TIME DOSE 20MG IV LASIX, GIVE NOW. TELEPHONE ORDERS TO ALSO DISCONTINUE CURRENT IV FLUIDS. WILL MONITOR.
--- NOTE | 2020-02-05 03:21 | NUR ---
LASIX GIVEN AND IV FLUIDS DISCONTINUED PER DR SQUIRES ORDERS. PT DENIES FURTHER NEEDS. CALL LIGHT IN REACH.
--- NOTE | 2020-02-05 05:32 | NUR ---
PT SLEPT OFF AND ON THIS SHIFT, CALLS APPROPERIATELY. A/O TO SELF, PLACE, AND EVENTS. LOW UO THIS SHIFT, X1 DOSE LASIX GIVEN, ISSUE RESOLVED. SALINE LOCKED. GARCIAS CATHETER IN PLACE, GENERALIZED EDEMA TO VINICIO AREA AND LEFT HIP. REGULAR DIET, TOLERATING WELL. NO BM THIS SHIFT.
--- NOTE | 2020-02-05 08:25 | NUR ---
PT ALERT AND ORIENTED CALL LIGHT IN REACH, PT ASSISTED UP IN BED, AM MEDICATIONS ADMINISTERED, PT REPORTS INCREASED PAIN TO LEFT HIP, ASSESSMENT COMPLETED. PT ASSISTED IN REPOSITIONING AND PRN PO PAIN PILLS TO BE ADMINISTERED PER PT REQUEST. PT DNEIES FURTHER NEEDS AND IS CURRENTLY EATING BREAKFAST (ASSISTED WITH SETTING UP TRAY) PT DRINKING MIRALAX MIXED IN GRAPE JUICE PER HER REQUEST.
--- NOTE | 2020-02-05 09:08 | NUR ---
PATIENT IN BED, EATING BREAKFAST. GARCIAS EMPTIED
--- NOTE | 2020-02-05 12:33 | NUR ---
DR HEREDIA AND DR LI NOTIFIED OF GRAM POSITIVE COCCI CLUSTER IN THE ANROBIC BOTTLE.
--- NOTE | 2020-02-05 14:00 | NUR ---
PATIENT RECEIVED SUPPOSITORY AND BEDBATH BY THIS CLOTHES DRIER REPAIRER AND GREGORIA OCHOA. SHOWER CAP. PATIENT VERY PAINFUL TO ROLL FROM SIDE TO SIDE. PATIENT NOW ON BEDPAN, WILL USE CALL LIGHT WHEN READY.
--- NOTE | 2020-02-05 14:15 | NUR ---
PT STILL UNABLE TO HAVE BM AND AGREES TO TAKE MA DULCULAX. SO THIS WAS ADMINISTERED AT [facility] TIME PER MD REQUEST. PT TOLERATED WELL. PT ASSISTED WITH BED BATH AND REPOSITIONING IN BED WITH ASSISTANCE FROM WORKDAY SENIOR ASSOCIATE. PT ASSESSMENT COMPLETED. CALL LIGHT AND H2O IN REACH. PT DENIES SOB, PAIN NAUSEA OR OTHER NEEDS OR CONCERNS.
--- NOTE | 2020-02-05 14:39 | NUR ---
CALL LIGHT ANSWERED. PATIENT IN BED USING THE BEDPAN. DAUGHTER IN ROOM. PERICARE PERFORMED. TWO PERSON ASSISTING. CALL LIGHT WITHIN REACH. NO OTHER NEEDS AT THIS TIME
--- NOTE | 2020-02-05 17:05 | NUR ---
PT ENCOURAGED TO INCREASE PO INTAKE. PT AGREES AND IS DRINKING FRESH ICE WATER AND EATING JELLO AT THIS TIME. PT DENIES SOB, PAIN NAUSEA OR OTHER SYMPTOMS NEEDS OR CONCERNS. CALL LIGHT IN REACH.
--- NOTE | 2020-02-05 19:10 | NUR ---
Shift report recieved by RN. Pt lying in bed. Roberta dressing intact, yellow/brown shadowing on dressing. green flashing light noted. Mila patent. Pt is eating dinner with family in room. Call light within reach. No further concerns or needs at this time.
--- NOTE | 2020-02-05 19:54 | NUR ---
PT REQUESTED TO SIT ON BEDPAN, 2PA WITH NOEMI PIE MAKER MACHINE ONTO BEDPAN. PT CALLED WHEN DONE AND IS NOW OFF BEDPAN WITH HELP OF BERYL KINNEY. SHE JUST HAS A SMALL SMEAR OF BM. SHE IS NOW RESTING IN BED AFTER BEING REPOSTIONED. SHE DENIES FURTHER NEEDS AT THIS TIME. CALL LIGHT IS CLOSE.
--- NOTE | 2020-02-05 20:30 | NUR ---
PT LYING AND REPOSITIONED IN BED. ASSESSMENT COMPLETE AND SCHEDULED MEDS GIVEN. PT REPORTED HAVING PAIN ON L FEMORAL 09/14. PRN PAIN MEDICATIONS GIVEN. MATT DRESSING INTACT WITH FULLY SATURATED YELLOW/BROWN SHADOWING. NO CHANGED SINCE START OF SHIFT. GREEN LIGHT FLASHING ON DEVICE. SCATTERED CLOSED BLISTERING TO LEFT LOWER LEG. SUSAN HOSE PLACED ON BILATERAL LEGS. GARCIAS PATENT, I AND O'S COMPLETED, VS STABLE. NO UNLABORED BREATHING. CALL LIGHT WITHIN REACH. IN ROOM. NO FURTHER CONCERNS OR NEEDS.
--- NOTE | 2020-02-05 23:12 | NUR ---
ROUNDING ON PT, TV GUIDE PROVIDED. NO ADDITIONAL NEEDS VERBALIZED. CALL LIGHT IN REACH.
--- NOTE | 2020-02-06 01:10 | NUR ---
in rm to repos. pt, 2pa, pt states needed to have bm, pt already inct of bm, passing gas, changed pt, antony/cath care done, new chux in place, rn assessing bandage, pillows added for pt comfort, fresh ice given in pt's water, no further requests at this time, call light in hand, bs table in place
--- NOTE | 2020-02-06 01:18 | NUR ---
PT LYING IN BED, MATT DRESSING INTACT, SATURATED YELLOW/ BROWN SHADOWING NOTED. GREEN LIGHT FLASHING ON DEVICE. PT STATES NOT HAVING ANY PAIN. REPOSITIONED PT, I AND O'S COMPLETED. INCONT BM. CALL LIGHT WITHIN REACH. NO FURTHER CONCERNS.
--- NOTE | 2020-02-06 01:30 | NUR ---
IN PT RM TO TAKE BP PER RN REQUEST, RN WILL BE IN TO GIVE CARDIAC MED, PT IS CONFUSED, ASKING ABOUT AND NOT SURE OF LOCATION, REDIRECTED PT ON DATE, TIME, LOCATION, RN IN RM NOW FOR ASSESSMENT INFORMED RN ABOUT PT, NO FURTHER REQUEST AT THIS TIME
--- NOTE | 2020-02-06 02:00 | NUR ---
PT REPOSITIONED IN BED, ASSESSMENT COMPLETED AND SCHEDULE MEDS GIVEN. MATT DRESSING INTACT, SATURATION OF YELLOW/BROWN NOTED. GREEN LIGHT FLASHING ON DEVICE. PT STATED NOT HAVING PAIN AT THIS TIME. NO UNLABORED BREATHING. CALL LIGHT WITHIN REACH. NO FURTHER CONCERNS.
--- NOTE | 2020-02-06 03:31 | NUR ---
PT LYING IN BED, EYES CLOSED. ANTIBIOTIC COMPLETE, SALINE LOCKED IV. NO UNLABORED BREATHING. RR WITHIN NORMAL LIMITS. NO FURTHER CONCERNS OR NEEDS.
--- NOTE | 2020-02-06 07:30 | NUR ---
In to see patient, natividad dressing flashing orange, dressing still intact though moderately saturated with serosang drainage. Dressing reenforced with tegaderm dressing and now natividad is flashing grean and now appears to be maintaining suction. Call light and fresh h2o in reach. No further needs or concerns voiced.
--- NOTE | 2020-02-06 08:39 | NUR ---
PATIENT AWAKE IN BED, FAMILY AT BEDSIDE. FACE AND HANDS WASHED. DENTURES BRUSHED. GARBAGE EMPTIED. SET UP FOR BREAKFAST, CALL LIGHT IN REACH
--- NOTE | 2020-02-06 09:02 | NUR ---
Pt sitting up in bed working with physical therapy. Pt alert and oriented and states pain is tolerable and denies sob or nausea. Assessment completed. Call light and h2o in reach. Encouraged oral intake.
--- NOTE | 2020-02-06 10:47 | NUR ---
PATIENT AWKAKE IN BED, AT BEDSIDE. VITALS AND I&OS CHARTED. CALL LIGHT IN REACH, FRESH WATER GIVEN.
--- NOTE | 2020-02-06 11:17 | NUR ---
Dressing to left hip appears saturated and appliance is flashing orange. Dr Dawn notified. New order received to complete full natividad dressing change with new appliance. No further orders at this time. Call light and h2o in reach of patient.
--- NOTE | 2020-02-06 11:58 | NUR ---
2PA BED AND DRESSING CHANGE WITH GREGORIA OCHOA. IN ROOM. CALL LIGHT AND PERSONAL ITEMS WITHIN REACH
--- NOTE | 2020-02-06 12:01 | NUR ---
soiled natividad dressing removed, wound cleansed with ns and shira dried with sterile fluff guaze. New natividad dsg applied also replaced allevyn dressings just below and above surgical site. [place] appliance is now flashing green light nad CDI. Call light h2o and fresh grape/apple juice cocktail provided per pt reqeust. pt denies further needs or concerns.
--- NOTE | 2020-02-06 13:56 | NUR ---
PATIENT AWAKE IN BED, DAUGHTER AT BEDSIDE. VITALS AND I&OS CHARTED. GARCIAS EMPTIED
--- NOTE | 2020-02-06 14:39 | NUR ---
PT ALERT AND ORIENTED RESTING IN SEMIFOWLERS POSITION IN BED. SCHEDULED MED ADMINISTERED. MATT DSG CDI AND APPLIANCE CONTINUES TO FLASH GREEN. ASSESSMENT COMPLETED. CALL LIGHT AND H2O INR EACH. GARCIAS DRAINING CLEAR YELLOW URINE.
--- NOTE | 2020-02-06 18:21 | NUR ---
PATIENT AWAKE VISITING WITH FAMILY, VITALS AND I&OS CHARTED. CALL LIGHT AND PERSONAL ITEMS WITHIN REACH
--- NOTE | 2020-02-06 18:29 | NUR ---
GARCIAS EMPTIED AND FRESHICE WATER GIVEN
--- NOTE | 2020-02-06 19:15 | NUR ---
SHIFT REPORT RECIEVED. MATT DRESSING CDI. GREEN LIGHT FLASHING. SCATTERED ALLEVYNS NOTED DUE TO BLISTERS. 2 1/2 L NC. PT LYING IN BED. IN ROOM, NO CONCERNS OR NEEDS AT THIS TIME.
--- NOTE | 2020-02-06 20:37 | NUR ---
ROUNDED CHARGE. PRIMARY RNS IN ROOM. ICE WATER PROVIDED TO pt. pt AND WITH NO CONCERNS, REQUESTS AT THIS TIME.
--- NOTE | 2020-02-06 20:48 | NUR ---
PT LYING IN BED. ASSESSMENT COMPLETE, I AND O'S ALSO DONE. VS STABLE. GARCIAS CARE COMPLETE. PT DENIES PAIN. MATT DRESSING CDI, GREEN LIGHT FLASHING. SATURATED YELLOW SHADOWING ON ALLEVYN DRESSING ABOVE MATT . BLISTERS NOTED ON LEFT LOWER LEG, NEW CHUX PLACED DUE TO DRAINAGE. BUTTOCKS RED AND BLANCHABLE, PT REPOSITIONED WITH GREGORIA SÁNCHEZ AND BERYL. CALL LIGHT WITHIN REACH. NO CONCERNS OR NEEDS.
--- NOTE | 2020-02-07 01:45 | NUR ---
IN RN WITH RN TO GET PT OFF BEDPAN, GARCIAS EMPTIED, ADJ PT BED FOR COMFORT, LEFT PT TO REST, NO FURTHER REQUEST AT THIS TIME, CONFUSION STILL NOTED, RN AWARE
--- NOTE | 2020-02-07 02:00 | NUR ---
IN RM TO TAKE VITALS PER RN, RN TO BE IN SHORTLY FOR SCHED. MEDS, FRESH WATER GIVEN, NO FURTHER NEEDS EXPRESSED AT THIS TIME
--- NOTE | 2020-02-07 02:16 | NUR ---
ORDERED VANCO UNAVAILABLE IN KITS LIST AND PYXIS. CALL MADE TO JANNETTE SERRARETAIL GREETER TO MIX MEDICATION.
--- NOTE | 2020-02-07 02:17 | NUR ---
ROUNDED ON PT AND FOUND IV PULLED. MULTIPLE ATTEMPTS TO START IV DONE BY THIS RN AND OTHER RNS. NEW IV PLACED BY TYPESETTING MACHINE TENDER. PT TOLERATED WELL. PT IS PARTIALLY CONFUSED, REASSURED HER THAT SHE IS AT THE HOSPITAL. REPOSITIONED PT IN BED AND GARCIAS CATH CARE DONE.
--- NOTE | 2020-02-07 04:09 | NUR ---
IV ABX COMPLETE, SITE FLUSHED AND SALINE LOCKED. SITE WNL. PT DENIES ADDITIONAL NEEDS, CALL LIGHT IN REACH.
--- NOTE | 2020-02-07 05:33 | NUR ---
PT WAS INTERMITTENTLY CONFUSED THIS SHIFT, EASILY REORIENTED. CLAIMED SHE WAS AT HER NEPHEW'S HOUSE WITH KIDS AROUND. VSS, 2LNC IN PLACE. PAIN CONTROLLED WITH PRN NORCO. NEW IV PLACED AFTER PT PULLED OLD IV SITE, SALINE LOCKED. RECEIVING IV ABX. MATT DRESSING TO LEFT HIP C/D/I, VARIOUS ALLEVYNS REMAIN IN PLACE D/T BLISTERS. VOIDING QS VIA GARCIAS CATHETER, NO BM.
--- NOTE | 2020-02-07 05:50 | NUR ---
Yelling heard from nurses station. In room to assess, pt found in bed with gown bunched up. [facility]. Pt reoriented. VS stable, 2L nc. I and O's done. Lenard nelson, ASHKAN in place. Roberta dressing intact, green light flashing. Warm blanket. Call light within reach.
--- NOTE | 2020-02-07 07:03 | NUR ---
PT ALERT AND ORIENTED RESTING IN BED. PT DENIES PAIN, SOB OR NAUSEA. BEDSIDE SHIFT REPORT RECEIVED FROM GREGORIA CORDOBA. FRESH ICE WATER AND CALL LIGHT IN REACH.
--- NOTE | 2020-02-07 07:35 | NUR ---
PATIENT SLEEPING. WHITE BOARD UPDATED. CALL LIGHT WITHIN REACH. NO OTHER NEEDS AT THIS TIME
--- NOTE | 2020-02-07 08:46 | NUR ---
PT RESTING IN SEMIFOWLERS POSITION IN BED, AM MEDS ADMINISTERED AND PT ASSISTED IN REPOSITIONING TO RIGHT SIDE IN BED WITH ASSISTANCE FROM MARK FRANCO. PT TOLERATED WELL. PT DENIES PAIN, NAUSEA OR SOB ON 2LPNC. CALL LIGHT AND FRESH H2O IN REACH, PT ENCOURAGED TO HYDRATE TOLERABLE, BREAKFAST WAS ORDERED PER EVENT STAFF MEMBER.
--- NOTE | 2020-02-07 09:57 | NUR ---
PATIENT RESTING IN BED. VITAL SIGNS AND I&O DONE. CALL LIGHT WITHIN REACH. NO OTHER NEEDS AT THIS TIME
--- NOTE | 2020-02-07 10:29 | NUR ---
PT RESTING IN SEMIFOWLERS POSITION IN BED, ALERT AND ORIENTED STATES SHE RECENTLY FINISHED WORKING WITH PT. PT STATES SHE IS COMFORTABLE AND DENIES NEEDS OR CONCERNS. CALL LIGHT AND H2O IN REACH.
--- NOTE | 2020-02-07 12:00 | NUR ---
Orders and med rec printed and left at dictation station for Dr. Dawn.
--- NOTE | 2020-02-07 12:05 | NUR ---
PT SITTING UP IN BED EATING LUNCH AND VISITING WITH FAMILY. PT DENIES NEEDS OR CONCERNS AND APPEARS TO BE IN NO ACUTE DISTRESS. RESPIRATIONS EVEN AND UNLABORED. CALL LIGHT AND H2O IN REACH.
--- NOTE | 2020-02-07 13:16 | NUR ---
PATIENT RESTING IN BED. VITAL SIGNS AND I&O DONE. CALL LIGHT WITHIN REACH. NO OTHER NEEDS AT THIS TIME
--- NOTE | 2020-02-07 14:07 | NUR ---
IN TO SEE PATIENT. PT REPOSITIONED IN BED. ASSESSMENT COMPLETED. PT STATES PAIN IS TOLERABLE AND DENIES SOB OR NAUSEA. CALL LIGHT AND H2O IN REACH. NO NEEDS OR CONCERNS VOICED.
--- NOTE | 2020-02-07 14:20 | NUR ---
Spoke with Dr. Stevenson, she spoke with Dr. Dawn and pt will dc tomorrow after CBC.
--- NOTE | 2020-02-07 14:32 | NUR ---
ASSISTED NURSE REVIEWER TO PLACE PT ON FRACT GRAFF. INSTRUCTED TO CALL WHEN DONE.
--- NOTE | 2020-02-07 14:47 | NUR ---
CALL LIGHT ANSWERED. PATIENT ASSISTED TO USE THE BEDPAN. TWO PERSON ASSISTING. AYO PERFORMED. CALL LIGHT WITHIN REACH. NO OTHER NEEDS AT THIS TIME
--- NOTE | 2020-02-07 16:04 | NUR ---
PT REPORTS 8/10 LEFT HIP PAIN AFTER WORKING WITH PHYSICAL THERAPIST ON IN BED EXERCISES. PRN PO OPIOD ADMINISTERED PER PT REQUEST -SEE EMAR. CALL LIGHT AND H2O IN REACH. NO OTHER NEEDS OR CONCERNS VOICED.
--- NOTE | 2020-02-07 17:13 | NUR ---
PATIENT RESTING IN BED. DAUGHTER IN ROOM. VITAL SIGNS AND I&O DONE. HIGH SYSTOLIC BLOOD PRESSURE. THE RIGHT HAND WHERE THE IV IS PLACED LOOKS RED AND SWOLLEN. RN NOTIFIED. CALL LIGHT WITHIN REACH. NO OTHER NEEDS AT THIS TIME
--- NOTE | 2020-02-07 19:28 | NUR ---
Divorce Mediator notified me that pt needed thigh high miracle hose, these were applied. pt was saturated in urine. chux, underwear, and gown was applied. pt repositioned in bed. MARK Claire and GREGORIA Rodriguez assisted.
--- NOTE | 2020-02-07 19:34 | NUR ---
SHIFT REPORT FROM NURSE OCHOA. PT IN BED WITH DAUGHTER AT BEDSIDE. DENIES NEEDS AT THIS TIME.
--- NOTE | 2020-02-07 20:23 | NUR ---
ROUNDED CHARGE PRIMARY RN GUCCI IN ROOM. COFFEE BREWING FOR pt'S . ICE WATER PROVIDED TO pt.
--- NOTE | 2020-02-07 20:30 | NUR ---
IN ROOM FOR EVENING MEDS AND ASSESSMENT. PT'S IN ROOM. PT IS DISORIENTED TO PLACE, TIME AND EVENT; RECONIZES . VSS. PT REPORTS NO PAIN "UNLESS SHE MOVES". LUNGS HAVE SLIGHT EXPIRATORY WHEEZE. THIGH HIGH TEDS ON, MATT FLASHING GREEN. MATT DRESSING SCANT DRIED BLOOD, ALLEVYN NEAR MATT DRESSING SATURATED BUT UNCHANGED, NOT LEAKING. PT DECLINED MIRALAX TONIGHT. NO FURTHER NEEDS AT THIS TIME. CALL LIGHT WITHIN REACH.
--- NOTE | 2020-02-07 22:06 | NUR ---
CALL LIGHT ANSWERED. PT STATES SHE NEEDS TO URINATE BUT "IS ALREADY GOING". ATTENDS CHANGED FOR URINE INCONTINENCE, SMEAR OF STOOL. PT IS COOPERATIVE AND TALKATIVE. MULTIPLE BLISTER AREAS SEEPING THROUGH SUSAN HOSE. PT STATES THAT IT "FEELS BETTER WHEN I POP THEM" MEANING BLISTERS. PT REMAINS DISORIENTED. PT REPOSITIONED. CALL LIGHT WITHIN REACH; PT ENCOURAGED TO USE IT.
--- NOTE | 2020-02-07 22:12 | NUR ---
IN pt ROOM TO ASSIST PRIMARY RN WITH CHANGING pt'S ATTENDS. pt INCONTINENT OF URINE, SMALL AMOUNT INCONTINENCE OF STOOL. pt REPOSITIONED IN BED. CALL LIGHT IN REACH.
--- NOTE | 2020-02-08 00:43 | NUR ---
CHECKED ON PT. PT SLEEPING WITH EVEN UNLABORED BREATHING. NO APPARENT SIGNS OF DISTRESS.
--- NOTE | 2020-02-08 02:40 | NUR ---
pt changed and repositioned in bed with GREGORIA Deras. pt had no further needs at this time.
--- NOTE | 2020-02-08 02:40 | NUR ---
IN ROOM FOR MEDS AND VS. PT EASILY AWOKEN TO TOUCH. PT HAD BEEN INCONTINENT OF URINE. PT COMPLAINS OF PAIN IN LEFT HIP. PT UNABLE TO VERBALIZE A NUMBER TO PAIN. PRN NORCO PROVIDED ALONG WITH SCHEDULED DILTIAZEM. MI VASQUEZ. PT REPOSITIONED. NO FURTHER NEEDS AT THIS TIME. CALL LIGHT WITHIN REACH
--- NOTE | 2020-02-08 06:30 | NUR ---
pt was changed and repositioned in bed with GREGORIA Deras and this managed care analyst. fresh ice water given, and VS along with I&Os complete.
--- NOTE | 2020-02-08 06:33 | NUR ---
PT SLEPT WELL THIS SHIFT. PT REMAINS DISORIENTED. MATT DRESSING/ ALLEVYN REMAIN UNCHANGED THIS SHIFT. MATT FLASHING GREEN. THIGH SUSAN HOSE ONE HOWEVER CUTTING INTO LEGS AT VARIOUS LEVELS. RESTRETCHED TO AVOIID WRINKLES REPEATEDLY. PT HAS QS URINE HOWEVER IS TOTALLY INCONTINENT. PT RECEIVED 1 TAB NORCO 7.5/325 THIS SHIFT.
--- NOTE | 2020-02-08 07:00 | NUR ---
Texted Ameena orders have been faxed and to please let me know when they are approved. Requested time they can accept also, so I can schedule the ambulance.
--- NOTE | 2020-02-08 07:24 | NUR ---
this rn recieved report from slava howell. pt appears to be resting at this time with respirations noted and call light within reach
--- NOTE | 2020-02-08 07:49 | NUR ---
PATIENT SLEEPING. WHITE BOARD UPDATED. CALL LIGHT WITHIN REACH. NO OTHER NEEDS AT THIS TIME
--- NOTE | 2020-02-08 08:00 | NUR ---
THIS RN IN PTS ROOM THIS AM TO GIVE MORNING MEDS AND DO MORNING ASSESSMENT. JOHANNA FROM RT IN ROOM AT THIS TIME WELL. PT ORIENTED ONLY TO HERSELF THIS AM. PT HAS NO OTHER COMPLAINTS AT THIS TIME.
[2020-02-08] MEDS ORDERED: HYDROCODON-ACE1 EA11 PO (08:17)
[2020-02-08] MEDS ORDERED: CYCLOBENZAPRINE10 MG PO (08:17)
--- NOTE | 2020-02-08 08:28 | NUR ---
PATIENT RESTING IN BED. RN IN ROOM. PATIENT INCONTINENT OF URINE. PERICARE PERFORMED. GOWN CHANGED. PATIENT ASSISTED WITH HER BREAKFAST. CALL LIGHT WITHIN REACH. NO OTHER NEEDS AT THIS TIME
--- NOTE | 2020-02-08 08:33 | NUR ---
Recieved request for clarification of orders for Advair and diet. Clarification made on orders and refaxed. UPdated Dr. Dawn added an antibiotic.
--- NOTE | 2020-02-08 09:17 | NUR ---
PATIENT RESTING IN BED. VITAL SIGNS AND I&O DONE. HIGH BLOOD PRESSURE. RN NOTIFIED. CALL LIGHT WITHIN REACH. NO OTHER NEEDS AT THIS TIME
--- NOTE | 2020-02-08 09:22 | NUR ---
Received text stating pt can admit at 11:00. Called [facility] and scheduled transport at 11;00. Charge nurse updated.
--- NOTE | 2020-02-08 10:29 | NUR ---
this rn called report to sera kong [place]
--- NOTE | 2020-02-08 10:55 | NUR ---
LAST SET OF VITALS DONE. PATIENT READY FOR DISCHARGE. BP READING 171/68 GREGORIA MUÑIZ NOTIFIED. CALL LIGHT WITHIN REACH. NO FURTHER NEEDS AT THIS TIME. FAMILY IN ROOM.
== END 2020-02-08 11:20 | DRG 481 ==
LOC: ED 01:49 → MS 06:41
PROVIDERS: ADMIT Specialist; ATTEND Specialist
PROC: 3E0T3BZ Introduction of Anesthetic Agent into Peripheral Nerves and Plexi, Percutaneous Approach (ICD-10-PCS; 2020-01-28)
PROC: 0QS704Z Reposition Left Upper Femur with Internal Fixation Device, Open Approach (ICD-10-PCS; principal; 2020-01-28 12:00)
PROC: 30233N1 Transfusion of Nonautologous Red Blood Cells into Peripheral Vein, Percutaneous Approach (ICD-10-PCS; 2020-01-29)
PROC: 0Y3D0ZZ Control Bleeding in Left Upper Leg, Open Approach (ICD-10-PCS; 2020-02-01)
PROC: 0JCM0ZZ Extirpation of Matter from Left Upper Leg Subcutaneous Tissue and Fascia, Open Approach (ICD-10-PCS; 2020-02-01)
DX: S72.142A Displaced intertrochanteric fracture of left femur, initial encounter for closed fracture (principal); R78.81 Bacteremia; D62 Acute posthemorrhagic anemia; N17.9 Acute kidney failure, unspecified; I47.1 Supraventricular tachycardia; I13.0 Hypertensive heart and chronic kidney disease with heart failure and stage 1 through stage 4 chronic kidney disease, or unspecified chronic kidney disease; I50.32 Chronic diastolic (congestive) heart failure; L76.32 Postprocedural hematoma of skin and subcutaneous tissue following other procedure; Z20.828 Contact with and (suspected) exposure to other viral communicable diseases; B96.89 Other specified bacterial agents as the cause of diseases classified elsewhere; G89.18 Other acute postprocedural pain; F03.90 Unspecified dementia, unspecified severity, without behavioral disturbance, psychotic disturbance, mood disturbance, and anxiety; J44.9 Chronic obstructive pulmonary disease, unspecified; F39 Unspecified mood [affective] disorder; N18.9 Chronic kidney disease, unspecified; I48.0 Paroxysmal atrial fibrillation; I25.10 Atherosclerotic heart disease of native coronary artery without angina pectoris; W18.30XA Fall on same level, unspecified, initial encounter; Y92.009 Unspecified place in unspecified non-institutional (private) residence as the place of occurrence of the external cause; Z88.0 Allergy status to penicillin; Z87.891 Personal history of nicotine dependence; Z79.899 Other long term (current) drug therapy; Z79.51 Long term (current) use of inhaled steroids
CPT/HCPCS: 00400; 01210; 36415; 36430; 51702; 64450; 70450; 71045; 73502; 76942; 80048; 80053; 80202; 81001; 83735; 83880; 85025; 85610; 86850; 86900; 86901; 86920; 87040; 87077; 87186; 93005; 93010; 94640; 94760; 97110; 97162; 97166; 97530; 97535; 99285-25; A9270; C1713; C9803; J0360; J0690; J1170; J1885; J1940; J2001; J2704; J2795; J3010; J3370; J3475; J3480; J7040; J7060; J7120; J7121; P9016

== ENCOUNTER 2020-05-02 22:18 | Emergency (ER) | payer MEDICARE, OTHER ==
[~2020-05-02] VITALS: Ht 152.4 cm; Wt 63.5 kg
[~2020-05-02 22:18] MED LIST changes: +CRANBERRY500 M3 PO; +CYCLOBENZAPRINE10 MG PO; +DULOXETINE HCL60 MG PO; +HYDROCODON-ACE1 EA11 PO; +OXYBUTYNIN CHLOR5 MG PO; +ZYRTEC10 MG PO
--- OUTSIDE RECORDS SUMMARY | 2020-05-02 22:20 | XMS ---
PreManage Notification: CHRISSY SOLOMON Security Panel Laminator Events No recent Security Events currently on file CRITERIA MET - [facility] CARE PROVIDERS [facility] [employer]. \F\ Blurr PHONE: [phone] NAS [facility] 10/11/2019-Current PHONE: [phone] Kalie Robles Wheel And Axle Inspector/Automatic Engraver 02/09/2020-Current PHONE: [phone] Kiki has no Care Guidelines for this patient. E.D. VISIT COUNT (12 MO.) 3 MONET Chakraborty TOTAL 3 NOTE: Visits indicate total known visits. ED/UCC VISIT TRACKING (12 MO.) 05/02/2020 22:19 [facility] [place] TYPE: Emergency COMPLAINT: - ALTERED MENTAL STATUS 01/28/2020 01:50 [facility] [place] TYPE: Emergency COMPLAINT: - FALL 10/10/2019 22:44 [facility] [place] TYPE: Emergency COMPLAINT: - FALL DIAGNOSES: - Other terminal press operator (current) drug therapy - Strain of muscle, fascia and tendon at neck level, initial encounter - Pain in left shoulder - Fracture of unspecified part of left clavicle, initial encounter for closed fracture - Fall on same level from slipping, tripping and stumbling without subsequent striking against object, initial encounter - Chronic obstructive pulmonary disease, unspecified - Allergy status to penicillin - Personal history of nicotine dependence - Contusion of left front wall of thorax, initial encounter - Essential (primary) hypertension INPATIENT VISIT TRACKING (12 MO.) 01/28/2020 06:41 [facility] [place] TYPE: Medical Surgical COMPLAINT: - LEFT HIP FRACTURE DIAGNOSES: - Unspecified place in unspecified non-institutional (private) residence as the place of occurrence of the external cause - Other specified bacterial agents as the cause of diseases classified elsewhere - Postprocedural hematoma of skin and subcutaneous tissue following other procedure - Acute posthemorrhagic anemia - Chronic obstructive pulmonary disease, unspecified - Acute kidney failure, unspecified - Hypertensive heart and chronic kidney disease with heart failure and stage 1 through stage 4 chronic kidney disease, or unspecified chronic kidney disease - Other terminal press operator (current) drug therapy - Paroxysmal atrial fibrillation - Other acute postprocedural pain - Allergy status to penicillin - Unspecified dementia without behavioral disturbance - Unspecified mood [affective] disorder - Chronic kidney disease, unspecified - Unspecified dementia without behavioral disturbance - Hypertensive heart and chronic kidney disease with heart failure and stage 1 through stage 4 chronic kidney disease, or unspecified chronic kidney disease - Unspecified mood [affective] disorder - Contact with and (suspected) exposure to other viral communicable diseases - Chronic kidney disease, unspecified - Acute posthemorrhagic anemia - Chronic diastolic (congestive) heart failure - termite exterminator (current) use of inhaled steroids - Chronic diastolic (congestive) heart failure - Personal history of nicotine dependence - Supraventricular tachycardia - Paroxysmal atrial fibrillation - Fall on same level, unspecified, initial encounter - Other chcf (current) drug therapy - Atherosclerotic heart disease of [place] coronary artery without angina pectoris - Allergy status to penicillin - Contact with and (suspected) exposure to other viral communicable diseases - Bacteremia - Fall on same level, unspecified, initial encounter - Other specified bacterial agents as the cause of diseases classified elsewhere - Acute kidney failure, unspecified - Bacteremia - Supraventricular tachycardia - Displaced intertrochanteric fracture of left femur, initial encounter for closed fracture - Unspecified place in unspecified non-institutional (private) residence as the place of occurrence of the external cause - Atherosclerotic heart disease of [place] coronary artery without angina pectoris - alf (current) use of inhaled steroids - Chronic obstructive pulmonary disease, unspecified - Postprocedural hematoma of skin and subcutaneous tissue following other procedure - Personal history of nicotine dependence - Other acute postprocedural pain [email or web address]
--- NOTE | 2020-05-03 14:53 | EKG ---
[facility] [address] [facility] [place] [address] Signed Sinus tachycardia Left axis deviation Abnormal ECG When compared with ECG of 28-JAN-2020 03:28, Criteria for Septal infarct are no longer present Nonspecific T wave abnormality now evident in Inferior leads QT has lengthened Confirmed by SINDY HEREDIA DO ([id number]) on 05/03/2020 2:53:27 PM Electronically Signed By: SINDY HEREDIA DO 05/03/20 1453 PATIENT NAME: CHIRSSY SOLOMON Electrocardiogram DATE OF : 39 PHYSICIAN: SINDY HEREDIA DO REPORT #: [id number] REPORT IS CONFIDENTIAL AND NOT TO BE RELEASED WITHOUT AUTHORIZATION
== END 2020-05-03 05:10 | disposition short-term general hospital (02) ==
LOC: ED 22:18
DX: A41.9 Sepsis, unspecified organism (principal); K80.42 Calculus of bile duct with acute cholecystitis without obstruction; E86.0 Dehydration; Z20.822 Contact with and (suspected) exposure to COVID-19; I10 Essential (primary) hypertension; J44.9 Chronic obstructive pulmonary disease, unspecified; Z86.73 Personal history of transient ischemic attack (TIA), and cerebral infarction without residual deficits; Z87.891 Personal history of nicotine dependence; Z88.0 Allergy status to penicillin; Z79.899 Other long term (current) drug therapy
CPT/HCPCS: 51702; 70450; 71045; 74176; 80053; 81001; 83605; 83690; 83880; 84484; 85025; 85610; 85730; 93005; 93010; 96368; 99285-25; C9803; J0696; J7121; U0003

== ENCOUNTER 2020-06-19 12:15 | Emergency (ER) | payer MEDICARE, OTHER ==
[~2020-06-19] VITALS: Ht 152.4 cm; Wt 63.5 kg
--- OUTSIDE RECORDS SUMMARY | 2020-06-19 12:18 | XMS ---
PreManage Notification: CHRISSY SOLOMON Security Yard Clerk Events No recent Security Events currently on file CRITERIA MET - History of Sepsis Dx CARE PROVIDERS [facility] Shelter [facility] [employer] Sho[employer] LimitedBANNER BAYWOOD MEDICAL CENTERDEUS. \F\ CeannateBANNER BAYWOOD MEDICAL CENTERCLARED PHONE: [phone] NAS [facility] 10/11/2019-Current PHONE: [phone] Kalie Robles Box Attacher/Manager Transplant 05/08/2020-Current PHONE: [phone] Kiki has no Care Guidelines for this patient. E.D. VISIT COUNT (12 MO.) [address] [facility] TOTAL 4 NOTE: Visits indicate total known visits. ED/UCC VISIT TRACKING (12 MO.) 06/19/2020 12:15 [facility] [place] TYPE: Emergency COMPLAINT: - BACK PAIN 05/02/2020 22:19 [facility] [place] TYPE: Emergency COMPLAINT: - ALTERED MENTAL STATUS DIAGNOSES: - Chronic obstructive pulmonary disease, unspecified - Personal history of transient ischemic attack (TIA), and cerebral infarction without residual deficits - Other predatory animal exterminator (current) drug therapy - Personal history of nicotine dependence - Calculus of bile duct with acute cholecystitis without obstruction - Sepsis, unspecified organism - Acute cholecystitis - Dehydration - Allergy status to penicillin - Essential (primary) hypertension 01/28/2020 01:50 [facility] [place] TYPE: Emergency COMPLAINT: - FALL 10/10/2019 22:44 [facility] [place] TYPE: Emergency COMPLAINT: - FALL DIAGNOSES: - Other predatory animal exterminator (current) drug therapy - Strain of muscle, [...] (primary) hypertension INPATIENT VISIT TRACKING (12 MO.) 05/03/2020 08:12 [facility] TYPE: Family Practice DIAGNOSES: 0. ACUTE CHOLILITHIASIS 01/28/2020 06:41 MON[facility] [place] TYPE: Medical [...] or unspecified chronic kidney disease - Other residential (current) drug therapy - Paroxysmal atrial fibrillation [...] - Chronic diastolic (congestive) heart failure - correction (current) use of inhaled steroids - Chronic diastolic (congestive) heart failure - Personal history of nicotine dependence - Supraventricular tachycardia - Paroxysmal atrial fibrillation - Fall on same level, unspecified, initial encounter - Other predatory animal exterminator (current) drug therapy - Atherosclerotic heart disease of [place] coronary artery without angina pectoris - Allergy [...] external cause - Atherosclerotic heart disease of [place] coronary artery without angina pectoris - correction (current) use of inhaled steroids - Chronic obstructive pulmonary disease, unspecified - Postprocedural hematoma of skin and subcutaneous tissue following other procedure - Personal history of nicotine dependence - Other acute postprocedural pain [email or web address]
[2020-06-19] MEDS ORDERED: MELOXICAM15 MG PO (14:07)
[2020-06-19] MEDS ORDERED: DILTIAZEM HCL60 MG PO (14:07)
[2020-06-19] MEDS ORDERED: METHYLPREDNISOLO4 MG PO (14:07)
[2020-06-19] MEDS ORDERED: PANTOPRAZOLE SO40 MG PO (14:07)
== END 2020-06-19 17:20 | disposition home or self-care (01) ==
LOC: ED 12:15
DX: M51.36 Other intervertebral disc degeneration, lumbar region (principal); M47.816 Spondylosis without myelopathy or radiculopathy, lumbar region; I10 Essential (primary) hypertension; J44.9 Chronic obstructive pulmonary disease, unspecified; Z87.891 Personal history of nicotine dependence; Z88.0 Allergy status to penicillin; Z79.899 Other long term (current) drug therapy
CPT/HCPCS: 72131; 99283-25

== ENCOUNTER 2020-08-15 11:19 | Emergency (ER) | payer MEDICARE, OTHER ==
[~2020-08-15] VITALS: Ht 152.4 cm; Wt 54.5 kg
[~2020-08-15 11:19] MED LIST changes: +DILTIAZEM HCL60 MG PO; +MELOXICAM15 MG PO; +METHYLPREDNISOLO4 MG PO; +PANTOPRAZOLE SO40 MG PO
--- OUTSIDE RECORDS SUMMARY | 2020-08-15 11:24 | XMS ---
PreManage Notification: CHRISSY SOLOMON Security Solo Musician Events No recent Security Events currently on file CRITERIA MET - History of Sepsis Dx CARE PROVIDERS [facility] HubspanBANNER CASA GRANDE MEDICAL CENTERinvendo medical. \F\ Iora HealthBANNER CASA GRANDE MEDICAL CENTERPropertyGuru PHONE: [phone] NAS [facility] 10/11/2019-Current PHONE: [phone] Kalie Robles Iv Rn/Shuttle Repairer 05/08/2020-Current PHONE: [phone] Kiki has no Care Guidelines for this patient. E.D. VISIT COUNT (12 MO.) 5 MONET Padron TOTAL 6 NOTE: Visits indicate total known visits. ED/UCC VISIT TRACKING (12 MO.) 08/15/2020 11:19 [facility] [place] TYPE: Emergency COMPLAINT: - DIFFICULTY BREATHING 06/21/2020 17:54 [facility] TYPE: Emergency DIAGNOSES: 0. ABD PAIN 06/19/2020 12:15 [facility] [place] TYPE: Emergency COMPLAINT: - BACK PAIN DIAGNOSES: - Other intervertebral disc degeneration, lumbar region - Low back pain - Allergy status to penicillin - Other half-way (current) drug therapy - Essential (primary) hypertension - Chronic obstructive pulmonary disease, unspecified - Personal history of nicotine dependence - Spondylosis without myelopathy or radiculopathy, lumbar region 05/02/2020 22:19 [facility] [place] TYPE: Emergency COMPLAINT: - ALTERED MENTAL STATUS DIAGNOSES: - Chronic obstructive pulmonary disease, unspecified - Personal history of transient ischemic attack (TIA), and cerebral infarction without residual deficits - Other assembly inspector helper (current) drug therapy - Personal history of nicotine dependence - Calculus of bile duct with acute cholecystitis without obstruction - Sepsis, unspecified organism - Acute cholecystitis - Dehydration - Allergy status to penicillin - Essential (primary) hypertension 01/28/2020 01:50 [facility] [place] TYPE: Emergency COMPLAINT: - FALL 10/10/2019 22:[address] [facility] [place] TYPE: Emergency COMPLAINT: - FALL DIAGNOSES: - Other half-way (current) drug therapy - Strain of muscle, [...] Practice DIAGNOSES: 0. ACUTE CHOLILITHIASIS 01/28/2020 06:[address] [facility] [place] TYPE: Medical Surgical COMPLAINT: - LEFT [...] or unspecified chronic kidney disease - Other assembly inspector helper (current) drug therapy - Paroxysmal atrial fibrillation [...] - Chronic diastolic (congestive) heart failure - skilled nursing (current) use of inhaled steroids - Chronic diastolic (congestive) heart failure - Personal history of nicotine dependence - Supraventricular tachycardia - Paroxysmal atrial fibrillation - Fall on same level, unspecified, initial encounter - Other half-way (current) drug therapy - Atherosclerotic heart disease of [place] coronary artery without angina pectoris - Allergy [...] external cause - Atherosclerotic heart disease of [place] coronary artery without angina pectoris - skilled nursing (current) use of inhaled steroids - Chronic obstructive pulmonary disease, unspecified - Postprocedural hematoma of skin and subcutaneous tissue following other procedure - Personal history of nicotine dependence - Other acute postprocedural pain [id number]
--- NOTE | 2020-08-18 11:37 | EKG ---
[facility] [address] [facility] [place], [place] [address] Signed Normal sinus rhythm Nonspecific ST and T wave abnormality Abnormal ECG When compared with ECG of 02-MAY-2020 23:02, Nonspecific T wave abnormality now evident in Lateral leads Confirmed by SINDY HEREDIA DO ([id number]) on 08/18/2020 11:37:32 AM Electronically Signed By: SINDY HEREDIA DO 08/18/20 1137 PATIENT NAME: JUANITOCHRISSY DEXTER Electrocardiogram DATE OF : 39 PHYSICIAN: SINDY HEREDIA DO REPORT #: [id number] REPORT IS CONFIDENTIAL AND NOT TO BE RELEASED WITHOUT AUTHORIZATION
== END 2020-08-15 16:18 | disposition home or self-care (01) ==
LOC: ED 11:19
DX: I47.1 Supraventricular tachycardia (principal); R79.89 Other specified abnormal findings of blood chemistry; I10 Essential (primary) hypertension; J44.9 Chronic obstructive pulmonary disease, unspecified; Z87.891 Personal history of nicotine dependence; Z88.0 Allergy status to penicillin; Z79.899 Other long term (current) drug therapy; Z79.52 Long term (current) use of systemic steroids
CPT/HCPCS: 36415; 71045; 80053; 81001; 83735; 84484; 85025; 93005; 93010; 99285-25

== ENCOUNTER → 2020-08-16 | Emergency (ER) | payer MEDICARE, OTHER ==
[~2020-08-16] VITALS: Ht 152.4 cm; Wt 54.5 kg
[~2020-08-16] MED LIST changes: +CEFPODOXIME PR200 MG PO; +ELIQUIS5 MG PO; +FLAGYL500 MG PO; +LIDOCAINE1 EAC1 TOP; +LISINOPRIL5 MG PO; +METOPROLOL SUC100 MG PO; +METOPROLOL SUCC25 MG PO; +PREDNISONE20 MG PO
--- OUTSIDE RECORDS SUMMARY | 2020-08-16 13:40 | XMS ---
PreManage Notification: CHRISSY SOLOMON Security Music Therapist Events No recent Security Events currently on file CRITERIA MET - History of Sepsis Dx - [facility] - 2 Visits in 30 Days CARE PROVIDERS [facility] Detention [facility] EchoSignSIERRA VISTA REGIONAL HEALTH CENTERStrikeAd. \F\ Bio2 TechnologiesHOLY CROSS HOSPITAL TWINLINX PHONE: [phone] NAS [facility] 10/11/2019-Current PHONE: [phone] Kalie Robles Perfumer/Erp Technical Lead 05/08/2020-Current PHONE: [phone] Kiki has no Care Guidelines for this patient. E.D. VISIT COUNT (12 MO.) [address] [facility] TOTAL 7 NOTE: Visits indicate total known visits. ED/UCC VISIT TRACKING (12 MO.) 08/16/2020 13:38 [facility] [place] TYPE: Emergency COMPLAINT: - HIGH HEART RATE 08/15/2020 11:19 MONET [facility] TYPE: Emergency COMPLAINT: - DIFFICULTY BREATHING 06/21/2020 17:54 [facility] TYPE: Emergency DIAGNOSES: 0. ABD PAIN 06/19/2020 12:15 [facility] [place] TYPE: Emergency COMPLAINT: - BACK PAIN DIAGNOSES: - Other intervertebral disc degeneration, lumbar region - Low back pain - Allergy status to penicillin - Other rodent exterminator (current) drug therapy - Essential (primary) hypertension - Chronic obstructive pulmonary disease, unspecified - Personal history of nicotine dependence - Spondylosis without myelopathy or radiculopathy, lumbar region 05/02/2020 22:19 [facility] TYPE: Emergency COMPLAINT: - ALTERED MENTAL STATUS DIAGNOSES: - Chronic obstructive pulmonary disease, unspecified - Personal history of transient ischemic attack (TIA), and cerebral infarction without residual deficits - Other rodent exterminator (current) drug therapy - Personal history of nicotine dependence - Calculus of bile duct with acute cholecystitis without obstruction - Sepsis, unspecified organism - Acute cholecystitis - Dehydration - Allergy status to penicillin - Essential (primary) hypertension 01/28/2020 01:50 [facility] [place] TYPE: Emergency COMPLAINT: - FALL 10/10/2019 22:44 [facility] [place] TYPE: Emergency COMPLAINT: - FALL DIAGNOSES: - Other long-term (current) drug therapy - Strain of muscle, [...] or unspecified chronic kidney disease - Other rodent exterminator (current) drug therapy - Paroxysmal atrial fibrillation [...] - Chronic diastolic (congestive) heart failure - manager long term care (current) use of inhaled steroids - Chronic diastolic (congestive) heart failure - Personal history of nicotine dependence - Supraventricular tachycardia - Paroxysmal atrial fibrillation - Fall on same level, unspecified, initial encounter - Other rodent exterminator (current) drug therapy - Atherosclerotic heart disease of [place] coronary artery without angina pectoris - Allergy [...] external cause - Atherosclerotic heart disease of [place] coronary artery without angina pectoris - correction (current) use of inhaled steroids - Chronic obstructive pulmonary disease, unspecified - Postprocedural hematoma of skin and subcutaneous tissue following other procedure - Personal history of nicotine dependence - Other acute postprocedural pain [email or web address]
--- NOTE | 2020-08-16 17:26 | EKG ---
[facility] [address] [facility] [place], [place] [address] Signed Supraventricular tachycardia with occasional premature ventricular complexes Septal infarct , age undetermined ST \T\ T wave abnormality, consider lateral ischemia Abnormal ECG Confirmed by SINDY HEREDIA DO ([id number]) on 08/16/2020 5:26:31 PM Electronically Signed By: SINDY HEREDIA DO 08/16/20 1726 PATIENT NAME: CHRISSY SOLOMON Electrocardiogram DATE OF : 39 PHYSICIAN: SINDY HEREDIA DO REPORT #: [id number] REPORT IS CONFIDENTIAL AND NOT TO BE RELEASED WITHOUT AUTHORIZATION
--- NOTE | 2020-08-18 11:38 | EKG ---
[facility] [address] [facility] [place] [address] Signed Normal sinus rhythm Otherwise normal ECG When compared with ECG of 16-AUG-2020 13:47, (Unconfirmed) T wave inversion now evident in Anterior leads T wave inversion no longer evident in Lateral leads Confirmed by SINDY HEREDIA DO ([id number]) on 08/18/2020 11:37:46 AM Electronically Signed By: SINDY HEREDIA DO 08/18/20 1138 PATIENT NAME: CHRISSY SOLOMON DEXTER Electrocardiogram DATE OF : [birth year] PHYSICIAN: SINDY HEREDIA DO REPORT #: [id number] REPORT IS CONFIDENTIAL AND NOT TO BE RELEASED WITHOUT AUTHORIZATION
--- NOTE | 2020-08-18 11:39 | EKG ---
[facility] [address] [facility] [place] [address] Signed Atrial fibrillation with rapid ventricular response with premature ventricular or aberrantly conducted complexes Septal infarct , age undetermined Abnormal ECG When compared with ECG of 16-AUG-2020 13:58, (Unconfirmed) Previous ECG has undetermined rhythm, needs review T wave inversion no longer evident in Anterior leads Nonspecific T wave abnormality now evident in Lateral leads Confirmed by SINDY HEREDIA DO ([id number]) on 08/18/2020 11:38:59 AM Electronically Signed By: SINDY HEREDIA DO 08/18/20 1139 PATIENT NAME: CHRISSY SOLOMON Electrocardiogram DATE OF : 39 PHYSICIAN: SINDY HEREDIA DO REPORT #: [id number] REPORT IS CONFIDENTIAL AND NOT TO BE RELEASED WITHOUT AUTHORIZATION
== END ==
LOC: ED 13:38
DX: A41.9 Sepsis, unspecified organism (principal); I47.1 Supraventricular tachycardia; I48.91 Unspecified atrial fibrillation; K81.9 Cholecystitis, unspecified; Z20.822 Contact with and (suspected) exposure to COVID-19; I10 Essential (primary) hypertension; J44.9 Chronic obstructive pulmonary disease, unspecified; Z88.0 Allergy status to penicillin; Z79.899 Other long term (current) drug therapy; Z79.52 Long term (current) use of systemic steroids
CPT/HCPCS: 71045; 74177; 80053; 83605; 83735; 83880; 84484; 85025; 87040; 93005; 93010; 96366; 96375; 96376; 99285-25; C9803; J0153; J0696; J7040; Q9967; U0003

== ENCOUNTER 2020-08-27 23:10 | Inpatient (IN) | payer MEDICARE, OTHER ==
[~2020-08-27] VITALS: Ht 152.4 cm; Wt 59.1 kg
[~2020-08-27 23:10] MED LIST changes: -CEFPODOXIME PR200 MG PO; -ELIQUIS5 MG PO; -FLAGYL500 MG PO; -LIDOCAINE1 EAC1 TOP; -LISINOPRIL5 MG PO; -METOPROLOL SUC100 MG PO; -METOPROLOL SUCC25 MG PO; -PREDNISONE20 MG PO
--- OUTSIDE RECORDS SUMMARY | 2020-08-27 23:12 | XMS ---
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 Elia VISIT COUNT (12 MO.) 1 [facility] 7 [facility] TOTAL 9 NOTE: Visits indicate total known visits. 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 - Chronic obstructive pulmonary disease, unspecified - Allergy status to penicillin - Sepsis, unspecified organism - Cholecystitis, unspecified 08/15/2020 11:19 [facility] [place] TYPE: Emergency COMPLAINT: - DIFFICULTY BREATHING DIAGNOSES: - Essential (primary) hypertension - half-way (current) use of systemic steroids - Supraventricular tachycardia - Shortness of breath - Other penitentiary (current) drug therapy - Chronic obstructive pulmonary disease, unspecified - Personal history of nicotine dependence - Other specified abnormal findings of blood chemistry - Allergy status to penicillin 06/21/2020 17:54 [facility] TYPE: Emergency DIAGNOSES: 0. ABD PAIN 06/19/2020 12:15 [facility] [place] TYPE: Emergency COMPLAINT: - BACK PAIN DIAGNOSES: - Other intervertebral disc degeneration, lumbar region - Low back pain - Allergy status to penicillin - Other penitentiary (current) drug therapy - Essential (primary) hypertension - Chronic obstructive pulmonary disease, unspecified - Personal history of nicotine dependence - Spondylosis without myelopathy or radiculopathy, lumbar region 05/02/2020 22:19 [facility] [place] TYPE: Emergency COMPLAINT: - ALTERED MENTAL STATUS DIAGNOSES: - Chronic obstructive pulmonary disease, unspecified - Personal history of transient ischemic attack (TIA), and cerebral infarction without residual deficits - Other penitentiary (current) drug therapy - Personal history of nicotine dependence - Calculus of bile duct with acute cholecystitis without obstruction - Sepsis, unspecified organism - Acute cholecystitis - Dehydration - Allergy status to penicillin - Essential (primary) hypertension 01/28/2020 01:50 [facility] [place] TYPE: Emergency COMPLAINT: - FALL 10/10/2019 22:44 [facility] [place] TYPE: Emergency COMPLAINT: - FALL DIAGNOSES: - Other manager long term care (current) drug therapy - Strain of muscle, [...] (primary) hypertension INPATIENT VISIT TRACKING (12 MO.) 08/17/2020 03:34 [facility] TYPE: Internal Medicine DIAGNOSES: - Chest pain, unspecified - Unspecified atrial fibrillation - cholecystitis, SVT - Chronic obstructive pulmonary disease, unspecified - Acute cholecystitis - Sepsis, unspecified organism 05/03/2020 08:12 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 - Chronic diastolic (congestive) heart failure - Personal history of nicotine dependence - Supraventricular tachycardia - Paroxysmal atrial fibrillation - Fall on same level, unspecified, initial encounter - Other manager long term care (current) drug therapy - Atherosclerotic heart disease of [place] coronary artery without angina pectoris - Allergy [...] external cause - Atherosclerotic heart disease of [place] coronary artery without angina pectoris - half-way (current) use of inhaled steroids - Chronic obstructive pulmonary disease, unspecified - Postprocedural hematoma of skin and subcutaneous tissue following other procedure - Personal history of nicotine dependence - Other acute postprocedural pain [email or web address]
[2020-08-27] MEDS ORDERED: ELIQUIS5 MG PO (23:27)
[2020-08-28] MEDS ORDERED: ADVAIR 500-501 EACH INH (00:08)
[2020-08-28] MEDS ORDERED: DULOXETINE HCL60 MG PO (00:08)
[2020-08-28] MEDS ORDERED: LISINOPRIL5 MG PO (00:09)
[2020-08-28] MEDS ORDERED: METOPROLOL SUCC25 MG PO (00:10)
--- NOTE | 2020-08-28 03:26 | NUR ---
0225 PATIENT ARRIVED VIA STRETCHER. 3PA TO MOVE PATIENT TO BED. PATIENT IS AAOX3. FAMILY AT BEDSIDE. PATIENT TOLERATING 2L NC. HOB ELEVATED EATING ICE CHIPS. PATIENT DENIES FEELING SOB. DENIES PAIN OR NAUSEA. LUNG SOUNDS ARE CLEAR IN UPPER AND DIMINISHED IN BASES. REDNESS NOTED UNDER BREAST AND IN GROIN, AREAS COVERED IN CREAM FROM HOME. 3+ PITTING EDEMA IN JIMMY LOWER EXTREMITITES NOTED. PATIENT REPORTS FEELING SWOLLEN AND THE FAMILY AGREES SHE HAS MORE EDEMA THEN NORMAL. PATIENT IS CHRONICALLY INCONTINENT AND IS DTV. IV ABX FINISHED, SITE WNL. MULTIPLE BRUISES NOTED ON JIMMY ARMS FROM IV ATTEMPTS AND LAB DRAWS. PATIENT DENIES ANY FURTHER NEEDS AT THIS TIME. ALLOWED PATIENT TO REST.
--- NOTE | 2020-08-28 03:40 | NUR ---
PATIENT INCONTINENT OF URINE. ABLE TO LIFT HER HIPS TO CHANGE ATTENDS. PATIENT TOLERATING 2L NC. DENIES ANY CONCERNS. CALL LIGHT IN REACH. FAMILY AT BEDSIDE.
--- NOTE | 2020-08-28 04:30 | NUR ---
PATIENT SLEEPING SOUNDLY. BREATHING THROUGH HER MOUTH, DESAT TO LOW 80% ON 4L NC. PLACED ON 3L NS AND TOLERATING WELL.
--- NOTE | 2020-08-28 06:00 | NUR ---
PATIENT CONTINUES TO REST WITH 3L OXY MASK IN PLACE. VS STABLE. ALLOWED PATIENT TO REST. FAMILY IN ROOM.
--- NOTE | 2020-08-28 07:07 | NUR ---
PATIENT SLEEPING SOUNDLY. WOKE EASILY TO VOICE. REPORTS ATTENDS ARE DRY. PATIENT ABLE TO ASSIST IN ROLLING TO GET NEW ATTEND IN PLACE. TOLERATING 2L OXYMASK. DENIES OTHER NEEDS.
--- NOTE | 2020-08-28 07:40 | NUR ---
REPORT RECIEVED, PATIENT IS ASLEEP, OXYMASK IN PLACE AT 2 L. NO DISTRESS NOTED.
--- NOTE | 2020-08-28 09:11 | NUR ---
PATIENT UP TO BSC AND BACK TO BED, 2PA PIVOT TRANSFER. LINENS CHANGED. VINICIO CARE DONE. PATIENT NOW SITTING UP IN BED, SON IN ROOM. CALL LIGHT IN REACH. NO FURTHER NEEDS AT THIS TIME.
--- NOTE | 2020-08-28 09:40 | NUR ---
dr. franklin here to see patient. orders recieved. US OF ABD ORDERED, THIS TO BE DONE AROUND 1700 TODAY PATIENT ATE BREAKFAST. PT IN ROOM. PATIENT POSITIONED TO RIGHT SIDE.
--- NOTE | 2020-08-28 10:50 | NUR ---
REPOSITIONED. ROUTINE MEDICATIONS GIVEN. TOOK MEDS WELL. PATIENT IS VERY WEAK. O2 AT 2 [address] PER NC [address]. PATIENT DENIES PAIN OR NAUSEA. PT AND PT AWARE OF U.S. SCHEDULED FOR THIS AFTERNOON, BOTH ARE AWARE THAT PT CAN HAVE WATER ONLY UNTIL AFTER U.S.
--- NOTE | 2020-08-28 11:15 | NUR ---
CHART REVIEWED BY THIS RN. PRIMARY RN AND MD IN ROOM WITH PATIENT. PER STAFF PATIENT WEAK AND LETHARGIC THIS AM. PER H&P PATIENT LIVES AT HOME WITH HER HEATHER. BRANDYN RODRÍGUEZ PATIENT DAUGHTER [place] SERVES HER HIGHWAY MAINTAINER. PATIENT IS ON HOME 02 AND DOES HAVE A NEBULIZER. PATIENT IS KNOWN BY STAFF TO HAVE MORE THAN ADEQUATE FAMILY SUPPORT AVAILABLE TO HER. WILL FOLLOW UP WITH PATIENT WHEN SHE IS FEELING BETTER.
--- NOTE | 2020-08-28 12:00 | NUR ---
ASSESSMENT UNCHANGED. LUNCH HELD FOR U.S. REPOSITIONED.
--- NOTE | 2020-08-28 15:00 | NUR ---
INCONT OF STOOL AND URINE, ATTENDS CHANGED. REPOSITIONED.
--- NOTE | 2020-08-28 15:30 | NUR ---
DR. MEZA IN DEPARTMENT, UPDATED ON PATIENT BP. LOPRESSOR AND CARDIZEM HELD AT THIS TIME PER ORDERS. PATIENT IS AWAKE AND ALERT. IN ROOM. IVF LR HUNG AT 250 ML/HR FOR 2 HOURS.
--- NOTE | 2020-08-28 16:00 | NUR ---
ASSESSMENT DONE. IVF INFUSING AT 250 ML/HR. PATIENT IS WATCHING TV.
--- NOTE | 2020-08-28 16:15 | NUR ---
PT CURRENTLY TAKES DPI ADVAIR AND MDI ALBUTEROL FOR HOME REG WITH DUONEB PRN. PT ASSESSED FOR CORRECT INHALER TECHNIQUE WITH INFLO CHECK DIAL. PT WAS UNABLE TO ATTAIN MORE THAN -30 LITERS PER MINUTE WHICH PRECLUDES THE USE OF DPI'S. IT WAS RECOMMENDED TO CLINICAL PHARMACY THAT PATIENT BE CHANGED TO EQUIVALENT SVN TO REPLACE ADVAIR DPI HOME REGIMEN.
[2020-08-28] MEDS ORDERED: IPRAT-ALBUT 0.5-3 ML INH (17:30)
--- NOTE | 2020-08-28 17:30 | NUR ---
MED REC COMPLETE
[2020-08-28] MEDS ORDERED: LIDOCAINE1 EAC1 TOP (17:31)
--- NOTE | 2020-08-28 18:09 | NUR ---
AWAITING U.S. PATIENT IS AWAKE AND WATCHING TV. DENIES PAIN.
--- NOTE | 2020-08-28 19:10 | NUR ---
US COMPLETE. SITTING UP IN BED TO EAT. IVF ON HOLD WHILE EATING. REPORT TO NEXT SHIFT.
--- NOTE | 2020-08-28 19:44 | NUR ---
PATIENT FINISHED HER DINNER AND ATE ABOUT 75% OF THAT. PATIENT DENIED ANY CONCERNS AT THIS TIME. DENIES NEED TO VOID. PATIENT RESTING IN BED. ASSIST TO REPOSITION FOR COMFORT. PATIENT WATCHING TV. TOLERATING 2L NC. CALL LIGHT IN HAND.
--- NOTE | 2020-08-28 20:19 | NUR ---
PATIENT PROVIDED WITH NEB TREATMENT. LUNGS ARE CLEAR PRIOR TO TREATMENT AND AFTER. PATIENT DENIES FEELING SOB. TOLERATING 2L NC. OCCATIONAL COUGH. SCHEDULED MEDS PROVIDED. PRN TYLENOL FOR GENERAL ACHES AND PAIN. IV ABX STARTED, SITE WNL. PATIENT NOT READY FOR PM CARES AT THIS TIME. CALL LIGHT IN REACH.
--- NOTE | 2020-08-28 21:04 | NUR ---
PATIENT UP TO BSC. 1PA STAND PIVOT. PATIENT IS WEAK. WAS INCONTINENT OF SMALL AMOUNT OF URINE. MEDIUM SOFT STOOL. 2PA TO ASSIST PATIENT TO WIPE AND NEW ATTENDS IN PLACE. PATIENT ASSISTED BACK TO BED. POSITIONED FOR COMFORT. IV ABX INFUSING, SITE WNL. VS STABLE. HR ELEVATED WITH ACTIVITY UP TO 140'S BUT 90-100'S AT REST. TOLERATING 2L NC, SOME SOB WITH ACTIVTY. PATIENT IS READY FOR BED AT THIS TIME. PM CARES DONE. LIGHTS DIMMED. CALL LIGHT IN HAND.
--- NOTE | 2020-08-28 23:04 | NUR ---
PATIENT REPORTS A DRY MOUTH AND THROAT. OFFERED WARM TEA OR WATER. PATIENT DECLINED. HARD CANDY AND ICE WATER PROVIDED SOME RELIEF. PATIENT RESTING WATCHING TV. ATTENDS ARE DRY. IV ABX PER ORDER, SITE WNL.
--- NOTE | 2020-08-29 | NUR ---
PATIENT'S SON INTO VISIT. PATIENT RESTING IN BED WITH LIGHTS DIMMED. REPORTS ONGOING DRY MOUTH. WARM TEA PROVIDED. PATIENT TOLERATING 2L. ATTENDS ARE DRY. VS STABLE. CALL LIGHT IN REACH.
--- NOTE | 2020-08-29 01:00 | NUR ---
PATIENT ASSISTED TO REPOSITION. IV SITE IS POSITIONAL. ENCOURAGED PATIENT TO KEEP ARM FLAT, AGREES TO HAVE PADDED ARM BOARD PLACED ON THIS ARM.
--- NOTE | 2020-08-29 02:00 | NUR ---
PATIENT'S SON GOING HOME. PATIENT APPEARS TO BE SLEEPING FOR FIRST TIME TONIGHT. HR 80'S, AFIB. ALLOWED PATIENT TO SLEEP.
--- NOTE | 2020-08-29 03:00 | NUR ---
PATIENT CONTINUES TO SLEEP SOUNDLY. IV FLUIDS PER ORDER, SITE WNL. HR IN 90'S.
--- NOTE | 2020-08-29 04:00 | NUR ---
PATIENT WOKE WHEN RN ENTERED ROOM. ATTENDS WET WITH LARGE AMOUNT OF URINE. PATIENT ABLE TO ASSIST IN TURNING. VINICIO CARE DONE AND NEW ATTENDS IN PLACE. PO MEDS PROVIDED. PATIENT'S VS STABLE. TOLERATING 2L NC. DECLINED NEB TREATMENT. LUNGS ARE CLEAR. PATIENT ATTEMPTING TO GO BACK TO SLEEP. LIGHTS DIMMED. CALL LIGHT IN REACH.
--- NOTE | 2020-08-29 06:30 | NUR ---
SECOND IV SITE ESTABLISHED IN LEFT HAND WITH LAB DRAW . PATIENT TOLERATED WELL. VS STABLE. ATTENDS ARE DRY. PATIENT CONTINUES TO REST. DENIES NEEDS. CALL LIGHT IN REACH.
--- NOTE | 2020-08-29 08:00 | NUR ---
assessment done. PATIENT STATES SHE FEELS MUCH BETTER TODAY. DENIES SHORTNESS OF BREATH, STATES HAS A SLIGHT PAIN IN CHEST WITH DEEP BREATH. DENIES NAUSEA. TALKED WITH PATIENT ABOUT POC FOR THE DAY, INDICATES UNDERSTANDING.
--- NOTE | 2020-08-29 09:00 | NUR ---
TOOK BREAKFAST WELL. INC OF URINE AND STOOL. ATTENDS CHANGED. PATIENT WISHES TO STAY IN BED AT THIS TIME. STATES SHE FEELS VERY TIRED.
--- NOTE | 2020-08-29 09:15 | NUR ---
DR. MEZA HERE TO SEE PATIENT.
--- NOTE | 2020-08-29 09:30 | NUR ---
Spoke with Arianne. States she has a poor memory. She does remember staying in [facility] and was very happy with their care. Wants to go home on discharge. Her daughter Bev lives with her and her spouse. Pt states she cannot remember much as he memory is worsening. She is able to tell me about her 3 little dogs. She states she does not want to go to a SNF on dc. Wants to go home as she is worried about her spouse. Will speak with the family when they come in.
--- NOTE | 2020-08-29 09:36 | EKG ---
[facility] [address] [place] [address] Signed Atrial fibrillation Septal infarct (cited on or before 16-AUG-2020) Abnormal ECG When compared with ECG of 16-AUG-2020 20:04, No significant change was found Confirmed by JAGDISH MEZA MD ([id number]) on 08/29/2020 9:36:18 AM Electronically Signed By: JAGDISH MEZA MD 08/29/20 0936 PATIENT NAME: CHRISSY SOLOOMN Electrocardiogram DATE OF : 39 PHYSICIAN: JAGDISH MEZA MD REPORT #: [id number] REPORT IS CONFIDENTIAL AND NOT TO BE RELEASED WITHOUT AUTHORIZATION
--- NOTE | 2020-08-29 10:19 | NUR ---
METOPROLOL AND CARDEZEM GIVE. PT TOLERATED IT WELL. PT IS IN THE ROOM WITH HER NOW FOR A VISIT. NO FURTHER NEEDS AT THIS TIME.
--- NOTE | 2020-08-29 11:40 | NUR ---
RESTING IN BED, REMAINS IN ROOM. PATIENT IS W/O PAIN OR NAUSEA. LUNCH ORDERED.
--- NOTE | 2020-08-29 12:00 | NUR ---
ASSESSMENT UNCHANGED. WISHES TO REMAIN IN BED FOR LUNCH. REMAINS IN ROOM.
--- NOTE | 2020-08-29 12:55 | NUR ---
PT ALERT, RESTING IN BED.SHE MENTIONED THAT SHE SLEPT WELL LAST NIGHT-JUST NOT ENOUGH. HOPES TO GET MORE REST TODAY. PT MENTIONED SHE IS FEELING MUCH BETTER THAN WHEN SHE CAME. REQUESTED PRAYER, WILL FOLLOW NEEDED
--- NOTE | 2020-08-29 13:00 | NUR ---
TOOK LUNCH WELL. BED BATH GIVEN, TOLERATED WELL. OOB TO CHAIR WITH ASSIST.
--- NOTE | 2020-08-29 13:40 | NUR ---
TO COMMODE FROM CHAIR TO EXPELL LARGE SOFT FORMED STOOL THEN BACK TO CHAIR. HR CONTROLLED IN A-FIB.
--- NOTE | 2020-08-29 14:39 | NUR ---
FLAGYL INFUSION COMPLETED, SALINE LOCKED. PT REQUESTING TO GET TO BED, MAX ASSIST STAND PIVOT. PT DENIES OTHER NEEDS AT THIS TIME.
--- NOTE | 2020-08-29 15:14 | NUR ---
DR. RIVERO HERE TO SEE
--- NOTE | 2020-08-29 17:30 | NUR ---
DR. MEZA UPDATED ON PATIENT CONDITION VIA PHONE. ORDERS RECIEVED FOR TRANSFER TO MEDICAL FLOOR. PATIENT SITTING UP IN BED FOR DINNER.
--- NOTE | 2020-08-29 18:00 | NUR ---
REPORT TO MEDICAL FLOOR.
--- NOTE | 2020-08-29 18:15 | NUR ---
TOOK DINNER WELL. ATTENDS CHANGED, INCONT OF URINE.
--- NOTE | 2020-08-29 18:20 | NUR ---
TO MEDICAL FLOOR VIA BED.
--- NOTE | 2020-08-29 18:39 | NUR ---
PT TRANSFERED FROM CCU WITH GREGORIA REED. PT DENIES CONCERNS. CALL LIGHT IN REACH.
--- NOTE | 2020-08-29 19:20 | NUR ---
REPORT RECEIVED FROM GREGORIA COLBERT. ASSUMED CARE OF pt.
--- NOTE | 2020-08-29 22:10 | NUR ---
pt RESTING IN BED, SPO2 WNL WITH 2L OXYGEN BY NC IN PLACE. HR IRREGULAR, SCHEDULED MEDICATIONS ADMINISTERED. INCONTINENT OF URINE, HEAVY 2PA TO BSC FOR SOFT BROWN BM. BACK TO BED, REPOSITIONED WITH TWO RN ASSIST. ASSESSMENT COMPLETE. pt DENIES PAIN. IV SITES FLUSHED WNL AND IV ANTIBIOTICS INFUSING ORDERED. ORAL CARE COMPLETE. CALL LIGHT IN REACH. LIGHTS OFF IN ROOM.
--- NOTE | 2020-08-29 22:18 | NUR ---
IMAGING NOTIFIED OF NEW ORDER FOR HIDA SCAN AND ISOTOPE NEEDED.
--- NOTE | 2020-08-29 23:00 | NUR ---
IV ANTIBIOTIC COMPLETE. IV SL WNL. PATIENT'S SON IN ROOM VISITING WITH PATIENT. NO REQUESTS AT THIS TIME.
--- NOTE | 2020-08-29 23:34 | NUR ---
IV PUMP ALARMING, DISTAL OCCLUSION. IV ANTIBIOTIC NOW INFUSING LEFT HAND IV SITE WNL. CALL LIGHT IN REACH. SON OUT OF ROOM AT THIS TIME, pt ALLOWED TO REST.
--- NOTE | 2020-08-30 01:30 | NUR ---
pt RESTING IN BED WITH EYES CLOSED. BREATHING EQUAL AND UNALBORED. 2L OXYGEN BY NC IN PLACE.
--- NOTE | 2020-08-30 02:37 | NUR ---
pt INCONTINENT OF URINE. ABLE TO ASSIST RN WITH TURNING TO CHANGE ATTENDS. NEW ATTENDS IN PLACE. REPOSITIONED WITH TWO RN ASSIST. FLOATING WITH PILLOWS UNDER HIPS. ASSESSMENT COMPLETE. LUNG SOUNDS CLEAR. NO EDEMA NOTED. TV AND LIGHTS OFF. CALL LIGHT IN REACH. NO ADDITIONAL REQUESTS.
--- NOTE | 2020-08-30 04:50 | NUR ---
pt AWAKENS TO RN ENTERING ROOM FOR SCHEDULED MEDICATION ADMINISTRATION. VSS. 2L OXYGEN BY NC IN PLACE. pt TOOK MEDICATION WITH SMALL SIP WATER, NOTIFIED OF NPO FOR HIDA SCAN, pt VERBALIZES UNDERSTANDING. INCONTINENT OF URINE, PAD CHANGED. LIGHTS OFF IN ROOM. CALL LIGHT IN REACH.
--- NOTE | 2020-08-30 05:21 | NUR ---
pt RESTED WELL THIS SHIFT. INCONTINENT OF URINE. 2P MAX ASSIST TO GET OUT OF BED, PIVOT TO BSC. SMALL SOFT BM THIS SHIFT. ALERT AND ORIENTED TO ALL ORIENTATION QUESTIONS. FORGETFUL REGARDING MEDICATIONS AND REASONS FOR MEDICATION ADMINISTRATION, EDUCATION PROVIDED WITH EACH ADMINISTRATION. IV ANTIBIOTICS.
--- NOTE | 2020-08-30 07:30 | NUR ---
this rn received report from mildred howell. pt off to [email or web address] at this time for imagining studies
--- NOTE | 2020-08-30 08:35 | NUR ---
this rn down to [facility] per request from [facility] to give 2mg of morphine. dose confirmed with lary howell.
--- NOTE | 2020-08-30 11:07 | NUR ---
PT WAS COMING BACK FROM [employer]. PT HAD A MEDIUM SIZED BOWEL MOVEMENT. GOT PATIENT BACK TO THE BED AND CLEANED UP. MORNING ASSESSMENT COMPLETED. LUNG SOUNDS WERE CLEAR. PT IS ON 1L NC. PT DENIES SOB. BOWEL TONES WERE ACTIVE. PT STATES 0/10 PAIN. PT ALSO STATES NO NUMBNESS OR TINGLING IN EXTREMITES. PT SON CAME AND IS VISITING WITH HER. MORNING MEDICATIONS PASSED. SEE EMAR. NO FURTHER NEEDS AT THIS TIME.
--- NOTE | 2020-08-30 12:39 | NUR ---
PT SITTING UP EATING AM MEAL. SEEMS HAPPY WITH MEAL, SLEPT BETTER LAST NIGHT. GAVE BLESSING, WILL FOLLOW NEEDED
--- NOTE | 2020-08-30 15:54 | NUR ---
PT WAS LAYING IN BED. AFTERNOON ASSESSMENT COMPLETED. NO CHANGES FROM THIS MORNINGS ASSESSMENT. PT STATED NO PAIN AT THIS TIME. CHECKED PT FOR INCONTINENCE AND SHE WAS DRY. WE PLAN ON CONTINUING TO ENCOURAGE FLUIDS. NO FURTHER NEEDS AT THIS TIME.
--- NOTE | 2020-08-30 18:23 | NUR ---
PT WAS RESTING IN BED WAITING FOR DINNER. VITAL SIGNS AND I&O TAKEN. PT WAS CHANGED. SHE VOIDED QUITE A BIT THE VINICIO PAD WAS SOAKED. HER DINNER ARRIVED LATE. THERE WAS A MISCOMMUNICATION WITH DIETARY ON IF THE PT WAS STILL NPO OR NOT. PT HAS RECEIVED HER DINNER AND IS UP IN BED EATING. NO FURTHER NEEDS AT THIS TIME.
--- NOTE | 2020-08-30 19:15 | NUR ---
REPORT RECEIVED FROM GREGORIA MUÑIZ AND STUDENT NURSE. pt SITTING UP IN BED. 2L OXYGEN BY NC IN PLACE. DAUGHTER AT BEDSIDE. TRAY TABLE CLEARED. ICE WATER PROVIDED.
--- NOTE | 2020-08-30 22:03 | NUR ---
PT ASSESSMENT COMPLETE. IV SITES FLUSHED WNL AND IV ANTIBIOTICS INFUSING. pt DENIES PAIN. ASSESSMENT COMPLETE. CRACKLES LLL ON AUSCULTATION, DEMONSTRATED IS USE X 4 WITH 500 ML BEST EFFORT. 1+ EDEMA BLE. LEGS ELEVATED ON PILLOWS AND WITH BED. VSS. INCONTINENT OF URINE, ATTENDS CHANGED. REPOSITIONED WITH TWO RN ASSIST TO BOOST IN BED, FLOATING WITH PILLOWS UNDER EACH HIP. SMALL AMT REDDENED AREA NOTED ON RIGHT BUTTOCK, BLANCHABLE. CALL LIGHT IN REACH. DAUGHTER IN ROOM.
--- NOTE | 2020-08-30 22:13 | NUR ---
IV ANTIBIOTIC INFUSION COMPLETE. IV SL WNL. pt DROWSY, CLOSES EYES RN LEAVES ROOM.
--- NOTE | 2020-08-31 00:38 | NUR ---
CHECKED ON pt. RESTING IN BED WITH EYES CLOSED. BREATHING EQUAL AND UNLABORED. 2L OXYGEN BY NC IN PLACE.
--- NOTE | 2020-08-31 02:06 | NUR ---
RN ENTERS ROOM TO CHECK pt'S ATTENDS, REPOSITION pt. pt REMOVING OXYGEN FROM FACE AT THIS TIME, 2L NC REAPPLIED BY RN. pt INCONTINENT OF URINE. ATTENDS CHANGED. REPOSITIONED TO RIGHT SIDE WITH PILLOWS UNDER LEFT HIP. ASSESSMENT COMPLETE. LEGS ELEVATED ON PILLOW, 1+ EDEMA BLE. LUNG SOUNDS CLEAR WITH CRACKLES LLL. pt DENIES SOB. IV ANTIBIOTIC COMPLETE, IV SL WNL. CALL LIGHT IN REACH.
--- NOTE | 2020-08-31 05:16 | NUR ---
pt SLEEPING, AWAKENS TO VOICE. INCONTINENT OF URINE, ATTENDS CHANGED. REPOSITIONED TO LEFT SIDE WITH PILLOWS UNDER RIGHT HIP. LEGS ELEVATED ON PILLOWS. 2L OXYGEN BY NC IN PLACE. VSS. CALL LIGHT WITHIN REACH.
--- NOTE | 2020-08-31 05:45 | NUR ---
CONTROL ROOM SUPERVISOR FINISHED DRAWING LABS. IV SITE FLUSHED AND IV ANTIBIOTIC INFUSING. pt REQUESTING TO REST. 2L OXYGEN BY NC IN PLACE.
--- NOTE | 2020-08-31 05:46 | NUR ---
pt RESTED WELL THIS SHIFT. INCONTINENT OF URINE, ATTENDS AND VINICIO PAD IN PLACE. REPOSITIONED THROUGHOUT SHIFT. 1+ EDEMA BLE, LEGS ELEVATED THROUGHOUT SHIFT. 2L OXYGEN BY NC IN PLACE. CRACKLES LLL ON AUSCULTATION, DEMONSTRATES IS USE WITH 500 ML BEST EFFORT. NOT OUT OF BED THIS SHIFT.
--- NOTE | 2020-08-31 07:30 | NUR ---
patient resting in the bed, warm washcloth offered. breakfast ordered. call light within reach. no further needs at this time.
--- NOTE | 2020-08-31 08:15 | NUR ---
REPORT RECEIVED FROM NIGHT RN AND PT. CARE RESUMED. PT. IS ALERT AND ORIENTED. LUNGS CLEAR THROUGOUT. SHE DENIES PAIN. HAND NANOTECHNOLOGY ENGINEERING TECHNICIAN STRENGTH IS WEAK. ATTENDS CHECKED AND PT. STATES SHE IS DRY. IV SITES WNL AND FLUSH WELL. SCRATCHES AND BRUISES PRESENT ON ARMS FROM BLOOD DRAWS AND DOG, PER PT. HR IS REGULAR AND VITALS STABLE. O2 SAT. WAS 99% ON 2L NC. TITRATED TO 1L AND PT. MAINTAINED SAT. GREATER THAN 95% AFTER 10 MIN. PT. LEFT RESTING IN BED WITH CALL LIGHT IN REACH.
--- NOTE | 2020-08-31 08:52 | NUR ---
pt ASSESSMENT COMPLETED. pt DENIES PAIN. LUNGS WERE CLEAR AND DIMINISHED IN LLL AND RLL. BOWEL TONES WERE ACTIVE BUT DIMINISHED. HEART TONES AND RHYTHM WERE WNL. BILATERAL PERIPHERAL EDEMA ON LOWER EXTREMITIES NOTED, NURSE NOTIFED AND WILL CONTINUE TO MONITOR. pt's VITALS WERE WNL. SPO2 WAS AT 97% ON 2L OXYGEN. OXYGEN LOWERED TO 1L AND SPO2 WAS AT 98%. WILL CONTINUE TO MONITOR. pt EDUCATED TO NOTIFY NURSE IF SHE FEELS SHORT OF BREATH. pt STATED NO INCONTINENCE AND EDUCATED TO NOTIFY NURSE TO USE THE RESTROOM. ORAL MEDICATIONS WERE TAKEN AND pt WAS EDUCATED ON MEDICATIONS. pt IN BED EATING BREAKFAST WITH CALL LIGHT WITHIN REACH.
--- NOTE | 2020-08-31 11:10 | NUR ---
Spoke with Arianne and her spouse. She plans on dc today, will stay for lunch and dc after eating. They deny any needs for dc as they have all needed equipment at home. Daughter lives with them and will assist. Offered wc van for transport and he declines and will take her by car and they will transfer into a wc to get into the home. Discussed ambulance service if he needs assist getting her into the home. He denies he will need help.
--- NOTE | 2020-08-31 11:12 | NUR ---
PATIENT HAS A DECENT APPETITE. SHE HAS CHRONIC EDEMA. LIVES WITH HER . SHE IS AWARE OF HER LOW-SODIUM DIET WHILE HERE. SHE LIKES TOMATO JUICE BUT IT IS NOT A LOW-SODIUM VERSION, SO SHE CAN HAVE IT IF ALL OF HER OTHER FOODS FOR THAT MEAL ARE LOW IN SODIUM. SHE DOES NOT HAVE ANY CHEWING OR SWALLOWING PROBLEMS - SHE WEARS DENTURES. STATES SHE DOES NOT REMEMBER IF SHE ORDERED LUNCH. I TOLD HER I WOULD CHECK AND IT SHE DIDN'T SOMEONE WOULD STOP BY AND GET HER ORDER IN A LITTLE WHILE. IS VISITING. SHE WAS NOT DRINKING ANY ORAL NUTRITION SUPPLEMENTS AT HOME. SHE HAS NEVER HAD ENSURE. I SAID WE HAVE ENSURE HERE FOR FOLKS WHO NEED SOME EXTRA CALORIES. SHE SAID SHE DOES NOT NEED ANY EXTRA CALORIES. SHE LIKES ALL SORTS OF JUICES AND LIKES TOAST WITH HER TOMATO JUICE. NO NUTRITION INTERVENTION NEEDED AT THIS TIME. CONTINUE 2 GM SODIUM DIET.
[2020-08-31] MEDS ORDERED: DILTIAZEM 24HR240 M1 PO (11:19)
[2020-08-31] MEDS ORDERED: METOPROLOL SUC100 MG PO (11:19)
[2020-08-31] MEDS ORDERED: PREDNISONE20 MG PO (11:20)
[2020-08-31] MEDS ORDERED: FLAGYL500 MG PO (11:22)
[2020-08-31] MEDS ORDERED: CEFPODOXIME PR200 MG PO (11:22)
--- NOTE | 2020-08-31 12:00 | NUR ---
Notified by head charger, concern for spouse to transport pt. She has been a two person assist. Notified charge loader, spouse declined offer of a wc van. She will discuss with spouse to check if he will use the wc van.
--- NOTE | 2020-08-31 13:01 | NUR ---
DUE TO AGP, UNABLE TO VISIT PT AT THIS TIME. WILL CHECK BACK
--- NOTE | 2020-08-31 13:54 | CONS ---
[facility] [address] [place], [place] [address] Signed DATE OF CONSULTATION: 08/29/2020 CONSULTING PHYSICIAN: Jovana Rivero MD REQUESTING PHYSICIAN: Dr. Meza. PROBLEM: Recurrent elevated white count, known 3 cm gallstone and history of biliary stenting for common duct obstruction in the past. HISTORY OF PRESENT ILLNESS: This 85-year-old white woman was admitted on 08/28/[address] Meza, having presented to the emergency room with shortness of breath. The patient has underlying advanced COPD and is dependent on home oxygen at 2 L/minute. She is bedridden essentially related to debility from prior hip fractures. The patient was noted to have obstructive jaundice a year ago and underwent common bile duct stenting in [place], [place]. At that time, it was not clear that there was stone in the gallbladder, which was subsequently proven to be the case. The patient underwent removal of common duct stent in the recent past. The patient was hospitalized between August 17 and August 21, 2020 for atrial fibrillation with RVR, having presented to the hospital locally for concerns for cholecystitis. The patient tells me she does not have any pain in the right subcostal or epigastric area at this time nor in the back. She has been eating without problem. The recent ultrasound was performed showing a [address] scan recently also performed that I have reviewed shows mild thickening of the gallbladder wall. No sign of intrahepatic ductal dilatation, but again a radiopaque gallstone. The patient was transferred to [facility] on the basis of atrial fibrillation with RVR and possible cholecystitis. Evaluation at [facility] concluded she did not have acute cholecystitis and she was not operated upon. Since being hospitalized in the intensive care unit at [facility], she has been reasonably well-controlled regarding heart rate and has had no complaints of fever, chills, or abdominal pain. PAST MEDICAL HISTORY: Includes persistent atrial fibrillation with rapid ventricular response, chronic diastolic heart failure, COPD and chronic respiratory failure with hypoxemia requiring supplemental oxygen in addition to hypertension, reflux, and major depression. Electronically Signed By: JOVANA RIVERO MD 08/31/20 1354 PATIENT NAME: CHRISSY SOLOMON CONSULTATION DATE OF : 39 REPORT #: [id number] PHYSICIAN: JOVANA RIVERO MD PCP: JOYCE LOVELL MD REPORT IS CONFIDENTIAL AND NOT TO BE RELEASED WITHOUT AUTHORIZATION [facility] [address] [place] [address] Signed SOCIAL HISTORY: She has quit smoking. She does not drink alcohol. She is . Her recently left the premises, so I was unable to visit with him. ALLERGIES: She has allergies to penicillin. MEDICATIONS: At admission include: 1. Pantoprazole. 2. Apixaban (Eliquis). 3. Diltiazem. 4. Fluticasone. 5. Advair Diskus. 6. Lisinopril. 7. Metoprolol. 8. Sucralfate. 9. Albuterol. REVIEW OF SYSTEMS: She currently denies any shortness of breath or chest pain. Has no abdominal pain. No nausea or vomiting. PHYSICAL EXAMINATION: GENERAL: Very elderly woman who appears to be alert and oriented. She appears to be bedridden. NECK: Trachea is midline. She has no jugular venous distention. CHEST: Shows breath sounds to be clear without wheeze or rhonchi. HEART : Irregularly irregular. ABDOMEN: Somewhat obese, but soft. There is a well-healed midline incision with scarring in the upper abdomen. Gentle palpation throughout shows no sign of tenderness at all. She does not have ascites that I can tell. EXTREMITIES: Show no signs of edema. LAB STUDIES: At admission showed white count of 25.5, currently 24.3; hematocrit initially 37.2, now 28.8; platelets 286,000, previously 407,000. Chem profile was essentially normal. Creatinine 0.64. Liver enzymes showed alkaline phosphatase 64, ALT 9, AST 10. BNP was 1360 on August 27, has not been checked since. Albumin level is 3.2. I have reviewed her imaging studies which included an ultrasound performed on August 28, 2020. The images are not as clear as usual to my examination. The report does describe a slightly prominent common bile duct measuring 11 mm in size, gallbladder with a 3 cm stone and mild wall thickening. Electronically Signed By: JOVANA RIVERO MD 08/31/20 1354 PATIENT NAME: CHRISSY SOLOMON CONSULTATION DATE OF : 39 REPORT #: [id number] PHYSICIAN: JOVANA RIVERO MD PCP: JOYCE LOVELL MD REPORT IS CONFIDENTIAL AND NOT TO BE RELEASED WITHOUT AUTHORIZATION [facility] [address] [facility] [place], [place] [address] Signed ASSESSMENT: Clearly, the patient had biliary disease a year ago requiring stenting. She does not appear to have acute cholecystitis at this time. There is no evidence of tenderness on examination. No complaint of pain, though she does admit to episodic right upper abdominal pain at other times. Her liver enzymes are not elevated, although that is not diagnostic for a problem, it is welcome considering the fact she had prior common bile duct obstruction proper. There are numerous notes I will intend to review when I have more time describing her various episodes in this regard. For now, we will continue to monitor. If she should develop signs more consistent with acute cholecystitis, it may explain her episode of elevated white count and other features of her recent cause for hospitalization. It is noted that she has a mild chronic right pleural effusion which again may be related to smoldering cholecystitis. I will review this further with Dr. Meza. Jovana Rivero MD /MODL /[id number] cc: Dr. Phong Meza MD Copies: JAGDISH MEZA MD ~ Electronically Signed By: JOVANA RIVERO MD 08/31/20 1354 PATIENT NAME: CHRISSY SOLOMON CONSULTATION DATE OF : 39 REPORT #: [id number] PHYSICIAN: JOVANA RIVERO MD PCP: JOYCE LOVELL MD REPORT IS CONFIDENTIAL AND NOT TO BE RELEASED WITHOUT AUTHORIZATION
--- NOTE | 2020-09-01 10:45 | NUR ---
Face sheet, order, dc summary faxed to [facility] to resume HH.
== END 2020-08-31 13:50 | disposition home or self-care (01) | DRG 191 ==
LOC: ED 23:10 → CCU 23:11 → MS 08-29 18:20
PROVIDERS: ADMIT Internal Medicine; ATTEND Internal Medicine
DX: J44.1 Chronic obstructive pulmonary disease with (acute) exacerbation (principal); I48.19 Other persistent atrial fibrillation; I50.32 Chronic diastolic (congestive) heart failure; J96.11 Chronic respiratory failure with hypoxia; Z20.822 Contact with and (suspected) exposure to COVID-19; R10.11 Right upper quadrant pain; D72.829 Elevated white blood cell count, unspecified; I11.0 Hypertensive heart disease with heart failure; K21.9 Gastro-esophageal reflux disease without esophagitis; F32.9 Major depressive disorder, single episode, unspecified; Z99.81 Dependence on supplemental oxygen; Z88.0 Allergy status to penicillin; Z87.891 Personal history of nicotine dependence; Z79.01 Long term (current) use of anticoagulants; Z79.899 Other long term (current) drug therapy
CPT/HCPCS: 36415; 71045; 76705; 78226; 80048; 80053; 80076; 81001; 82803; 83605; 83735; 83880; 84484; 85025; 93005; 93010; 94640; 94667; 94668; 94760; 99285-25; A9537; C9803; J0692; J2270; J2930; J7121; J7512; U0003